=== PATIENT | male | born 1975 | race African-American/Black ===

== ENCOUNTER → 2017-09-26 10:51 | Outpatient (REF) | payer MEDICAID, SELFPAY ==
[2017-09-26 18:59] LABS: Basophils # 0.1 K/mm3 (0-0.2); Basophils % 0.8 % (0.1-2.0); Eosinophils # 0.1 K/mm3 (0.0-0.4); Eosinophils % 1.1 % (0.1-12.0); Hematocrit 45.6 % (42.0-52.0); Lymphocytes # 3.2 K/mm3 (0.7-4.5); Lymphocytes % 38.5 K/mm3 (10-50); Mean Corpuscular HGB Conc 32.9 g/dL (31.8-35.4); Mean Corpuscular Hemoglobin 28.2 pg (27.0-31.2); Mean Corpuscular Volume 85.7 fl (80-94); Mean Platelet Volume 9.6 fl (7.4-10.4); Monocytes # 0.3 K/mm3 (0.1-1.0); Monocytes % 3.8 % (1.7-9.3); Neutrophils # 4.7 K/mm3 (1.8-7.8); Neutrophils % 55.8 % (37.0-80.0); Platelet Count 359 K/mm3 (142-424); Red Blood Count 5.32 M/mm3 (4.60-6.20); Red Cell Distribution Width 13.8 % (11.5-17.5); White Blood Count 8.3 K/mm3 (4.8-10.8)
[2017-09-26 19:59] LABS: Alanine Aminotransferase 28 U/L (12-78); Albumin Level 4.1 gm/dL (3.4-5.0); Albumin/Globulin Ratio 1.1 (1.1-1.8); Alkaline Phosphatase 90 U/L (46-116); Anion Gap 14.1 mEq/L (5-15); Aspartate Amino Transferase 15 U/L (15-37); Bilirubin,Total 0.4 mg/dL (0.2-1.0); Blood Urea Nitrogen 13 mg/dL (7-18); Calcium 9.1 mg/dL (8.5-10.1); Carbon Dioxide 25 mmol/L (21.0-32.0); Chloride 104 mmol/L (98-107); Cholesterol 217 mg/dL (140-200); Creatinine,Serum 1.41 mg/dL (0.70-1.30); Estimated Glomerular Filt Rate 55 ml/min (>60); GFR (African American) 67 ML/MIN (>60); Globulin 3.7 gm/dl (1.3-3.2); Glucose 100 mg/dL (74-106); HDL Cholesterol 43 mg/dL (27-67); LDL Cholesterol 118 mg/dL (0-130); Potassium 4.1 mmoL/L (3.5-5.1); Sodium 139 mmol/L (136-145); T4 (Thyroxine) 7.1 ug/dl (4.7-13.3); Thyroid Stimulating Hormone 2.15 uIU/ml (0.358-3.740); Total Protein,Serum 7.8 gm/dL (6.4-8.2); Triglycerides 282 mg/dL (30-200); VLDL Cholesterol 56 mg/dL (0-40)
[2017-09-26 20:20] LABS: Amphetamine/Metha Screen,Urine Negative ng/mL (<1000); Barbiturates Screen,Urine Negative ng/mL (<200); Benzodiazepines Screen,Urine Negative ng/mL (200); Cannabinoid Screen,Urine Negative ng/mL (<50); Cocaine Screen,Urine Negative ng/g (<300); Methadone Screen,Urine Negative ng/mL (<300); Opiate Screen,Urine Negative ng/mL (<300); Phencyclidine Screen,Urine Negative ng/mL (<25)
[2017-09-29 06:26] LABS: Vitamin D 25 Hydroxy 34.9 ng/mL (30.0-100.0)
== END ==
LOC: LAB 10:51
PROVIDERS: Visit Provider Physician Assistant
DX: I10 Essential (primary) hypertension (principal); Z79.899 Other long term (current) drug therapy
CPT/HCPCS: 80053; 80061; 80305; 82652; 84436; 84443; 85025

== ENCOUNTER → 2017-10-10 12:40 | Outpatient (CLI) | payer MEDICAID, SELFPAY ==
--- NOTE | 2017-10-10 12:43 | FL_ITS ---
FL guided lumbar puncture LP HISTORY: Headache, history of viral cephalopathy ITS.REASON: headache, h/o viral encephalopathy ORDERING PHYSICIAN: JEAN-PIERRE Marinelli PATIENT AGE: 42 years Fluoroscopy time: 1 minute and 51 seconds COMPARISON: None TECHNIQUE: Following obtaining informed consent under local anesthesia with 1% lidocaine and under fluoroscopic guidance a 20-gauge spinal needle was inserted into the L4-L5 interspace. Approximately 10 cc of clear CSF was obtained and sent to laboratory for analysis. The patient tolerated the procedure well without evidence of immediate complication IMPRESSION: Successful fluoroscopy guided lumbar puncture without complications
[2017-10-10 14:06] LABS: Glucose,CSF 69 mg/dL (40-70); Total Protein,CSF 49.6 mg/dL (15-45)
[2017-10-10 15:05] LABS: Appearance,CSF Clear (Clear)
[2017-10-10 15:21] LABS: Red Blood Cell,CSF 0 cells/uL (0); Volume,CSF 7 mL; White Blood Cell,CSF 1 cells/uL (0-5)
[2017-10-10 16:25] LABS: Mononuclear WBCs,CSF 100 %; Polynuclear WBCs,CSF 0 %
== END ==
PROVIDERS: Family Provider Emergency Medicine; PCP Physician Assistant; Visit Provider Physician Assistant
DX: Z86.61 Personal history of infections of the central nervous system (principal); R51 Headache; G43.909 Migraine, unspecified, not intractable, without status migrainosus
CPT/HCPCS: 62270; 82945; 84155; 87070; 87205; 89051

== ENCOUNTER → 2018-05-24 12:53 | Outpatient (CLI) | payer MEDICAID, SELFPAY ==
--- NOTE | 2018-05-24 12:56 | CT_ITS ---
CT head/brain wo con HISTORY: ITS.REASON: heaache, seizure ORDERING PHYSICIAN: JEAN-PIERRE Marinelli PATIENT AGE: 43 years COMPARISON: 03/21/2017 TECHNIQUE: Axial images obtained without contrast. Brain and bone windows reviewed. All CT scans at the facility use one or more dose reduction, viz: automated exposure control, ma/kV adjustment per patient size (including targeted exams where dose is matched to indication, i.e. head), or iterative reconstruction technique. FINDINGS: No midline shift, mass effect, intracranial hemorrhage, hydrocephalus, or extra-axial fluid collection is evident. The calvarium has an unremarkable appearance. No mastoid effusion. No sinus air-fluid levels.. IMPRESSION: Negative CT head without contrast. No acute finding
--- NOTE | 2018-05-24 12:56 | FL_ITS ---
FL guided lumbar puncture LP HISTORY: ITS.REASON: headache, seizure ORDERING PHYSICIAN: JEAN-PIERRE Marinelli PATIENT AGE: 43 years COMPARISON: None TECHNIQUE: Following obtaining informed consent under local anesthesia with 1% lidocaine and under fluoroscopic guidance a 22-gauge spinal needle was inserted into the L4-L5 interspace. Initial attempt was at the L3-L4 interspace however, the patient had persistent sensation of numbness and tingling going down the leg into the umbilical region, therefore, the L4-L5 interspace was then entered. Opening pressure is 8 cm water. Approximately 12 cc of clear CSF was obtained and sent to laboratory for analysis. The patient tolerated the procedure well without evidence of immediate complication IMPRESSION: Successful fluoroscopy guided lumbar puncture without complications Opening pressure normal at 8 cm long
[2018-05-24 14:18] LABS: Basophils # 0.1 K/mm3 (0-0.2); Basophils % 0.7 % (0.1-2.0); Eosinophils # 0.1 K/mm3 (0.0-0.4); Eosinophils % 1.4 % (0.1-12.0); Hematocrit 45.4 % (42.0-52.0); Hemoglobin 14.7 g/dL (14.1-18.0); Lymphocytes # 3.4 K/mm3 (0.7-4.5); Mean Corpuscular HGB Conc 32.4 g/dL (31.8-35.4); Mean Corpuscular Volume 86.4 fl (80-94); Mean Platelet Volume 7.7 fl (7.4-10.4); Monocytes # 0.3 K/mm3 (0.1-1.0); Monocytes % 3.7 % (1.7-9.3); Neutrophils # 4.8 K/mm3 (1.8-7.8); Neutrophils % 55.2 % (37.0-80.0); Platelet Count 335 K/mm3 (142-424); Red Blood Count 5.25 M/mm3 (4.60-6.20); White Blood Count 8.7 K/mm3 (4.8-10.8)
[2018-05-24 14:30] LABS: Alanine Aminotransferase 24 U/L (12-78); Albumin Level 3.8 gm/dL (3.4-5.0); Alkaline Phosphatase 95 U/L (46-116); Bilirubin,Total 0.3 mg/dL (0.2-1.0); Blood Urea Nitrogen 18 mg/dL (7-18); Calcium 8.9 mg/dL (8.5-10.1); Carbon Dioxide 27 mmol/L (21.0-32.0); Chloride 104 mmol/L (98-107); Creatinine,Serum 1.67 mg/dL (0.70-1.30); Estimated Glomerular Filt Rate 45 ml/min (>60); GFR (African American) 55 ML/MIN (>60); Globulin 3.9 gm/dl (1.3-3.2); Glucose 121 mg/dL (74-106); Sodium 141 mmol/L (136-145); Total Protein,Serum 7.7 gm/dL (6.4-8.2)
[2018-05-24 14:33] LABS: Aspartate Amino Transferase 18 U/L (15-37)
[2018-05-24 15:37] LABS: Glucose,CSF 76 mg/dL (40-70); Total Protein,CSF 56.3 mg/dL (15-45)
[2018-05-24 16:41] LABS: Appearance,CSF Clear (Clear); Red Blood Cell,CSF 2 cells/uL (0); Volume,CSF 11.5 mL; White Blood Cell,CSF 2 cells/uL (0-5)
[2018-05-24 16:50] LABS: Mononuclear WBCs,CSF 100 %; Polynuclear WBCs,CSF 0 %
== END ==
PROVIDERS: PCP Physician Assistant; Visit Provider Physician Assistant
DX: R51 Headache (principal); R56.9 Unspecified convulsions
CPT/HCPCS: 36415; 62270; 70450; 80053; 82945; 83916; 84155; 85025; 87070; 87205; 89051

== ENCOUNTER → 2018-06-12 13:42 | Outpatient (CLI) | payer MEDICAID, SELFPAY ==
[2018-06-12 13:54] LABS: Basophils % 0.6 % (0.1-2.0); Eosinophils # 0.1 K/mm3 (0.0-0.4); Eosinophils % 1.4 % (0.1-12.0); Hematocrit 46.5 % (42.0-52.0); Hemoglobin 14.8 g/dL (14.1-18.0); Lymphocytes # 2.5 K/mm3 (0.7-4.5); Lymphocytes % 36.7 % (10-50); Mean Corpuscular HGB Conc 31.9 g/dL (31.8-35.4); Mean Corpuscular Hemoglobin 27.2 pg (27.0-31.2); Mean Corpuscular Volume 85.5 fl (80-94); Monocytes # 0.3 K/mm3 (0.1-1.0); Monocytes % 4.8 % (1.7-9.3); Neutrophils # 3.9 K/mm3 (1.8-7.8); Neutrophils % 56.4 % (37.0-80.0); Platelet Count 386 K/mm3 (142-424); Red Blood Count 5.44 M/mm3 (4.60-6.20); Red Cell Distribution Width 14.3 % (11.5-17.5); White Blood Count 6.8 K/mm3 (4.8-10.8)
[2018-06-12 15:12] LABS: Alanine Aminotransferase 27 U/L (12-78); Alkaline Phosphatase 89 U/L (46-116); Anion Gap 14.2 mEq/L (5-15); Aspartate Amino Transferase 23 U/L (15-37); Bilirubin,Total 0.4 mg/dL (0.2-1.0); Blood Urea Nitrogen 10 mg/dL (7-18); Calcium 9.1 mg/dL (8.5-10.1); Carbon Dioxide 25 mmol/L (21.0-32.0); Chloride 103 mmol/L (98-107); Chol/HDL Ratio 4.2 (1-3.5); Cholesterol 196 mg/dL (140-200); Creatinine,Serum 1.34 mg/dL (0.70-1.30); Estimated Glomerular Filt Rate 58 ml/min (>60); GFR (African American) 71 ML/MIN (>60); Glucose 101 mg/dL (74-106); HDL Cholesterol 47 mg/dL (27-67); LDL Cholesterol 99 mg/dL (0-130); Potassium 4.2 mmoL/L (3.5-5.1); Sodium 138 mmol/L (136-145); T4 (Thyroxine) 7.1 ug/dl (4.7-13.3); Thyroid Stimulating Hormone 1.42 uIU/ml (0.358-3.740); Triglycerides 248 mg/dL (30-200); VLDL Cholesterol 50 mg/dL (0-40)
[2018-06-12 15:14] LABS: Phenytoin (Dilantin) < 0.5 ug/mL (10-20)
[2018-06-13 08:30] LABS: Hep A Ab, IgM Negative (Negative); Hepatitis B Core Antibody IgM Negative (Negative); Hepatitis B Surface Antigen Negative (Negative)
[2018-06-13 12:41] LABS: Hepatitis C Antibody <0.1 s/co ratio (0.0-0.9)
== END ==
PROVIDERS: PCP Physician Assistant; Visit Provider Physician Assistant
DX: R51 Headache (principal); E78.5 Hyperlipidemia, unspecified
CPT/HCPCS: 80053; 80061; 80074; 80185; 84436; 84443; 85025

== ENCOUNTER → 2018-07-10 14:12 | Outpatient (CLI) | payer MEDICAID, SELFPAY | PROVIDERS: Visit Provider Physician Assistant | DX: R07.9 Chest pain, unspecified (principal) | CPT/HCPCS: 93005 ==

== ENCOUNTER → 2018-07-12 16:41 | Outpatient (CLI) | payer MEDICAID, SELFPAY | PROVIDERS: PCP Emergency Medicine; Visit Provider Physician Assistant | DX: R00.2 Palpitations (principal) | CPT/HCPCS: 93225; 93226 ==

== ENCOUNTER → 2019-03-18 16:38 | Outpatient (CLI) | payer MEDICARE, MEDICAID, SELFPAY ==
--- NOTE | 2019-03-18 16:44 | XR_ITS ---
XR knee LT 4V HISTORY: ITS.REASON: Left knee pain ORDERING PHYSICIAN: JEAN-PIERRE Nelson PATIENT AGE: 44 years COMPARISON: None FINDINGS: No fracture or dislocation. No lytic or blastic change. Normal mineralization. No significant arthritic changes evident. No other significant findings IMPRESSION: Negative Knee
== END ==
PROVIDERS: PCP Physician Assistant; Visit Provider Physician Assistant
DX: M25.562 Pain in left knee (principal)
CPT/HCPCS: 73564

== ENCOUNTER 2019-03-20 13:34 | Outpatient (RCR) | payer MEDICARE, MEDICAID, SELFPAY ==
--- NOTE | 2019-03-20 15:18 | HMH.PTOPEV ---
PT Outpatient Evaluation Rehab PT Outpatient Evaluation Start: 03/20/19 15:03 Freq: Status: Active Protocol: Document 03/20/19 15:06 SHIRA (Rec: 03/20/19 15:18 SHIRA [id number]) Electronically Signed By Eris David, PT 03/20/19 15:06 Outpatient Therapy Subjective History Subjective History Patient is a 44 year old male presenting to outpatient PT with report of acute left knee pain starting approximatley 3 weeks ago of insidous onset. Most recent diagnostics negative. 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 Most recent diagnostics negative. Comorbidities include hx of gout, seizures, hernia surgery and spinal meningitis. Chief Complaint Pain,Stiff,Weakness Symptom Type Ache,Sharp,Shooting Symptoms Relieved By Activity Prior Functional Limitations None Current Functional Limitations Housework,Standing,Squatting, Recreation Activity,Walking, Stairs,Balance,Bending/ Stooping Symptom Description Constant but Variable Level of pain today (0-10) 4 Pain scale - at its best (0-10) 4 Pain scale - at its worst (0-10) 7 Hip/Knee Eval Gait Observation General Gait Pattern Observation Decrease Weight Bear (L) Assistive Device Assistive Devices None / NA Palpation Tenderness right Knee Palpation Finding Tenderness Knee Palpation Overall Comment Distal ITB insertion, medial joint line. MMT Hip Flexion Strength Grade 4- Good- Hip Abduction Strength Grade 4- Good- Hip Adduction Strength Grade 4- Good- Hip Extension Strength Grade 3+ Fair+ Hip External Rotation Strength Grade 3+ Fair+ Hip Internal Rotation Strength Grade 3+ Fair+ Knee Extension Strength Grade 4- Good- Knee Flexion Strength Grade 4- Good- ROM Hip ROM Reason Not Measured Within Functional Limits Knee Extension Active Range of Motion ( -5 degrees) Knee Extension Passive Range of Motion ( 0 degrees) Knee Flexion Active Range of Motion ( 110 degrees) Knee Flexion Passive Range of Motion ( 115 degrees) Special Tests Kris Test Positive Knee Anterior Armando Test Negative Left Knee Pivot Shift Test Negative Left Knee Valgus Stress Test Negative Left Knee Varus Stress Test
== END 2019-03-20 13:40 | disposition home or self-care (01) ==
LOC: PT 13:34
PROVIDERS: Visit Provider Physician Assistant
DX: M25.562 Pain in left knee (principal)
CPT/HCPCS: 97163

== ENCOUNTER → 2019-08-06 10:38 | Outpatient (CLI) | payer MEDICARE, SELFPAY ==
--- NOTE | 2019-08-06 10:55 | XR_ITS ---
PROCEDURE: XR ABDOMEN MIN 2V CLINICAL INDICATION: pain COMPARISON: ABDPELW/O CT ABD PELVIS W/O CONTRAST from 07/18/2017 FINDINGS: There is mild gastric dilatation. There is moderate stool seen in ascending colon and hepatic flexure. The transverse colon and descending colon are basically decompressed. There is no significant small bowel gas. There surgical clips right upper quadrant from previous cholecystectomy. There is no abnormal soft tissue shadow and there is no free air. IMPRESSION: Essentially nondiagnostic abdomen Dictated by: Dr. Tyree Talavera MD 08/06/2019 11:[address] Tyree Talavera MD in [place] 08/06/2019 11:48
[2019-08-06 11:38] LABS: Basophils # 0.1 K/mm3 (0-0.2); Basophils % 0.5 % (0.1-2.0); Hematocrit 50.4 % (42.0-52.0); Hemoglobin 14.4 g/dL (14.1-18.0); Lymphocytes # 2.2 K/mm3 (0.7-4.5); Lymphocytes % 15.3 % (10-50); Mean Corpuscular HGB Conc 28.6 g/dL (31.8-35.4); Mean Corpuscular Hemoglobin 27.7 pg (27.0-31.2); Mean Corpuscular Volume 96.8 fl (80-94); Mean Platelet Volume 10.3 fl (7.4-10.4); Monocytes # 0.8 K/mm3 (0.1-1.0); Monocytes % 5.3 % (1.7-9.3); Neutrophils # 11.4 K/mm3 (1.8-7.8); Neutrophils % 78.8 % (37.0-80.0); Platelet Count 462 K/mm3 (142-424); Red Cell Distribution Width 14.5 % (11.5-17.5); White Blood Count 14.5 K/mm3 (4.8-10.8)
[2019-08-06 12:29] LABS: Alanine Aminotransferase 35 U/L (12-78); Albumin Level 3.9 gm/dL (3.4-5.0); Alkaline Phosphatase 149 U/L (46-116); Anion Gap 23.8 mEq/L (5-15); Aspartate Amino Transferase 18 U/L (15-37); Bilirubin,Total 0.5 mg/dL (0.2-1.0); Blood Urea Nitrogen 25 mg/dL (7-18); C-Reactive Protein 1.7 mg/dL (0.0-0.9); Calcium 9.8 mg/dL (8.5-10.1); Carbon Dioxide 20 mmol/L (21.0-32.0); Chloride 81 mmol/L (98-107); Creatinine,Serum 2.57 mg/dL (0.70-1.30); Estimated Glomerular Filt Rate 27 ml/min (>60); GFR (African American) 33 ML/MIN (>60); Globulin 3.9 gm/dl (1.3-3.2); Potassium 4.8 mmoL/L (3.5-5.1); Sodium 120 mmol/L (136-145); Total Protein,Serum 7.8 gm/dL (6.4-8.2)
[2019-08-06 12:42] LABS: Glucose 1148 mg/dL (74-106)
[2019-08-06 17:16] LABS: Erythrocyte Sedimentation Rate 6 mm/hr (0-15)
== END ==
PROVIDERS: PCP Nurse Practitioner Family; Visit Provider Nurse Practitioner Family
DX: R10.9 Unspecified abdominal pain (principal); M54.9 Dorsalgia, unspecified
CPT/HCPCS: 36415; 74019; 80053; 85025; 85651; 86140; 87086

== ENCOUNTER 2019-08-06 13:10 | Observation (INO) ==
[2019-08-06 13:32] LABS: Microscopic, Urine URINE MICROSCOPIC (MICROSCOPIC)
--- NOTE | 2019-08-06 13:37 | Emergency Department Note ---
ED Disposition Clinical Impression: DKA (diabetic ketoacidoses) Disposition: Admitted As Inpatient Condition on Discharge: Serious Referrals: Samuel Samuel MD [Primary Care Provider] - Time of Disposition: 15:54 - Critical Care Critical Care Time: Yes Attestation: On 08/06/19, the high probability of a clinically significant, sudden or life threatening deterioration of the following system(s) required my full and direct attention, intervention and personal management. The time I documented below is in addition to time spent performing reported procedures but includes the following listed in this critical care notation. Vital system(s) involved:: Metabolic Failure My critical care processes included: Assessment & monitoring of V/S, Data Review/Interpretation, Coordinating Care, Medication Orders and management Medical Decision Making - Medical Records Medical records reviewed: Yes: I reviewed the patient's medical records. - Rajiv Inquiry Pt receiving controlled substance: No Vital Signs: 08/06/19 13:18 08/06/19 13:29 08/06/19 14:01 Temperature 97.9 F 97.9 F Temperature Source Oral Oral Pulse Rate [Right] 126 H 126 H 115 H Respiratory Rate 26 H 26 H 28 H Blood Pressure [Right Arm] 164/107 H 164/107 H 108/53 L Blood Pressure Mean [Right Arm] 126 126 71 Blood Pressure Position [Right Arm] Sitting 02 Sat by Pulse Oximetry 95 95 98 Oxygen Delivery Method Room Air - Lab Data Lab Results 08/06/19 13:25: Urine Color Straw, Urine Appearance Clear, Urine pH 5.5, Ur Specific [place] <= 1.005, Urine Protein Negative, Urine Glucose (UA) 3+, Urine Ketones Negative, Urine Blood 1+, Urine Nitrate Negative, Urine Bilirubin Negative, Urine Urobilinogen 0.2, Ur Leukocyte Esterase Negative, Urine RBC None , Urine WBC 3-5, Ur Squamous Epith Cells None, Urine Bacteria None 08/06/19 13:25: WBC 14.9 H, RBC 5.31, Hgb 15.5, Hct 51.8, MCV 97.4 H, MCH 29.1, MCHC 29.9 L, RDW 13.7, Plt Count 452 H, MPV 10.1, Neut % (Auto) 82.5 H, Lymph % (Auto) 12.5, [place] % (Auto) 4.6, Eos % (Auto) 0.1, Baso % (Auto) 0.3, Neut # (Auto) 12.3 H, Lymph # (Auto) 1.9, [place] # (Auto) 0.7, Eos # (Auto) 0.0, Baso # (Auto) 0.0, ESR 8 08/06/19 13:25: Sodium 118 L, Potassium 4.7, Chloride 79 L, Carbon Dioxide 18 L, Anion Gap 25.7 H, BUN 26 H, Creatinine 2.65 H, Estimated Creat Clear 51, Estimated GFR 26 L, Est GFR ( Amer) 32 L, Glucose 1384 H* D, Calcium 9.4, Total Bilirubin 0.4, AST 20, ALT 33, Alkaline Phosphatase 150 H, Troponin I < 0.02, C-Reactive Protein 1.7 H, Total Protein 8.2, Albumin 3.9, Globulin 4.3 H, Albumin/Globulin Ratio 0.9 L, Acetone Level None detected 08/06/19 13:25: Lactate 9.6 H 08/06/19 13:25: Influenza Type A Ag Negative, Influenza Type B Ag Negative 08/06/19 13:25: Magnesium 2.8 H 08/06/19 13:25: Hemoglobin A1c 10.5 H 08/06/19 13:29: Specimen Source L radial, O2 % Room air, ABG pH 7.33 L, ABG pCO2 32.7 L, ABG pO2 89.7, ABG HCO3 16.7 L, ABG Total CO2 17.7 L, ABG O2 Saturation 96, ABG Base Excess -9.4 L, Isaac Test Acceptable Result diagrams: 08/06/19 13:25 08/06/19 13:25 Orders (Tests/Meds): ED MEDICATIONS Generic Name Dose Route Start Last Admin Trade Name Freq PRN Reason Stop Dose Admin Insulin Human Regular 100 unit 101 mls @ 10.1 mls/hr 08/06/19 14:04 08/06/19 14:17 / Sodium Chloride IV 09/05/19 14:03 10.1 mls/hr .Q10H JAELYN Administration Protocol 10 UNIT/HR Discontinued Medications Generic Name Dose Route Start Last Admin Trade Name Freq PRN Reason Stop Dose Admin Sodium Chloride 1,000 mls @ 999 mls/hr 08/06/19 13:30 08/06/19 13:27 Sod Chlor 0.9% 1000ml Bag IV 08/06/19 14:30 999 mls/hr .Q1H1M JAELYN Administration Sodium Chloride 1,000 mls @ 999 mls/hr 08/06/19 14:15 08/06/19 14:17 Sod Chlor 0.9% 1000ml Bag IV 08/06/19 15:15 999 mls/hr .Q1H1M JAELYN Administration Sodium Chloride 1,000 mls @ 999 mls/hr 08/06/19 14:15 Sod Chlor 0.9% 1000ml Bag IV 08/06/19 15:15 .Q1H1M JAELYN Ondansetron HCl 4 mg 08/06/19 14:01 08/06/19 14:02 Zofran 4mg/2ml Vial IV 08/06/19 14:02 4 mg ONCE ONE Administration ORDERS Category Date Time Status Chest XR 2 view (NOT portable) [XR chest 2V] Stat Exams 08/06/19 13:22 Taken Troponin I Q3H Lab 08/06/19 16:30 Ordered Troponin I Q3H Lab 08/06/19 19:30 Ordered bedside glucose [POC Glucose,Bedside] Stat Lab 08/06/19 15:10 Ordered Blood Culture Stat Micro 08/06/19 13:25 Received - Physician Consults Physician Consulted: Dr. De La Cruz construction field engineer for Dr. Samuel Time: 15:47 Reason -: Admission Comment/Response: Patient to be admitted for DKA and placed on DKA protocol. Dr. De La Cruz covering for Dr. Samuel. General Adult HPI - General Chief complaint: Recheck/Abnormal Lab/Rx Stated complaint: High Blood Sugar Time Seen by Provider: 08/06/19 13:18 Mode of Arrival: Ambulatory Limitations: No Limitations Description of Symptoms (Recalled from ER Triage Doc. by RN): PT STATES HE HAS BEEN "UNDER THE WEATHER" SINCE , STATES HE HAS BEEN NAUSEOUS, ABD CRAMPING AND JUST OVER ALL FEELING BAD. DENIES FEVER. PT SENT FROM DR VIZCARRA OFFICE FOR HIGH SUGAR. - History of Present Illness HPI narrative: 44-year-old -[place] male presents to the emergency department from his primary care provider with the complaint of severely elevated blood glucose. The patient went to his primary care provider because of fatigue and malaise he felt over the holiday. Patient has a family history of diabetes mellitus and has reported polydipsia, polyphagia and polyuria over the past 2 weeks. Onset (ago): week(s) (1) Consistency: constant Relieving factors: none Exacerbating factors: none Associated symptoms: malaise, weakness Treatments prior to arrival: none - Related Data Home Medications Medication Instructions Recorded Confirmed Pantoprazole Sodium [Protonix 40mg 40 mg PO QAM 09/07/18 08/06/19 tablet] Previous Rx's Medication Instructions Recorded cholecalciferol (vitamin D3) 25 1,000 unit PO DAILY #90 cap 03/27/18 mcg (1,000 unit) capsule hydroxyzine pamoate 50 mg capsule 50 mg PO QHS PRN #90 cap 07/20/18 amitriptyline 100 mg tablet See Rx Instructions .ROUTE 03/08/19 .COMPLEX #30 tablet methylprednisolone 4 mg tablets in 4 mg PO PER PKG DIR 6 Days #21 tab 03/14/19 a dose pack diclofenac sodium 1 % topical gel 4 g TOPICAL QID #100 g 04/03/19 cholecalciferol (vitamin D3) 2,000 2,000 unit PO DAILY #90 tab 05/09/19 unit tablet lisinopril 20 1 tab PO BID #180 tab 05/09/19 mg-hydrochlorothiazide 12.5 mg tablet metoprolol tartrate 100 mg tablet 100 mg PO BID #180 tab 05/09/19 sumatriptan succinate 100 mg tablet See Rx Instructions .ROUTE 05/09/19 .COMPLEX #9 tablet trazodone 100 mg tablet 100 mg PO QHS PRN #90 tab 05/09/19 atorvastatin 20 mg tablet See Rx Instructions .ROUTE 05/31/19 .COMPLEX #90 tab topiramate 200 mg tablet 200 mg PO QHS #90 tab 06/07/19 duloxetine 60 mg capsule,delayed See Rx Instructions .ROUTE 06/28/19 release .COMPLEX #30 capsule Allergies Allergy/AdvReac Type Severity Reaction Status Date / Time chocolate flavor Allergy Unknown I-RASH Verified 08/06/19 09:38 [From CHOCOLATE (FOOD/DRUG)] midazolam [MIDAZOLAM] Allergy Unknown Verified 08/06/19 09:38 From CHOCOLATE (FOOD/DRUG) Allergy Unknown I-RASH Uncoded 08/06/19 09:38 [facility] History - Hepatitis A Screen Drug use history?: No High risk sexual behaviors?: No History of sexually transmitted infection?: No Currently employed?: No Childcare worker?: No Do you have indoor plumbing?: Yes Do you have electricity?: Yes Attestation statement:: This patient has been screened for Hepatitis A risk factors. I have reviewed the patient's past medical history: Yes Medical History: Reports:: Gastroesophageal Reflux Disease(GERD), Hyperlipidemia, Hypertension, Migraine Denies:: Cancer, Diabetes Mellitus Type 1, Diabetes Mellitus Type 2, MRSA Other Surgeries: Yes: Appendectomy, Cardiac Catheterization, Colonoscopy Amputation: No Fractures: No Comment: abdominal surgery. - Social History Smoking Status: Never smoker Alcohol Intake: never Substance Use Type: denies use Occupational Status: retired Housing: house Household Members: family Family Hx:: Diabetes, Hypertension ROS Obtained: Yes Systems reviewed as appropriate & no additional complaints - Constitutional Constitutional: Reports fatigue, Reports malaise - Eyes Eyes: Reports system reviewed and no additional complaints, except as docu - ENT Ears, Nose, Mouth, and Throat: Reports system reviewed and no additional complaints, except as docu - Cardiovascular Cardiovascular: Reports system reviewed and no additional complaints, except as docu - Respiratory Respiratory: Yes system reviewed and no additional complaints, except as docu - Gastrointestinal Gastrointestingal: Reports: system reviewed and no additional complaints, except as docu - Genitourinary Male Genitourinary: Reports system reviewed and no additional complaints, except as docu - Musculoskeletal Musculoskeletal: Reports system reviewed and no additional complaints, except as docu - Integumentary/Breasts Skin/Breast: Reports system reviewed and no additional complaints, except as docu - Neurologic Neurologic: Reports system reviewed and no additional complaints, except as docu - Endocrine Endocrine: Reports system reviewed and no additional complaints, except as docu - Hematologic/Lymphatic Henatologic/Lymphatic: Reports system reviewed and no additional complaints, except as docu - Allergic/Immunologic Allergic/Immunologic: Reports system reviewed and no additional complaints, except as docu Physical Exam - General General appearance: alert, in no apparent distress - Head Head exam: atraumatic, normocephalic, normal inspection - Eye Eye exam: Present: normal appearance, PERRL, EOMI - ENT ENT exam: Present: normal exam, normal oropharynx, mucous membranes moist, normal external ear exam - Neck Neck exam: Present: normal inspection, full ROM, trachea midline. Absent: meningismus, lymphadenopathy - Chest Chest inspection: Present: normal inspection, symmetric chest wall rise. Absent: tenderness - Respiratory Respiratory exam: Present: normal lung sounds bilaterally. Absent: respiratory distress - Cardiovascular Cardiovascular exam: Present: regular rate, normal rhythm. Absent: JVD - Abdominal Exam Abdominal exam: Present: soft, normal bowel sounds. Absent: distention, tenderness, guarding - Extremities Exam Extremities exam: Present: normal inspection, full ROM, normal capillary refill. Absent: calf tenderness - Back Exam Back exam: Present: normal inspection. Absent: tenderness - Neurological Exam Neurological exam: Present: alert, oriented X3, CN II-XII intact, normal gait. Absent: motor sensory deficit - Psychiatric Psychiatric exam: Present: normal affect, normal mood - Skin Skin exam: Present: warm, dry, intact, normal color
[2019-08-06 13:39] LABS: ABG Base Excess -9.4 mmol/L (-2.4-2.3); ABG HCO3 16.7 mmhg (22.0-26.0); ABG Oxygen Saturation 96 % (90-100); ABG PCO2 32.7 mmhg (35.0-45.0); ABG PH 7.33 mmol/L (7.35-7.45); ABG PO2 89.7 mmhg (80-100); ABG TCO2 17.7 mmhg (23-27)
[2019-08-06 13:41] LABS: Allen's Test ACCEPTABLE; Oxygen ROOM AIR %
[2019-08-06 13:42] LABS: Appearance,Urine CLEAR (Clear); Bilirubin,Urine Negative (Negative); Blood, Urine 1+ (Negative); Color,Urine STRAW (Yellow); Glucose,Urine (UA) 3+ (Negative); Ketones,Urine Negative (Negative); Leukocyte Esterase,Urine Negative (Negative); PH,Urine 5.5 (5.0-8.5); Protein,Urine Negative (Negative); Specific Gravity, Urine <= 1.005 (1.005-1.030); Urobilinogen,Urine 0.2 EU/dl (0.2)
[2019-08-06 13:50] LABS: Alanine Aminotransferase 33 U/L (12-78); Albumin Level 3.9 gm/dL (3.4-5.0); Albumin/Globulin Ratio 0.9 (1.1-1.8); Alkaline Phosphatase 150 U/L (46-116); Anion Gap 25.7 mEq/L (5-15); Aspartate Amino Transferase 20 U/L (15-37); Bilirubin,Total 0.4 mg/dL (0.2-1.0); Blood Urea Nitrogen 26 mg/dL (7-18); C-Reactive Protein 1.7 mg/dL (0.0-0.9); Calcium 9.4 mg/dL (8.5-10.1); Carbon Dioxide 18 mmol/L (21.0-32.0); Chloride 79 mmol/L (98-107); Globulin 4.3 gm/dl (1.3-3.2); Sodium 118 mmol/L (136-145); Total Protein,Serum 8.2 gm/dL (6.4-8.2)
[2019-08-06 13:52] LABS: Glucose 1384 mg/dL (74-106)
[2019-08-06 14:05] LABS: Basophils % 0.3 % (0.1-2.0); Eosinophils % 0.1 % (0.1-12.0); Hematocrit 51.8 % (42.0-52.0); Hemoglobin 15.5 g/dL (14.1-18.0); Lymphocytes # 1.9 K/mm3 (0.7-4.5); Lymphocytes % 12.5 % (10-50); Mean Corpuscular HGB Conc 29.9 g/dL (31.8-35.4); Mean Corpuscular Volume 97.4 fl (80-94); Mean Platelet Volume 10.1 fl (7.4-10.4); Monocytes # 0.7 K/mm3 (0.1-1.0); Monocytes % 4.6 % (1.7-9.3); Neutrophils # 12.3 K/mm3 (1.8-7.8); Neutrophils % 82.5 % (37.0-80.0); Platelet Count 452 K/mm3 (142-424); Red Blood Count 5.31 M/mm3 (4.60-6.20); Red Cell Distribution Width 13.7 % (11.5-17.5); White Blood Count 14.9 K/mm3 (4.8-10.8)
--- NOTE | 2019-08-06 14:08 | Electrocardiograph Report ---
APPROVED REPORT Exam: Resting ECG HR:120 bpm ECG Measurements Heart Rate [address] 158 P 35 QRSd 88 QRS 154 QT 322 T39 QTc 455 <Conclusion> Sinus tachycardia Possible Left atrial enlargement Left posterior fascicular block Cannot rule out Anterior infarct, age undetermined Abnormal ECG Electronically signed by : Greg Dumont, 08/06/2019 14:07:55
[2019-08-06 14:38] LABS: Acetone, Serum (Rapid) None Detected (None Detect)
[2019-08-06 14:40] LABS: Erythrocyte Sedimentation Rate 8 mm/hr (0-15)
--- NOTE | 2019-08-06 17:09 | History & Physical Report ---
*Admission Date: 08/06/19 *Chief complaint: DKA *History of present illness: Mr. Qureshi is an obese 44-year-old -[place] gentleman with history of hypertension, hyperlipidemia, GERD, sleep disorder who presents with a little over 2 weeks of worsening abdominal pain, increased urine output and increased thirst. He states over this time span he is lost greater than 30 pounds. He has begun having difficulty sleeping as he is waking up and going to the bathroom 8-12 times a night. Reports not having slept very much in the past 4 days due to significant urine output. Thought he had a respiratory illness and then a stomach bug. Came to the ER due to his feeling so poorly. On initial presentation labs concerning for anion gap metabolic acidosis, severe hyper glycemia, and an ABG with metabolic acidosis. Patient was noted to be in DKA. Initiated on DKA protocol, received fluid resuscitation, started on insulin drip, and admitted to medicine for further management. Patient denies any shortness of breath, fever, cough. General feeling of "ill" for several weeks. Denies any george nausea or vomiting. Appears distraught when informed that he is a diabetic now. [facility] History I have reviewed the patient's past medical history: Yes Medical History: Reports:: Gastroesophageal Reflux Disease(GERD), Hyperlipidemia, Hypertension, Migraine Denies:: Cancer, Diabetes Mellitus Type 1, Diabetes Mellitus Type 2, MRSA *Have you ever received a pneumonia vaccine?: No *Have you received a flu vaccine this season?: No Other Surgeries: Yes: Appendectomy, Cardiac Catheterization, Colonoscopy Amputation: No Fractures: No - *Social History Smoking Status: Never smoker Alcohol Intake: never Substance Use Type: denies use *Occupational Status:: retired Housing: house Household Members: family *Travel in the last 8 weeks: None Family Hx:: Diabetes, Hypertension Review of Systems - Review of Systems Review of systems:: pertinent systems reviewed and negative unless documented below Meds Home Medications Medication Instructions Recorded Confirmed Type cholecalciferol (vitamin D3) 25 1,000 unit PO DAILY #90 cap 03/27/18 08/06/19 Rx mcg (1,000 unit) capsule hydroxyzine pamoate 50 mg capsule 50 mg PO QHS PRN #90 cap 07/20/18 08/06/19 Rx Pantoprazole Sodium [Protonix 40mg 40 mg PO QAM 09/07/18 08/06/19 History tablet] cholecalciferol (vitamin D3) 2,000 2,000 unit PO DAILY #90 tab 05/09/19 08/06/19 Rx unit tablet lisinopril 20 1 tab PO BID #180 tab 05/09/19 08/06/19 Rx mg-hydrochlorothiazide 12.5 mg tablet trazodone 100 mg tablet 100 mg PO QHS PRN #90 tab 05/09/19 08/06/19 Rx topiramate 200 mg tablet 200 mg PO QHS #90 tab 06/07/19 08/06/19 Rx Acetaminophen with Codeine 1 tab PO Q6HP PRN 08/06/19 08/06/19 History [Tylenol with Codeine #3 tablet] Amitriptyline HCl See Rx Instructions .ROUTE .COMPLEX 08/06/19 08/06/19 History Atorvastatin Calcium [Atorvastatin See Rx Instructions .ROUTE .COMPLEX 08/06/19 08/06/19 History 10mg Tab] Diclofenac Sodium [Voltaren 100gm 4 g TOPICAL QID 08/06/19 08/06/19 History Topical Gel] Duloxetine HCl [Cymbalta] See Rx Instructions .ROUTE .COMPLEX 08/06/19 08/06/19 History Metoprolol Tartrate [Lopressor 100 100 mg PO BID 08/06/19 08/06/19 History mg Tablets] SUMAtriptan succinate [Sumatriptan See Rx Instructions .ROUTE .COMPLEX 08/06/19 08/06/19 History Succinate] hydrOXYzine pamoate [Vistaril] 50 mg PO DAILY 08/06/19 08/06/19 History methylPREDNISolone [Medrol] 4 mg PO PER PKG DIR 08/06/19 08/06/19 History Allergies Allergy/AdvReac Type Severity Reaction Status Date / Time chocolate flavor Allergy Unknown I-RASH Verified 08/06/19 09:38 [From CHOCOLATE (FOOD/DRUG)] midazolam [MIDAZOLAM] Allergy Unknown Verified 08/06/19 09:38 From CHOCOLATE (FOOD/DRUG) Allergy Unknown I-RASH Uncoded 08/06/19 09:38 Exam Vital signs and Labs for Last 24 Hours: Temp Pulse Resp BP Pulse Ox 98.1 F 98 H 18 119/78 97 08/06/19 16:39 08/06/19 16:39 08/06/19 16:39 08/06/19 16:39 08/06/19 16:28 Laboratory Results - last 24 hr 08/06/19 13:25: Urine Color Straw, Urine Appearance Clear, Urine pH 5.5, Ur Specific [place] <= 1.005, Urine Protein Negative, Urine Glucose (UA) 3+, Urine Ketones Negative, Urine Blood 1+, Urine Nitrate Negative, Urine Bilirubin Negative, Urine Urobilinogen 0.2, Ur Leukocyte Esterase Negative, Urine RBC None, Urine WBC 3-5, Ur Squamous Epith Cells None, Urine Bacteria None 08/06/19 13:25: WBC 14.9 H, RBC 5.31, Hgb 15.5, Hct 51.8, MCV 97.4 H, MCH 29.1, MCHC 29.9 L, RDW 13.7, Plt Count 452 H, MPV 10.1, Neut % (Auto) 82.5 H, Lymph % (Auto) 12.5, [place] % (Auto) 4.6, Eos % (Auto) 0.1, Baso % (Auto) 0.3, Neut # (Auto) 12.3 H, Lymph # (Auto) 1.9, [place] # (Auto) 0.7, Eos # (Auto) 0.0, Baso # (Auto) 0.0, ESR 8 08/06/19 13:25: Sodium 118 L, Potassium 4.7, Chloride 79 L, Carbon Dioxide 18 L, Anion Gap 25.7 H, BUN 26 H, Creatinine 2.65 H, Estimated Creat Clear 51, Estimated GFR 26 L, Est GFR ( Amer) 32 L, Glucose 1384 H* D, Calcium 9.4, Total Bilirubin 0.4, AST 20, ALT 33, Alkaline Phosphatase 150 H, Troponin I < 0.02, C-Reactive Protein 1.7 H, Total Protein 8.2, Albumin 3.9, Globulin 4.3 H, Albumin/Globulin Ratio 0.9 L, Acetone Level None detected 08/06/19 13:25: Lactate 9.6 H 08/06/19 13:25: Influenza Type A Ag Negative, Influenza Type B Ag Negative 08/06/19 13:25: Magnesium 2.8 H 08/06/19 13:25: Hemoglobin A1c 10.5 H 08/06/19 13:29: Specimen Source L radial, O2 % Room air, ABG pH 7.33 L, ABG pCO2 32.7 L, ABG pO2 89.7, ABG HCO3 16.7 L, ABG Total CO2 17.7 L, ABG O2 Saturation 96, ABG Base Excess -9.4 L, Isaac Test Acceptable 08/06/19 15:30: Random Glucose 957 H* I & O for Last 24 hours: Intake & Output 08/03/19 08/04/19 08/05/19 08/06/19 23:59 23:59 23:59 23:59 Weight 99.79 kg - Constitutional obese - *Routine HEENT Exam Head: Present: normocephalic Eye: Present: EOMI, PERRL ENT: Present: mucous membranes moist Comments: Erythema of buccal mucosa and palate, beefy red tongue, white plaques on palate and tongue. - *Routine Neck Exam Present: supple. Absent: lymphadenopathy - *Routine Respiratory Exam Present: CTA bilaterally - *Routine Cardiovascular Exam Present: RRR - *Routine Abdominal Exam Present: soft, normoactive bowel sounds, tenderness (Diffuse nonfocal) - *Routine Extremities Exam Absent: cyanosis, clubbing, edema - *Routine Skin Exam Present: warm. Absent: rash - *Routine Neurological Exam Present: alert, oriented X3 Assessment and Plan (1) Hyponatremia Current visit: Yes Status: Acute Category: Medical Code(s): E87.1 - Hypo- osmolality and hyponatremia Pseudohyponatremia, corrected sodium approximately 136. Anticipate improvement with fluids and correction of hyperglycemia. Will monitor with every 4 labs. (2) Class II obesity Current visit: Yes Status: Chronic Category: Medical Code(s): E66.9 - Obesity, unspecified Complicates all aspects of his care (3) Thrush Current visit: Yes Status: Acute Category: Medical Code(s): B37.0 - Candidal stomatitis Initiate nystatin swish and swallow (4) DKA (diabetic ketoacidoses) Current visit: Yes Status: Acute Qualifiers: Diabetes mellitus type: type 1 Category: Medical Code(s): E11.10 - Type 2 diabetes mellitus with ketoacidosis without coma New onset DKA. Initiated on protocol. Will monitor per protocol. Insulin and fluid drips managed by nursing per protocol at this time. As gap closes, will transition to basal bolus regimen. Dietary consult in the morning for diabetic counseling (5) Renal insufficiency Current visit: No Status: Acute Category: Medical Code(s): N28.9 - Disorder of kidney and ureter, unspecified Significantly elevated. Baseline creatinine approximately 1.4. Anticipate improvement with fluid resuscitation (6) Hyperlipidemia Current visit: No Status: Chronic Category: Medical Code(s): E78.5 - Hyperlipidemia, unspecified Present on admission. Will reinitiate statin when appropriate. (7) Hypertension Current visit: No Status: Chronic Qualifiers: Hypertension type: essential hypertension Qualified Code(s): I10 - Essential (primary) hypertension Category: Medical Code(s): I10 - Essential (primary) hypertension At this time patient's blood pressure is normal, monitor for hypertension with fluid resuscitation and correction of DKA. Will resume home medications when appropriate
[2019-08-06 17:26] LABS: Anion Gap 20.9 mEq/L (5-15); Calcium 9.5 mg/dL (8.5-10.1)
[2019-08-06 20:53] LABS: Anion Gap 15.8 mEq/L (5-15); Calcium 9.5 mg/dL (8.5-10.1)
[2019-08-07 00:42] LABS: Anion Gap 13.2 mEq/L (5-15); Calcium 8.6 mg/dL (8.5-10.1)
[2019-08-07 04:57] LABS: Acetone, Serum (Rapid) None Detected (None Detect)
[2019-08-07 05:01] LABS: Anion Gap 15.2 mEq/L (5-15); Blood Urea Nitrogen 15 mg/dL (7-18); Calcium 8.4 mg/dL (8.5-10.1); Carbon Dioxide 24 mmol/L (21.0-32.0); Chloride 105 mmol/L (98-107); Chol/HDL Ratio 5.2 (1-3.5); Cholesterol 177 mg/dL (140-200); Glucose 227 mg/dL (74-106); HDL Cholesterol 34 mg/dL (27-67); Phosphorous 3.3 mg/dL (2.4-4.9); Sodium 140 mmol/L (136-145)
[2019-08-07 05:05] LABS: Triglycerides 405 mg/dL (30-200)
--- NOTE | 2019-08-07 09:31 | Progress Note ---
Internal Medicine - PN: Subj *Date: 08/07/19 *Time: 09:29 Interval history: Overnight patient feels much better. Vital signs remain normal. Heart rate is now normalized from his tachycardia on admission. He is sleeping comfortably. Feels thirsty and would like to try to eat something. Exam Vital signs and Labs for Last 24 Hours: Temp Pulse Resp BP Pulse Ox 98.7 F 77 17 123/61 96 08/06/19 20:00 08/07/19 06:00 08/06/19 20:00 08/07/19 06:00 08/07/19 06:00 Laboratory Results - last 24 hr 08/06/19 13:25: Urine Color Straw, Urine Appearance Clear, Urine pH 5.5, Ur Specific [place] <= 1.005, Urine Protein Negative, Urine Glucose (UA) 3+, Urine Ketones Negative, Urine Blood 1+, Urine Nitrate Negative, Urine Bilirubin Negative, Urine Urobilinogen 0.2, Ur Leukocyte Esterase Negative, Urine RBC None, Urine WBC 3-5, Ur Squamous Epith Cells None, Urine Bacteria None 08/06/19 13:25: WBC 14.9 H, RBC 5.31, Hgb 15.5, Hct 51.8, MCV 97.4 H, MCH 29.1, MCHC 29.9 L, RDW 13.7, Plt Count 452 H, MPV 10.1, Neut % (Auto) 82.5 H, Lymph % (Auto) 12.5, [place] % (Auto) 4.6, Eos % (Auto) 0.1, Baso % (Auto) 0.3, Neut # (Auto) 12.3 H, Lymph # (Auto) 1.9, [place] # (Auto) 0.7, Eos # (Auto) 0.0, Baso # (Auto) 0.0, ESR 8 08/06/19 13:25: Sodium 118 L, Potassium 4.7, Chloride 79 L, Carbon Dioxide 18 L, Anion Gap 25.7 H, BUN 26 H, Creatinine 2.65 H, Estimated Creat Clear 51, Estimated GFR 26 L, Est GFR ( Amer) 32 L, Glucose 1384 H* D, Calcium 9.4, Total Bilirubin 0.4, AST 20, ALT 33, Alkaline Phosphatase 150 H, Troponin I < 0.02, C-Reactive Protein 1.7 H, Total Protein 8.2, Albumin 3.9, Globulin 4.3 H, Albumin/Globulin Ratio 0.9 L, Acetone Level None detected 08/06/19 13:25: Lactate 9.6 H 08/06/19 13:25: Influenza Type A Ag Negative, Influenza Type B Ag Negative 08/06/19 13:25: Magnesium 2.8 H 08/06/19 13:25: Hemoglobin A1c 10.5 H 08/06/19 13:29: Specimen Source L radial, O2 % Room air, ABG pH 7.33 L, ABG pCO2 32.7 L, ABG pO2 89.7, ABG HCO3 16.7 L, ABG Total CO2 17.7 L, ABG O2 Saturation 96, ABG Base Excess -9.4 L, Isaac Test Acceptable 08/06/19 15:30: Random Glucose 957 H* 08/06/19 17:00: Sodium 135 L, Potassium 3.9, Chloride 96 L D, Carbon Dioxide 22 D, Anion Gap 20.9 H, BUN 24 H, Creatinine 2.00 H D, Estimated Creat Clear 69, Estimated GFR 37 L, Est GFR ( Amer) 44 L D, Glucose 687 H* D, Calcium 9.5 08/06/19 17:00: Lactate 5.5 H 08/06/19 18:03: POC Glucose 597 H* 08/06/19 18:42: Random Glucose 411 H 08/06/19 18:42: Lactate 4.3 H 08/06/19 20:15: POC Glucose 232 H 08/06/19 20:40: Sodium 140, Potassium 3.8, Chloride 101, Carbon Dioxide 27 D, Anion Gap 15.8 H, BUN 21 H, Creatinine 1.70 H, Estimated Creat Clear 81, Estimated GFR 44 L, Est GFR ( Amer) 53 L D, Glucose 299 H D, Calcium 9.5 08/06/19 22:15: POC Glucose 202 H 08/07/19 00:06: POC Glucose 181 H 08/07/19 00:20: Sodium 142, Potassium 4.2, Chloride 105, Carbon Dioxide 28, Anion Gap 13.2, BUN 17, Creatinine 1.52 H, Estimated Creat Clear 91, Estimated GFR 50 L, Est GFR ( Amer) 61, Glucose 212 H D, Calcium 8.6 08/07/19 02:03: POC Glucose 220 H 08/07/19 03:55: POC Glucose 230 H 08/07/19 04:35: Sodium 140, Potassium 4.2, Chloride 105, Carbon Dioxide 24, Anion Gap 15.2 H, BUN 15, Creatinine 1.38 H, Estimated Creat Clear 100, Estimated GFR 56 L, Est GFR ( Amer) 68, Glucose 227 H, Calcium 8.4 L, Phosphorus 3.3, Magnesium 2.4 H D, Triglycerides 405 H, Cholesterol 177, HDL Cholesterol 34, Cholesterol/HDL Ratio 5.2 H, Acetone Level None detected 08/07/19 04:35: Lactate 2.1 H 08/07/19 06:06: POC Glucose 192 H 08/07/19 07:17: POC Glucose 166 H I & O for Last 24 hours: Intake & Output 08/04/19 08/05/19 08/06/19 08/07/19 11:59 11:59 11:59 11:59 Intake Total 1765 / 1765 Output Total 1080 / 1080 Balance 685 / 685 Weight 227 lb 9.6 oz Narrative: Patient is awake, alert, oriented x3. Pleasant and talkative, no neurologic deficits of cranial nerves. Heart rate regular. Lungs clear. Abdomen soft nontender. No peripheral clubbing or edema. Abdomen soft and nontender. Obesity limits accuracy of exam. Labs reviewed as noted below. Assessment and Plan (1) Hyponatremia Current visit: Yes Status: Acute Category: Medical Code(s): E87.1 - Hypo- osmolality and hyponatremia Resolving after treatment of hyperglycemia. (2) Class II obesity Current visit: Yes Status: Chronic Category: Medical Code(s): E66.9 - Obesity, unspecified Complicates all aspects of her care (3) Thrush Current visit: Yes Status: Acute Category: Medical Code(s): B37.0 - Candidal stomatitis (4) DKA (diabetic ketoacidoses) Current visit: Yes Status: Acute Qualifiers: Diabetes mellitus type: type 1 Category: Medical Code(s): E11.10 - Type 2 diabetes mellitus with ketoacidosis without coma Unusual presentation of new onset diabetes, acidotic but without ketones in serum. Improving. Transition to floor, stop insulin drip, begin sliding scale insulin and cautious Lantus tonight. (5) Renal insufficiency Current visit: No Status: Acute Category: Medical Code(s): N28.9 - Disorder of kidney and ureter, unspecified (6) Hyperlipidemia Current visit: No Status: Chronic Category: Medical Code(s): E78.5 - Hyperlipidemia, unspecified (7) Hypertension Current visit: No Status: Chronic Qualifiers: Hypertension type: essential hypertension Qualified Code(s): I10 - Essential (primary) hypertension Category: Medical Code(s): I10 - Essential (primary) hypertension (8) Acute kidney injury Current visit: Yes Status: Acute Category: Medical Code(s): N17.9 - Acute kidney failure, unspecified Resolving. Continue normal saline infusions. Check labs tomorrow (9) Hypokalemia Current visit: Yes Status: Acute Category: Medical Code(s): E87.6 - Hypokalemia Resolved.
--- NOTE | 2019-08-07 10:03 | Pharmacy Consult Notes ---
[facility] Pharmacy VTE Monitoring - Patient Demographics Admission date: 08/07/19 Report Date: 08/07/19 Time: 10:03 Allergies/Adverse Reactions: Patient Allergies chocolate flavor [From CHOCOLATE (FOOD/DRUG)] Allergy (Unknown, Verified 08/06/19 09:38) I-RASH midazolam [MIDAZOLAM] Allergy (Unknown, Verified 08/06/19 09:38) From CHOCOLATE (FOOD/DRUG) Allergy (Unknown, Uncoded 08/06/19 09:38) I-RASH Height: 1.7 m Weight: 103.238 kg Patient Problems: Current Active Problems (Last Updated 10/02/17 @ 09:55 by JEAN-PIERRE Nelson) DKA (diabetic ketoacidoses) (Acute) Hyponatremia (Acute) Class II obesity (Chronic) Thrush (Acute) Acute kidney injury (Acute) Hypokalemia (Acute) - VTE Risk Labs: VTE Related Lab Results Hgb 15.5 g/dL (14.1-18.0) 08/06/19 13:25 Hct 51.8 % (42.0-52.0) 08/06/19 13:25 Plt Count 452 K/mm3 (142-424) H 08/06/19 13:25 BUN 15 mg/dL (7-18) 08/07/19 04:35 Creatinine 1.38 mg/dL (0.70-1.30) H 08/07/19 04:35 Estimated Creat Clear 100 mL/min (50-200) 08/07/19 04:35 Was VTE Risk Assessment Performed: Yes VTE Score: 2 VTE Risk Level: Very Low Risk - Prophylaxis Types of VTE Prophylaxis: TEDS Knee High (RAMAKRISHNA HOSE ORDER PLACED) Location of Applied Device: Bilateral Lower Extremeties
[2019-08-07 16:08] LABS: Anion Gap 15.1 mEq/L (5-15); Calcium 8.3 mg/dL (8.5-10.1)
--- NOTE | 2019-08-07 22:01 | Discharge Summary ---
General - General Admission date:: 08/06/19 Discharge date: 08/08/19 HPI HPI: Mr. Qureshi is an obese 44-year-old -[place] gentleman with history of hypertension, hyperlipidemia, GERD, sleep disorder who presents with a little over 2 weeks of worsening abdominal pain, increased urine output and increased thirst. He states over this time span he is lost greater than 30 pounds. He has begun having difficulty sleeping as he is waking up and going to the bathroom 8-12 times a night. Reports not having slept very much in the past 4 days due to significant urine output. Thought he had a respiratory illness and then a stomach bug. Came to the ER due to his feeling so poorly. On initial presentation labs concerning for anion gap metabolic acidosis, severe hyper glycemia, and an ABG with metabolic acidosis. Patient was noted to be in DKA. Initiated on DKA protocol, received fluid resuscitation, started on insulin drip, and admitted to medicine for further management. Patient denies any shortness of breath, fever, cough. General feeling of "ill" for several weeks. Denies any george nausea or vomiting. Appears distraught when informed that he is a diabetic now. Hospital Course Hospital Course: Admitted with DKA protocol. Blood sugar electrolytes improved with normalization of electrolytes and improved control of blood sugar with closure of anion gap by using insulin drip. Patient transition to basal bolus insulin regimen. Transition to diabetic diet. Feeling significantly better with improvement clinically. Additionally patient's thrush was treated with oral nystatin solution. Plan to continue basal bolus insulin per med rec at home with close follow-up with primary care for continued diabetes management and counseling. Clinically patient has stabilized and is medically stable for discharge back home. Blood pressure stable on home regimen. Kidney function returned to baseline. Denies abdominal pain, fever, nausea, vomiting, chest pain, shortness of breath. Objective Vital signs: Temp Pulse Resp BP Pulse Ox 98.8 F 86 16 118/55 L 99 08/07/19 20:00 08/07/19 20:00 08/07/19 20:00 08/07/19 20:00 08/07/19 20:00 Narrative: Patient is awake, alert, oriented x3. No acute distress on room air Pleasant and talkative, no neurologic deficits of cranial nerves. Heart rate regular. Lungs clear. Abdomen soft nontender. No peripheral clubbing or edema. Abdomen soft and nontender. Obesity limits accuracy of exam. Results Labs on day of discharge: Labs from last 24 hours 08/07/19 08/07/19 08/07/19 20:28 16:22 15:55 Sodium 132 L Potassium 4.1 Chloride 100 Carbon Dioxide 21 Anion Gap 15.1 H BUN 15 Creatinine 1.36 H Estimated Creat Clear 102 Estimated GFR 57 L Est GFR ( Amer) 69 Glucose 332 H D POC Glucose 375 H* 294 H Lactate Calcium 8.3 L Phosphorus Magnesium Triglycerides Cholesterol HDL Cholesterol Cholesterol/HDL Ratio Acetone Level 08/07/19 08/07/19 08/07/19 11:52 07:17 06:06 Sodium Potassium Chloride Carbon Dioxide Anion Gap BUN Creatinine Estimated Creat Clear Estimated GFR Est GFR ( Amer) Glucose POC Glucose 246 H 166 H 192 H Lactate Calcium Phosphorus Magnesium Triglycerides Cholesterol HDL Cholesterol Cholesterol/HDL Ratio Acetone Level 08/07/19 08/07/19 08/07/19 04:35 04:35 03:55 Sodium 140 Potassium 4.2 Chloride 105 Carbon Dioxide 24 Anion Gap 15.2 H BUN 15 Creatinine 1.38 H Estimated Creat Clear 100 Estimated GFR 56 L Est GFR ( Amer) 68 Glucose 227 H POC Glucose 230 H Lactate 2.1 H Calcium 8.4 L Phosphorus 3.3 Magnesium 2.4 H D Triglycerides 405 H Cholesterol 177 HDL Cholesterol 34 Cholesterol/HDL Ratio 5.2 H Acetone Level None detected 08/07/19 08/07/19 08/07/19 02:03 00:20 00:06 Sodium 142 Potassium 4.2 Chloride 105 Carbon Dioxide 28 Anion Gap 13.2 BUN 17 Creatinine 1.52 H Estimated Creat Clear 91 Estimated GFR 50 L Est GFR ( Amer) 61 Glucose 212 H D POC Glucose 220 H 181 H Lactate Calcium 8.6 Phosphorus Magnesium Triglycerides Cholesterol HDL Cholesterol Cholesterol/HDL Ratio Acetone Level 08/06/19 08/06/19 08/06/19 22:15 20:15 18:03 Sodium Potassium Chloride Carbon Dioxide Anion Gap BUN Creatinine Estimated Creat Clear Estimated GFR Est GFR ( Amer) Glucose POC Glucose 202 H 232 H 597 H* Lactate Calcium Phosphorus Magnesium Triglycerides Cholesterol HDL Cholesterol Cholesterol/HDL Ratio Acetone Level DS: Diagnosis - Discharge Diagnosis (1) Hyponatremia Status: Acute (2) Class II obesity Status: Chronic (3) Thrush Status: Acute (4) DKA (diabetic ketoacidoses) Status: Acute (5) Renal insufficiency Status: Acute (6) Hyperlipidemia Status: Chronic (7) Hypertension Status: Chronic (8) Acute kidney injury Status: Acute (9) Hypokalemia Status: Acute Discharge Plan - Patient Discharge Instructions ACTIVITY: Continue current activity DIET: diabetic diet Patient Instructions: Hypertension (Alternative Therapy), High Blood Pressure (Hypertension) (Alternative Therapy), High Triglycerides, DI for Shortness of Breath, Diabetic Ketoacidosis, DI for Diabetic Ketoacidosis - Follow up Plan Follow up with: Samuel Samuel MD [Primary Care Provider] - Disposition: Home, Self-Shelter Medications: Home Medications Medication Instructions Recorded Confirmed Type topiramate 200 mg tablet 200 mg PO QHS #90 tab 06/07/19 08/06/19 Rx Acetaminophen with Codeine 1 tab PO Q6HP PRN 08/06/19 08/06/19 History [Tylenol with Codeine #3 tablet] Amitriptyline HCl 100 mg PO HS 08/06/19 08/07/19 History Atorvastatin Calcium [Atorvastatin 10 mg PO HS 08/06/19 08/07/19 History 10mg Tab] Diclofenac Sodium [Voltaren 100gm 4 g TOPICAL QID 08/06/19 08/06/19 History Topical Gel] Duloxetine HCl [Cymbalta] 60 mg PO HS 08/06/19 08/07/19 History SUMAtriptan succinate [Sumatriptan 100 mg PO Q2HP PRN 08/06/19 08/07/19 History Succinate] Insulin Glargine,Hum.rec.anlog 30 unit SQ HS 30 Days #10 ml 08/08/19 Rx [Lantus Insulin 100units/mL 10mL vial] Insulin Lispro [HumaLOG 100 10 units SQ TIDWM 30 Days #10 ml 08/08/19 Rx units/mL 3mL vial (SSI)] Nystatin [Nystatin Susp 500,000 500,000 unit PO TID 10 Days #100 ml 08/08/19 Rx Units/5mL Udc] cholecalciferol (vitamin D3) 2,000 2,000 unit PO DAILY #90 tab 08/08/19 Rx unit tablet hydroxyzine pamoate 50 mg capsule 50 mg PO DAILY #90 cap 08/08/19 Rx lisinopril 20 1 tab PO BID #180 tab 08/08/19 Rx mg-hydrochlorothiazide 12.5 mg tablet metoprolol tartrate 100 mg tablet 100 mg PO BID #180 tab 08/08/19 Rx pantoprazole 40 mg tablet,delayed 40 mg PO QAM #90 tab 08/08/19 Rx release trazodone 100 mg tablet 100 mg PO HSP PRN #90 tab 08/08/19 Rx Prescriptions/Medication Reconciliation: New Nystatin [Nystatin Susp 500,000 Units/5mL Udc] 500,000 unit PO TID 10 Days #100 ml Insulin Lispro [HumaLOG 100 units/mL 3mL vial (SSI)] 10 units SQ TIDWM 30 Days #10 ml Insulin Glargine,Hum.rec.anlog [Lantus Insulin 100units/mL 10mL vial] 30 unit SQ HS 30 Days #10 ml Continued pantoprazole 40 mg tablet,delayed release 40 mg PO QAM #90 tab hydroxyzine pamoate 50 mg capsule 50 mg PO DAILY #90 cap metoprolol tartrate 100 mg tablet 100 mg PO BID #180 tab lisinopril 20 mg-hydrochlorothiazide 12.5 mg tablet 1 tab PO BID #180 tab trazodone 100 mg tablet 100 mg PO HSP PRN #90 tab PRN Reason: Sleep topiramate 200 mg tablet 200 mg PO QHS #90 tab cholecalciferol (vitamin D3) 2,000 unit tablet 2,000 unit PO DAILY #90 tab Diclofenac Sodium [Voltaren 100gm Topical Gel] 4 g TOPICAL QID SUMAtriptan succinate [Sumatriptan Succinate] 100 mg PO Q2HP PRN PRN Reason: Migraine Headache Duloxetine HCl [Cymbalta] 60 mg PO HS Atorvastatin Calcium [Atorvastatin 10mg Tab] 10 mg PO HS Amitriptyline HCl 100 mg PO HS Acetaminophen with Codeine [Tylenol with Codeine #3 tablet] 1 tab PO Q6HP PRN PRN Reason: pain - Problem Reconciliation Problems Reviewed?: Yes
== END 2019-08-08 13:49 | disposition home or self-care (01) ==
LOC: ICU 13:10 → ER 13:10 → ICU 16:41 → 2ND 08-07 17:23
PROVIDERS: ADMIT Internal Medicine Adolescent Medicine; ATTEND Internal Medicine Adolescent Medicine
CPT/HCPCS: 36415; 71020; 71046; 74019; 74020; 80048; 80053; 80061; 81001; 82009; 82803; 82947; 82962; 83036; 83605; 83735; 84100; 84484; 85025; 85651; 86140; 87040; 87086; 87275; 87276; 93005; 96365; 96366; 96367; 96375; 99285; G0378; J2405

== ENCOUNTER → 2019-12-03 17:08 | Outpatient (CLI) | payer MEDICARE, SELFPAY ==
[2019-12-03 18:22] LABS: Basophils # 0.1 K/mm3 (0-0.2); Basophils % 1.1 % (0.1-2.0); Eosinophils # 0.1 K/mm3 (0.0-0.4); Eosinophils % 1.6 % (0.1-12.0); Hematocrit 45.7 % (42.0-52.0); Hemoglobin 14.4 g/dL (14.1-18.0); Lymphocytes # 2.6 K/mm3 (0.7-4.5); Lymphocytes % 33.9 % (10-50); Mean Corpuscular HGB Conc 31.5 g/dL (31.8-35.4); Mean Corpuscular Hemoglobin 26.5 pg (27.0-31.2); Mean Corpuscular Volume 84.4 fl (80-94); Mean Platelet Volume 10.5 fl (7.4-10.4); Monocytes # 0.4 K/mm3 (0.1-1.0); Monocytes % 4.9 % (1.7-9.3); Neutrophils # 4.5 K/mm3 (1.8-7.8); Neutrophils % 58.5 % (37.0-80.0); Platelet Count 365 K/mm3 (142-424); Red Blood Count 5.41 M/mm3 (4.60-6.20); Red Cell Distribution Width 13.2 % (11.5-17.5); White Blood Count 7.7 K/mm3 (4.8-10.8)
[2019-12-03 18:26] LABS: Chloride 105 mmol/L (98-107); Potassium 5.3 mmoL/L (3.5-5.1); Sodium 138 mmol/L (136-145)
[2019-12-03 18:28] LABS: Blood Urea Nitrogen 13 mg/dl (9-20); Estimated Glomerular Filt Rate 55 ml/min (>60); GFR (African American) 67 ML/MIN (>60)
[2019-12-03 18:29] LABS: Alanine Aminotransferase 23 U/L (12-78); Albumin Level 4.3 g/dl (3.5-5.0); Albumin/Globulin Ratio 1.5 (1.1-1.8); Alkaline Phosphatase 84 U/L (38-126); Anion Gap 17.3 mEq/L (5-15); Aspartate Amino Transferase 30 U/L (17-59); Bilirubin,Total 0.5 mg/dl (0.2-1.3); Carbon Dioxide 21 mmol/L (22.0-30.0); Chol/HDL Ratio 4.3 (1-3.5); Cholesterol 168 mg/dl (140-200); Globulin 2.9 g/dL (1.3-3.2); Glucose 130 mg/dl (74-100); HDL Cholesterol 39 mg/dl (40-60); Total Protein,Serum 7.2 g/dl (6.3-8.2); Triglycerides 193 mg/dl (30-150); VLDL Cholesterol 39 mg/dL (0-40)
[2019-12-03 18:41] LABS: Direct LDL Cholesterol 118.96 mg/dL (100-129)
[2019-12-03 19:00] LABS: Thyroid Stimulating Hormone 2.11 uIU/mL (0.465-4.68)
[2019-12-03 20:41] LABS: Hemoglobin A1C 6.4 % (4.0-6.0)
[2019-12-06 09:22] LABS: Microalbumin, Urine 11.9 ug/mL (Not Estab.); Vitamin D 25 Hydroxy 42.1 ng/mL (30.0-100.0)
== END ==
PROVIDERS: Visit Provider Physician Assistant
DX: E11.9 Type 2 diabetes mellitus without complications (principal); Z79.84 Long term (current) use of oral hypoglycemic drugs
CPT/HCPCS: 80053; 80061; 82043; 82652; 83036; 84436; 84443; 85025

== ENCOUNTER → 2020-04-09 15:56 | Outpatient (CLI) | payer MEDICARE, SELFPAY ==
[2020-04-09 16:53] LABS: Basophils # 0.1 K/mm3 (0-0.2); Basophils % 0.8 % (0.1-2.0); Eosinophils # 0.1 K/mm3 (0.0-0.4); Eosinophils % 1.5 % (0.1-12.0); Hematocrit 45.2 % (42.0-52.0); Lymphocytes # 3.4 K/mm3 (0.7-4.5); Lymphocytes % 38.9 % (10-50); Mean Corpuscular HGB Conc 33.2 g/dL (31.8-35.4); Mean Corpuscular Volume 84.3 fl (80-94); Monocytes # 0.4 K/mm3 (0.1-1.0); Neutrophils # 4.8 K/mm3 (1.8-7.8); Neutrophils % 54.9 % (37.0-80.0); Platelet Count 332 K/mm3 (142-424); Red Blood Count 5.37 M/mm3 (4.60-6.20); Red Cell Distribution Width 14.1 % (11.5-17.5); White Blood Count 8.7 K/mm3 (4.8-10.8)
[2020-04-09 17:31] LABS: Alanine Aminotransferase 22 U/L (12-78); Albumin Level 4.5 g/dl (3.5-5.0); Albumin/Globulin Ratio 1.3 (1.1-1.8); Alkaline Phosphatase 110 U/L (38-126); Anion Gap 17.4 mEq/L (5-15); Aspartate Amino Transferase 26 U/L (17-59); Bilirubin,Total 0.6 mg/dl (0.2-1.3); Blood Urea Nitrogen 12 mg/dl (9-20); Carbon Dioxide 22 mmol/L (22.0-30.0); Chloride 102 mmol/L (98-107); Chol/HDL Ratio 4.7 (1-3.5); Cholesterol 192 mg/dl (140-200); Estimated Glomerular Filt Rate 55 ml/min (>60); GFR (African American) 67 ML/MIN (>60); Globulin 3.5 g/dL (1.3-3.2); Glucose 150 mg/dl (74-100); HDL Cholesterol 41 mg/dl (40-60); Potassium 4.4 mmoL/L (3.5-5.1); Sodium 137 mmol/L (136-145); Triglycerides 264 mg/dl (30-150); VLDL Cholesterol 53 mg/dL (0-40)
[2020-04-09 17:34] LABS: Hemoglobin A1C 7.4 % (4.0-6.0)
[2020-04-09 17:42] LABS: Direct LDL Cholesterol 107.19 mg/dL (100-129)
[2020-04-09 17:49] LABS: 25-OH Vitamin D, Total 40.9 ng/mL (30-100)
[2020-04-09 17:50] LABS: T4 (Thyroxine) 8.8 ug/dl (5.53-11.0)
[2020-04-09 18:03] LABS: Thyroid Stimulating Hormone 1.88 uIU/mL (0.465-4.68)
== END ==
PROVIDERS: Visit Provider Physician Assistant
DX: E11.9 Type 2 diabetes mellitus without complications (principal); E55.9 Vitamin D deficiency, unspecified; M10.9 Gout, unspecified; Z79.84 Long term (current) use of oral hypoglycemic drugs
CPT/HCPCS: 80053; 80061; 82306; 83036; 84436; 84443; 85025

== ENCOUNTER → 2020-06-30 14:54 | Outpatient (CLI) | payer MEDICARE, SELFPAY | PROVIDERS: Visit Provider Physician Assistant | DX: E11.10 Type 2 diabetes mellitus with ketoacidosis without coma (principal); Z79.84 Long term (current) use of oral hypoglycemic drugs | CPT/HCPCS: 82043 ==

== ENCOUNTER → 2020-07-07 14:41 | Outpatient (CLI) | payer MEDICARE, SELFPAY ==
--- NOTE | 2020-07-07 14:46 | XR_ITS ---
PROCEDURE: XR ANKLE WT BEARING LT MIN 3V CLINICAL INDICATION: pain COMPARISON: No exams were available for comparison FINDINGS: No fracture or dislocation. No lytic or blastic change. There is normal mineralization. The joint spaces are well-preserved. No significant degenerative/arthritic changes. No erosive changes evident. Other findings:None. IMPRESSION: No acute findings. Dictated by: Isaac Arnold MD 07/07/2020 16:06 Isaac Arnold MD in [place] 07/07/2020 16:06
--- NOTE | 2020-07-07 14:46 | XR_ITS ---
PROCEDURE: XR SHOULDER LT MIN 2V CLINICAL INDICATION: left shoulder pain COMPARISON: No exams were available for comparison FINDINGS: No fracture or dislocation. No lytic or blastic change. There is normal mineralization. There are minimal osteoarthritic changes of the AC joint and glenohumeral joint. Other findings:None. IMPRESSION: Minimal osteoarthritis otherwise negative Dictated by: Isaac Arnold MD 07/07/2020 16:10 Isaac Arnold MD in [place] 07/07/2020 16:10
--- NOTE | 2020-07-07 14:46 | XR_ITS ---
PROCEDURE: XR FOOT WT BEARING LT 3V CLINICAL INDICATION: pain COMPARISON: No exams were available for comparison FINDINGS: No fracture or dislocation. No lytic or blastic change. There is normal mineralization. 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
--- NOTE | 2020-07-07 14:46 | XR_ITS ---
PROCEDURE: XR ANKLE WT BEARING RT MIN 3V CLINICAL INDICATION: pain COMPARISON: No exams were available for comparison FINDINGS: No fracture or dislocation. No lytic or blastic change. There is normal mineralization. The joint spaces are well-preserved. No significant degenerative/arthritic changes. No erosive changes evident. Other findings:None. IMPRESSION: Negative right ankle Dictated by: Isaac Arnold MD 07/07/2020 16:08 Isaac Arnold MD in [place] 07/07/2020 16:08
--- NOTE | 2020-07-07 14:46 | XR_ITS ---
PROCEDURE: XR HUMERUS LT CLINICAL INDICATION: left humerus pain COMPARISON: No exams were available for comparison FINDINGS: No fracture or dislocation. No lytic or blastic change. There is normal mineralization. The joint spaces are well-preserved. No significant degenerative/arthritic changes. No erosive changes evident. Other findings:None. IMPRESSION: Negative left humerus Dictated by: Isaac Arnold MD 07/07/2020 16:10 Isaac Arnold MD in [place] 07/07/2020 16:10
--- NOTE | 2020-07-07 14:46 | XR_ITS ---
PROCEDURE: XR FOOT WT BEARING RT 3V CLINICAL INDICATION: pain COMPARISON: No exams were available for comparison FINDINGS: No fracture or dislocation. No lytic or blastic change. There is normal mineralization. The joint spaces are well-preserved. No significant degenerative/arthritic changes. No erosive changes evident. Other findings:None. IMPRESSION: Negative right foot Dictated by: Isaac Arnold MD 07/07/2020 16:07 Isaac Arnold MD in [place] 07/07/2020 16:07
== END ==
PROVIDERS: PCP Emergency Medicine; Visit Provider Orthopaedic Surgery
DX: M25.512 Pain in left shoulder (principal); M79.622 Pain in left upper arm; M25.572 Pain in left ankle and joints of left foot; M79.672 Pain in left foot; M79.671 Pain in right foot; M25.571 Pain in right ankle and joints of right foot
CPT/HCPCS: 73030; 73060; 73610; 73630

== ENCOUNTER → 2020-07-08 16:28 | Outpatient (CLI) | payer MEDICARE, SELFPAY ==
--- NOTE | 2020-07-08 16:33 | MR_ITS ---
PROCEDURE: MR ELBOW LT WO CON CLINICAL INDICATION: evaluate for a bicep tear x3wks ago. ulnar sided elbow pain. picked up heavy objects and heard a pop with swelling. prior x-ray humerus 07-07-20 COMPARISON: No exams were available for comparison TECHNIQUE: Routine multiplanar multi echo sequences are performed without gadolinium enhancement. FINDINGS: There is a complete tear of the biceps tendon with mild retraction of the tendon. The tendon is torn distally with retraction of the tendon by approximately 1.8 cm from the radial tubercle. Edema is present in the antecubital fossa. No fracture or dislocation is evident. The the brachialis tendon is intact. No fractures or dislocation. There is a small amount fluid in the elbow joint. The radial collateral and ulnar collateral ligaments appear intact. The annular ligament is unremarkable. The common flexor and common extensor tendons have an unremarkable appearance. IMPRESSION: Complete tear of the distal aspect of the biceps tendon with mild retraction of the tendon by approximately 1.8 cm. Edema is present in the antecubital fossa. Dictated by: Isaac Arnold MD 07/09/2020 13:32 Isaac Arnold MD in [place] 07/09/2020 13:32
== END ==
PROVIDERS: PCP Emergency Medicine; Visit Provider Orthopaedic Surgery
DX: M25.522 Pain in left elbow (principal)
CPT/HCPCS: 73221

== ENCOUNTER → 2020-07-09 14:29 | Outpatient (CLI) | payer MEDICARE, SELFPAY ==
--- NOTE | 2020-07-09 14:58 | XR_ITS ---
PROCEDURE: XR CHEST 2V CLINICAL HISTORY: hypertension; preop COMPARISON: CR CXR CHEST(2 VIEWS-NOT PORTABLE) from 03/21/[address] angio chest from 12/29/2017 CR CXR2V XR chest 2V from 09/07/2018 CR XR CHEST 2V from 08/06/2019 CR XR HUMERUS LT from 07/07/2020 MR MR ELBOW LT WO CON from 07/08/2020 FINDINGS: The cardiomediastinal silhouette and pulmonary vascularity are within normal limits. There is a hiatal hernia. Lungs are clear. No acute bony abnormalities. IMPRESSION: No acute findings. Dictated by: Isaac Arnold MD 07/09/2020 16:11 Isaac Arnold MD in [place] 07/09/2020 16:11
[2020-07-09 15:47] LABS: Basophils # 0.1 K/mm3 (0-0.2); Basophils % 1.1 % (0.1-2.0); Eosinophils # 0.1 K/mm3 (0.0-0.4); Eosinophils % 1.7 % (0.1-12.0); Hematocrit 50.7 % (42.0-52.0); Hemoglobin 16.2 g/dL (14.1-18.0); Lymphocytes # 3.1 K/mm3 (0.7-4.5); Lymphocytes % 38.5 % (10-50); Mean Corpuscular HGB Conc 31.9 g/dL (31.8-35.4); Mean Corpuscular Hemoglobin 27.7 pg (27.0-31.2); Mean Corpuscular Volume 86.6 fl (80-94); Mean Platelet Volume 9.3 fl (7.4-10.4); Monocytes # 0.3 K/mm3 (0.1-1.0); Monocytes % 4.1 % (1.7-9.3); Neutrophils # 4.4 K/mm3 (1.8-7.8); Neutrophils % 54.6 % (37.0-80.0); Platelet Count 334 K/mm3 (142-424); Red Blood Count 5.85 M/mm3 (4.60-6.20); Red Cell Distribution Width 14.1 % (11.5-17.5); White Blood Count 8.1 K/mm3 (4.8-10.8)
[2020-07-09 15:58] LABS: Chloride 104 mmol/L (98-107); Potassium 4.5 mmoL/L (3.5-5.1); Sodium 139 mmol/L (136-145)
[2020-07-09 16:00] LABS: Alanine Aminotransferase 21 U/L (12-78); Aspartate Amino Transferase 26 U/L (17-59); Blood Urea Nitrogen 6 mg/dl (9-20); Estimated Glomerular Filt Rate 60 ml/min (>60); GFR (African American) 73 ML/MIN (>60); Hemoglobin A1C 6.8 % (4.0-6.0)
[2020-07-09 16:01] LABS: Albumin Level 4.7 g/dl (3.5-5.0); Albumin/Globulin Ratio 1.5 (1.1-1.8); Alkaline Phosphatase 102 U/L (38-126); Anion Gap 14.5 mEq/L (5-15); Bilirubin,Total 0.6 mg/dl (0.2-1.3); Carbon Dioxide 25 mmol/L (22.0-30.0); Globulin 3.1 g/dL (1.3-3.2); Glucose 125 mg/dl (74-100); Total Protein,Serum 7.8 g/dl (6.3-8.2)
== END ==
PROVIDERS: Visit Provider Orthopaedic Surgery
DX: Z01.818 Encounter for other preprocedural examination (principal); S46.212D Strain of muscle, fascia and tendon of other parts of biceps, left arm, subsequent encounter; E11.9 Type 2 diabetes mellitus without complications; Z79.84 Long term (current) use of oral hypoglycemic drugs; M25.522 Pain in left elbow
CPT/HCPCS: 36415; 71046; 80053; 83036; 85025

== ENCOUNTER → 2020-07-11 08:56 | Outpatient (CLI) | payer MEDICARE, SELFPAY ==
[2020-07-11 12:44] LABS: Coronavirus 19 IgG Antibody Negative (Negative); Coronavirus 19 IgM Antibody Negative (Negative)
== END ==
PROVIDERS: Visit Provider Orthopaedic Surgery
DX: Z01.818 Encounter for other preprocedural examination (principal); S59.902D Unspecified injury of left elbow, subsequent encounter; S46.212D Strain of muscle, fascia and tendon of other parts of biceps, left arm, subsequent encounter
CPT/HCPCS: 36415; 86328

== ENCOUNTER 2020-07-13 06:16 | Day surgery (SDC) | payer MEDICARE, SELFPAY ==
[2020-07-10 14:40] VITALS: BMI 38.2
[2020-07-13] VITALS (14 sets, daily range): BP systolic 110–150; BP diastolic 61–86; PULSE 90–111; RESP 16–24; TEMP 36.1–37.2; O2SAT 94–97
[2020-07-13 06:39] LABS: POC Glucose,Bedside 126 (70-110)
--- NOTE | 2020-07-13 07:05 | HMH.ANESCL ---
[facility] Anesthesia Checklist - Patient Identification Patient Identification: Arm Band, Verbal (Name & ) - Structural Data Admitted From: Home Planned Operative Procedure/s: biceps tenodesis Consent for Planned Operative Procedure(s) Verified: Yes Verified Documents: History and Physical - NPO Status Verified Time NPO: 00:00 - Chart Verification Results Verified: CBC, BMP - Additional verifications Patient : No Anesthesia Reactions: Yes (rash, vomiting, headache) Hx Blood Transfusions: No Blood Transfusion Reaction: No Cephalosporin Allergy: No Previous Colonoscopy: Yes - Cardiovascular Assessment Heart Sounds: S1 & S2 Pulse Strength: Baseline Pulse Rhythm: Regular Peripheral Edema: No - Airway Assessment C-Spine Mobility Assessed: Yes TMJ Mobility Assessed: Yes Dentition: Good Dentition - Neurological Assessment Level of Consciousness: Awake, Alert, Appropriate Hx Seizures: No Numbness or tingling in extremities: No - Anesthesia Plan Anesthesia Risk discussed: Yes Anesthesia Plan: Verified ASA Class: III Anesthesia Type: General w/block [facility] History I have reviewed the patient's past medical history: Yes Medical History: Reports:: Diabetes Mellitus Type 2, Gastroesophageal Reflux Disease(GERD), Hyperlipidemia, Hypertension, Migraine, Seizures (last seizure 06/2018) Denies:: Cancer, Diabetes Mellitus Type 1, Internal Pacemaker, MRSA *Have you ever received a pneumonia vaccine?: No *Have you received a flu vaccine this season?: Yes Other Medical History: Reports: Arthritis. Denies: Blood Transfusion Reaction Anesthesia experience/problems:: none Other Surgeries: Yes: Appendectomy, Cardiac Catheterization, Cholecystectomy, Colonoscopy. No: Pacemaker Amputation: No Fractures: No - *Social History Last grade of school completed: High school graduate Smoking Status: Never smoker Alcohol Intake: never Substance Use Type: denies use *Occupational Status:: disabled Housing: house Household Members: spouse *Travel in the last 8 weeks: None Family Hx:: Coronary Artery Disease, Diabetes
--- NOTE | 2020-07-13 10:33 | SUR.OPER ---
1012-family updated at this time
--- NOTE | 2020-07-13 10:49 | XR_ITS ---
PROCEDURE: XR ELBOW LT 2V CLINICAL INDICATION: BICEP TENDON REPAIR COMPARISON: CR ELBR3 ELBOW-RT-3 VIEWS from 07/20/2014 CR ELBR3 ELBOW-RT-3 VIEWS from 11/25/2015 FINDINGS: Fluoro time: 17 seconds. AP and lateral post surgical images show anchor screws at the radial tubercle from bicipital tendon repair. IMPRESSION: Status post bicipital tendon repair with C-arm assistance Dictated by: Isaac Arnold MD 07/13/2020 14:48 Isaac Arnold MD in [place] 07/13/2020 14:48
--- NOTE | 2020-07-13 11:20 | P.PN_ITS ---
[facility] Anesthesia Record Part I Intake, IV Amount: 1,300 Estimated blood loss (mL): 10 Urine output (mL): 0 Blood Products used (#): none Blood Pressure: 116/66 SaO2: 94 Pulse Rate: 104 Respiratory Rate: 20 Temperature: 98.4 F Patient is:: Awake, Nasal O2, Stable Stable to PACU at:: 11:18
--- NOTE | 2020-07-13 11:59 | HMH.OPNOTE ---
Date of procedure: 07/13/20 Pre-op Diagnosis:: Distal biceps tendon rupture, left Post-op Diagnosis:: Same Procedure performed:: Distal biceps tendon repair, left Surgeon:: Vinny Manuel MD Welding Equipment Sales Representative(s):: Erendira De Los Santos HEATING ENGINEER:: Leon Joe Anesthesia: regional (Interscalene nerve block), LMA Estimated blood loss (mL): 10 Clinical Note:: Patient is a 45 year old right hand dominant male who sustained injury to his left elbow over 3 weeks ago; he states that he injured the left elbow while moving a couch. He says he felt/heard a loud pop around the front of his left elbow followed by immediate pain. Following the injury he also developed pain and swelling as well as ecchymosis over the anterior aspect of the elbow and upper forearm. The swelling and ecchymosis has since improved significantly. After the injury, he followed up with his primary care physician who recommended orthopaedic evaluation. He is still complaining of pain over the anterior and medial aspect of the elbow and proximal forearm. He states any sudden movements, lifting or twisting his forearm aggravate his pain. He rates his pain a 9 out of 10 at its worst but very little pain at rest. He states icing, heat, rest, muscle relaxers and Ibuprofen help allevaite his pain to some extent. He denies any distal tingling or numbness. No history of any neck pain. There is no history of any previous elbow problems or surgery. He is a non smoker and is retired. He has a history of Diabetes, hypertension and hyperlipidemia. He presented to my office last week, about 3 weeks after the initial injury. Clinical evaluation in the office led to a diagnosis of distal biceps tendon rupture and noncontrast MRI scan of the elbow confirmed the diagnosis. Following detailed discussion regarding management options, patient opted for distal biceps tendon repair/reconstruction. Following appropriate work-up he is brought to the hospital to undergo the surgery today. He is right-hand dominant and does not work. Please refer to my office note for full details. Operative findings:: Complete rupture of the distal biceps tendon from its insertion over the radial tuberosity. Operative note:: On the day of surgery, I met the patient in the preoperative area. A clinical examination was performed. I have reviewed the clinical and imaging findings with the patient. I have discussed the diagnosis, natural history and management options in detail including both nonsurgical and surgical. Patient opted to proceed with surgical remediation as planned. I have discussed the procedure, risks and benefits and alternatives in detail. The complications discussed include but are not limited to-infection, bleeding, injury to nerves (lateral antebrachial cutaneous, radial/posterior interosseous, median), blood vessels and tendons, incisional scar (cosmesis), DVT/PE, re-rupture , bone tunnel fracture, radioulnar synostosis, elbow and forearm stiffness, loss of ROM, anterior elbow pain, heterotopic ossification, CRPS (complex regional pain syndrome- pain, sensory and temperature changes, swelling and stiffness), painful/prominent hardware, loss of fixation/hardware failure, incomplete relief of pain, incomplete return of function and likely need for further surgery in future and also the risks of anesthesia including heart attack, stroke, and . I have discussed how there is a small but real possibility of loss of use of the arm, loss of the limb or loss of life itself. I have also explained how additional surgery may be required if there are any complications. We have also discussed the postoperative pain management, recovery and rehabilitation, immobilization required, the need for physical/occupational therapy, the possibility of stiffness, chronic pain and we've also discussed the option of nonsurgical treatment. I have discussed the loss of flexion and supination strength with nonsurgical management. The patient express
--- NOTE | 2020-07-13 21:27 | HMH.ANESII ---
[facility] Anesthesia Record Part II Discharge Time: 12:08 Destination: Surgical Day Care (OP Surgery) PACU nurse assessment reviewed?: Yes Patient Condition:: Good Anesthesia Complications:: None Swallowing reflex intact?: Yes Cyanosis?: No Blood Pressure: 121/79 Pulse Rate: 104 Temperature: 98.9 F Mental Status: Alert & Oriented Pain level:: 0 Nausea and/or vomitting:: None Intake, IV Amount: 0
--- NOTE | 2020-07-14 08:02 | HMH.ANESII ---
[facility] Anesthesia Record Part II Discharge Time: 11:48 Destination: Surgical Day Care (OP Surgery) PACU nurse assessment reviewed?: Yes Patient Condition:: Good Anesthesia Complications:: None Swallowing reflex intact?: Yes Cyanosis?: No Blood Pressure: 132/80 Pulse Rate: 111 Temperature: 98.9 F Mental Status: Alert & Oriented Pain level:: 0 Nausea and/or vomitting:: None Intake, IV Amount: 35
[2020-07-14 08:03] VITALS: BP 132/80; PULSE 111; TEMP 37.2
== END 2020-07-13 12:55 | disposition home or self-care (01) ==
LOC: OR 06:17
PROVIDERS: PCP Emergency Medicine; Visit Provider Orthopaedic Surgery
PROC: (CPT 24341; principal; 2020-07-13 07:30)
DX: S46.212A Strain of muscle, fascia and tendon of other parts of biceps, left arm, initial encounter (principal); E11.9 Type 2 diabetes mellitus without complications; I10 Essential (primary) hypertension; E78.5 Hyperlipidemia, unspecified; X50.0XXA Overexertion from strenuous movement or load, initial encounter; G43.909 Migraine, unspecified, not intractable, without status migrainosus; Z79.84 Long term (current) use of oral hypoglycemic drugs; Z79.899 Other long term (current) drug therapy
CPT/HCPCS: 24342; 73070; 76000; 82962; 96374; C1713; J2405

== ENCOUNTER 2020-07-28 10:24 | Outpatient (RCR) | payer MEDICARE, SELFPAY | END 2020-07-28 11:24 | disposition home or self-care (01) | LOC: OT 10:24 | PROVIDERS: Visit Provider Orthopaedic Surgery | DX: S59.902D Unspecified injury of left elbow, subsequent encounter (principal); S46.212D Strain of muscle, fascia and tendon of other parts of biceps, left arm, subsequent encounter | CPT/HCPCS: 97763 ==

== ENCOUNTER → 2020-08-12 11:26 | Outpatient (CLI) | payer MEDICARE, SELFPAY ==
[2020-08-12 13:08] LABS: Coronavirus 19 IgG Antibody Negative (Negative); Coronavirus 19 IgM Antibody Negative (Negative)
== END ==
PROVIDERS: Visit Provider Surgery
DX: Z01.818 Encounter for other preprocedural examination (principal); Z03.818 Encounter for observation for suspected exposure to other biological agents ruled out; Z12.11 Encounter for screening for malignant neoplasm of colon
CPT/HCPCS: 36415; 86328

== ENCOUNTER → 2020-08-14 11:34 | Outpatient (CLI) | payer MEDICARE, SELFPAY ==
[2020-08-14 11:45] LABS: Microscopic, Urine URINE MICROSCOPIC (MICROSCOPIC)
[2020-08-14 12:17] LABS: Appearance,Urine CLEAR (Clear); Bilirubin,Urine Negative (Negative); Blood, Urine Negative (Negative); Color,Urine YELLOW (Yellow); Glucose,Urine (UA) 3+ (Negative); Ketones,Urine Negative (Negative); Leukocyte Esterase,Urine Negative (Negative); Nitrate,Urine Negative (Negative); PH,Urine 5.5 (5.0-8.5); Protein,Urine Negative (Negative); Specific Gravity, Urine 1.015 (1.005-1.030); Urobilinogen,Urine 0.2 EU/dl (0.2)
[2020-08-14 12:25] LABS: Basophils # 0.1 K/mm3 (0-0.2); Basophils % 1.3 % (0.1-2.0); Eosinophils # 0.2 K/mm3 (0.0-0.4); Eosinophils % 1.8 % (0.1-12.0); Hematocrit 46.6 % (42.0-52.0); Hemoglobin 15.1 g/dL (14.1-18.0); Lymphocytes # 2.7 K/mm3 (0.7-4.5); Mean Corpuscular HGB Conc 32.5 g/dL (31.8-35.4); Mean Corpuscular Hemoglobin 26.9 pg (27.0-31.2); Mean Corpuscular Volume 82.7 fl (80-94); Mean Platelet Volume 8.1 fl (7.4-10.4); Monocytes # 0.4 K/mm3 (0.1-1.0); Monocytes % 4.4 % (1.7-9.3); Neutrophils # 4.8 K/mm3 (1.8-7.8); Neutrophils % 59.5 % (37.0-80.0); Platelet Count 401 K/mm3 (142-424); Red Blood Count 5.63 M/mm3 (4.60-6.20); Red Cell Distribution Width 14.4 % (11.5-17.5); White Blood Count 8.1 K/mm3 (4.8-10.8)
[2020-08-14 12:30] LABS: Creatinine,Urine Random 98 mg/dL (Not Estab.)
[2020-08-14 12:37] LABS: Squamous Epithelial Cell,Urine Occasional #/hpf (0-5); WBC,Urine Occasional #/hpf (0-3)
[2020-08-14 13:12] LABS: Albumin Level 4.6 g/dl (3.5-5.0); Blood Urea Nitrogen 8 mg/dl (9-20); Calcium 10.1 mg/dl (8.4-10.2); Carbon Dioxide 27 mmol/L (22.0-30.0); Chloride 102 mmol/L (98-107); Estimated Glomerular Filt Rate 66 ml/min (>60); GFR (African American) 80 ML/MIN (>60); Glucose,Random 114 mg/dL (74-100); Phosphorous 4.4 mg/dl (2.5-4.5); Potassium 4.5 mmoL/L (3.5-5.1); Sodium 138 mmol/L (136-145)
[2020-08-14 13:23] LABS: Intact Parathyroid Hormone 105.6 pg/mL (7.5-53.5)
[2020-08-14 13:28] LABS: 25-OH Vitamin D, Total 43.2 ng/mL (30-100)
== END ==
PROVIDERS: Internal Medicine Nephrology; Visit Provider Podiatrist
DX: M76.72 Peroneal tendinitis, left leg (principal); R80.9 Proteinuria, unspecified; Z68.38 Body mass index [BMI] 38.0-38.9, adult
CPT/HCPCS: 81001; 82040; 82306; 82310; 82374; 82435; 82565; 82570; 82947; 83970; 84100; 84132; 84155; 84295; 84520; 85025

== ENCOUNTER → 2020-08-17 08:33 | Outpatient (CLI) | payer MEDICARE, SELFPAY ==
--- NOTE | 2020-08-17 09:09 | US_ITS ---
APPROVED REPORT Exam Type: Lower Extremity Segmental Pressures R And D Lab Technician: Allie Wayne RDCS Indications Claudication: Edema Risk Factors Hypertension Hyperlipidemia Obesity Diabetes Pressures/Indices Right Indices Left Indices Brachial 121.00 mmHg Brachial 147.00 mmHg Low Thigh 153.00 mmHg 1.04 Low Thigh 150.00 mmHg 1.02 Calf 164.00 mmHg 1.12 Calf 163.00 mmHg 1.11 Ankle(PT) 170.00 mmHg 1.16 Ankle(PT) 168.00 mmHg 1.14 Ankle(DP) 153.00 mmHg 1.04 Ankle(DP) 137.00 mmHg 0.93 Digit 149.00 mmHg 1.01 Digit 166.00 mmHg 1.13 Findings R SETH 1.2 L SETH 1.1 R TBI 1.0 L TBI 1.1 NORMAL WAVEFORMS AND PULSES Conclusion R SETH 1.2 L SETH 1.1 R TBI 1.0 L TBI 1.1 NORMAL WAVEFORMS AND PULSES Normal appearing resting noninvasive lower extremity arterial study. Electronically signed by : Isaac Arnold MD 08/17/2020 15:17:36
== END ==
PROVIDERS: PCP Physician Assistant; Visit Provider Podiatrist
DX: R09.89 Other specified symptoms and signs involving the circulatory and respiratory systems (principal)
CPT/HCPCS: 93923

== ENCOUNTER → 2020-08-17 13:29 | Outpatient (POV) | payer MEDICARE, SELFPAY | PROVIDERS: Visit Provider Internal Medicine Nephrology | DX: Z00.00 Encounter for general adult medical examination without abnormal findings (principal) ==

== ENCOUNTER → 2020-08-26 08:24 | Outpatient (CLI) | payer MEDICARE, SELFPAY ==
--- NOTE | 2020-08-26 08:25 | MR_ITS ---
PROCEDURE: MR ANKLE LT WO/W CON CLINICAL INDICATION: eval for peroneal tendon tear, ankle instability PT IS A DIABETIC. LATERAL ANKLE PAIN BELOW LATERAL MALLELOUS X1YR. 20ML SHARAN LOT:[id number] EXP: OCT 2022 BUN:8 CRE:1.2 GFR:80 PRIOR X-RAY 07-07-20 COMPARISON: CR XR ANKLE WT BEARING LT MIN 3V from 07/07/2020 TECHNIQUE: Routine multiplanar multi echo sequences are performed without and with gadolinium enhancement. FINDINGS: The tibial fibular ligaments appear intact. The ATFL and PT FL appears. Deltoid ligament appears. No fracture or bone bruise identified. The posterior tibialis, flexor hallucis longus, flexor digitorum longus, Achilles tendon, and extensor tendons appear intact. There is increased T2 signal involving the distal aspect the peroneal longus tendon at the level of the distal calcaneus. Partial tear or tendon strain is considered. There is some fluid signal intensity along the flexor digitorum longus tendon which may be due to tenosynovitis. This is at the distal tibial region. Plantar fascia has an unremarkable appearance IMPRESSION: 1. Partial tear versus strain of the peroneal longus tendon at the region of the distal aspect of the calcaneus 2. Tenosynovitis of the flexor digitorum longus tendon at the distal tibial region. Dictated by: Isaac Arnold MD 08/31/2020 13:21 Isaac Arnold MD in [place] 08/31/2020 13:21
== END ==
PROVIDERS: PCP Physician Assistant; Visit Provider Podiatrist
DX: M76.72 Peroneal tendinitis, left leg (principal)
CPT/HCPCS: 73723; A9576

== ENCOUNTER 2020-08-31 09:00 | Outpatient (RCR) | payer MEDICARE, SELFPAY ==
--- NOTE | 2020-08-31 09:44 | HMH.RHREAS ---
Rehab Reassessment Rehab OP Re-assessment Start: 08/31/20 09:22 Freq: Status: Active Protocol: Document 08/31/20 09:22 [email or web address] (Rec: 08/31/20 09:44 [email or web address] [id number]) Electronically Signed By Yajaira Kemp OT 08/31/20 09:22 Rehab Re-assessment Subjective Subjective My arm just feels sore at times. Objective Objective Notes Since evaluation, Patient has participated well in skilled OP services of manual therapy, thera exer, thera act and modalities to improve AAROM-> AROM of elbow extension, pain and chemist food strength. Patient is currently on week 8 with able to increase intensity of PROM and manual therapy to regain any motion deficits. Patient able to begin multi-plane shoulder, triceps and forearm strengthening. Allowed to combine pronation and elbow extension as tolerated without pain. Patient able to initate bicep strengthening at week 10-12 as tolerated. Keep forearm at neurtral for biceps strengthening. However Patient is to avoid any lifting at elbow >5 pounds. Assessment Progress Assessment Progressing as Expected Assessment Notes Patient has verbalize 3/10 pain at worse in L elbow during movement. Patient completed AROM of L UE flexion -130 degrees and L UE elbow extension 0 degrees with no pain. OT removed brace this date. Patient verablize no pain and/discomfort with brace on while in 0 degree extension. However Patient was provided with AROM HEP for L UE supination exer and L UE elbow flexion as tolerated. Patient to continue chemist food strengthening exer as provided . Limited L UE of supination during AROM up to 50 degrees with no pain. Goal added to
== END 2020-08-31 09:05 | disposition home or self-care (01) ==
LOC: OT 09:00
PROVIDERS: PCP Emergency Medicine; Visit Provider Orthopaedic Surgery
DX: S59.902D Unspecified injury of left elbow, subsequent encounter (principal); S46.212D Strain of muscle, fascia and tendon of other parts of biceps, left arm, subsequent encounter
CPT/HCPCS: 97014; 97035; 97110; 97140; 97164; 97165; 97530; 97763; G0283

== ENCOUNTER → 2020-09-10 11:38 | Outpatient (CLI) | payer MEDICARE, SELFPAY ==
[2020-09-10 12:04] LABS: Basophils # 0.1 K/mm3 (0-0.2); Basophils % 0.8 % (0.1-2.0); Eosinophils # 0.2 K/mm3 (0.0-0.4); Eosinophils % 1.9 % (0.1-12.0); Hematocrit 45.5 % (42.0-52.0); Hemoglobin 14.1 g/dL (14.1-18.0); Lymphocytes # 3.1 K/mm3 (0.7-4.5); Lymphocytes % 25.1 % (10-50); Mean Corpuscular HGB Conc 31.1 g/dL (31.8-35.4); Mean Corpuscular Hemoglobin 26.1 pg (27.0-31.2); Mean Corpuscular Volume 83.8 fl (80-94); Mean Platelet Volume 8.6 fl (7.4-10.4); Monocytes # 0.4 K/mm3 (0.1-1.0); Monocytes % 3.4 % (1.7-9.3); Neutrophils # 8.5 K/mm3 (1.8-7.8); Neutrophils % 68.8 % (37.0-80.0); Platelet Count 370 K/mm3 (142-424); Red Blood Count 5.42 M/mm3 (4.60-6.20); Red Cell Distribution Width 13.8 % (11.5-17.5); White Blood Count 12.3 K/mm3 (4.8-10.8)
--- NOTE | 2020-09-10 12:05 | CA_ITS ---
APPROVED REPORT EXAM: Comprehensive 2D, Doppler, and color-flow Echocardiogram Ssis Developer: Gladys Chan CRT Ht: 5 ft 6 in Wt: 234lbs BSA: 2.14 BP: 111/69 mmHg Indications: Shortness of Breath, Diabetes, Hyperlipidemia, Hypertension/HDD, tachycardia 2D Dimensions LVOT 1.98 cm (M/F) 1.5-2.5 M-Mode Dimensions RVDd 1.71 cm (0.9-2.6) LA Diam 3.14 cm (1.9-4.0) LVDd 3.88 cm (3.5-5.7) Ao Diam 3.82 cm (2.0-3.7) LVDs 2.55 cm (3.5-5.7) IVSd 1.45 cm (0.6-1.1) PWd 0.93 cm (0.6-1.1) EF (Teich) 64.10% FS 34.30% EDV (Teich) 65.10 mL ESV (Teich) 23.40 mL LV Diastology E Decel Time 150.00 (160-240 msec) E/A Ratio 1.40 Aortic Valve AO Peak GR. 14.50 mmHg Mitral Valve MV E Max Andrea. 103.00 (40-130 cm/s) MV A Velocity 74.00 (40-130 cm/s) E/A Ratio 1.40 MV Decel. Time 150.00 (160-240 ms) MV PHT 44.00 ms Pulmonary Valve PV Peak Velocity 59.00 (50-150 cm/s) Tricuspid Valve TR P. Velocity 265.00 cm/s RAP Estimate 10.00 mmHg RVSP 38.00 mmHg Left Ventricle Left atrium is mildly enlarged, left ventricle is normal size, mild concentric left ventricular hypertrophy, hyperdynamic left ventricular systolic function, visually estimated ejection fraction over 65% with no regional wall motion abnormality, Doppler evidence of impaired LV relaxation seen, tissue Doppler is suboptimal. Right Ventricle Right atrium and right ventricle are normal size and contractility. Aortic Valve Aortic valve is minimally thickened and fibrosed, there is no aortic stenosis or aortic insufficiency. Mitral Valve Mitral valve is grossly normal, there is mild mitral regurgitation. Tricuspid Valve Tricuspid valve grossly normal, there is trace tricuspid regurgitation. Pulmonic Valve Pulmonic valve is poorly visualized. Great Vessels Aortic root is normal size. Pericardium No significant pericardial effusion noted. Conclusion 1. Mildly enlarged left atrium, normal left ventricular size, mild concentric left ventricular hypertrophy, hyperdynamic left ventricular systolic function, visually estimated ejection fraction over 65% with no regional wall motion abnormality, Doppler evidence of impaired LV relaxation seen. 2. Mild mitral and trace tricuspid regurgitation. 3. No significant pericardial effusion noted. Electronically signed by : Anselmo De León, 09/11/2020 14:02:38
[2020-09-10 12:36] LABS: Chloride 104 mmol/L (98-107); Potassium 4.5 mmoL/L (3.5-5.1); Sodium 139 mmol/L (136-145)
[2020-09-10 12:39] LABS: Anion Gap 15.5 mEq/L (5-15); Blood Urea Nitrogen 15 mg/dl (9-20); Carbon Dioxide 24 mmol/L (22.0-30.0); Estimated Glomerular Filt Rate 60 ml/min (>60); GFR (African American) 73 ML/MIN (>60); Glucose 143 mg/dl (74-100)
[2020-09-10 12:57] LABS: Triiodothryronine (T3) Uptake 32 % (23.5-40.5)
[2020-09-10 12:58] LABS: Free Thyroxine Index 3.2 ug/dL (5.93-13.13); T4 (Thyroxine) 10.1 ug/dl (5.53-11.0)
[2020-09-10 13:09] LABS: Coronavirus 19 IgG Antibody Negative (Negative); Coronavirus 19 IgM Antibody Negative (Negative)
[2020-09-10 13:11] LABS: Thyroid Stimulating Hormone 1.34 uIU/mL (0.465-4.68)
== END ==
PROVIDERS: PCP Emergency Medicine; Visit Provider Internal Medicine Cardiovascular Disease
DX: E78.5 Hyperlipidemia, unspecified (principal); I10 Essential (primary) hypertension; R00.0 Tachycardia, unspecified; R94.31 Abnormal electrocardiogram [ECG] [EKG]; Z82.49 Family history of ischemic heart disease and other diseases of the circulatory system; R07.9 Chest pain, unspecified; I20.0 Unstable angina
CPT/HCPCS: 36415; 80048; 84436; 84443; 84479; 85025; 86328; 93306

== ENCOUNTER 2020-09-11 08:37 | Day surgery (SDC) | payer MEDICARE, SELFPAY ==
[2020-09-11] VITALS (11 sets, daily range): BP systolic 129–156; BP diastolic 72–107; PULSE 112–125; RESP 20–22; TEMP -13.4–36.6; O2SAT 90–100; BMI 37.8
--- NOTE | 2020-09-11 07:33 | IR_ITS ---
APPROVED REPORT Patient Location: Outpatient PROCEDURES Right heart catheterization Left heart catheterization Left ventriculogram Selective coronary angiogram INDICATION Pulmonary hypertension, Accelerated angina pectoris Informed consent was obtained prior to the procedure. COMPLICATIONS NONE Estimated Blood Loss: LESS THAN 10 ML TECHNIQUE One percent lidocaine was used to anesthetize the right anterior aspect of the right wrist. The right radial artery was accessed via the Seldinger technique and a 6 [place]bourgish hydrophilic sheath was placed in the right radial artery. Following this one percent lidocaine was used to anesthetize the right anterior aspect of the right neck. The right internal jugular vein was accessed via the Seldinger technique and a 7 [place] sheath was placed in the right internal jugular vein. Following this an arterial cocktail was administered using 5000U heparin, 2.5 mg verapamil, 1mg Lidocaine and 800mcg nitroglycerin into the right radial sheath. A trap catheter was used to perform left heart catheterization left ventriculogram and selective coronary angiography while a [place] catheter was used to perform right heart catheterization. Saturations were obtained in the pulmonary artery and right atrium. At the end of the procedure the arterial sheath was removed good hemostasis was achieved using Traclet band. Patient was transferred to the postop holding area in stable condition for venous sheath removal. ANGIOGRAPHIC RESULTS The left main artery Normal The left anterior descending artery Normal The circumflex artery Dominant normal The right coronary artery Normal The ART ventriculogram reveals Hyperdynamic 70% The left ventricular end-diastolic pressure 30 mmHg Right atrial pressure 20 mmHg Right ventricular pressure 45/20 mmHg Pulmonary occlusion pressure 25 mmHg Pulmonary artery pressure 40/30 mmHg Right atrial saturation 75% Pulmonary saturation 74% IMPRESSION Normal coronary arteries Hyperdynamic ventricle insistent with hypertensive heart disease Moderate pulmonary hypertension secondary to hypertensive heart disease Evidence of biventricular failure based on elevated intracardial pulmonary filling pressures PLAN 1. Beta-blockers to slow down profound tachycardia 2. Diuretics to decrease EDP Electronically signed by : Dane Alvarenga, 09/11/2020 12:24:22
[2020-09-11 16:09] LABS: CATHL Arterial O2 SAT 75 % (90-100); CATHL Venous O2 SAT 76 % (75-80)
== END 2020-09-11 15:19 | disposition home or self-care (01) ==
LOC: CATHLAB 08:41
PROVIDERS: PCP Physician Assistant; Visit Provider Internal Medicine
DX: E11.65 Type 2 diabetes mellitus with hyperglycemia (principal); E78.5 Hyperlipidemia, unspecified; I11.0 Hypertensive heart disease with heart failure; I20.0 Unstable angina; I27.20 Pulmonary hypertension, unspecified; R00.0 Tachycardia, unspecified; R94.31 Abnormal electrocardiogram [ECG] [EKG]; Z82.49 Family history of ischemic heart disease and other diseases of the circulatory system; Z79.84 Long term (current) use of oral hypoglycemic drugs; Z88.8 Allergy status to other drugs, medicaments and biological substances; Z79.899 Other long term (current) drug therapy; I50.82 Biventricular heart failure
CPT/HCPCS: 82810; 93460; 99152; 99153; C1725; C1769; C1894; J1644; Q9967

== ENCOUNTER 2020-09-16 08:00 | Outpatient (RCR) | payer MEDICARE, SELFPAY ==
--- NOTE | 2020-09-09 09:50 | HMH.PTOPEV ---
PT Outpatient Evaluation Rehab PT Outpatient Evaluation Start: 09/09/20 08:06 Freq: Status: Active Protocol: Document 09/09/20 09:05 ISHMAEL (Rec: 09/09/20 09:49 ISHMAEL [id number]) Electronically Signed By Roger Rock, PT 09/09/20 09:05 Outpatient Therapy Subjective History Subjective History Pt is 45 yoaam who presents with c/o L ankle pain x several yrs, worse x ~ 6 mos. MRI shows L peroneal tendinitis vs tear. He reports recent cortisone injection helped significantly. He reports, I feel like I'm walking on the outside of my foot. I always limp on this side because my ankle doesn't bend, it never has. He also reports hx of DM-II diagnosed ~ 1 yr ago. Chief Complaint Pain,Stiff Symptom Type Sharp Symptoms Relieved By Rest/Positioning Symptoms Aggravated By Walking Prior Functional Limitations None Current Functional Limitations Recreation Activity,Walking Symptom Description Intermittent,Activity Dependent Level of pain today (0-10) 2 Pain scale - at its worst (0-10) 8 Ankle/Foot Eval Gait Observation General Gait Pattern Observation Antalgic Gait Palpation Tenderness left Ankle/Foot Palpation Findings Tenderness Ankle/Foot Palpation Overall Comment peroneal tedon ROM Ankle/Foot Dorsiflexion w/Knee Extended -5 Active Range Motion (degrees) Ankle/Foot Dorsiflexion w/Knee Extended 0 Passive Range (degrees) Ankle/Foot Plantar Flexion Active Range 0-32 of Motion (degrees) Ankle/Foot Plantar Flexion Passive Range 0-35 of Motion (degrees) Ankle/Foot Eversion Active Range of 0 Motion (degrees) Ankle/Foot Eversion Passive Range of 0-10 Motion (degrees) Ankle/Foot Inversion Active Range of 0-20 Motion (degrees) Ankle/Foot Inversion Passive Range of 0-30 Motion (degrees) Ankle/Foot ROM Limitations Soft Tissue Tightness, Contracture MMT Ankle Dorsiflexion Strength Grade 4 Good Ankle Plantarflexion Strength Grade 4 Good Foot Eversion Strength Grade 4 Good Foot Inversion Strength Grade 4 Good Outpatient Therapy Assessment Impairments Problems/Impairmments Palpation Tenderness,Impaired Range of Motion,Impaired Strength,Impaired Endurance, Imp
== END 2020-09-16 08:05 | disposition home or self-care (01) ==
LOC: PT 08:00
PROVIDERS: PCP Physician Assistant; Visit Provider Podiatrist
DX: M76.72 Peroneal tendinitis, left leg (principal)
CPT/HCPCS: 97014; 97035; 97110; 97140; 97163; 97530; G0283

== ENCOUNTER → 2020-09-18 10:09 | Outpatient (CLI) | payer MEDICARE, SELFPAY ==
[2020-09-18 11:05] LABS: Chloride 104 mmol/L (98-107)
[2020-09-18 11:06] LABS: Potassium 4.9 mmoL/L (3.5-5.1); Sodium 137 mmol/L (136-145)
[2020-09-18 11:09] LABS: Anion Gap 14.9 mEq/L (5-15); Blood Urea Nitrogen 20 mg/dl (9-20); Calcium 10.4 mg/dl (8.4-10.2); Carbon Dioxide 23 mmol/L (22.0-30.0); Estimated Glomerular Filt Rate 47 ml/min (>60); GFR (African American) 57 ML/MIN (>60); Glucose 159 mg/dl (74-100)
== END ==
PROVIDERS: Visit Provider Internal Medicine Cardiovascular Disease
DX: E78.5 Hyperlipidemia, unspecified (principal); I10 Essential (primary) hypertension; I27.20 Pulmonary hypertension, unspecified; N28.9 Disorder of kidney and ureter, unspecified; R06.00 Dyspnea, unspecified
CPT/HCPCS: 36415; 80048

== ENCOUNTER → 2020-10-01 11:01 | Outpatient (CLI) | payer MEDICARE, SELFPAY | PROVIDERS: PCP Physician Assistant; Visit Provider Internal Medicine Cardiovascular Disease | DX: G47.33 Obstructive sleep apnea (adult) (pediatric) (principal); R06.00 Dyspnea, unspecified; I27.20 Pulmonary hypertension, unspecified | CPT/HCPCS: G0399 ==

== ENCOUNTER → 2020-10-10 09:05 | Outpatient (CLI) | payer MEDICARE, SELFPAY ==
[2020-10-10 10:45] LABS: Chloride 101 mmol/L (98-107); Sodium 139 mmol/L (136-145)
[2020-10-10 10:46] LABS: Potassium 4.8 mmoL/L (3.5-5.1)
[2020-10-10 10:49] LABS: Anion Gap 13.8 mEq/L (5-15); Blood Urea Nitrogen 12 mg/dl (9-20); Calcium 9.9 mg/dl (8.4-10.2); Carbon Dioxide 29 mmol/L (22.0-30.0); Estimated Glomerular Filt Rate 51 ml/min (>60); GFR (African American) 62 ML/MIN (>60); Glucose 126 mg/dl (74-100)
== END ==
PROVIDERS: Visit Provider Internal Medicine Cardiovascular Disease
DX: E78.5 Hyperlipidemia, unspecified (principal); I10 Essential (primary) hypertension; I27.20 Pulmonary hypertension, unspecified; I50.30 Unspecified diastolic (congestive) heart failure; N28.9 Disorder of kidney and ureter, unspecified; R06.00 Dyspnea, unspecified; R06.83 Snoring; R40.0 Somnolence
CPT/HCPCS: 36415; 80048

== ENCOUNTER → 2020-12-03 10:05 | Outpatient (CLI) | payer MEDICARE, SELFPAY ==
--- NOTE | 2020-12-03 10:19 | XR_ITS ---
PROCEDURE: XR ANKLE WT BEARING LT MIN 3V CLINICAL INDICATION: ankle pain COMPARISON: CR XR ANKLE WT BEARING RT MIN 3V from 07/07/2020 CR XR ANKLE WT BEARING LT MIN 3V from 07/07/2020 MR MR ANKLE LT WO/W CON from 08/26/2020 FINDINGS: Bones: No fracture or dislocation. No lytic or blastic change. There is normal mineralization. Joints: The joint spaces are well-preserved. No significant degenerative/arthritic changes. No erosive changes evident. Other findings:Small Achilles enthesophyte noted. IMPRESSION: Negative left ankle Dictated by: Isaac Arnold MD 12/03/2020 11:22 Isaac Arnold MD in [place] 12/03/2020 11:22
[2020-12-03 10:39] LABS: Basophils # 0.1 K/mm3 (0-0.2); Basophils % 0.8 % (0.1-2.0); Eosinophils # 0.2 K/mm3 (0.0-0.4); Eosinophils % 1.6 % (0.1-12.0); Hematocrit 43.3 % (42.0-52.0); Hemoglobin 13.8 g/dL (14.1-18.0); Lymphocytes # 3.3 K/mm3 (0.7-4.5); Lymphocytes % 35.3 % (10-50); Mean Corpuscular HGB Conc 31.7 g/dL (31.8-35.4); Mean Corpuscular Hemoglobin 27.6 pg (27.0-31.2); Mean Corpuscular Volume 87.1 fl (80-94); Mean Platelet Volume 8.2 fl (7.4-10.4); Monocytes # 0.4 K/mm3 (0.1-1.0); Monocytes % 4.1 % (1.7-9.3); Neutrophils # 5.5 K/mm3 (1.8-7.8); Neutrophils % 58.3 % (37.0-80.0); Platelet Count 376 K/mm3 (142-424); Red Blood Count 4.98 M/mm3 (4.60-6.20); Red Cell Distribution Width 15.8 % (11.5-17.5); White Blood Count 9.4 K/mm3 (4.8-10.8)
[2020-12-03 10:50] LABS: Hemoglobin A1C 7.5 % (4.0-6.0)
[2020-12-03 11:00] LABS: Alanine Aminotransferase 19 U/L (12-78); Albumin Level 4.4 g/dl (3.5-5.0); Albumin/Globulin Ratio 1.5 (1.1-1.8); Alkaline Phosphatase 94 U/L (38-126); Anion Gap 14.2 mEq/L (5-15); Aspartate Amino Transferase 25 U/L (17-59); Bilirubin,Total 0.5 mg/dl (0.2-1.3); Blood Urea Nitrogen 9 mg/dl (9-20); Calcium 9.5 mg/dl (8.4-10.2); Carbon Dioxide 24 mmol/L (22.0-30.0); Chloride 105 mmol/L (98-107); Estimated Glomerular Filt Rate 55 ml/min (>60); GFR (African American) 67 ML/MIN (>60); Glucose 103 mg/dl (74-100); Potassium 4.2 mmoL/L (3.5-5.1); Sodium 139 mmol/L (136-145); Total Protein,Serum 7.4 g/dl (6.3-8.2)
[2020-12-03 11:05] LABS: C-Reactive Protein 8.9 mg/L (0-4)
[2020-12-03 11:17] LABS: 25-OH Vitamin D, Total 37.2 ng/mL (30-100)
[2020-12-03 11:32] LABS: Thyroid Stimulating Hormone 2.53 uIU/mL (0.465-4.68)
[2020-12-03 12:07] LABS: Vitamin B12 228 pg/mL (239-931)
[2020-12-03 12:26] LABS: Folate 4.53 ng/mL
[2020-12-03 12:35] LABS: Erythrocyte Sedimentation Rate 16 mm/hr (0-15)
[2020-12-04 10:13] LABS: RA Latex Turbid. <10.0 IU/mL (0.0-13.9)
[2020-12-05 15:40] LABS: Antinuclear Antibodies, IFA Negative (.)
== END ==
PROVIDERS: Visit Provider Podiatrist
DX: E11.65 Type 2 diabetes mellitus with hyperglycemia (principal); R09.89 Other specified symptoms and signs involving the circulatory and respiratory systems; M85.80 Other specified disorders of bone density and structure, unspecified site; M25.372 Other instability, left ankle; R21 Rash and other nonspecific skin eruption; M25.572 Pain in left ankle and joints of left foot; Z79.84 Long term (current) use of oral hypoglycemic drugs; Z68.39 Body mass index [BMI] 39.0-39.9, adult
CPT/HCPCS: 36415; 73610; 80053; 82306; 82607; 82746; 83036; 84443; 84550; 85025; 85651; 86038; 86140; 86431; 87070; 87077; 87186; 87205

== ENCOUNTER → 2020-12-22 12:58 | Outpatient (CLI) | payer MEDICARE, SELFPAY ==
[2020-12-22 13:20] LABS: Blood Urea Nitrogen 8 mg/dl (9-20); Estimated Glomerular Filt Rate 60 ml/min (>60); GFR (African American) 73 ML/MIN (>60)
--- NOTE | 2020-12-22 14:11 | MR_ITS ---
PROCEDURE INFORMATION: Exam: MR Left Lower Extremity Joint Without and With Contrast; Ankle Exam date and time: 12/22/2020 2:11 PM Age: 45 years old Clinical indication: Pain; Ankle; Left; Additional info: Left ankle pain. Left lateral ankle pain, no injury. Pain worsens with long periods of weight bearing. Prior xray 07-07-20. 20ml prohance lot: [id number] exp: May 2023 TECHNIQUE: Imaging protocol: MR of the Left lower extremity without and with contrast. Exam focused on the ankle. Contrast material: PROHANCE; Contrast volume: 20 ml; Contrast route: IV; COMPARISON: MR ANKLE LT WO/W CON 08/26/2020 8:38 AM FINDINGS: Limitations: Motion artifact - mild. Bones/joints: No acute fracture. No dislocation. Fluid: No significant joint effusion. Focal fluid encircling posterior tibial, flexor digitorum longus at level of distal tibia. Focal fluid encircling flexor hallucis longus at level of talus. LIGAMENTS: Distal tibiofibular syndesmosis: Grossly intact. Anterior talofibular ligament: Grossly intact. Posterior talofibular ligament: Grossly intact. Calcaneofibular ligament: Grossly intact. Deltoid ligament complex: Grossly intact. TENDONS: Flexor tendons of foot: Intact. Tibialis posterior tendon: Intact. Peroneal tendons: Longitudinal tear of peroneal brevis tendon at level of lateral malleolus. Extensor tendons of foot: Intact. Tibialis anterior tendon: Intact. Achilles tendon: Intact. Tarsal canal (Sinus tarsi): Unremarkable. Tarsal tunnel: Unremarkable. Muscles: Unremarkable. Soft tissues: Unremarkable. Plantar fascia: Plantar fascia is unremarkable. IMPRESSION: 1. Peroneal brevis tendon tear. 2. Posterior tibial, flexor digitorum longus, flexor hallucis longus tenosynovitis.
== END ==
PROVIDERS: Nurse Practitioner; PCP Physician Assistant; Visit Provider Podiatrist
DX: M72.2 Plantar fascial fibromatosis (principal); M25.372 Other instability, left ankle; M25.872 Other specified joint disorders, left ankle and foot; M76.72 Peroneal tendinitis, left leg; M95.8 Other specified acquired deformities of musculoskeletal system; R60.0 Localized edema; S86.312A Strain of muscle(s) and tendon(s) of peroneal muscle group at lower leg level, left leg, initial encounter
CPT/HCPCS: 36415; 73723; 82565; 84520; A9576

== ENCOUNTER → 2020-12-29 11:11 | Outpatient (CLI) | payer MEDICARE, SELFPAY ==
--- NOTE | 2020-12-29 | XR_ITS ---
PROCEDURE: XR CHEST 2V CLINICAL HISTORY: HIGH BP, PREOP COMPARISON: CT AGCHEST CT angio chest from 12/29/2017 CR CXR2V XR chest 2V from 09/07/2018 CR XR CHEST 2V from 08/06/2019 CR XR CHEST 2V from 07/09/2020 FINDINGS: There are low lung volumes. Unremarkable cardiovascular structures. Calcified azygos lymph node there is a small hiatal hernia. There is eventration of the diaphragm medially on the right. No lobar consolidation or collapse. No acute bony findings. IMPRESSION: No acute findings. Dictated by: Isaac Arnold MD 12/29/2020 12:28 Isaac Arnold MD in [place] 12/29/2020 12:28
--- NOTE | 2020-12-29 11:23 | ECG_ITS ---
APPROVED REPORT Exam: Resting ECG HR:84 bpm ECG Measurements Heart Rate 84 AXES IL 152 P 29 QRSd 80 QRS 133 QT 380 T -4 QTc 449 Conclusion Normal sinus rhythm Right axis deviation Abnormal QRS-T angle, consider primary T wave abnormality Abnormal ECG Electronically signed by : Greg Dumont, 01/02/2021 07:35:37
[2020-12-29 12:20] LABS: Basophils # 0.1 K/mm3 (0-0.2); Eosinophils # 0.1 K/mm3 (0.0-0.4); Eosinophils % 1.3 % (0.1-12.0); Hematocrit 43.6 % (42.0-52.0); Hemoglobin 14.1 g/dL (14.1-18.0); Lymphocytes # 3.1 K/mm3 (0.7-4.5); Lymphocytes % 36.3 % (10-50); Mean Corpuscular HGB Conc 32.4 g/dL (31.8-35.4); Mean Corpuscular Hemoglobin 27.7 pg (27.0-31.2); Mean Corpuscular Volume 85.3 fl (80-94); Mean Platelet Volume 8.2 fl (7.4-10.4); Monocytes # 0.5 K/mm3 (0.1-1.0); Monocytes % 5.5 % (1.7-9.3); Neutrophils # 4.8 K/mm3 (1.8-7.8); Neutrophils % 55.9 % (37.0-80.0); Platelet Count 417 K/mm3 (142-424); Red Blood Count 5.11 M/mm3 (4.60-6.20); Red Cell Distribution Width 15.2 % (11.5-17.5); White Blood Count 8.7 K/mm3 (4.8-10.8)
[2020-12-29 13:16] LABS: 25-OH Vitamin D, Total 40.6 ng/mL (30-100)
[2020-12-29 13:42] LABS: Chloride 103 mmol/L (98-107); Potassium 4.4 mmoL/L (3.5-5.1); Sodium 139 mmol/L (136-145)
[2020-12-29 13:45] LABS: Alanine Aminotransferase 21 U/L (12-78); Albumin Level 4.7 g/dl (3.5-5.0); Albumin/Globulin Ratio 1.6 (1.1-1.8); Alkaline Phosphatase 90 U/L (38-126); Anion Gap 15.4 mEq/L (5-15); Aspartate Amino Transferase 26 U/L (17-59); Bilirubin,Total 0.6 mg/dl (0.2-1.3); Blood Urea Nitrogen 9 mg/dl (9-20); Calcium 9.5 mg/dl (8.4-10.2); Carbon Dioxide 25 mmol/L (22.0-30.0); Estimated Glomerular Filt Rate 66 ml/min (>60); GFR (African American) 80 ML/MIN (>60); Glucose 122 mg/dl (74-100); Total Protein,Serum 7.7 g/dl (6.3-8.2)
[2020-12-29 15:10] LABS: Hemoglobin A1C 6.6 % (4.0-6.0)
[2020-12-29 15:21] LABS: Erythrocyte Sedimentation Rate 16 mm/hr (0-15)
== END ==
PROVIDERS: PCP Physician Assistant; Visit Provider Podiatrist
DX: Z01.818 Encounter for other preprocedural examination (principal); M25.572 Pain in left ankle and joints of left foot; I10 Essential (primary) hypertension; E11.9 Type 2 diabetes mellitus without complications; E66.9 Obesity, unspecified; Z68.38 Body mass index [BMI] 38.0-38.9, adult; Z79.84 Long term (current) use of oral hypoglycemic drugs
CPT/HCPCS: 36415; 71046; 80053; 82306; 83036; 85025; 85651; 86140; 93005

== ENCOUNTER → 2021-01-01 09:32 | Outpatient (CLI) | payer MEDICARE, SELFPAY ==
[2021-01-01 11:40] LABS: Ferritin 13.5 ng/ml (17.9-464)
== END ==
PROVIDERS: Visit Provider Nurse Practitioner Family
DX: E83.10 Disorder of iron metabolism, unspecified (principal)
CPT/HCPCS: 36415; 82728

== ENCOUNTER → 2021-01-18 15:58 | Outpatient (CLI) | payer MEDICARE, SELFPAY | PROVIDERS: Visit Provider Nurse Practitioner | DX: Z01.812 Encounter for preprocedural laboratory examination (principal); Z11.52 Encounter for screening for COVID-19 | CPT/HCPCS: U0003 ==

== ENCOUNTER 2021-01-20 06:08 | Day surgery (SDC) | payer MEDICARE, SELFPAY ==
[2021-01-12 13:00] VITALS: BMI 38.0
[2021-01-20] VITALS (10 sets, daily range): BP systolic 113–164; BP diastolic 57–94; PULSE 63–81; RESP 12–18; TEMP 36.3–43; O2SAT 95–100
[2021-01-20 06:42] LABS: POC Glucose,Bedside 101 (70-110)
--- NOTE | 2021-01-20 07:23 | HMH.OPNOTE ---
Date of procedure: 01/20/21 Pre-op Diagnosis:: 1. Left ankle instability 2. Chronic pain of left ankle 3. Tenosynovitis of left foot 4. Acquired equinus deformity of both feet 5. Left deltoid ligament sprain 6. Peroneal tendinitis of left lower leg 7. Tear of peroneal tendon of left foot 8. Impingement of left ankle joint 9. Type 2 diabetes mellitus with diabetic polyneuropathy, without long-term current use of insulin Post-op Diagnosis:: Same Procedure performed:: 1. Left peroneus brevis tendon repair 2. Left peroneus longus tendon repair 3. Left modified Brostrum ligament stabilization 4. Left deltoid ligament repair 5. Left ankle arthroscopy 6. Left gastrocnemius recession 7. Left ankle synovectomy 8. Graft application 9. Application of posterior splint Surgeon:: Shani Dale DPM STAINED GLASS WINDOW DESIGNER:: Abdirashid Casas Anesthesia: GETA, regional (left popliteal nerve block) Estimated blood loss (mL): 20 Clinical Note:: Patient is a 45-year-old diabetic male who presents for continued and worsening left ankle pain he initially had MRI 08/26/2020 which had a partial tear or strain of the peroneus longus tendon and some tenosynovitis. Patient had conservative care including: Ice, elevation, modification of shoe gear, modification of activity, utilizing the boot vs ankle brace with supportive shoes, continue stretching and doing physical therapy for the left foot and ankle tendinitis. Pain continued to worsen so he had a repeat MRI 12/22/2020 which showed a peroneal tendon tear. Patient also reports multiple joint pain. Recommend he f/u with PCP regarding knee, hip pain. Reviewed labs to r/o auto-immune disease, which were negative. Discussed patient may need long-term pain management via Dr. Elizabeth if symptoms do not improve. After a long discussion with the patient in regards to the conservative versus surgical treatment for the tendon tear/deformity, the patient has elected to proceed with surgery because he has failed conservative treatment and continues to have pain and worsening symptoms affecting daily activities. The patient has been instructed on the planned procedure, all risk versus benefits of the procedure discussed. These include but are not limited to: bleeding, infection, nerve and blood vessel damage, need for further surgery, delay in healing of soft tissue or bone, tendon re-rupture, failure of bones to heal, non-union, mal-union, failure of the implant, prolonged pain and recovery, CPRS/RSD, DVT and anesthetic complications. Discussed increase risk of wound complications and Charcot formation due to diabetes and neuropathy. We discussed if there is deep infection it could lead to wound debridement versus below-knee amputation. No guarantees were given. All questions fully answered. The patient verbalized understanding and agreed to proceed with surgery. Written consent was obtained. Necessary labs and pre-op testing ordered: CBC, CMP, EKG, CXR, covid. Patient has crutches. Recommend RKS. He does not smoke. Recommend aspirin 81mg post op for DVT ppx. Rx given for Oxycodone, Zofran 4mg # 30, (Motrin). Labs, 12/03/20: wbc 9.4, crp 8.9, creatinine 1.4, gfr 55, glucose 103, Ha1c 7.5%, uric acid 7.0, vit D 37.2, TSH 2.53 Labs, 12/29/20: wbc 8.7, esr 16, crp 5.0, creatinine 1.2, gfr 66, glucose 122, Ha1c 6.6, vit D 40.6, CXR (-) Operative findings:: Left ankle instability. Gastroc equinus noted. Left ankle synovitis. Partial tear in the superficial deltoid. ATFL attenuated and torn. The peroneus longus had a longitudinal tear inferior to the lateral malleolus. The peroneus brevis had a bulbous section over a centimeter long proximal to the ankle joint. The brevis tendon also had a split tear inferior to the bulbous area which extended 6 cm distal to the fibula. Synovitis around the peroneal tendons. No signs of infection noted. Operative note:: On this date and time patient was deemed an appropriate surgical candidate. Pre-op regional popliteal and saphenous nerve blo
--- NOTE | 2021-01-20 08:38 | HMH.ANESCL ---
[facility] Anesthesia Checklist - Structural Data Admitted From: Home Planned Operative Procedure/s: orif l ankle Consent for Planned Operative Procedure(s) Verified: Yes - Additional verifications Anesthesia Reactions: Yes (rash, vomiting, headache) Hx Blood Transfusions: No Blood Transfusion Reaction: No - Airway Assessment C-Spine Mobility Assessed: Yes TMJ Mobility Assessed: Yes Dentition: Poor Dentition - Neurological Assessment Level of Consciousness: Awake, Alert, Appropriate - Anesthesia Plan Anesthesia Risk discussed: Yes Anesthesia Plan: Verified ASA Class: II Anesthesia Type: General w/block [facility] History I have reviewed the patient's past medical history: Yes Medical History: Reports:: Anxiety, Diabetes Mellitus Type 2, Gastroesophageal Reflux Disease(GERD), Hyperlipidemia, Hypertension, Migraine, Renal Disease, Seizures Denies:: Cancer, Diabetes Mellitus Type 1, Internal Pacemaker, MRSA *Have you ever received a pneumonia vaccine?: No *Have you received a flu vaccine this season?: Yes Other Medical History: Reports: Arthritis. Denies: Blood Transfusion Reaction Anesthesia experience/problems:: none Laterality Cases: Left: Other Other Surgeries: Yes: Appendectomy, Cardiac Catheterization, Cholecystectomy, Colonoscopy, Hernia Repair, Other. No: Pacemaker Amputation: No Fractures: No - *Social History Last grade of school completed: Some college Smoking Status: Never smoker Alcohol Intake: never Alcohol Intake Frequency:: a few times a month Substance Use Type: denies use *Occupational Status:: disabled Housing: house Household Members: significant other, children *Travel in the last 8 weeks: None - Psychiatric History Pschychiatric History:: Reports:: Anxiety Family Hx:: Coronary Artery Disease
--- NOTE | 2021-01-20 09:59 | XR_ITS ---
PROCEDURE: XR ANKLE LT 2V CLINICAL INDICATION: MODIFIED BRODSTRUM, TALUS DEFECT COMPARISON: CR XR ANKLE LT MIN 3V from 01/20/2021 FINDINGS: There are single small screws in the distal fibula and medial malleolus in good position. Ankle joint mortise appears intact. Total fluoroscopy time was 43 seconds. IMPRESSION: Single small screws in the distal left tibia and fibula in good position. Dictated by: Leon Brown MD 01/20/2021 10:57 Leon Brown MD in [place] 01/20/2021 10:57
--- NOTE | 2021-01-20 10:30 | XR_ITS ---
PROCEDURE: XR ANKLE LT MIN 3V CLINICAL INDICATION: Post op ankle COMPARISON: CR XR ANKLE WT BEARING RT MIN 3V from 07/07/2020 CR XR ANKLE WT BEARING LT MIN 3V from 07/07/2020 CR XR ANKLE WT BEARING LT MIN 3V from 12/03/2020 FINDINGS: Three views of the left ankle obtained with splint material in place show single screws in the distal fibula and medial malleolus. Ankle joint mortise appears intact. No other abnormality. IMPRESSION: Postop changes of the left ankle as described above. Dictated by: Leon Brown MD 01/20/2021 11:00 Leon Brown MD in [place] 01/20/2021 11:00
--- NOTE | 2021-01-20 10:52 | P.PN_ITS ---
[facility] Anesthesia Record Part I Intake, IV Amount: 1,900 Estimated blood loss (mL): 0 Urine output (mL): 0 Blood Pressure: 124/72 SaO2: 98 Pulse Rate: 72 Respiratory Rate: 12 Temperature: 97.7 F Patient is:: Awake, Stable Stable to PACU at:: 10:45
[2021-01-20 11:41] LABS: POC Glucose,Bedside 111 (70-110)
--- NOTE | 2021-01-20 13:21 | SUR.OPER ---
0753-family updated 0904-family updated 1011-family updated
--- NOTE | 2021-01-20 13:58 | PC.NURSE ---
1105-checked fsbs with results of 111, no further orders given
--- NOTE | 2021-01-20 14:03 | PC.NURSE ---
1100-radiology at bedside 1112-detailed report called to CATHERINE Toney 1115-pt transported to post op via stretcher w/areli rails up and left in care of CATHERINE Toney with bed locked in lowest position, vss, pt stable
--- NOTE | 2021-01-21 09:45 | P.PN_ITS ---
[facility] Anesthesia Record Part II Discharge Time: 11:15 Destination: Surgical Day Care (OP Surgery) PACU nurse assessment reviewed?: Yes Patient Condition:: Good Anesthesia Complications:: None Swallowing reflex intact?: Yes Cyanosis?: No Blood Pressure: 130/66 Pulse Rate: 70 Temperature: 97.6 F Mental Status: Alert & Oriented Pain level:: 0 Nausea and/or vomitting:: None Intake, IV Amount: 0
[2021-01-21 09:48] VITALS: BP 130/66; PULSE 70; TEMP 36.4
== END 2021-01-20 11:52 | disposition home or self-care (01) ==
LOC: OR 06:10
PROVIDERS: PCP Physician Assistant; Visit Provider Podiatrist
DX: M25.372 Other instability, left ankle (principal); I70.223 Atherosclerosis of native arteries of extremities with rest pain, bilateral legs; E11.42 Type 2 diabetes mellitus with diabetic polyneuropathy; I10 Essential (primary) hypertension; G43.909 Migraine, unspecified, not intractable, without status migrainosus; M25.572 Pain in left ankle and joints of left foot; G89.29 Other chronic pain; M65.872 Other synovitis and tenosynovitis, left ankle and foot; M25.872 Other specified joint disorders, left ankle and foot; M95.8 Other specified acquired deformities of musculoskeletal system; M76.72 Peroneal tendinitis, left leg; M62.462 Contracture of muscle, left lower leg; M66.262 Spontaneous rupture of extensor tendons, left lower leg; M66.362 Spontaneous rupture of flexor tendons, left lower leg; Z79.84 Long term (current) use of oral hypoglycemic drugs
CPT/HCPCS: 15275; 27658; 27687; 27695; 73600; 73610; 76000; 82962; 88304; C1713; C1762; J2405; Q4211

== ENCOUNTER 2021-03-19 09:00 | Outpatient (RCR) | payer MEDICARE, SELFPAY ==
--- NOTE | 2021-03-09 10:19 | HMH.PTOPEV ---
PT Outpatient Evaluation Rehab PT Outpatient Evaluation Start: 03/09/21 09:53 Freq: Status: Active Protocol: Document 03/09/21 09:53 [place] (Rec: 03/09/21 10:19 SHIRA [id number]) Electronically Signed By Eris David, PT 03/09/21 09:53 Outpatient Therapy Subjective History Subjective History Patient is a 46 year old male presenting to outpatient PT with reports of L foot/ankle pain S/P L peroneal tendon repair 01/20/21 (6w 6d S/P). Patient was previously casted for 1 month, but arrives to clinic in CAM walker. Observation indicates multiple small abrasions about medial and lateral malleolus. Consultied with psychiatric clinical nurse specialist who suggested to cover with aquaphor. Main complaint is nerve pain to the L 4th and 5th digits. Comorbidities include hx of HTN, HL, diabetes, appendecomtoy, cholecystectomy and distal biceps tendon repair. Chief Complaint Pain,Stiff,Swelling, Paresthesia Symptom Type Throb Symptoms Relieved By Ice,OTC Meds,Prescription Meds Symptoms Aggravated By Standing,Physical Activity, Walking Prior Functional Limitations Standing,Walking Current Functional Limitations Housework,Standing,Recreation Activity,Walking,Stairs, Balance Symptom Description Constant but Variable Level of pain today (0-10) 5 Pain scale - at its best (0-10) 5 Pain scale - at its worst (0-10) 8 Ankle/Foot Eval Gait Observation General Gait Pattern Observation Antalgic Gait,Decrease Weight Bear (L) Palpation Tenderness left Ankle/Foot Palpation Findings Tenderness Ankle/Foot Palpation Overall Comment Surgical incision3/4 ROM Ankle/Foot Dorsiflexion w/Knee Extended -6 Active Range Motion (degrees) Ankle/Foot Dorsiflexion w/Knee Extended -4 Passive Range (degrees) Ankle/Foot Plantar Flexion Active Range 35 of Motion (degrees) Ankle/Foot Plantar Flexion Passive Range 40 of Motion (degrees) Ankle/Foot Eversion Active Range of 2 Motion (degrees) Ankle/Foot Eversion Passive Range of 12 Motion (degrees) Ankle/Foot I
== END 2021-03-19 09:05 | disposition home or self-care (01) ==
LOC: PT 09:00
PROVIDERS: Visit Provider Podiatrist
DX: M25.872 Other specified joint disorders, left ankle and foot (principal); Z98.890 Other specified postprocedural states
CPT/HCPCS: 97014; 97110; 97140; 97163; G0283

== ENCOUNTER → 2021-06-10 14:33 | Outpatient (CLI) | payer MEDICARE, SELFPAY ==
--- NOTE | 2021-06-10 14:36 | US_ITS ---
PROCEDURE: US EXTREMITY LT LIMITED CLINICAL INDICATION: neuropathy LLE, nodule LLE COMPARISON: No exams were available for comparison FINDINGS: Real-time sonography performed of the left ankle.. The Achilles tendon appears intact. Lateral to the Achilles tendon, ultrasound performed of the palpable region demonstrates an area of heterogeneous echogenicity contiguous with the underlying muscle which may be the soleus muscle somewhat difficult to ascertain on these images. This area measures approximately 15 x 5 mm somewhat protruding from the muscle. This could represent an area of scarring or perhaps an area of muscle tear. Consider MRI for more thorough and definitive evaluation. No localized fluid collection apparent. There is some mild subcutaneous edema. IMPRESSION: 1. Palpable abnormality in the lateral ankle corresponds to a heterogeneous area of echogenicity contiguous with the underlying muscle causing some protrusion of the muscle and may represent an area of scarring versus tearing of the muscle. MRI may provide further evaluation. 2. The Achilles tendon appears intact. There is some edema in the subcutaneous tissues at the region of the skin incision Dictated by: Isaac Arnold MD 06/10/2021 17:21 Isaac Arnold MD in [place] 06/10/2021 17:21
== END ==
PROVIDERS: PCP Physician Assistant; Visit Provider Physician Assistant
DX: R22.42 Localized swelling, mass and lump, left lower limb (principal)
CPT/HCPCS: 76882

== ENCOUNTER → 2021-06-10 15:25 | Outpatient (CLI) | payer MEDICARE, SELFPAY ==
[2021-06-10 18:16] LABS: Ferritin 19.1 ng/ml (17.9-464)
== END ==
PROVIDERS: Visit Provider Nurse Practitioner Family
DX: E83.10 Disorder of iron metabolism, unspecified (principal); G25.81 Restless legs syndrome
CPT/HCPCS: 36415; 76882; 82728

== ENCOUNTER → 2021-06-15 09:34 | Outpatient (CLI) | payer MEDICARE, SELFPAY ==
--- NOTE | 2021-06-15 09:38 | XR_ITS ---
PROCEDURE: XR CALCANEUS LT MIN 2V CLINICAL INDICATION: foot pain COMPARISON: No exams were available for comparison FINDINGS: No fracture or dislocation. No lytic or blastic change. There is normal mineralization. The joint spaces are well-preserved. No significant degenerative/arthritic changes. No erosive changes evident. Small enthesophyte at the Achilles insertion IMPRESSION: No acute findings. Dictated by: Isaac Arnold MD 06/15/2021 12:34 Isaac Arnold MD in [place] 06/15/2021 12:34
--- NOTE | 2021-06-15 09:38 | XR_ITS ---
PROCEDURE: XR FOOT WT BEARING LT 3V CLINICAL INDICATION: foot pain COMPARISON: CR XR FOOT WT BEARING RT 3V from 07/07/2020 CR XR FOOT WT BEARING LT 3V from 07/07/2020 FINDINGS: No fracture or dislocation. No lytic or blastic change. There is normal mineralization. Mild osteoarthritic change 1st MTP joint Other findings:None. 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
--- NOTE | 2021-06-15 09:38 | XR_ITS ---
PROCEDURE: XR ANKLE WT BEARING LT MIN 3V CLINICAL INDICATION: ankle pain COMPARISON: CR XR ANKLE WT BEARING RT MIN 3V from 07/07/2020 CR XR ANKLE WT BEARING LT MIN 3V from 07/07/2020 CR XR ANKLE WT BEARING LT MIN 3V from 12/03/2020 CR XR ANKLE LT MIN 3V from 01/20/2021 FINDINGS: There are anchor screws at the medial malleolar and lateral malleolar region. The ankle mortise is preserved. Unremarkable talar dome. No fracture or dislocation. No lytic or blastic change IMPRESSION: Postsurgical changes otherwise negative Dictated by: Isaac Arnold MD 06/15/2021 12:38 Isaac Arnold MD in [place] 06/15/2021 12:38
== END ==
PROVIDERS: PCP Physician Assistant; Visit Provider Podiatrist
DX: Z98.890 Other specified postprocedural states; M79.672 Pain in left foot
CPT/HCPCS: 73610; 73630; 73650

== ENCOUNTER → 2021-06-21 11:12 | Outpatient (CLI) | payer MEDICARE, SELFPAY ==
[2021-06-21 14:21] LABS: Chloride 104 mmol/L (98-107); Potassium 4.2 mmoL/L (3.5-5.1)
[2021-06-21 14:24] LABS: Blood Urea Nitrogen 9 mg/dl (9-20); Calcium 9.1 mg/dl (8.4-10.2); Carbon Dioxide 28 mmol/L (22.0-30.0); Estimated Glomerular Filt Rate 72 ml/min (>60); GFR (African American) 88 ML/MIN (>60); Glucose 113 mg/dl (74-100)
[2021-06-21 15:23] LABS: Anion Gap 12.2 mEq/L (5-15); Sodium 140 mmol/L (136-145)
== END ==
PROVIDERS: Visit Provider Physician Assistant
DX: E11.42 Type 2 diabetes mellitus with diabetic polyneuropathy (principal); Z01.812 Encounter for preprocedural laboratory examination; Z79.84 Long term (current) use of oral hypoglycemic drugs
CPT/HCPCS: 36415; 80048

== ENCOUNTER → 2021-06-22 10:02 | Outpatient (CLI) | payer MEDICARE, SELFPAY ==
--- NOTE | 2021-06-22 10:03 | MR_ITS ---
PROCEDURE INFORMATION: Exam: MR Left Lower Extremity Joint Without and With Contrast; Ankle Exam date and time: 06/22/2021 10:03 AM Age: 46 years old Clinical indication: Pain; Ankle; Left; Prior surgery; Surgery date: 1-6 months; Additional info: Left ankle/achilles tendon pain. Surgery on ankle January 20 2021. Appling a pop [id number] ago. Medial sided ankle pain that radiates up ankle. Pain when walking. Swelling in ankle. Prior x-ray 06-15-21. Prior MR 12-22-20 21ml prohance given. Bun: 9 cre: 0.7 gfr: 90 TECHNIQUE: Imaging protocol: MR of the Left lower extremity without and with contrast. Exam focused on the ankle. Contrast material: PROHANCE; Contrast volume: 21 ml; Contrast route: IV; COMPARISON: 1. MR ANKLE LT WO/W CON 12/22/2020 2:57 PM 2. MR ANKLE LT WO/W CON 08/26/2020 8:38 AM 3. CR XR ANKLE WT BEARING LT MIN 3V 06/15/2021 9:52 AM 4. US EXTREMITY LT LIMITED 06/10/2021 2:48:43 PM FINDINGS: Bones and cartilage: Susceptibility artifact in the medial and lateral malleoli are due to the presence of suture anchors. There is no acute fracture or dislocation. No aggressive bone lesions are present. There is no acute fracture or dislocation. No aggressive bone lesions are present. Joint spaces: A trace effusion involves the ankle joint. LIGAMENTS: Distal tibiofibular syndesmosis: Unremarkable. No tear. Anterior talofibular ligament: The anterior talofibular ligament is thin, suggesting an age indeterminant, low grade partial-thickness tear. Posterior talofibular ligament: Unremarkable. No tear. Calcaneofibular ligament: Unremarkable. No tear. Deltoid ligament complex: Increased T2 signal within the deep deltoid ligament complex is suggests prior low-grade injury. The superficial component of the deltoid ligament is grossly intact. TENDONS: Flexor tendons of foot: Unremarkable as visualized. Tibialis posterior tendon: Mild tenosynovitis involves the tibialis posterior tendon. Moderate increased T2 signal within the tibialis posterior tendon distally is consistent with moderate tendinosis. Peroneal tendons: The peroneus longus and brevis tendons have heterogeneous increased signal intensity being poorly differentiated from each other at the level of the lateral malleolus through the level of the anterior calcaneus. The appearance suggests prior operative intervention. There is no evidence of rupture. Extensor tendons of foot: Unremarkable as visualized. Tibialis anterior tendon: Unremarkable. Achilles tendon: Moderate thickening and increased T2 signal involves the Achilles tendon proximally in the distal calf returning to a normal caliber in appearance along the more distal Achilles tendon. Tarsal canal (Sinus tarsi): The sinus tarsi has normal fat signal. Tarsal tunnel: Unremarkable. Muscles: Unremarkable. Soft tissues: There are normal postoperative punctate foci of micrometallic artifact in the soft tissues along the medial and lateral ankle regions from prior intervention. There is a mild amount of edema in the subcutaneous fat. Scarring is present in the posterolateral ankle around the peroneal tendons. No suspicious mass. Plantar fascia: There is no mass or significant fasciitis (fasciopathy) involving the plantar fascia. IMPRESSION: 1. Abnormal appearance of the peroneus longus and brevis tendons from the level of the lateral malleolus through the anterior calcaneus with surrounding soft tissue scarring presumed to be postoperative in origin. No tendon rupture. No suspicious mass. 2. Moderate tendinosis and mild tenosynovitis of the tibialis posterior tendon. 3. Moderate Achilles tendinopathy proximally with a normal appearing dist
== END ==
PROVIDERS: PCP Physician Assistant; Visit Provider Podiatrist
DX: M65.9 Synovitis and tenosynovitis, unspecified (principal); M95.8 Other specified acquired deformities of musculoskeletal system; S86.019A Strain of unspecified Achilles tendon, initial encounter; S86.312A Strain of muscle(s) and tendon(s) of peroneal muscle group at lower leg level, left leg, initial encounter; Z96.9 Presence of functional implant, unspecified
CPT/HCPCS: 73723; A9576

== ENCOUNTER 2021-08-19 08:34 | Emergency (ER) | payer MEDICARE, SELFPAY ==
[2021-08-19 08:35] VITALS: BP 155/94; PULSE 119; RESP 16; TEMP 36.8; O2SAT 98; BMI 38.7
--- NOTE | 2021-08-19 08:46 | XR_ITS ---
FINAL REPORT CLINICAL HISTORY: fall 1 week ago, pain FINDINGS: LUMBAR SPINE SERIES Four views demonstrate no fracture. The disc spaces are well-preserved. The vertebral bodies demonstrates normal height. There is no malalignment. IMPRESSION: No acute process. Reviewed, Interpreted and Dictated by Prakash Dempsey III, MD Transcribed by Magaly Bae Authenticated by Prakash Dempsey III, MD on 08/19/2021 09:46:39 AM [facility]
--- NOTE | 2021-08-19 08:51 | XR_ITS ---
FINAL REPORT CLINICAL HISTORY: fall 1 week ago, pain FINDINGS: LEFT HIP Three views demonstrate no acute fracture or dislocation. Mild degenerative changes are present. The visualized bony structures are well aligned. No soft tissue abnormality is seen. IMPRESSION: No acute process. Reviewed, Interpreted and Dictated by Prakash Dempsey III, MD Transcribed by Magaly Bae Authenticated by Prakash Dempsey III, MD on 08/19/2021 09:46:[address] [facility]
--- NOTE | 2021-08-19 08:51 | HMH.EDGENADL ---
ED Disposition Clinical Impression: Left hip pain Disposition: Home, Self-Care Condition on Discharge: Good Instructions: DI for Musculoskeletal Pain Referrals: Candi Fletcher PA [Primary Care Provider] - - Critical Care Critical Care Time: No Attestation: On 08/19/21, the high probability of a clinically significant, sudden or life threatening deterioration of the following system(s) required my full and direct attention, intervention and personal management. The time I documented below is in addition to time spent performing reported procedures but includes the following listed in this critical care notation. Medical Decision Making - Rajiv Inquiry Pt receiving controlled substance: No Vital Signs: 08/19/21 08:35 Temperature 98.2 F Temperature Source Oral Pulse Rate [Radial] 119 H Respiratory Rate 16 Blood Pressure [Right Arm] 155/94 H Blood Pressure Mean [Right Arm] 114 Blood Pressure Position [Right Arm] Sitting 02 Sat by Pulse Oximetry 98 Oxygen Delivery Method Room Air General Adult HPI - General Chief complaint: PAIN Stated complaint: [id number] left hip pain from home fall Time Seen by Provider: 08/19/21 08:52 Mode of Arrival: Ambulatory Limitations: No Limitations Description of Symptoms (Recalled from ER Triage Doc. by RN): to ed per pvt car with c/o lt side lower back pain radiating down to buttocks and lt leg. states fell approx 1 week ago onto lt hip and pain has gotten progressively worse. pt states taking an old perscription of pain meds with no relief of symptoms. - History of Present Illness HPI narrative: several days ago trip and fall today with left hip and low back pain positional, mild-mod, intermittent, no assoc symp[toms Onset (ago): day(s) Radiation: non-radiation Severity: moderate Consistency: intermittent Relieving factors: immobilization Exacerbating factors: movement Associated symptoms: denies other symptoms - Related Data Home Medications Medication Instructions Recorded Confirmed Sitagliptin Phosphate [Januvia] 100 mg PO DAILY 07/10/20 07/06/21 Aspirin [Low Dose Aspirin EC] 81 mg PO DAILY 01/12/21 07/06/21 Metoprolol Tartrate [Lopressor 100 200 mg PO BID 01/12/21 07/06/21 mg Tablets] Pantoprazole Sodium See Rx Instructions .ROUTE .COMPLEX 01/12/21 07/06/21 Trazodone HCl See Rx Instructions .ROUTE .COMPLEX 01/12/21 07/06/21 glipiZIDE [Glipizide ER] See Rx Instructions .ROUTE .COMPLEX 01/12/21 07/06/21 Ferrous Sulfate [Slow Fe] 142 mg PO DAILY 01/20/21 07/06/21 Rotigotine [Neupro] 2 mg TRANSDERMA DAILY 01/20/21 07/06/21 meloxicam 7.5 mg tablet 7.5 mg PO PRN tab 07/06/21 07/06/21 spironolactone 25 mg tablet 25 mg PO tab 07/06/21 07/06/21 Previous Rx's Medication Instructions Recorded diclofenac sodium 1 % topical gel 4 g TOPICAL QID #100 g 10/02/19 amitriptyline 100 mg tablet 100 mg PO HS #90 tab 04/01/20 acetaminophen 300 mg-codeine 30 mg 1 tab PO Q6H PRN 7 Days #28 tab 12/29/20 tablet ondansetron 8 mg disintegrating 8 mg PO Q8H PRN #30 tab 01/05/21 tablet colchicine 0.6 mg tablet 0.6 mg PO DAILY PRN #30 tab MDD 4mg 02/18/21 sucralfate 1 gram tablet See Rx Instructions .ROUTE 04/09/21 .COMPLEX #90 tablet sumatriptan succinate 100 mg tablet See Rx Instructions .ROUTE 04/09/21 .COMPLEX #9 tab indomethacin 25 mg capsule See Rx Instructions .ROUTE 04/15/21 .COMPLEX #20 capsule cholecalciferol (vitamin D3) 50 See Rx Instructions .ROUTE 05/10/21 mcg (2,000 unit) tablet .COMPLEX #30 tab gabapentin 100 mg capsule 100 mg PO BID #60 cap 05/31/21 triamcinolone acetonide 0.1 % 1 applic TOPICAL BID #80 g 05/31/21 topical ointment losartan 100 mg tablet See Rx Instructions .ROUTE 07/12/21 .COMPLEX #30 tab atorvastatin 10 mg tablet See Rx Instructions .ROUTE 08/09/21 .COMPLEX #30 tab empagliflozin 10 mg tablet See Rx Instructions .ROUTE 08/09/21 .COMPLEX #30 tab linagliptin 5 mg tablet See Rx Instructions .ROUTE 08/09/21 .COMPLEX
[2021-08-19 10:30] VITALS: BP 152/74; PULSE 78; RESP 16; TEMP 36.6; O2SAT 98
== END 2021-08-19 10:31 | disposition home or self-care (01) ==
PROVIDERS: Emergency Provider Emergency Medicine; PCP Physician Assistant
DX: M25.552 Pain in left hip (principal); M54.42 Lumbago with sciatica, left side; F41.9 Anxiety disorder, unspecified; I10 Essential (primary) hypertension; E78.5 Hyperlipidemia, unspecified; K21.9 Gastro-esophageal reflux disease without esophagitis; Z79.899 Other long term (current) drug therapy
CPT/HCPCS: 72100; 73502; 96372; 99282

== ENCOUNTER → 2021-09-06 16:00 | Outpatient (CLI) | payer MEDICARE, SELFPAY ==
[2021-09-06 15:11] LABS: Alanine Aminotransferase 29 U/L (12-78); Albumin Level 4.2 g/dl (3.5-5.0); Albumin/Globulin Ratio 1.5 (1.1-1.8); Alkaline Phosphatase 80 U/L (38-126); Anion Gap 14.6 mEq/L (5-15); Aspartate Amino Transferase 30 U/L (17-59); Basophils # 0.1 K/mm3 (0-0.2); Bilirubin,Total 0.7 mg/dl (0.2-1.3); Blood Urea Nitrogen 14 mg/dl (9-20); Calcium 9.5 mg/dl (8.4-10.2); Carbon Dioxide 23 mmol/L (22.0-30.0); Chloride 106 mmol/L (98-107); Chol/HDL Ratio 5.1 (1-3.5); Cholesterol 210 mg/dl (140-200); Eosinophils # 0.1 K/mm3 (0.0-0.4); Eosinophils % 1.6 % (0.1-12.0); Estimated Glomerular Filt Rate 81 ml/min (>60); GFR (African American) 98 ML/MIN (>60); Globulin 2.8 g/dL (1.3-3.2); Glucose 134 mg/dl (74-100); HDL Cholesterol 41 mg/dl (40-60); Hematocrit 45.7 % (42.0-52.0); Hemoglobin 14.4 g/dL (14.1-18.0); Lymphocytes # 2.9 K/mm3 (0.7-4.5); Lymphocytes % 32.2 % (10-50); Mean Corpuscular HGB Conc 31.5 g/dL (31.8-35.4); Mean Corpuscular Hemoglobin 27.2 pg (27.0-31.2); Mean Corpuscular Volume 86.3 fl (80-94); Mean Platelet Volume 9.8 fl (7.4-10.4); Monocytes # 0.4 K/mm3 (0.1-1.0); Monocytes % 4.2 % (1.7-9.3); Neutrophils # 5.5 K/mm3 (1.8-7.8); Platelet Count 337 K/mm3 (142-424); Potassium 4.6 mmoL/L (3.5-5.1); Red Blood Count 5.29 M/mm3 (4.60-6.20); Red Cell Distribution Width 15.7 % (11.5-17.5); Sodium 139 mmol/L (136-145); Triglycerides 260 mg/dl (30-150); VLDL Cholesterol 52 mg/dL (0-40)
[2021-09-06 15:22] LABS: Direct LDL Cholesterol 123.85 mg/dL (100-129)
[2021-09-06 15:26] LABS: Amphetamine/Metha Screen,Urine Negative ng/ml (<1000); Benzodiazepines Screen,Urine Negative ng/ml (<200)
[2021-09-06 15:27] LABS: Barbiturates Screen,Urine Positive ng/ml (<200)
[2021-09-06 15:28] LABS: Cannabinoid Screen,Urine Negative ng/ml (<50); Cocaine Screen,Urine Negative ng/ml (<300)
[2021-09-06 15:29] LABS: 25-OH Vitamin D, Total 37.3 ng/mL (30-100); Methadone Screen,Urine Negative ng/ml (<300)
[2021-09-06 15:30] LABS: Opiate Screen,Urine Negative ng/ml (<300); Phencyclidine Screen,Urine Negative ng/ml (<25)
[2021-09-06 15:42] LABS: Thyroid Stimulating Hormone 1.34 uIU/mL (0.465-4.68)
[2021-09-06 15:51] LABS: Microalbumin/Creatinine Ratio 32.8
[2021-09-06 15:55] LABS: Creatinine,Urine Random 218 mg/dL (Not Estab.)
[2021-09-06 18:19] LABS: Hemoglobin A1C 6.8 % (4.0-6.0)
== END ==
PROVIDERS: Visit Provider Physician Assistant
DX: Z79.899 Other long term (current) drug therapy (principal); E11.42 Type 2 diabetes mellitus with diabetic polyneuropathy; R53.83 Other fatigue; Z79.84 Long term (current) use of oral hypoglycemic drugs; E66.9 Obesity, unspecified; Z68.38 Body mass index [BMI] 38.0-38.9, adult
CPT/HCPCS: 80053; 80061; 80305; 82043; 82306; 82570; 83036; 84443; 85025

== ENCOUNTER → 2021-09-07 07:45 | Outpatient (CLI) | payer MEDICARE, SELFPAY ==
--- NOTE | 2021-09-07 07:59 | MR_ITS ---
FINAL REPORT CLINICAL HISTORY: attn posterior fossa, NCV/EMG peroneal nerve lesion posterior knee pain, no injury FINDINGS: Multiplanar MR imaging of the left knee was performed without contrast. Motion artifact is identified on many of the images. The medial and lateral menisci are intact without evidence of meniscal tear. The anterior and posterior cruciate ligaments are intact. The medial collateral ligament and lateral ligamentous complex are intact. The patellar and quadriceps tendons are intact. There is no evidence of fracture. No focal abnormality is identified of the articular cartilage. The visualized portion of the peroneal nerve is normal. Small joint effusion is seen. The musculature is intact. No soft tissue mass or cyst is identified. IMPRESSION: Small joint effusion, otherwise unremarkable. Reviewed, Interpreted and Dictated by Prakash Dempsey III, MD Transcribed by Magaly Bae Authenticated by Prakash Dempsey III, MD on 09/07/2021 10:18:36 AM [facility]
== END ==
PROVIDERS: PCP Physician Assistant; Visit Provider Specialist
DX: G89.29 Other chronic pain (principal); M21.372 Foot drop, left foot; M25.562 Pain in left knee; R94.130 Abnormal response to nerve stimulation, unspecified
CPT/HCPCS: 73721

== ENCOUNTER → 2021-09-14 11:19 | Outpatient (CLI) | payer MEDICARE, SELFPAY ==
--- NOTE | 2021-09-14 11:19 | US_ITS ---
FINAL REPORT CLINICAL HISTORY: left foot cold, pale, painful with venous stasis,claudication,hx lt ankle repair 2020 FINDINGS: ANKLE-BRACHIAL PRESSURE INDICES Pressure indices are as follows: RIGHT LOWER EXTREMITY: Ankle-brachial pressure index: 1.16 Comments: Normal LEFT LOWER EXTREMITY: Ankle-brachial pressure index: 1.12 Comments: Normal CONCLUSION: No evidence of significant obstructive peripheral vascular disease of the lower extremities Reviewed, Interpreted and Dictated by Prakash Dempsey III, MD Transcribed by Jenni Enriquez Authenticated by Prakash Dempsey III, MD on 09/14/2021 12:49:24 PM [facility]
== END ==
LOC: RT 11:19
PROVIDERS: PCP Physician Assistant; Visit Provider Physician Assistant
DX: R09.89 Other specified symptoms and signs involving the circulatory and respiratory systems (principal)
CPT/HCPCS: 93923

== ENCOUNTER 2021-09-21 08:00 | Outpatient (RCR) | payer MEDICARE, SELFPAY ==
--- NOTE | 2021-09-01 11:26 | HMH.PTOPEV ---
PT Outpatient Evaluation Rehab PT Outpatient Evaluation Start: 09/01/21 10:36 Freq: Status: Active Protocol: Document 09/01/21 11:11 SHIRA (Rec: 09/01/21 11:26 SHIRA [id number]) Electronically Signed By Eris David, PT 09/01/21 11:11 Outpatient Therapy Subjective History Subjective History Patient is a 46 year old male presenting to outpatient PT with reports of sub-acute R posterior hip pain with RLE radicular symptoms to the R calf. Symptoms onset 07/29/21 after having a NCV test performed. Most recent imaging of lumbar spine negative. SI special tests negative. Patient underwent surgery to repair R peroneal tendon mm 01/2021, and is set to have another surgery for gastroc/solues repair per patient report. Comorbidities include hx of diabetes, HTN, HL. Chief Complaint Pain,Paresthesia Symptom Type Throb,Burning Symptoms Relieved By Rest/Positioning Symptoms Aggravated By Standing,Bending/Stooping, Physical Activity,Lifting Prior Functional Limitations None Current Functional Limitations Lifting,Housework,Sleeping, Standing,Walking,Bending/ Stooping Symptom Description Constant but Variable Level of pain today (0-10) 8 Pain scale - at its best (0-10) 3 Pain scale - at its worst (0-10) 10 Lumbopelvic Eval Posture Thoracic Spine Posture Standing Position Increased Kyphosis Lumbar Spine Posture Standing Position Neutral Assistive device Assistive Devices Platform Walker Palapation tenderness right buttock tenderness Yes: 4/4 piriformis/gluteal mm Lumbar/Sacral Palpation Findings Tenderness Range of Motion Lumbar Spine Active Flexion Range of 65 Motion (degrees) Lumbar Spine Active Extension Range of 5 Motion (degrees) Left Lumbar Spine Lateral Flexion Active 22 Range of Motion (degrees) Right Lumbar Spine Lateral Flexion 18 Active Range of Motion (degrees) Manual Muscle Test Left Knee Extension Strength Grade 5 Normal Knee Flexion Strength Grade 5 Normal Hip Flexion Strength Grade 5 Normal Extensor Hallucis Longus Strength Grade 5 Normal Ankle Dorsiflexion Strength Grade 5 Normal Gastronemius/Soleus Strength Grade 5 Normal Special T
== END 2021-09-21 08:05 | disposition home or self-care (01) ==
LOC: PT 08:00
PROVIDERS: PCP Physician Assistant; Visit Provider Nurse Practitioner Family
DX: M54.50 Low back pain, unspecified (principal)
CPT/HCPCS: 20561; 97010; 97014; 97110; 97163; G0283

== ENCOUNTER → 2021-09-23 09:58 | Outpatient (CLI) | payer MEDICARE, SELFPAY ==
--- NOTE | 2021-09-23 10:05 | XR_ITS ---
FINAL REPORT CLINICAL HISTORY: HAVING SURGERY COMPARISON: December 29, 2020 FINDINGS: Two views of the chest were obtained. The heart size and pulmonary vascularity are within normal limits. There is a moderate hiatal hernia. No acute pulmonary abnormality is identified. There is no pneumothorax. The bony thorax is intact. IMPRESSION: No active cardiopulmonary disease. Reviewed, Interpreted and Dictated by Prakash Dempsey III, MD Transcribed by Mg Milner Authenticated by Prakash Dempsey III, MD on 09/23/2021 11:09:34 AM [facility]
--- NOTE | 2021-09-23 10:49 | ECG_ITS ---
APPROVED REPORT Exam: Resting ECG HR:115 bpm ECG Measurements Heart Rate 115 AXES OR 160 P 30 QRSd 84 QRS 160 QT 310 T 45 QTc 378 Conclusion SINUS TACHYCARDIA POSSIBLE LEFT ATRIAL ENLARGEMENT [-0.1mV P-WAVE IN V1/V2] PATTERN CONSISTENT WITH PULMONARY DISEASE POSSIBLE RIGHT VENTRICULAR HYPERTROPHY [SOME/ALL OF: PROMINENT R IN V1, LATE TRANSITION, RAD, LEEANNA, SSS] ABNORMAL ECG UNCONFIRMED REPORT Electronically signed by : Greg Dumont MD 09/23/2021 20:19:28
[2021-09-23 11:28] LABS: Basophils % 0.5 % (0.1-2.0); Eosinophils # 0.1 K/mm3 (0.0-0.4); Hematocrit 45.3 % (42.0-52.0); Lymphocytes # 2.8 K/mm3 (0.7-4.5); Lymphocytes % 36.3 % (10-50); Mean Corpuscular HGB Conc 33.2 g/dL (31.8-35.4); Mean Corpuscular Volume 84.4 fl (80-94); Mean Platelet Volume 8.2 fl (7.4-10.4); Monocytes # 0.4 K/mm3 (0.1-1.0); Monocytes % 4.6 % (1.7-9.3); Neutrophils # 4.4 K/mm3 (1.8-7.8); Neutrophils % 57.7 % (37.0-80.0); Platelet Count 382 K/mm3 (142-424); Red Blood Count 5.36 M/mm3 (4.60-6.20); White Blood Count 7.7 K/mm3 (4.8-10.8)
[2021-09-23 11:46] LABS: Hemoglobin A1C 6.7 % (4.0-6.0)
[2021-09-23 12:08] LABS: Erythrocyte Sedimentation Rate 17 mm/hr (0-15)
[2021-09-23 12:28] LABS: Chloride 104 mmol/L (98-107)
[2021-09-23 12:29] LABS: Potassium 4.1 mmoL/L (3.5-5.1); Sodium 136 mmol/L (136-145)
[2021-09-23 12:31] LABS: Alanine Aminotransferase 43 U/L (12-78); Alkaline Phosphatase 85 U/L (38-126); Anion Gap 11.1 mEq/L (5-15); Aspartate Amino Transferase 51 U/L (17-59); Bilirubin,Total 0.5 mg/dl (0.2-1.3); Blood Urea Nitrogen 7 mg/dl (9-20); Carbon Dioxide 25 mmol/L (22.0-30.0); Estimated Glomerular Filt Rate 72 ml/min (>60); GFR (African American) 88 ML/MIN (>60)
[2021-09-23 12:32] LABS: Albumin Level 4.5 g/dl (3.5-5.0); Albumin/Globulin Ratio 1.6 (1.1-1.8); Calcium 9.1 mg/dl (8.4-10.2); Globulin 2.9 g/dL (1.3-3.2); Glucose 109 mg/dl (74-100); Total Protein,Serum 7.4 g/dl (6.3-8.2)
[2021-09-23 12:39] LABS: C-Reactive Protein 6.7 mg/L (0-4)
== END ==
LOC: LAB 10:01
PROVIDERS: PCP Physician Assistant; Visit Provider Podiatrist
DX: Z01.818 Encounter for other preprocedural examination (principal); Z79.899 Other long term (current) drug therapy
CPT/HCPCS: 36415; 71046; 80053; 83036; 85025; 85651; 86140; 93005

== ENCOUNTER → 2021-10-04 10:53 | Outpatient (CLI) | payer MEDICARE, SELFPAY | PROVIDERS: PCP Physician Assistant; Visit Provider Podiatrist | DX: Z01.812 Encounter for preprocedural laboratory examination (principal); Z11.52 Encounter for screening for COVID-19; M79.672 Pain in left foot; M25.572 Pain in left ankle and joints of left foot | CPT/HCPCS: C9803; U0003; U0005 ==

== ENCOUNTER 2021-10-06 05:51 | Day surgery (SDC) | payer MEDICARE, SELFPAY ==
[2021-10-04 13:23] VITALS: BMI 37.9
[2021-10-06] VITALS (10 sets, daily range): BP systolic 110–139; BP diastolic 70–92; PULSE 104–129; RESP 16–21; TEMP 36.3–43; O2SAT 95–99
--- NOTE | 2021-10-06 | XR_ITS ---
FINAL REPORT CLINICAL HISTORY: SCREW PLACEMENT LT CALCANEUS. in OR fluoro time: 8.64 FINDINGS: Fluoroscopy in OR 2 fluoroscopic spot images were obtained during ORIF procedure for screw placement in calcaneus. Please see operative report for further information. Fluoroscopy time: 8.64 minutes. IMPRESSION: Fluoroscopy time as above. Please see operative report. Reviewed, Interpreted and Dictated by Prakash Dempsey III, MD Transcribed by JEAN-PIERRE Moreno Authenticated by Prakash Dempsey III, MD on 10/06/2021 03:39:59 PM [facility]
--- NOTE | 2021-10-06 08:24 | HMH.ANESCL ---
[facility] Anesthesia Checklist - Structural Data Admitted From: Home Planned Operative Procedure/s: achilles tendon repair Consent for Planned Operative Procedure(s) Verified: Yes - Additional verifications Anesthesia Reactions: Yes (rash, vomiting, headache) Hx Blood Transfusions: No Blood Transfusion Reaction: No - Airway Assessment C-Spine Mobility Assessed: Yes TMJ Mobility Assessed: Yes Dentition: Poor Dentition - Neurological Assessment Level of Consciousness: Awake, Alert, Appropriate - Anesthesia Plan Anesthesia Risk discussed: Yes Anesthesia Plan: Verified ASA Class: II Anesthesia Type: General w/block - Preoperative Comments Pre-Operative Comments: pt requested pop block. proc exp to pt incl risks [facility] History I have reviewed the patient's past medical history: Yes Medical History: Reports:: Anxiety, Diabetes Mellitus Type 2, Gastroesophageal Reflux Disease(GERD), Hyperlipidemia, Hypertension, Migraine, Renal Disease, Seizures (last seizures 4-5 years ago) Denies:: Cancer, Diabetes Mellitus Type 1, Internal Pacemaker, MRSA *Have you ever received a pneumonia vaccine?: No *Have you received a flu vaccine this season?: No Other Medical History: Reports: Arthritis. Denies: Blood Transfusion Reaction Anesthesia experience/problems:: none Laterality Cases: Left: Other Other Surgeries: Yes: Appendectomy, Cardiac Catheterization, Cholecystectomy, Colonoscopy, Hernia Repair, Other. No: Pacemaker Amputation: No Fractures: No - *Social History Last grade of school completed: Advanced degree Smoking Status: Never smoker Alcohol Intake: never Alcohol Intake Frequency:: a few times a month Substance Use Type: denies use *Occupational Status:: unemployed Housing: house Household Members: significant other *Travel in the last 8 weeks: None - Psychiatric History Pschychiatric History:: Reports:: Anxiety Family Hx:: Coronary Artery Disease
--- NOTE | 2021-10-06 08:53 | SUR.OPER ---
0812 family provided with an update
--- NOTE | 2021-10-06 09:30 | SUR.OPER ---
0930 family provided with an update
--- NOTE | 2021-10-06 11:26 | SUR.OPER ---
1126 family provided with an update
--- NOTE | 2021-10-06 12:00 | XR_ITS ---
FINAL REPORT CLINICAL HISTORY: Post op COMPARISON: 06/15/2021 FINDINGS: LEFT CALCANEUS 2 views were obtained. There is interval postoperative change from talocalcaneal fusion with multiple screws. Postoperative changes are seen in the ankle and foot. IMPRESSION: Postoperative changes as above. Reviewed, Interpreted and Dictated by Prakash Dempsey III, MD Transcribed by Mg Milner Authenticated by Prakash Dempsey III, MD on 10/06/2021 02:26:00 PM [facility]
--- NOTE | 2021-10-06 12:00 | XR_ITS ---
FINAL REPORT CLINICAL HISTORY: Post op COMPARISON: January 20, 2021 FINDINGS: LEFT ANKLE: Three views of the left ankle were obtained. There has been interval postoperative change of talocalcaneal fusion with multiple screws. Postoperative changes are seen in the medial and lateral malleoli. Postoperative change is seen in the foot. IMPRESSION: Postoperative changes as described. Reviewed, Interpreted and Dictated by Prakash Dempsey III, MD Transcribed by Mg Milner Authenticated by Prakash Dempsey III, MD on 10/06/2021 02:26:01 PM [facility]
--- NOTE | 2021-10-06 12:00 | XR_ITS ---
FINAL REPORT CLINICAL HISTORY: Post op fusion COMPARISON: June 15, 2021 FINDINGS: Left foot Three views were obtained. There has been interval postoperative change from talocalcaneal fusion with multiple screws. Postoperative changes are seen in the medial and lateral malleoli. There is postoperative change in the 1st and 5th metatarsal. Overlying cast material obscures bony detail. There is presumed osteotomy of the 1st metatarsal proximally. IMPRESSION: Postoperative changes as described. Reviewed, Interpreted and Dictated by Prakash Dempsey III, MD Transcribed by Mg Milner Authenticated by Prakash Dempsey III, MD on 10/06/2021 02:26:06 PM [facility]
--- NOTE | 2021-10-06 13:06 | P.PN_ITS ---
[facility] Anesthesia Record Part I Intake, IV Amount: 2,500 Estimated blood loss (mL): 50 Urine output (mL): 200 Blood Pressure: 139/70 SaO2: 96 Pulse Rate: 125 Respiratory Rate: 16 Temperature: 97.5 F Patient is:: Awake, Stable Stable to PACU at:: 13:05
[2021-10-06 13:34] LABS: POC Glucose,Bedside 187 (70-110)
--- NOTE | 2021-10-06 13:50 | SUR.PHASEI ---
1315- james cano aware of pt's current heart rate of 120's-130. Does not want to treat at this time. 1335- detailed report given to marla nicholson in post op at this time
[2021-10-06 14:14] LABS: Microscopic,Cath URINE MICROSCOPIC (MICROSCOPIC)
--- NOTE | 2021-10-06 14:15 | SUR.PHASEII ---
IS given to patient per MD orders, instructed on use. Pt is familiar w/ using IS and has done so in the past. Sig other @ bedside as well. Pt does have crutches and a walker at home, so he will not need these @ time of discharge. Pt educated on post op instructions, as well as S/O. Both verbalized understanding and were given DC paperwork.
[2021-10-06 14:48] LABS: Appearance,Urine/Cath CLEAR (Clear); Bilirubin,Cath Negative (Negative); Blood, Urine/Cath Negative (Negative); Color,Urine/Cath YELLOW (Yellow); Glucose,Urine/Cath (UA) Negative (Negative); Ketones,Urine/Cath Negative (Negative); Leukocyte Esterase,Cath Negative (Negative); Nitrate,Cath Negative (Negative); PH,Urine/Cath 5.5 (5.0-8.5); Protein,Urine/Cath TRACE (Negative); Specific Gravity, Urine/Cath >= 1.030 (1.005-1.030); Urobilinogen,Cath 0.2 EU/dl (0.2)
[2021-10-06 15:36] LABS: Bacteria,Urine/Cath TRACE /lpf; RBC,Urine/Cath Occasional # /hpf (0-3); WBC,Urine/Cath Occasional #/hpf (0-3)
--- NOTE | 2021-10-06 15:37 | HMH.OPNOTE ---
Date of procedure: 10/06/21 Pre-op Diagnosis:: 1. Left achilles tear 2. Left peroneal tendon tear 3. Pes cavus of left foot 4. 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 Tenosynovitis of left foot 6. Primary osteoarthritis of left foot 7. Left leg weakness 8. Neuropathy 9. Type 2 diabetes mellitus 10. Obesity, Class II, BMI 35-39.9 Post-op Diagnosis:: Same Procedure performed:: 1. Left pes cavus reconstruction 2. Left achilles tendon repair 3. Left subtalar joint arthrodesis 4. Left 1st metatarsal DFWO 5. Left peroneal tendon debridement and repair 6. Left peroneal tendon transfer with advancement 7. Left ankle arthrotomy with synovectomy 8. Left steindler stripping 9. Application of graft 10. Application of IFRAH drain 11. Application of posterior splint Surgeon:: Shani Dale DPM Process Safety Specialist(s):: Erendira De Los Santos PLANNER/SCHEDULER:: Abdirashid Casas Anesthesia: GETA, regional (left pop nerve block) Estimated blood loss (mL): 50 Clinical Note:: The patient has tried immobilization, modification of shoe gear, strapping, inserts, ice, elevation, NSAIDs, ankle bracing and physical therapy. After a long discussion with the patient in regards to the conservative versus surgical treatment for the pes cavus, tendon tear/deformity, the patient has elected to proceed with surgery because they have failed conservative treatment and continue to have pain and worsening symptoms affecting daily activities. The patient has been instructed on the planned procedure, all risk versus benefits of the procedure discussed. Given the neuropathy and common peroneal nerve damage, he understands there is increased chance of right lower extremity neuropathy, weakness secondary to the nerve disease. The surgery's goal is to stabilize the foot but may not help alleviate nerve symptoms. He understands he will likely always have a degree of pain and deformity. He understands he will likely need a custom AFO postoperatively and may need bracing for life. These include but are not limited to: bleeding, infection, nerve and blood vessel damage, post op nerve symptoms, need for further surgery, delay in healing of soft tissue or bone, ligament/tendon re-rupture, failure of bones to heal, non-union, mal-union, failure of the implant, prolonged pain and recovery, CRPS/RSD, DVT/PE and anesthetic complications. No guarantees were given. All questions fully answered. The patient verbalized understanding and agreed to proceed with surgery. Written consent was obtained. Necessary labs and pre-op testing ordered: CBC, CMP, vit D, ESR, CRP, HA1c, EKG, CXR, covid. Medical clearance-Candi Fletcher/Dr Samuel. Neruolgoy clearance: Dr. Miller. Has crutches, RKS. Post op pain meds: Oxy 10mg, Toradol, Zofran, Bactrim DS. Operative findings:: Left foot pes cavus deformity. Patient had significant scar tissue noted. This case took 1.5 hours longer than normal (use modifier): Due to patient's body habitus, and the revisional nature of surgery including extensive soft tissue dissection due to scarring, revising peroneal tendon and fixing the Achilles tendon tear. Achilles tendon was torn 5-6 cm proximal to the insertion on the heel. There was thickened and nonviable tendon noted with synovitis. There was a defect noted in the peritenon and a lack of tissue covering the Achilles tendon which did cause a bulge clinically to the back of the leg. Peroneal tendons had already been repaired and anastomosed together. Due to the lack of excursion and weakness, after tendons were debrided the peroneus brevis/longus was advanced into 5th metatarsal. Calcaneal varus deformity noted. Plantarflexed 1st ray. Operative note:: On this date and time the patient was deemed appropriate surgical candidate. With informed consent signed patient was taken to the operating theater placed on the table supine. Anesthesia induced. IV antibiotics infused. Thigh tourniquet applied. Perez catheter inserted. Patient positioned lateral a
--- NOTE | 2021-10-07 07:29 | HMH.ANESII ---
[facility] Anesthesia Record Part II Discharge Time: 13:35 Destination: Surgical Day Care (OP Surgery) PACU nurse assessment reviewed?: Yes Patient Condition:: Good Anesthesia Complications:: None Swallowing reflex intact?: Yes Cyanosis?: No Blood Pressure: 125/92 Pulse Rate: 122 Temperature: 97.5 F Mental Status: Alert & Oriented Pain level:: 0 Nausea and/or vomitting:: None Intake, IV Amount: 0
[2021-10-07 07:30] VITALS: BP 125/92; PULSE 122; TEMP 36.4
[2022-05-05 10:57] LABS: POC Glucose,Bedside 126 (70-110)
== END 2021-10-06 14:10 | disposition home or self-care (01) ==
PROVIDERS: PCP Physician Assistant; Visit Provider Podiatrist
DX: E11.42 Type 2 diabetes mellitus with diabetic polyneuropathy (principal); G62.9 Polyneuropathy, unspecified; M65.9 Synovitis and tenosynovitis, unspecified; K21.9 Gastro-esophageal reflux disease without esophagitis; I10 Essential (primary) hypertension; Z79.899 Other long term (current) drug therapy; M19.072 Primary osteoarthritis, left ankle and foot; S86.012A Strain of left Achilles tendon, initial encounter; M66.272 Spontaneous rupture of extensor tendons, left ankle and foot; Z79.84 Long term (current) use of oral hypoglycemic drugs; M21.6X2 Other acquired deformities of left foot
CPT/HCPCS: 15275; 27652; 27664; 28250; 28306; 28725; 73610; 73630; 73650; 76000; 81001; 82962; 88304; 96374; C1713; C1734; C1762; C9290; J2405; Q4211

== ENCOUNTER → 2021-11-18 08:08 | Outpatient (CLI) | payer MEDICARE, SELFPAY | PROVIDERS: Visit Provider Podiatrist | DX: S91.302A Unspecified open wound, left foot, initial encounter; G89.18 Other acute postprocedural pain; Z98.890 Other specified postprocedural states; B95.7 Other staphylococcus as the cause of diseases classified elsewhere; B96.89 Other specified bacterial agents as the cause of diseases classified elsewhere | CPT/HCPCS: 87070; 87077; 87186; 87205 ==

== ENCOUNTER → 2021-11-18 09:09 | Outpatient (CLI) | payer MEDICARE, SELFPAY ==
--- NOTE | 2021-11-18 09:15 | XR_ITS ---
FINAL REPORT CLINICAL HISTORY: postop views COMPARISON: October 06, 2021 FINDINGS: LEFT CALCANEUS 2 views were obtained. The overlying cast has been removed. There are 4 orthopedic screws securing the subtalar joint. There are orthopedic anchors residing in the lateral malleolus and in the base of the 5th metatarsal. IMPRESSION: Interval removal of cast with postoperative changes as described. Reviewed, Interpreted and Dictated by Joaquim Montalvo MD Transcribed by Mg Milner Authenticated by Joaquim Montalvo MD on 11/18/2021 10:30:31 AM [facility]
--- NOTE | 2021-11-18 09:15 | XR_ITS ---
FINAL REPORT CLINICAL HISTORY: postop views COMPARISON: October 06, 2021 FINDINGS: 3 views of the left foot were obtained. The cast has been removed. There is a singular orthopedic staple at the osteotomy of the proximal 1st metatarsal. The bone fragments are unchanged in alignment. IMPRESSION: Interval cast removal with postoperative changes as described. Reviewed, Interpreted and Dictated by Joaquim Montalvo MD Transcribed by Mg Milner Authenticated by Joaquim Montalvo MD on 11/18/2021 10:30:26 AM [facility]
== END ==
LOC: RAD 09:12
PROVIDERS: PCP Physician Assistant; Visit Provider Podiatrist
DX: Z98.890 Other specified postprocedural states (principal); M25.572 Pain in left ankle and joints of left foot
CPT/HCPCS: 73630; 73650

== ENCOUNTER → 2022-01-20 09:53 | Outpatient (CLI) | payer MEDICARE, SELFPAY ==
--- NOTE | 2022-01-20 10:00 | XR_ITS ---
FINAL REPORT CLINICAL HISTORY: POSTOP VIEWS COMPARISON: November 18, 2021 FINDINGS: LEFT CALCANEUS 2 views were obtained. There are postoperative changes from talocalcaneal fusion. Four screws are present. There are other postoperative changes of the ankle and foot. There is no acute fracture or dislocation. There is no soft tissue abnormality. IMPRESSION: Postoperative change with no acute bony abnormality. Reviewed, Interpreted and Dictated by Prakash Dempsey III, MD Transcribed by Jenni Enriquez Authenticated and [facility]
--- NOTE | 2022-01-20 10:00 | XR_ITS ---
FINAL REPORT CLINICAL HISTORY: POSTOP VIEWS COMPARISON: October 06, 2021 FINDINGS: LEFT ANKLE Three views of the left ankle were obtained. There are postoperative changes of the medial and lateral malleoli and of the rearfoot. There is no acute fracture or dislocation. There is soft tissue swelling. IMPRESSION: Postoperative change with no acute bony abnormality. Reviewed, Interpreted and Dictated by Prakash Dempsey III, MD Transcribed by Jenni Enriquez Authenticated and . [facility]
--- NOTE | 2022-01-20 10:00 | XR_ITS ---
FINAL REPORT CLINICAL HISTORY: postop views COMPARISON: November 18, 2021 FINDINGS: LEFT FOOT: Three views of the left foot were obtained. There are postoperative changes from talocalcaneal fusion and an osteotomy in the proximal 1st metatarsal and postoperative change in the proximal 5th metatarsal. There is lack of bony union of the 1st metatarsal osteotomy. There is mild degenerative change. IMPRESSION: Postoperative change as described. Reviewed, Interpreted and Dictated by Prakash Dempsey III, MD Transcribed by Jenni Enriquez Authenticated and [facility]
== END ==
LOC: RAD 09:55
PROVIDERS: PCP Physician Assistant; Visit Provider Podiatrist
DX: Z98.890 Other specified postprocedural states (principal)
CPT/HCPCS: 73610; 73630; 73650

== ENCOUNTER → 2022-01-27 12:00 | Outpatient (CLI) | payer MEDICARE, SELFPAY ==
[2022-01-27 12:24] LABS: Basophils # 0.1 K/mm3 (0-0.2); Basophils % 0.9 % (0.1-2.0); Eosinophils # 0.2 K/mm3 (0.0-0.4); Eosinophils % 1.9 % (0.1-12.0); Hematocrit 41.2 % (42.0-52.0); Hemoglobin 13.5 g/dL (14.1-18.0); Lymphocytes # 3.8 K/mm3 (0.7-4.5); Mean Corpuscular HGB Conc 32.8 g/dL (31.8-35.4); Mean Corpuscular Hemoglobin 25.2 pg (27.0-31.2); Mean Corpuscular Volume 76.9 fl (80-94); Mean Platelet Volume 8.7 fl (7.4-10.4); Monocytes # 0.5 K/mm3 (0.1-1.0); Monocytes % 5.2 % (1.7-9.3); Neutrophils # 5.1 K/mm3 (1.8-7.8); Platelet Count 419 K/mm3 (142-424); Red Blood Count 5.35 M/mm3 (4.60-6.20); White Blood Count 9.7 K/mm3 (4.8-10.8)
[2022-01-27 12:56] LABS: Alanine Aminotransferase 20 U/L (12-78); Albumin Level 4.2 g/dl (3.5-5.0); Albumin/Globulin Ratio 1.4 (1.1-1.8); Alkaline Phosphatase 92 U/L (38-126); Anion Gap 14.3 mEq/L (5-15); Aspartate Amino Transferase 28 U/L (17-59); Bilirubin,Total 0.4 mg/dl (0.2-1.3); Blood Urea Nitrogen 8 mg/dl (9-20); Calcium 9.4 mg/dl (8.4-10.2); Carbon Dioxide 21 mmol/L (22.0-30.0); Chloride 106 mmol/L (98-107); Chol/HDL Ratio 5.6 (1-3.5); Cholesterol 208 mg/dl (140-200); Estimated Glomerular Filt Rate 72 ml/min (>60); GFR (African American) 88 ML/MIN (>60); Globulin 3.1 g/dL (1.3-3.2); Glucose 125 mg/dl (74-100); HDL Cholesterol 37 mg/dl (40-60); Potassium 4.3 mmoL/L (3.5-5.1); Sodium 137 mmol/L (136-145); Total Protein,Serum 7.3 g/dl (6.3-8.2)
[2022-01-27 12:59] LABS: Triglycerides 424 mg/dl (30-150)
[2022-01-27 13:08] LABS: Direct LDL Cholesterol 107.06 mg/dL (100-129)
[2022-01-27 13:28] LABS: Prostate Specific Ag Screen 0.7 ng/ml (0.0-4.0); Thyroid Stimulating Hormone 2.01 uIU/mL (0.465-4.68)
[2022-01-27 13:31] LABS: Ferritin 12.4 ng/ml (17.9-464)
[2022-01-27 13:47] LABS: Vitamin B12 358 pg/mL (239-931)
[2022-01-27 14:37] LABS: Iron 61 ug/dL (49-181)
[2022-01-27 14:49] LABS: Total Iron Binding Capacity 408 ug/dL (261-462)
[2022-01-27 14:53] LABS: 25-OH Vitamin D, Total 38.5 ng/mL (30-100)
[2022-01-28 09:34] LABS: Testosterone,Total 244 ng/dL (264-916)
== END ==
PROVIDERS: PCP Physician Assistant; Visit Provider Physician Assistant
DX: E11.42 Type 2 diabetes mellitus with diabetic polyneuropathy (principal); M25.552 Pain in left hip; E55.9 Vitamin D deficiency, unspecified; R60.9 Edema, unspecified; Z12.5 Encounter for screening for malignant neoplasm of prostate; E29.1 Testicular hypofunction; Z79.84 Long term (current) use of oral hypoglycemic drugs
CPT/HCPCS: 36415; 80053; 80061; 82043; 82306; 82607; 82728; 83036; 83540; 83550; 84403; 84443; 85025; G0103

== ENCOUNTER → 2022-02-02 08:47 | Outpatient (CLI) | payer MEDICARE, SELFPAY ==
[2022-02-03 10:08] LABS: Testosterone,Total 240 ng/dL (264-916)
== END ==
PROVIDERS: PCP Emergency Medicine; Visit Provider Physician Assistant
DX: R79.89 Other specified abnormal findings of blood chemistry (principal)
CPT/HCPCS: 36415; 84403

== ENCOUNTER 2022-02-23 08:00 | Outpatient (RCR) | payer MEDICARE, SELFPAY ==
--- NOTE | 2021-12-27 09:10 | HMH.PTOPEV ---
PT Outpatient Evaluation Rehab PT Outpatient Evaluation Start: 12/27/21 08:09 Freq: Status: Active Protocol: Document 12/27/21 08:52 ISHMAEL (Rec: 12/27/21 09:09 ISHMAEL [id number]) Electronically Signed By Roger Rock, PT 12/27/21 08:52 Outpatient Therapy Subjective History Subjective History Pt is 46 yoaam who presents with c/o pain, stiffness, and swelling in L ankle/foot since surgery ~ 3 mos ago. He underwent L foot pes cavus reconstruction with achilles tendon and peroneal tendon repairs. He reports pain in the L heel with weight bearing , which is worse later in the day. He also reports some intermittent nerve pain not worse with any certain activity. He has hx of prior L ankle surgery, DM-II with neuropathy, HTN, HL, migraine, MRSA, and renal disease. Chief Complaint Pain,Stiff,Swelling Symptom Type Ache,Sharp,Shooting Symptoms Relieved By Rest/Positioning Symptoms Aggravated By Standing,Walking Prior Functional Limitations None Current Functional Limitations Standing,Walking Symptom Description Constant but Variable,Activity Dependent Level of pain today (0-10) 3 Pain scale - at its worst (0-10) 7 Ankle/Foot Eval Gait Observation General Gait Pattern Observation Antalgic Gait,Decrease Weight Bear (L) Palpation Tenderness left Ankle/Foot Palpation Findings Tenderness Ankle/Foot Palpation Overall Comment heel, plantar fascia ROM Ankle/Foot Dorsiflexion w/Knee Extended 0-5 Active Range Motion (degrees) Ankle/Foot Plantar Flexion Active Range 0-30 of Motion (degrees) Ankle/Foot Eversion Active Range of 0-5 Motion (degrees) Ankle/Foot Inversion Active Range of 0-5 Motion (degrees) MMT Ankle Dorsiflexion Strength Grade 3+ Fair+ Ankle Plantarflexion Strength Grade 3+ Fair+ Foot Eversion Strength Grade 2 Poor Foot Inversion Strength Grade 2 Poor Special Tests Ankle Anterior Drawer Test Negative Left,Negative Right Talar Tilt Test Negative Left,Negative Right Outpatient Therapy Assessment Impairments Problems/Impairmments Palpation Tenderness,Impaired Range of Motion,Impaired Strength,Impaired Endurance, Impaired Ga
== END 2022-02-23 08:05 | disposition home or self-care (01) ==
LOC: PT 08:00
PROVIDERS: PCP Podiatrist; Visit Provider Podiatrist
DX: S84.12XA Injury of peroneal nerve at lower leg level, left leg, initial encounter (principal); Q66.72 Congenital pes cavus, left foot; Z98.890 Other specified postprocedural states
CPT/HCPCS: 97010; 97014; 97110; 97140; 97163; 97164; G0283

== ENCOUNTER → 2022-04-18 08:58 | Outpatient (CLI) | payer MEDICARE, SELFPAY ==
--- NOTE | 2022-04-18 09:01 | XR_ITS ---
FINAL REPORT CLINICAL HISTORY: post op- foot weight bearing COMPARISON: 01/20/2022 FINDINGS: LEFT FOOT 2 views of the left foot were obtained. There is no acute fracture or dislocation. There are postoperative changes to the 1st and 5th metatarsals. Partial bony fusion is seen at the osteotomy site of the 1st metatarsal. There also postoperative changes of fusion of the talocalcaneal joint with multiple screws. Mild degenerative changes are noted. Soft tissues are unremarkable. IMPRESSION: Postoperative changes with partial bony fusion at the osteotomy site of the 1st metatarsal. Reviewed, Interpreted and Dictated by Prakash Depmsey III, MD Transcribed by Beena Funez Authenticated and [facility]
== END ==
LOC: RAD 09:00
PROVIDERS: PCP Physician Assistant; Visit Provider Podiatrist
DX: Z98.890 Other specified postprocedural states (principal); M79.672 Pain in left foot
CPT/HCPCS: 73630

== ENCOUNTER → 2022-06-16 10:42 | Outpatient (CLI) | payer MEDICARE, SELFPAY ==
--- NOTE | 2022-06-16 10:42 | CT_ITS ---
FINAL REPORT CLINICAL HISTORY: Left foot pain FINDINGS: CT LEFT FOOT WITHOUT CONTRAST TECHNIQUE: Axial, reformatted, and 3D images were obtained of the left ankle. This study was performed with techniques to keep radiation doses as low as reasonably achievable, (ALARA). Individualized dose reduction techniques using automated exposure control or adjustment of mA and/or kV according to the patient's size were employed. FINDINGS: There are 3 orthopedic screws securing the subtalar joint. The screws appears to terminate in the anterior portion of the talus and region of the sinus tarsi. There appears to be ankylosis of the subtalar joint. There is mild widening of the lateral mortise. There is orthopedic hardware in the medial malleolus and inferior lateral malleolus. There are orthopedic anchor screws seen in the base of the 5th metatarsal. There is an orthopedic staple securing a healing osteotomy of the 1st proximal phalanx. Mild hypertrophic changes are seen in the interphalangeal joints. There is no acute fracture. IMPRESSION: Postoperative changes as above. No acute bony abnormality. Reviewed, Interpreted and Dictated by Joaquim Montalvo MD Transcribed by Marley Syed Authenticated and . [facility]
--- NOTE | 2022-06-16 10:42 | CT_ITS ---
FINAL REPORT CLINICAL HISTORY: ankle pain FINDINGS: CT LEFT ANKLE WITHOUT CONTRAST TECHNIQUE: Axial, reformatted, and 3D images were obtained of the left ankle. This study was performed with techniques to keep radiation doses as low as reasonably achievable, (ALARA). Individualized dose reduction techniques using automated exposure control or adjustment of mA and/or kV according to the patient's size were employed. FINDINGS: There are 3 orthopedic screws securing the subtalar joint. The screws appears to terminate in the anterior portion of the talus and region of the sinus tarsi. There appears to be ankylosis of the subtalar joint. There is mild widening of the lateral mortise. This is well seen on image 65 of series 2 and may be related to underlying ligament instability. There is orthopedic hardware in the medial malleolus and inferior lateral malleolus. There is no acute fracture. IMPRESSION: Mild widening of the lateral mortise may be related underlying ligamentous instability. Postoperative changes. Reviewed, Interpreted and Dictated by Joaquim Montalvo MD Transcribed by Marley Syed Authenticated and [facility]
== END ==
LOC: RAD 10:42
PROVIDERS: PCP Physician Assistant; Visit Provider Podiatrist
DX: M19.072 Primary osteoarthritis, left ankle and foot (principal); Z98.890 Other specified postprocedural states; M25.872 Other specified joint disorders, left ankle and foot
CPT/HCPCS: 73700

== ENCOUNTER → 2022-07-12 12:48 | Outpatient (CLI) | payer MEDICARE, SELFPAY ==
--- NOTE | 2022-07-12 12:59 | MR_ITS ---
FINAL REPORT CLINICAL HISTORY: foot pain. prior hx foot and ankle surgery 10/26. lateral sided ankle and foot pain., no injury or trauma. FINDINGS: Multiplanar MR imaging of the left ankle was performed without contrast. There are postoperative changes from talocalcaneal fusion with multiple screws present, postoperative changes of the medial and lateral malleoli and the 1st metatarsal which causes magnetic susceptibility artifact which obscures some of the detail. The bony structures are intact without evidence of fracture, bone bruise or marrow edema. There is an osteochondral lesion in the medial talar dome measuring 5 mm. Soft tissue obscures the lateral ankle ligaments. Peroneus longus and brevis tendons are obscured but there appears to be tendinosis and tenosynovitis. The flexor and extensor tendons are intact. There is mild distal Achilles peritendinitis. There is posterior plantar fasciitis without tear. The posterior plantar aponeurosis is intact. A small tibial talar joint effusion is seen. The musculature is intact. There is no evidence of soft tissue mass or cyst. IMPRESSION: Mild distal Achilles peritendinitis. Small tibial talar joint effusion. Posterior plantar fasciitis without tear. Peroneus longus and brevis tendons are obscured but there appears to be tendinosis and tenosynovitis. Osteochondral lesion in the medial talar dome, 5 mm. Reviewed, Interpreted and Dictated by Prakash Dempsey III, MD Transcribed by Jenni Enriquez Authenticated and . [facility]
== END ==
LOC: RAD 12:48
PROVIDERS: PCP Physician Assistant; Visit Provider Podiatrist
DX: M19.072 Primary osteoarthritis, left ankle and foot (principal); M25.872 Other specified joint disorders, left ankle and foot
CPT/HCPCS: 73721

== ENCOUNTER → 2023-01-05 20:40 | Outpatient (CLI) | payer MEDICARE, SELFPAY ==
[2023-01-05 19:06] LABS: Basophils # 0.1 K/mm3 (0-0.2); Basophils % 0.6 % (0.1-2.0); Eosinophils # 0.1 K/mm3 (0.0-0.4); Eosinophils % 1.3 % (0.1-12.0); Hematocrit 43.1 % (42.0-52.0); Hemoglobin 13.8 g/dL (14.1-18.0); Mean Corpuscular Hemoglobin 26.1 pg (27.0-31.2); Mean Corpuscular Volume 81.6 fl (80-94); Mean Platelet Volume 9.5 fl (7.4-10.4); Monocytes # 0.4 K/mm3 (0.1-1.0); Neutrophils # 4.7 K/mm3 (1.8-7.8); Neutrophils % 57.2 % (37.0-80.0); Platelet Count 394 K/mm3 (142-424); Red Blood Count 5.28 M/mm3 (4.60-6.20); White Blood Count 8.2 K/mm3 (4.8-10.8)
[2023-01-05 20:16] LABS: Hemoglobin A1C 6.2 % (4.0-6.0)
[2023-01-05 20:37] LABS: Alanine Aminotransferase 23 U/L (12-78); Albumin Level 4.1 g/dl (3.5-5.0); Albumin/Globulin Ratio 1.5 (1.1-1.8); Alkaline Phosphatase 95 U/L (38-126); Anion Gap 18.6 mEq/L (5-15); Aspartate Amino Transferase 32 U/L (17-59); Bilirubin,Total 0.7 mg/dl (0.2-1.3); Blood Urea Nitrogen 11 mg/dl (9-20); Calcium 9.3 mg/dl (8.4-10.2); Carbon Dioxide 23 mmol/L (22.0-30.0); Chloride 105 mmol/L (98-107); Chol/HDL Ratio 4.7 (1-3.5); Cholesterol 174 mg/dl (140-200); Estimated Glomerular Filt Rate 59 ml/min (>60); GFR (African American) 72 ML/MIN (>60); Globulin 2.8 g/dL (1.3-3.2); Glucose 89 mg/dl (74-100); HDL Cholesterol 37 mg/dl (40-60); Potassium 4.6 mmoL/L (3.5-5.1); Sodium 142 mmol/L (136-145); Total Protein,Serum 6.9 g/dl (6.3-8.2)
[2023-01-05 20:42] LABS: Triglycerides 464 mg/dl (30-150)
[2023-01-05 20:48] LABS: Direct LDL Cholesterol 84.19 mg/dL (100-129)
[2023-01-05 20:57] LABS: 25-OH Vitamin D, Total 35.1 ng/mL (30-100)
[2023-01-05 21:09] LABS: Thyroid Stimulating Hormone 1.39 uIU/mL (0.465-4.68)
[2023-01-05 21:43] LABS: Microalbumin/Creatinine Ratio 6.2
[2023-01-05 21:51] LABS: Creatinine,Urine Random 233 mg/dL (Not Estab.)
== END ==
PROVIDERS: PCP Physician Assistant; Visit Provider Physician Assistant
DX: E11.9 Type 2 diabetes mellitus without complications (principal); E55.9 Vitamin D deficiency, unspecified; I10 Essential (primary) hypertension; E11.42 Type 2 diabetes mellitus with diabetic polyneuropathy; M25.551 Pain in right hip; Z79.84 Long term (current) use of oral hypoglycemic drugs
CPT/HCPCS: 80053; 80061; 82043; 82306; 82570; 83036; 84443; 85025

== ENCOUNTER → 2023-05-12 09:23 | Outpatient (CLI) | payer MEDICARE, SELFPAY ==
--- NOTE | 2023-05-12 09:33 | XR_ITS ---
FINAL REPORT CLINICAL HISTORY: Left foot pain FINDINGS: LEFT FOOT: Three views of the left foot were obtained. There is no acute fracture or dislocation. There are moderate degenerative changes of the first metatarsophalangeal joint. Postoperative changes are seen in the first and fifth metatarsals. There are postoperative changes in the talus and calcaneus. Soft tissues are unremarkable. IMPRESSION: Postoperative changes with no acute bony abnormality. Reviewed, Interpreted and Dictated by Prakash Dempsey III, MD Transcribed by Marley Syed Authenticated and [facility]
--- NOTE | 2023-05-12 09:33 | XR_ITS ---
FINAL REPORT CLINICAL HISTORY: Left ankle pain FINDINGS: LEFT ANKLE: Three views of the left ankle were obtained. There is no acute fracture or dislocation. There are postoperative changes from fusion of the talocalcaneal joint with 4 screws present. There are postoperative changes in the medial and lateral malleolus and the first and fifth metatarsals. Mild degenerative changes are present. There is soft tissue swelling. IMPRESSION: Postoperative changes with no acute bony abnormality. Reviewed, Interpreted and Dictated by Prakash Dempsey III, MD Transcribed by Marley Syed Authenticated and [facility]
== END ==
LOC: RAD 09:24
PROVIDERS: PCP Physician Assistant; Visit Provider Podiatrist
DX: M25.572 Pain in left ankle and joints of left foot (principal); M79.672 Pain in left foot
CPT/HCPCS: 73610; 73630

== ENCOUNTER → 2023-05-25 14:12 | Outpatient (CLI) | payer MEDICARE, SELFPAY ==
--- NOTE | 2023-05-25 14:25 | CT_ITS ---
FINAL REPORT TECHNIQUE: Thin section axial CT images of the left ankle with coronal and sagittal reformats were performed. This study was performed with techniques to keep radiation doses as low as reasonably achievable (ALARA). Individualized dose reduction techniques using automated exposure control or adjustment of mA and/or kV according to the patient''s size were employed. CLINICAL HISTORY: ankle pain COMPARISON: 06/16/2022 FINDINGS: There are postoperative changes from talocalcaneal fusion. 4 screws are present. There are postoperative changes of the proximal fifth metatarsal and first metatarsal as well as the medial and lateral malleolar. Postoperative changes are stable. Postoperative changes are stable and without hardware complication. No acute bony abnormality identified. Soft tissues are without acute abnormality. IMPRESSION: Stable postoperative changes without acute bony abnormality. Reviewed, Interpreted and Dictated by Prakash Dempsey III, MD Transcribed by Beena Funez Authenticated and [facility]
[2023-05-25 14:36] LABS: Basophils # 0.1 K/mm3 (0-0.2); Basophils % 0.6 % (0.1-2.0); Eosinophils # 0.2 K/mm3 (0.0-0.4); Eosinophils % 2.2 % (0.1-12.0); Hematocrit 41.2 % (42.0-52.0); Lymphocytes # 2.7 K/mm3 (0.7-4.5); Lymphocytes % 34.7 % (10-50); Mean Corpuscular Hemoglobin 27.7 pg (27.0-31.2); Mean Corpuscular Volume 81.6 fl (80-94); Mean Platelet Volume 8.7 fl (7.4-10.4); Monocytes # 0.3 K/mm3 (0.1-1.0); Monocytes % 3.9 % (1.7-9.3); Neutrophils # 4.5 K/mm3 (1.8-7.8); Neutrophils % 58.6 % (37.0-80.0); Platelet Count 341 K/mm3 (142-424); Red Blood Count 5.05 M/mm3 (4.60-6.20); Red Cell Distribution Width 15.3 % (11.5-17.5); White Blood Count 7.7 K/mm3 (4.8-10.8)
[2023-05-25 15:32] LABS: Alanine Aminotransferase 19 U/L (12-78); Albumin/Globulin Ratio 1.3 (1.1-1.8); Alkaline Phosphatase 85 U/L (38-126); Aspartate Amino Transferase 27 U/L (17-59); Bilirubin,Total 0.7 mg/dl (0.2-1.3); Blood Urea Nitrogen 7 mg/dl (9-20); Carbon Dioxide 26 mmol/L (22.0-30.0); Chloride 102 mmol/L (98-107); Estimated Glomerular Filt Rate 80 ml/min (>60); GFR (African American) 97 ML/MIN (>60); Glucose 131 mg/dl (74-100); Sodium 138 mmol/L (136-145); Uric Acid 5.8 mg/dl (3.5-8.5)
[2023-05-25 15:37] LABS: C-Reactive Protein 6.7 mg/L (0-4)
[2023-05-25 15:47] LABS: Erythrocyte Sedimentation Rate 22 mm/hr (0-15)
[2023-05-25 16:21] LABS: Vitamin B12 228 pg/mL (239-931)
[2023-05-25 18:26] LABS: Hemoglobin A1C 5.6 % (4.0-6.0)
[2023-06-05 18:12] LABS: 1,25 Dihydroxy Vitamin D 55 pg/mL (.); 1,25-Dihydroxy, Vitamin D-2 <10 pg/mL (.); 1,25-Dihydroxy, Vitamin D-3 52 pg/mL (.)
== END ==
LOC: RAD 14:13
PROVIDERS: PCP Physician Assistant; Visit Provider Podiatrist
DX: E11.40 Type 2 diabetes mellitus with diabetic neuropathy, unspecified (principal); M25.572 Pain in left ankle and joints of left foot; M25.872 Other specified joint disorders, left ankle and foot; M79.672 Pain in left foot; E11.42 Type 2 diabetes mellitus with diabetic polyneuropathy; Z79.84 Long term (current) use of oral hypoglycemic drugs
CPT/HCPCS: 36415; 73700; 80053; 82607; 82652; 83036; 84550; 85025; 85651; 86140

== ENCOUNTER → 2023-06-06 11:15 | Outpatient (CLI) | payer MEDICARE, SELFPAY ==
--- NOTE | 2023-06-06 11:32 | XR_ITS ---
FINAL REPORT CLINICAL HISTORY: preop testing hypertension COMPARISON: 09/23/2021 FINDINGS: Two views of the chest were obtained. The heart size and pulmonary vascularity are within normal limits. The mediastinum is normal. No acute pulmonary abnormality is identified. There is no pneumothorax. The bony thorax is intact. IMPRESSION: No active cardiopulmonary disease. Reviewed, Interpreted and Dictated by Prakash Dempsey III, MD Transcribed by Jodi Bartholomew Authenticated and [facility]
--- NOTE | 2023-06-06 11:54 | ECG_ITS ---
APPROVED REPORT Exam: Resting ECG HR:99 bpm ECG Measurements Heart Rate 99 AXES DC 163 P 43 QRSd 96 QRS 127 QT 347 T 17 QTc 404 Conclusion SINUS RHYTHM POSSIBLE RIGHT VENTRICULAR HYPERTROPHY [SOME/ALL OF: PROMINENT R IN V1, LATE TRANSITION, RAD, LEEANNA, SSS] NONSPECIFIC T-WAVE ABNORMALITY ABNORMAL ECG UNCONFIRMED REPORT Electronically signed by : Greg Dumont MD 06/08/2023 21:42:37
[2023-06-06 12:14] LABS: Alanine Aminotransferase 25 U/L (12-78); Albumin Level 4.5 g/dl (3.5-5.0); Albumin/Globulin Ratio 1.4 (1.1-1.8); Alkaline Phosphatase 94 U/L (38-126); Anion Gap 13.8 mEq/L (5-15); Aspartate Amino Transferase 30 U/L (17-59); Bilirubin,Total 0.4 mg/dl (0.2-1.3); Blood Urea Nitrogen 9 mg/dl (9-20); Calcium 9.4 mg/dl (8.4-10.2); Carbon Dioxide 27 mmol/L (22.0-30.0); Chloride 104 mmol/L (98-107); Estimated Glomerular Filt Rate 65 ml/min (>60); GFR (African American) 79 ML/MIN (>60); Globulin 3.3 g/dL (1.3-3.2); Glucose 107 mg/dl (74-100); Potassium 3.8 mmoL/L (3.5-5.1); Sodium 141 mmol/L (136-145); Total Protein,Serum 7.8 g/dl (6.3-8.2)
[2023-06-06 12:20] LABS: C-Reactive Protein 3.9 mg/L (0-4)
[2023-06-06 12:27] LABS: Erythrocyte Sedimentation Rate 19 mm/hr (0-15)
== END ==
LOC: LAB 11:16
PROVIDERS: PCP Physician Assistant; Visit Provider Podiatrist
DX: E11.40 Type 2 diabetes mellitus with diabetic neuropathy, unspecified (principal); M19.072 Primary osteoarthritis, left ankle and foot; M79.672 Pain in left foot; M25.572 Pain in left ankle and joints of left foot; Z79.84 Long term (current) use of oral hypoglycemic drugs; Z01.818 Encounter for other preprocedural examination
CPT/HCPCS: 36415; 71046; 80053; 85651; 86140; 93005

== ENCOUNTER → 2023-06-14 13:57 | Outpatient (CLI) | payer MEDICARE, SELFPAY ==
--- NOTE | 2023-06-14 13:59 | CA_ITS ---
APPROVED REPORT EXAM: Comprehensive 2D, Doppler, and color-flow Echocardiogram Doorperson: Gladys Chan CRT Ht: 5 ft 6 in Wt: 221lbs BSA: 2.09 BP: 152/102 mmHg Indications: Pre-Op Clearance ankle, Hyperlipidemia, Hypertension/HDD 2D Dimensions LVOT 2.14 cm (M/F) 1.5-2.5 LA Volume 19.90 mL LA Volume Index 9.30 mL/m2 (M/F) 16-34 M-Mode Dimensions RVDd 1.97 cm (0.9-2.6) LA Diam 3.58 cm (1.9-4.0) LVDd 3.67 cm (3.5-5.7) Ao Diam 3.88 cm (2.0-3.7) LVDs 2.05 cm (3.5-5.7) IVSd 1.82 cm (0.6-1.1) PWd 0.84 cm (0.6-1.1) EF (Teich) 76.10% FS 44.10% EDV (Teich) 57.00 mL TAPSE 2.51 (<1.7) ESV (Teich) 13.60 mL LV Diastology E Decel Time 220.00 (160-240 msec) E/A Ratio 0.80 MED E' 4.90 (< 7 cm/sec) MED A' 7.60 cm/s E'/MED E' Ratio 13.04 (>14) LAT E' 9.30 (<10 cm/sec) LAT A' 6.50 cm/s E/LAT E' Ratio 6.87 (>14) Aortic Valve AO Peak GR. 4.40 mmHg Mitral Valve MV E Max Andrea. 64.00 (40-130 cm/s) MV A Velocity 79.00 (40-130 cm/s) E/A Ratio 0.80 MV Decel. Time 220.00 (160-240 ms) MV PHT 64.00 ms Pulmonary Valve PV Peak Velocity 110.00 (50-150 cm/s) Tricuspid Valve TR P. Velocity 172.00 cm/s RAP Estimate 10.00 mmHg RVSP 21.80 mmHg Left Ventricle The left ventricle is normal size. The left ventricular systolic function is normal. The left ventricular ejection fraction is within the normal range. There is increased LV wall thickness. There is normal LV segmental wall motion. The left ventricular diastolic function is normal. LVEF is 60%. Right Ventricle The right ventricle is normal size. The right ventricular systolic function is normal. Atria The left atrium size is normal. The right atrium size is normal. There is no Doppler evidence of interatrial shunt. Aortic Valve Aortic valve opens well. There is no aortic valvular stenosis. No aortic regurgitation is present. Mitral Valve The mitral valve is normal in structure. No evidence of mitral valve stenosis. There is no mitral valve regurgitation noted. Tricuspid Valve The tricuspid valve leaflets are thin and pliable. Trace tricuspid regurgitation. There is insufficient TR jet to estimate RVSP. Pulmonic Valve The pulmonary valve is normal in structure. Trace pulmonic regurgitation. Great Vessels The aortic root is normal in size. The ascending aorta is normal in size. IVC is normal in size and collapses >50% with inspiration. Pericardium Trivial pericardial effusion. Other Information Study Quality: Fair Conclusion Normal biventricular systolic function. No significant valvular stenosis or regurgitation. Trivial pericardial effusion. No acute indications of tamponade. Electronically signed by : Renetta Chinchilla MD 06/19/2023 13:48:17
== END ==
LOC: RT 13:57
PROVIDERS: PCP Physician Assistant; Visit Provider Nurse Practitioner
DX: E11.9 Type 2 diabetes mellitus without complications (principal); E78.5 Hyperlipidemia, unspecified; I10 Essential (primary) hypertension; R94.31 Abnormal electrocardiogram [ECG] [EKG]; Z01.818 Encounter for other preprocedural examination; Z79.84 Long term (current) use of oral hypoglycemic drugs
CPT/HCPCS: 93306

== ENCOUNTER 2023-06-28 07:36 | Day surgery (SDC) | payer MEDICARE, SELFPAY ==
[2023-06-26 16:18] VITALS: BMI 34.7
[2023-06-28] VITALS (10 sets, daily range): BP systolic 105–140; BP diastolic 66–92; PULSE 91–110; RESP 16–20; TEMP 36.1–36.8; O2SAT 94–99
[2023-06-28] MEDS: LACTATED RINGERS 1000ML 1,000 ML 25 ML IV (08:08)
[2023-06-28 08:17] LABS: POC Glucose,Bedside 93 (70-110)
--- NOTE | 2023-06-28 09:45 | P.PNANES_ITS ---
[facility] Disclaimer: The information contained in this section may have been updated after the patient was seen, as this information can be updated by other users. Medical History Abnormal EKG Chest pain DKA (diabetic ketoacidoses) Family history of heart disease Foot pain, left Hyperlipidemia Hypertension Hyponatremia Left ankle pain [place] (obstructive sleep apnea) Pulmonary HTN Renal insufficiency Sinus tachycardia Unstable angina Surgical History History of ankle surgery History of foot surgery Family History Other No significant family history Social History Smoking Status: Never smoker second hand exposure: Yes alcohol intake: current substance use type: denies use current occupational status: unemployed Travel in the last 8 weeks: None household members: significant other housing: house current occupation: . current occupational exposures/hazards: No caffeine: Yes [facility] Anesthesia Checklist Patient Identification Patient Identification: Arm Band and Verbal (Name & ) Structural Data Admitted From: Home Planned Operative Procedure/s: Hardware removal L foot Consent for Planned Operative Procedure(s) Verified: Yes NPO Status Verified Time NPO: 00:00 Additional verifications Anesthesia Reactions: Yes (rash, vomiting, headache) Hx Blood Transfusions: No Blood Transfusion Reaction: Yes Airway Assessment Mallampati Score:: Class III C-Spine Mobility Assessed: Yes TMJ Mobility Assessed: Yes Dentition: Poor Dentition Neurological Assessment Level of Consciousness: Awake Hx Seizures: No Numbness or tingling in extremities: No Anesthesia Plan Anesthesia Risk discussed: Yes Anesthesia Plan: Verified ASA Class: II Anesthesia Type: General w/block
[2023-06-28] MEDS: GENTAMICIN 80 MG/2 ML VIAL (10:06)
[2023-06-28] MEDS: SODIUM CHLORIDE IRRIG SOLUTION 3,000 ML 100 ML IR (10:07)
--- NOTE | 2023-06-28 12:00 | XR_ITS ---
FINAL REPORT CLINICAL HISTORY: Post op left foot- hardware removed COMPARISON: None FINDINGS: LEFT FOOT: Three views of the left foot were obtained. There is no acute fracture or dislocation. There are postoperative changes in the first metatarsal and proximal fifth metatarsal. There are postoperative changes in the rear foot. There is mild degenerative change in the great toe. There is no soft tissue abnormality. IMPRESSION: Postoperative and degenerative changes without acute bony abnormality. Reviewed, Interpreted and Dictated by Prakash Dempsey III, MD Transcribed by Suma Kahn Authenticated and [facility]
--- NOTE | 2023-06-28 12:00 | XR_ITS ---
FINAL REPORT CLINICAL HISTORY: Post op hardware removal left foot COMPARISON: 05/12/2023 FINDINGS: LEFT ANKLE: Three views of the left ankle were obtained. There is no acute fracture or dislocation. There is been interval removal of 4 screws from the talus and calcaneus. Again noted are postoperative changes in the medial and lateral malleolus. There is no soft tissue abnormality. IMPRESSION: Postoperative changes without acute bony abnormality. Reviewed, Interpreted and Dictated by Prakash Dempsey III, MD Transcribed by Suma Kahn Authenticated and [facility]
--- NOTE | 2023-06-28 13:01 | EXP.ANES.I ---
[facility] Anesthesia Record Part I Anesthesia Record I Intake, IV Amount: 900 Hydration: Adequate Estimated blood loss (mL): 20 Urine output (mL): 0 Blood Pressure: 121/78 SaO2: 95 Pulse Rate: 106 Airway Patency: Patent Respiratory Rate: 20 Temperature: 97.8 F Patient is:: Awake Stable to PACU at:: 12:55
--- NOTE | 2023-06-28 13:14 | P.OP_ITS ---
Date of procedure: 06/28/23 Pre-op Diagnosis:: Left ankle instability Left peroneal tendinitis/rupture Retained painful hardware Ankle/foot osteoarthritis Post-op Diagnosis:: Same Procedure performed:: Left deep hardware removal x 4 Synovectomy foot flexor tendon sheath (10084) Bone biopsy Application/insertion Cerament G (intramedullary delivery drug) Surgeon:: Shani Dale DPM MACHINE SET UP OPERATOR PAPER GOODS:: Leon Joe Anesthesia: GETA and regional Estimated blood loss (mL): 20 Clinical Note:: Patient is a 48-year-old diabetic male with history of peripheral neuropathy and lower extremity peroneal weakness secondary to nerve dysfunction. Discussed risks and benefits in detail with the patient. See preop H&P. Medical and cardiac clearance obtained. This is a planned two-stage procedure to remove hardware and do bone biopsy to check and rule out any infection prior to hin dfoot/ankle reconstruction. Operative findings:: Retained deep hardware x 4 cannulated beams. Bony overgrowth over the screws. Screws removed in total without complication. No purulence, malodor or signs of deep bone infection noted. Calcaneal bone for path and culture. Navicular bone for pathology. Screw sent for culture. Flushed with gentamicin irrigation. Operative note:: On this date and time the patient was deemed an appropriate surgical candidate and with a consent signed, anesthesia did a preop regional block. Patient transferred to OR, placed supine, midcalf tourniquet applied. Timeout performed, appropriate limb marked prepped and draped. IV vancomycin given after bone biopsy. Attention was directed to prior incision sites on the inferior calcaneus, lateral subtalar joint and anterior talus. Full-thickness dissection. No signs of infection. Intraoperative fluoroscopy utilized to identify screws. Significant bony overgrowth noted to all the screw heads. Bony overgrowth removed. Screw heads were then visible and cannulated screws x 4 were removed in total without complication. Next a piece of bone from the calcaneus and navicular were removed and sent for bone biopsy. Bone was hard in texture and color, no obvious signs of osteomyelitis. Incision sites were flushed with gentamicin irrigation and a pulse lavage. Exploration resulted no signs of infection. 15 blade was then used to sharply debride the flexor tendon synovitis. Next Cerament G was then inserted into the screw holes. Prodense then used to backfill the remaining space and the screw holes. Vicryl and nylon used to close the incision. Dm used to reapproximate skin. Skin cleansed. Tourniquet deflated and immediate hyperemic response was noted to the digits. Xeroform, 4 x 4's, gauze, Sof-Rol and Shane were applied to the left foot. Patient appeared to tolerate procedure and anesthesia well without complication. He was transferred to recovery for further monitoring before being discharged home today. He is to be nonweightbearing in fracture boot, okay to put heel down for transfers. Prescriptions for oxycodone and doxycycline given take as directed. He is scheduled for follow-up next week. Tourniquet time (min): 120 Condition: stable Disposition: PACU Specimens:: Left calcaneus bone culture, hardware culture Left calcaneus, navicular bone path Complications:: None
[2023-06-28 13:37] LABS: POC Glucose,Bedside 138 (70-110)
--- NOTE | 2023-06-28 13:51 | SUR.PHASEII ---
pts family reports having polar pack, crutches, walker, scooter, and boot at home.
--- NOTE | 2023-06-30 04:42 | P.PNANES_ITS ---
[facility] Anesthesia Record Part II Anesthesia Record Part II Discharge Time: 13:34 Destination: Surgical Day Care (OP Surgery) PACU nurse assessment reviewed?: Yes Patient Condition:: Good Anesthesia Complications:: None Swallowing reflex intact?: Yes Airway Patency: Patent Cyanosis?: No Blood Pressure: 105/77 SaO2: 98 Respiratory Rate: 20 Pulse Rate: 106 Temperature: 97 F Mental Status: Alert & Oriented Pain level:: 0 Nausea and/or vomitting:: None Intake, IV Amount: 0 Hydration: Adequate
[2023-06-30 04:45] VITALS: BP 105/77; PULSE 106; RESP 20; TEMP 36.1; O2SAT 98
== END 2023-06-28 14:00 | disposition home or self-care (01) ==
PROVIDERS: PCP Physician Assistant; Visit Provider Podiatrist
PROC: (CPT 20680; principal; 2023-06-28 09:30)
DX: E11.42 Type 2 diabetes mellitus with diabetic polyneuropathy; T84.84XA Pain due to internal orthopedic prosthetic devices, implants and grafts, initial encounter; Z86.14 Personal history of Methicillin resistant Staphylococcus aureus infection; G62.9 Polyneuropathy, unspecified; M65.9 Synovitis and tenosynovitis, unspecified; M19.072 Primary osteoarthritis, left ankle and foot; M21.6X2 Other acquired deformities of left foot; M25.572 Pain in left ankle and joints of left foot; I10 Essential (primary) hypertension; E78.5 Hyperlipidemia, unspecified; I27.20 Pulmonary hypertension, unspecified; Z79.899 Other long term (current) drug therapy; Z79.84 Long term (current) use of oral hypoglycemic drugs; M25.372 Other instability, left ankle
CPT/HCPCS: 20680; 28086; 73610; 73630; 82962; 88304; 96374; C1713; C1776; J2405

== ENCOUNTER → 2023-07-04 07:29 | Outpatient (CLI) | payer MEDICARE, SELFPAY | PROVIDERS: PCP Physician Assistant; Visit Provider Podiatrist | DX: M25.572 Pain in left ankle and joints of left foot; S91.002A Unspecified open wound, left ankle, initial encounter | CPT/HCPCS: 87070; 87205 ==

== ENCOUNTER → 2023-07-18 16:25 | Outpatient (CLI) | payer MEDICARE, SELFPAY | PROVIDERS: PCP Physician Assistant; Visit Provider Podiatrist | DX: Z51.89 Encounter for other specified aftercare (principal); L97.529 Non-pressure chronic ulcer of other part of left foot with unspecified severity | CPT/HCPCS: 87070; 87205 ==

== ENCOUNTER → 2023-08-02 15:20 | Outpatient (CLI) | payer MEDICARE, SELFPAY ==
--- NOTE | 2023-08-02 15:26 | MR_ITS ---
FINAL REPORT CLINICAL HISTORY: post foot/ankle hardware removal. HX 5 SURGERIES. PAIN IN HEEL COMPARISON: None FINDINGS: Multiplanar MR imaging of the left ankle was performed without contrast. There is extensive magnetic artifact which obscures optimal evaluation of the ankle, particularly the calcaneus and the subtalar region. There is disruption of the ankle mortise, with widening laterally and narrowing medially, best seen on coronal images #39 and 40 of series 9. There is advanced heterotrophic change involving the talonavicular joint, particularly the anterior aspect of the talus, and superior to the talonavicular joint, consistent with advanced osteoarthritis. The subtalar joint is virtually obscured by the extensive magnetic artifact in this region and cannot be adequately evaluated. The flexor and extensor tendons are grossly intact. The posterior plantar aponeurosis is intact. No significant joint effusion is seen. The musculature is grossly intact. IMPRESSION: Extensive magnetic artifact which obscures optimal evaluation particularly of the calcaneus and the subtalar region. There is a disrupted ankle mortise as described, consistent with capsular ligament disruption. Advanced heterotrophic change particularly of the talonavicular joint, and the subtalar joint cannot be adequately evaluated. Reviewed, Interpreted and Dictated by Joaquim Montalvo MD Transcribed by Jodi Bartholomew Authenticated and [facility]
== END ==
LOC: RAD 15:20
PROVIDERS: PCP Physician Assistant; Visit Provider Podiatrist
DX: G89.29 Other chronic pain (principal); M25.572 Pain in left ankle and joints of left foot; S84.12XD Injury of peroneal nerve at lower leg level, left leg, subsequent encounter; Y99.9 Unspecified external cause status
CPT/HCPCS: 73721

== ENCOUNTER 2023-08-09 08:53 | Outpatient (CLI) | payer MEDICARE, SELFPAY | END 2023-08-09 23:59 | LOC: LAB.DROPOF 08-23 08:54 | PROVIDERS: PCP Physician Assistant; Visit Provider Physician Assistant | DX: M86.172 Other acute osteomyelitis, left ankle and foot (principal); B96.89 Other specified bacterial agents as the cause of diseases classified elsewhere | CPT/HCPCS: 87070; 87205 ==

== ENCOUNTER 2023-08-15 07:43 | Outpatient (CLI) | payer MEDICARE, SELFPAY ==
--- NOTE | 2023-08-15 07:55 | ECG_ITS ---
APPROVED REPORT Exam: Resting ECG HR:91 bpm ECG Measurements Heart Rate 91 AXES ID 180 P 25 QRSd 97 QRS 123 QT 368 T 31 QTc 417 Conclusion SINUS RHYTHM PATTERN CONSISTENT WITH PULMONARY DISEASE INCOMPLETE RIGHT BUNDLE BRANCH BLOCK [90+ ms QRS DURATION, TERMINAL R IN V1/V2, 40+ ms S IN I/aVL/V4/V5/V6] POSSIBLE RIGHT VENTRICULAR HYPERTROPHY [SOME/ALL OF: PROMINENT R IN V1, LATE TRANSITION, RAD, LEEANNA, SSS] ABNORMAL ECG UNCONFIRMED REPORT Electronically signed by : Greg Dumont MD 08/15/2023 20:39:02
[2023-08-15 08:37] LABS: Basophils # 0.1 K/mm3 (0-0.2); Basophils % 0.7 % (0.1-2.0); Eosinophils # 0.2 K/mm3 (0.0-0.4); Eosinophils % 1.8 % (0.1-12.0); Hematocrit 45.3 % (42.0-52.0); Hemoglobin 14.7 g/dL (14.1-18.0); Lymphocytes # 2.8 K/mm3 (0.7-4.5); Lymphocytes % 32.7 % (10-50); Mean Corpuscular HGB Conc 32.5 g/dL (31.8-35.4); Mean Corpuscular Volume 83.2 fl (80-94); Mean Platelet Volume 9.8 fl (7.4-10.4); Monocytes # 0.4 K/mm3 (0.1-1.0); Monocytes % 5.1 % (1.7-9.3); Neutrophils # 5.1 K/mm3 (1.8-7.8); Neutrophils % 59.7 % (37.0-80.0); Platelet Count 276 K/mm3 (142-424); Red Blood Count 5.45 M/mm3 (4.60-6.20); Red Cell Distribution Width 15.2 % (11.5-17.5); White Blood Count 8.5 K/mm3 (4.8-10.8)
[2023-08-15 09:14] LABS: Chloride 104 mmol/L (98-107); Sodium 140 mmol/L (136-145)
[2023-08-15 09:15] LABS: Potassium 4.3 mmoL/L (3.5-5.1)
[2023-08-15 09:17] LABS: Alanine Aminotransferase 21 U/L (12-78); Albumin/Globulin Ratio 1.3 (1.1-1.8); Alkaline Phosphatase 104 U/L (38-126); Anion Gap 14.3 mEq/L (5-15); Aspartate Amino Transferase 26 U/L (17-59); Bilirubin,Total 0.5 mg/dl (0.2-1.3); Blood Urea Nitrogen 11 mg/dl (9-20); Carbon Dioxide 26 mmol/L (22.0-30.0); Estimated Glomerular Filt Rate 65 ml/min (>60); GFR (African American) 79 ML/MIN (>60)
[2023-08-15 09:18] LABS: Calcium 9.3 mg/dl (8.4-10.2); Glucose 100 mg/dl (74-100)
[2023-08-15 09:23] LABS: C-Reactive Protein 6.4 mg/L (0-4)
[2023-08-15 12:00] LABS: Erythrocyte Sedimentation Rate 16 mm/hr (0-15)
[2023-08-21 16:13] LABS: 1,25 Dihydroxy Vitamin D 39 pg/mL (.); 1,25-Dihydroxy, Vitamin D-2 <10 pg/mL (.); 1,25-Dihydroxy, Vitamin D-3 39 pg/mL (.)
== END 2023-08-15 23:59 ==
LOC: LAB 07:45
PROVIDERS: PCP Physician Assistant; Visit Provider Podiatrist
DX: R60.9 Edema, unspecified (principal); Z01.818 Encounter for other preprocedural examination; M86.172 Other acute osteomyelitis, left ankle and foot; E66.9 Obesity, unspecified; Z68.35 Body mass index [BMI] 35.0-35.9, adult
CPT/HCPCS: 36415; 80053; 82652; 85025; 85651; 86140; 93005

== ENCOUNTER 2023-08-16 06:05 | Day surgery (SDC) | payer MEDICARE, SELFPAY ==
[2023-08-15 13:20] VITALS: BMI 34.7
[2023-08-16] VITALS (10 sets, daily range): BP systolic 112–139; BP diastolic 51–90; PULSE 92–104; RESP 12–18; TEMP 36.2–36.4; O2SAT 94–99
--- NOTE | 2023-08-16 06:13 | XR_ITS ---
PROCEDURE INFORMATION: Exam: XR Chest Exam date and time: 08/16/2023 6:36 AM Age: 48 years old Clinical indication: Screening exam; Pre-operative exam; Other: N/a; Additional info: Preoperative testing TECHNIQUE: Imaging protocol: Radiologic exam of the chest. Views: 1 view. COMPARISON: CR XR CHEST 2V 06/06/2023 11:40 AM FINDINGS: Lungs: No consolidation. Pleural spaces: No pleural effusion. No pneumothorax. Heart/Mediastinum: No cardiomegaly. Stable calcified right paratracheal lymph node. Bones/joints: Unremarkable. IMPRESSION: No acute findings.
[2023-08-16] MEDS: LACTATED RINGERS 1000ML 1,000 ML 25 ML IV (06:22)
[2023-08-16 06:35] LABS: POC Glucose,Bedside 79 (70-110)
--- NOTE | 2023-08-16 07:30 | XR_ITS ---
FINAL REPORT CLINICAL HISTORY: Post op I & D COMPARISON: 06/28/2023 FINDINGS: LEFT ANKLE: Three views of the left ankle were obtained. Postoperative change is present in the medial and lateral malleoli, and in the proximal first and fifth metatarsals. There is interval postoperative change posterior to the calcaneal tuberosity, and it appears that some of the radiopaque foreign bodies have been removed since the prior films of June. A small amount of soft tissue air is present. There is no acute fracture or dislocation. The joint spaces and mortise are intact. There is no soft tissue abnormality. IMPRESSION: Postoperative change left foot and ankle as described. In the interim since the prior films of June 2023 there has been removal of some of the radiopaque foreign bodies which were present. No acute bony abnormality identified. Reviewed, Interpreted and Dictated by Prakash Dempsey III, MD Transcribed by Jodi Bartholomew Authenticated and [facility]
[2023-08-16] MEDS: LEVOFLOXACIN/D5W 500 MG/100 ML PIGGYBACK 100 MG IV (07:35)
[2023-08-16] MEDS: BUPIVACAINE 0.5% 10ML VIAL 100 MG (08:04)
--- NOTE | 2023-08-16 08:04 | P.PNANES_ITS ---
[facility] Disclaimer: The information contained in this section may have been updated after the patient was seen, as this information can be updated by other users. Medical History Abnormal EKG Chest pain DKA (diabetic ketoacidoses) Family history of heart disease Foot pain, left Hyperlipidemia Hypertension Hyponatremia Left ankle pain [place] (obstructive sleep apnea) Pulmonary HTN Renal insufficiency Sinus tachycardia Unstable angina Surgical History History of ankle surgery tendons and ligaments 01/2021, 10/2021 History of foot surgery 01/2021, 10/2021 Family History Other No significant family history Social History Smoking Status: Never smoker second hand exposure: Yes alcohol intake: never substance use type: denies use current occupational status: unemployed Travel in the last 8 weeks: None household members: significant other housing: house current occupation: . current occupational exposures/hazards: No caffeine: Yes [facility] Anesthesia Checklist Patient Identification Patient Identification: Verbal (Name & ) Structural Data Admitted From: Home Planned Operative Procedure/s: i/d l ankle Consent for Planned Operative Procedure(s) Verified: Yes NPO Status Verified Time NPO: 00:00 Additional verifications Anesthesia Reactions: Yes (rash, vomiting, headache (from versed)) Hx Blood Transfusions: No Blood Transfusion Reaction: No Airway Assessment Mallampati Score:: Class II C-Spine Mobility Assessed: Yes TMJ Mobility Assessed: Yes Dentition: Edentulous Neurological Assessment Level of Consciousness: Awake, Alert and Appropriate Anesthesia Plan Anesthesia Risk discussed: Yes Anesthesia Plan: Verified ASA Class: III Anesthesia Type: General w/block
[2023-08-16] MEDS: SODIUM CHLORIDE IRRIG SOLUTION 3,000 ML 100 ML IR (08:09)
--- NOTE | 2023-08-16 08:47 | EXP.ANES.I ---
[facility] Anesthesia Record Part I Anesthesia Record I Intake, IV Amount: 1,000 Hydration: Adequate Estimated blood loss (mL): 0 Urine output (mL): 0 Blood Pressure: 112/80 SaO2: 94 Pulse Rate: 94 Airway Patency: Patent Respiratory Rate: 12 Temperature: 97.5 F Patient is:: Awake and Stable Stable to PACU at:: 08:45
--- NOTE | 2023-08-16 08:51 | EXP.OP.NOTE ---
Date of procedure: 08/16/23 Pre-op Diagnosis:: Left heel open wound Left foot cellulitis Retained ortho hardware Post-op Diagnosis:: Same Procedure performed:: Left ankle wound I&D (incision and drainage below fascia) Left heel incision bone cortex Left foot wound irrigation and debridement Open bone biopsy left foot Delayed closure of surgical wound Hardware removal (calcaneus) Surgeon:: Shani Dale DPM INSULATING MACHINE OPERATOR:: Abdirashid Casas Anesthesia: GETA and regional (L popliteal nerve block) Estimated blood loss (mL): 20 Operative findings:: Left heel open wound with some skin peeling noted. No george purulent drainage. Sharp excisional debridement with 15 blade and forceps full-thickness through skin subcu deep fascia to the level of the bone, 2.5 cm. Postdebridement wound was 100% granular and measured 2.5 x 0.5 x 2.5 cm. Bone at the level of the heel was soft without purulent discharge. Patient does have a history of hardware removal with application of antibiotic bone graft. So irregularities in the bone could be secondary to antibiotic graft. There was retained shard of screw from prior surgery which was removed. Several bone biopsies, bone cultures taken from heel, medial heel, medial ankle and lateral heel. Operative note:: On this date and time the patient was deemed an appropriate surgical candidate. Preop left popliteal block by anesthesia. With informed consent time patient was transferred from the preoperative holding area to the operating theater placed on table in a normal supine position. Left lower extremities prepped and draped in normal sterile fashion. No tourniquet utilized. IV vancomycin, Levaquin infused. Left foot/ankle open bone biopsy: A stab incision was made away from the heel wound/ulcer site with a clean 15 blade. Blunt dissection carried down to level of bone. A Jamshidi needle was used to remove a piece of the calcaneus, medial/lateral heel and medial ankle. Portion of the bone was sent to micro as culture and the other piece was sent to pathology for bone biopsy. Wound flushed with gentamicin irrigation and closed with nylon. Left foot incision and drainage, hardware removal: Attention was directed to the left plantar heel where edema and minimal erythema was noted. Utilizing a 15 blade, a linear incision was made over the open wound site. There was a shard of hardware in the wound bed which was removed, sent for culture. There was some serous bloody drainage noted, wound culture taken. No george purulence expressed. Next hemostat used to explore the area. Left wound/ulcer debridement, I&D bone cortex: 15 blade, forceps and curette was used to sharply debride nonviable soft tissue from the inferior heel full-thickness through skin, subcu, deep fascia to the level of the. Due to the depth of the wound opening of 2.5 cm it was felt appropriate to take performed and incision of the bone cortex and get a bone biopsy to evaluate for osteomyelitis. An incision was made through the inferior posterior calcaneus. A separate bone biopsy was taken of the calcaneus through the wound and sent for culture and pathology. A pulse lavage was used 3 L with gentamicin irrigation to flush all incisions. The wound was explored and no purulence was noted. Delayed closure surgical wound: Postdebridement the skin edges were able to be reapproximated. Vicryl used to approximate subcutaneous tissue. 2-0 nylon was used to reapproximate the skin. A suture guard Hemiguard was applied across the central incision at the highest area of tension to prevent wound dehiscence. It was secured with nylon. Wound was closed completely with no opening remaining. There was no drainage, no drain inserted. 10 cc of half percent Marcaine plain were infiltrated in regional ankle block. Betadine soaked gauze applied with a dry sterile dressing. He was woken from anesthesia and transferred to recovery with vitals stable and neurovascular status intact. Patient tolerated procedure and anesthesia well without complication. Plan: Maintain dressing clean dry and intact to left foot, reinforce as necessary. NWB in fracture boot with DME. Antibiotics: Complete course of Doxy. Will then hold antibiotics and await culture results. X-rays left ankle 3 views. Patient's will do dressing change starting in 2-3 days: Betadine soaked gauze, dry sterile dressing every other day. Follow-up with podiatry in 1 week for skin check and dressing change. Condition: stable Disposition: same day Specimens:: Left heel wound culture Left foot hardware Left heel/calcaneus bone culture, path Left medial heel bone culture, path Left lateral heel bone culture, path Left medial ankle bone culture, path Complications:: None
[2023-08-16 08:57] LABS: POC Glucose,Bedside 248 (70-110)
--- NOTE | 2023-08-16 11:21 | P.PNANES_ITS ---
[facility] Anesthesia Record Part II Anesthesia Record Part II Discharge Time: 09:15 Destination: Surgical Day Care (OP Surgery) PACU nurse assessment reviewed?: Yes Patient Condition:: Good Anesthesia Complications:: None Swallowing reflex intact?: Yes Airway Patency: Patent Cyanosis?: No Blood Pressure: 126/90 SaO2: 97 Respiratory Rate: 16 Pulse Rate: 98 Temperature: 97.1 F Mental Status: Alert & Oriented Pain level:: 0 Nausea and/or vomitting:: None Intake, IV Amount: 0 Hydration: Adequate
== END 2023-08-16 10:05 | disposition home or self-care (01) ==
PROVIDERS: PCP Physician Assistant; Visit Provider Podiatrist
PROC: (CPT 11044; principal; 2023-08-16 07:30)
DX: T81.31XA Disruption of external operation (surgical) wound, not elsewhere classified, initial encounter (principal); M19.072 Primary osteoarthritis, left ankle and foot; Z86.14 Personal history of Methicillin resistant Staphylococcus aureus infection; Z79.899 Other long term (current) drug therapy; E11.42 Type 2 diabetes mellitus with diabetic polyneuropathy; I10 Essential (primary) hypertension; I20.89 Other forms of angina pectoris; Z79.84 Long term (current) use of oral hypoglycemic drugs
CPT/HCPCS: 11044; 20240; 71045; 73610; 82962; 87070; 87075; 87205; 88304; 88305; 88307; 88311; 96374; J1956; J2405

== ENCOUNTER 2023-08-22 10:28 | Outpatient (CLI) | payer MEDICARE, SELFPAY ==
[2023-08-22 11:18] VITALS: BMI 35.6
--- NOTE | 2023-08-22 11:19 | XR_ITS ---
FINAL REPORT CLINICAL HISTORY: PICC line placement COMPARISON: None FINDINGS: A single portable view of the chest was obtained. A left PICC line has been placed with its tip in the left brachiocephalic vein. No evidence of pneumothorax is seen. The heart size and pulmonary vascularity are within normal limits. The mediastinum is within normal limits. No acute pulmonary abnormality is identified. The bony thorax is intact. IMPRESSION: No active cardiopulmonary disease. Left PICC line tip in left brachiocephalic vein. Reviewed, Interpreted and Dictated by Prakash Dempsey III, MD Transcribed by Jodi Bartholomew Authenticated and [facility]
--- NOTE | 2023-08-22 13:20 | XR_ITS ---
FINAL REPORT CLINICAL HISTORY: PICC line placement COMPARISON: Earlier the same day FINDINGS: The left-sided PICC line has been removed. A new right PICC line terminates at the right brachiocephalic vein. The heart size is normal. The mediastinum is within normal limits. There is no acute cardiopulmonary process. There is no pleural effusion. There is no pneumothorax. The bony thorax is intact. IMPRESSION: Right-sided PICC line terminating at the right brachiocephalic vein. Reviewed, Interpreted and Dictated by Prakash Dempsey III, MD Transcribed by Mg Milner Authenticated and [facility]
[2023-08-22 14:37] LABS: Basophils % 0.4 % (0.1-2.0); Eosinophils # 0.2 K/mm3 (0.0-0.4); Eosinophils % 1.8 % (0.1-12.0); Hematocrit 44.3 % (42.0-52.0); Hemoglobin 13.5 g/dL (14.1-18.0); Lymphocytes # 3.5 K/mm3 (0.7-4.5); Lymphocytes % 41.8 % (10-50); Mean Corpuscular HGB Conc 30.4 g/dL (31.8-35.4); Mean Corpuscular Hemoglobin 25.1 pg (27.0-31.2); Mean Corpuscular Volume 82.7 fl (80-94); Mean Platelet Volume 7.8 fl (7.4-10.4); Monocytes # 0.3 K/mm3 (0.1-1.0); Monocytes % 3.9 % (1.7-9.3); Neutrophils # 4.4 K/mm3 (1.8-7.8); Platelet Count 399 K/mm3 (142-424); Red Blood Count 5.35 M/mm3 (4.60-6.20); Red Cell Distribution Width 14.7 % (11.5-17.5); White Blood Count 8.4 K/mm3 (4.8-10.8)
[2023-08-22 14:39] LABS: Creatine Kinase 76 U/L (55-170)
[2023-08-22 14:40] LABS: Alanine Aminotransferase 25 U/L (12-78); Albumin/Globulin Ratio 1.3 (1.1-1.8); Alkaline Phosphatase 80 U/L (38-126); Anion Gap 9.9 mEq/L (5-15); Aspartate Amino Transferase 37 U/L (17-59); Bilirubin,Total 0.7 mg/dl (0.2-1.3); Blood Urea Nitrogen 11 mg/dl (9-20); Calcium 8.6 mg/dl (8.4-10.2); Carbon Dioxide 27 mmol/L (22.0-30.0); Chloride 105 mmol/L (98-107); Creatinine Clearance Estimated 108 mL/min (50-200); Estimated Glomerular Filt Rate 65 ml/min (>60); GFR (African American) 79 ML/MIN (>60); Globulin 3.2 g/dL (1.3-3.2); Glucose 101 mg/dl (74-100); Potassium 4.9 mmoL/L (3.5-5.1); Sodium 137 mmol/L (136-145); Total Protein,Serum 7.2 g/dl (6.3-8.2)
[2023-08-22 14:45] LABS: C-Reactive Protein 5.1 mg/L (0-4)
[2023-08-22 15:07] LABS: Erythrocyte Sedimentation Rate 22 mm/hr (0-15)
[2023-08-22 15:10] VITALS: BP 136/60; PULSE 85; RESP 18; TEMP 36.9; O2SAT 99
[2023-08-22] MEDS: DAPTOmycin 750 MG in 0.9 % SODIUM CHLORIDE 50 ML 100 MG IV (15:10)
[2023-08-22] MEDS: SODIUM CHLORIDE 0.9% 10ML FLUSH SYRINGE 10 ML IV (15:10)
[2023-08-22] MEDS: SODIUM CHLORIDE 0.9% 50ML BAG 50 ML IV (15:10)
[2023-08-22 15:50] VITALS: BP 138/71; PULSE 79
[2023-08-22 15:55] VITALS: BP 146/72; PULSE 84; RESP 18; O2SAT 98
== END 2023-08-22 16:00 | disposition home or self-care (01) ==
LOC: INF 10:30
PROVIDERS: PCP Physician Assistant; Visit Provider Podiatrist
DX: M86.172 Other acute osteomyelitis, left ankle and foot (principal); M19.072 Primary osteoarthritis, left ankle and foot; Z45.2 Encounter for adjustment and management of vascular access device
CPT/HCPCS: 36410; 36569; 71045; 80053; 82550; 85025; 85651; 86140; 96365; C1751; G0463; J0878

== ENCOUNTER 2023-08-23 08:02 | Outpatient (CLI) | payer MEDICARE, SELFPAY ==
[2023-08-23] MEDS: SODIUM CHLORIDE 0.9% 50ML BAG 50 ML IV (08:15)
[2023-08-23] MEDS: SODIUM CHLORIDE 0.9% 10ML FLUSH SYRINGE 10 ML IV (08:15)
[2023-08-23] MEDS: DAPTOmycin 750 MG in 0.9 % SODIUM CHLORIDE 50 ML 100 MG IV (08:15)
[2023-08-23 08:20] VITALS: BP 122/84; PULSE 72; RESP 18; TEMP 37; O2SAT 98
[2023-08-23 08:50] VITALS: BP 138/71; PULSE 76; RESP 18
== END 2023-08-23 09:00 | disposition home or self-care (01) ==
LOC: INF 08:03
PROVIDERS: PCP Physician Assistant; Visit Provider Podiatrist
DX: Z45.2 Encounter for adjustment and management of vascular access device (principal); M19.072 Primary osteoarthritis, left ankle and foot
CPT/HCPCS: 96365; G0463; J0878

== ENCOUNTER 2023-08-24 07:47 | Outpatient (CLI) | payer MEDICARE, SELFPAY ==
[2023-08-24 08:35] VITALS: BP 120/88; PULSE 92; RESP 18; TEMP 36.1; O2SAT 99
[2023-08-24] MEDS: SODIUM CHLORIDE 0.9% 50ML BAG 50 ML IV (08:35)
[2023-08-24] MEDS: SODIUM CHLORIDE 0.9% 10ML FLUSH SYRINGE 10 ML IV (08:35)
[2023-08-24] MEDS: DAPTOmycin 750 MG in 0.9 % SODIUM CHLORIDE 50 ML 100 MG IV (08:35)
[2023-08-24 09:15] VITALS: BP 126/83; PULSE 89; RESP 18; O2SAT 99
== END 2023-08-24 09:15 | disposition home or self-care (01) ==
LOC: INF 07:49
PROVIDERS: PCP Physician Assistant; Visit Provider Podiatrist
DX: Z45.2 Encounter for adjustment and management of vascular access device (principal); M19.072 Primary osteoarthritis, left ankle and foot; M86.172 Other acute osteomyelitis, left ankle and foot
CPT/HCPCS: 96365; J0878

== ENCOUNTER 2023-08-25 07:59 | Outpatient (CLI) | payer MEDICARE, SELFPAY ==
[2023-08-25 08:15] VITALS: BP 136/90; PULSE 96; RESP 17; TEMP 36.4; O2SAT 100
[2023-08-25] MEDS: SODIUM CHLORIDE 0.9% 50ML BAG 50 ML IV (08:15)
[2023-08-25] MEDS: DAPTOmycin 750 MG in 0.9 % SODIUM CHLORIDE 50 ML 100 MG IV (08:15)
[2023-08-25] MEDS: SODIUM CHLORIDE 0.9% 10ML FLUSH SYRINGE 10 ML IV (08:20)
[2023-08-25 08:50] VITALS: BP 124/76; PULSE 78
== END 2023-08-25 09:10 | disposition home or self-care (01) ==
LOC: INF 08:00
PROVIDERS: PCP Physician Assistant; Visit Provider Podiatrist
DX: Z45.2 Encounter for adjustment and management of vascular access device (principal); M19.072 Primary osteoarthritis, left ankle and foot; M86.172 Other acute osteomyelitis, left ankle and foot
CPT/HCPCS: 96365; G0463; J0878

== ENCOUNTER 2023-08-26 08:09 | Outpatient (CLI) | payer MEDICARE, SELFPAY ==
[2023-08-26] MEDS: DAPTOmycin 750 MG in 0.9 % SODIUM CHLORIDE 50 ML 100 MG IV (09:03)
[2023-08-26 09:10] VITALS: BP 139/87; PULSE 93; RESP 16; TEMP 36.6; O2SAT 100
[2023-08-26 09:33] VITALS: BP 144/99; PULSE 90; RESP 16; TEMP 36.8; O2SAT 97
== END 2023-08-26 09:33 | disposition home or self-care (01) ==
LOC: INF 08:10
PROVIDERS: PCP Physician Assistant; Visit Provider Podiatrist
DX: Z45.2 Encounter for adjustment and management of vascular access device (principal); M19.072 Primary osteoarthritis, left ankle and foot; M86.172 Other acute osteomyelitis, left ankle and foot
CPT/HCPCS: 96365; G0463; J0878

== ENCOUNTER 2023-08-27 08:10 | Outpatient (CLI) | payer MEDICARE, SELFPAY ==
[2023-08-27 08:10] VITALS: BP 128/88; PULSE 89; RESP 16; TEMP 36.7; O2SAT 99
[2023-08-27 08:31] VITALS: BP 120/81; PULSE 93; RESP 16; TEMP 36.8; O2SAT 99
[2023-08-27] MEDS: DAPTOmycin 750 MG in 0.9 % SODIUM CHLORIDE 50 ML 100 MG IV (08:33)
== END 2023-08-27 09:07 | disposition home or self-care (01) ==
PROVIDERS: PCP Physician Assistant; Visit Provider Podiatrist
DX: Z45.2 Encounter for adjustment and management of vascular access device (principal); M19.072 Primary osteoarthritis, left ankle and foot; M86.172 Other acute osteomyelitis, left ankle and foot
CPT/HCPCS: 96365; G0463; J0878

== ENCOUNTER 2023-08-28 07:49 | Outpatient (CLI) | payer MEDICARE, SELFPAY ==
[2023-08-28 08:13] VITALS: BMI 34.7
[2023-08-28 08:30] VITALS: BP 130/77; PULSE 103; RESP 18; TEMP 36.4; O2SAT 99
[2023-08-28] MEDS: SODIUM CHLORIDE 0.9% 50ML BAG 50 ML IV (08:30)
[2023-08-28] MEDS: DAPTOmycin 750 MG in 0.9 % SODIUM CHLORIDE 50 ML 100 MG IV (08:30)
[2023-08-28 08:32] LABS: Basophils # 0.1 K/mm3 (0-0.2); Basophils % 0.8 % (0.1-2.0); Eosinophils # 0.2 K/mm3 (0.0-0.4); Eosinophils % 2.2 % (0.1-12.0); Hematocrit 40.7 % (42.0-52.0); Hemoglobin 13.4 g/dL (14.1-18.0); Lymphocytes # 2.9 K/mm3 (0.7-4.5); Lymphocytes % 37.4 % (10-50); Mean Corpuscular HGB Conc 32.8 g/dL (31.8-35.4); Mean Corpuscular Hemoglobin 27.4 pg (27.0-31.2); Mean Corpuscular Volume 83.4 fl (80-94); Mean Platelet Volume 8.8 fl (7.4-10.4); Monocytes # 0.4 K/mm3 (0.1-1.0); Neutrophils # 4.3 K/mm3 (1.8-7.8); Neutrophils % 54.6 % (37.0-80.0); Platelet Count 359 K/mm3 (142-424); Red Blood Count 4.88 M/mm3 (4.60-6.20); Red Cell Distribution Width 15.3 % (11.5-17.5); White Blood Count 7.8 K/mm3 (4.8-10.8)
[2023-08-28 08:43] LABS: Alanine Aminotransferase 24 U/L (12-78); Albumin Level 3.8 g/dl (3.5-5.0); Albumin/Globulin Ratio 1.3 (1.1-1.8); Alkaline Phosphatase 94 U/L (38-126); Anion Gap 8.1 mEq/L (5-15); Aspartate Amino Transferase 27 U/L (17-59); Bilirubin,Total 0.5 mg/dl (0.2-1.3); Blood Urea Nitrogen 7 mg/dl (9-20); Calcium 8.2 mg/dl (8.4-10.2); Carbon Dioxide 27 mmol/L (22.0-30.0); Chloride 107 mmol/L (98-107); Creatine Kinase 129 U/L (55-170); Creatinine Clearance Estimated 105 mL/min (50-200); Estimated Glomerular Filt Rate 65 ml/min (>60); GFR (African American) 79 ML/MIN (>60); Glucose 100 mg/dl (74-100); Potassium 4.1 mmoL/L (3.5-5.1); Sodium 138 mmol/L (136-145); Total Protein,Serum 6.8 g/dl (6.3-8.2)
[2023-08-28 08:48] LABS: C-Reactive Protein 3.8 mg/L (0-4)
[2023-08-28] MEDS: SODIUM CHLORIDE 0.9% 10ML FLUSH SYRINGE 10 ML IV (09:00)
[2023-08-28 09:05] VITALS: BP 140/86; PULSE 87; RESP 18; O2SAT 99
[2023-08-28 09:20] LABS: Erythrocyte Sedimentation Rate 40 mm/hr (0-15)
== END 2023-08-28 09:15 | disposition home or self-care (01) ==
PROVIDERS: PCP Physician Assistant; Visit Provider Podiatrist
DX: M86.172 Other acute osteomyelitis, left ankle and foot (principal); M19.072 Primary osteoarthritis, left ankle and foot
CPT/HCPCS: 80053; 82550; 85025; 85651; 86140; 96365; J0878

== ENCOUNTER 2023-08-29 07:47 | Outpatient (CLI) | payer MEDICARE, SELFPAY ==
[2023-08-29] MEDS: SODIUM CHLORIDE 0.9% 10ML FLUSH SYRINGE 10 ML IV (08:25)
[2023-08-29] MEDS: SODIUM CHLORIDE 0.9% 50ML BAG 50 ML IV (08:25)
[2023-08-29] MEDS: DAPTOmycin 750 MG in 0.9 % SODIUM CHLORIDE 50 ML 100 MG IV (08:25)
[2023-08-29 08:30] VITALS: BP 134/72; PULSE 72; RESP 18; TEMP 36.8; O2SAT 99
[2023-08-29 09:00] VITALS: BP 134/75; PULSE 84; RESP 18; O2SAT 99
== END 2023-08-29 09:10 | disposition home or self-care (01) ==
LOC: INF 07:47
PROVIDERS: PCP Physician Assistant; Visit Provider Podiatrist
DX: M19.072 Primary osteoarthritis, left ankle and foot (principal); M86.172 Other acute osteomyelitis, left ankle and foot
CPT/HCPCS: 96365; J0878

== ENCOUNTER 2023-08-30 07:49 | Outpatient (CLI) | payer MEDICARE, SELFPAY ==
[2023-08-30 08:45] VITALS: BP 133/74; PULSE 72; RESP 18; TEMP 37; O2SAT 99
[2023-08-30] MEDS: SODIUM CHLORIDE 0.9% 50ML BAG 50 ML IV (08:45)
[2023-08-30] MEDS: DAPTOmycin 750 MG in 0.9 % SODIUM CHLORIDE 50 ML 100 MG IV (08:45)
[2023-08-30] MEDS: SODIUM CHLORIDE 0.9% 10ML FLUSH SYRINGE 10 ML IV (08:45)
[2023-08-30 09:20] VITALS: BP 140/71; PULSE 71
== END 2023-08-30 09:30 | disposition home or self-care (01) ==
LOC: INF 07:49
PROVIDERS: PCP Physician Assistant; Visit Provider Podiatrist
DX: M19.072 Primary osteoarthritis, left ankle and foot (principal); M86.172 Other acute osteomyelitis, left ankle and foot; Z48.01 Encounter for change or removal of surgical wound dressing
CPT/HCPCS: 96365; G0463; J0878

== ENCOUNTER 2023-08-31 07:43 | Outpatient (CLI) | payer MEDICARE, SELFPAY ==
[2023-08-31 08:20] VITALS: BP 128/74; PULSE 89; RESP 18; TEMP 36.8; O2SAT 98
[2023-08-31] MEDS: DAPTOmycin 750 MG in 0.9 % SODIUM CHLORIDE 50 ML 100 MG IV (08:20)
[2023-08-31] MEDS: SODIUM CHLORIDE 0.9% 50ML BAG 50 ML IV (08:20)
[2023-08-31] MEDS: SODIUM CHLORIDE 0.9% 10ML FLUSH SYRINGE 10 ML IV (08:20)
[2023-08-31 09:00] VITALS: BP 133/84; PULSE 78; RESP 18; O2SAT 99
== END 2023-08-31 09:05 | disposition home or self-care (01) ==
PROVIDERS: PCP Physician Assistant; Visit Provider Podiatrist
DX: M19.072 Primary osteoarthritis, left ankle and foot (principal); M86.172 Other acute osteomyelitis, left ankle and foot; Z48.01 Encounter for change or removal of surgical wound dressing
CPT/HCPCS: 96365; J0878

== ENCOUNTER 2023-09-01 07:47 | Outpatient (CLI) | payer MEDICARE, SELFPAY ==
[2023-09-01] MEDS: 0.9 % SODIUM CHLORIDE 50 ML 100 ML IV (08:40)
[2023-09-01] MEDS: DAPTOmycin 750 MG in 0.9 % SODIUM CHLORIDE 50 ML 100 MG IV (08:40)
[2023-09-01 08:47] VITALS: BP 136/85; PULSE 89; RESP 18; TEMP 36.4; O2SAT 99
[2023-09-01 09:50] VITALS: BP 132/82; PULSE 86; RESP 18; O2SAT 99
--- NOTE | 2023-09-01 10:00 | PC.NURSE ---
1000-c.marla sanabria cosigned charting for wilmarna
== END 2023-09-01 09:50 | disposition home or self-care (01) ==
LOC: INF 07:48
PROVIDERS: PCP Physician Assistant; Visit Provider Podiatrist
DX: M86.172 Other acute osteomyelitis, left ankle and foot (principal)
CPT/HCPCS: 96365; G0463; J0878

== ENCOUNTER 2023-09-02 08:01 | Outpatient (CLI) | payer MEDICARE, SELFPAY ==
[2023-09-02] MEDS: DAPTOmycin 750 MG in 0.9 % SODIUM CHLORIDE 50 ML 100 MG IV (08:53)
[2023-09-02] MEDS: SODIUM CHLORIDE 0.9% 10ML FLUSH SYRINGE 10 ML IV (08:56)
[2023-09-02] MEDS: SODIUM CHLORIDE 0.9% 50ML BAG 50 ML IV (08:58)
[2023-09-02 10:03] LABS: Creatine Kinase 2064 U/L (55-170)
[2023-09-02 11:51] LABS: Chloride 104 mmol/L (98-107); Sodium 137 mmol/L (136-145)
[2023-09-02 11:52] LABS: Potassium 4.1 mmoL/L (3.5-5.1)
[2023-09-02 11:54] LABS: Blood Urea Nitrogen 8 mg/dl (9-20); Estimated Glomerular Filt Rate 72 ml/min (>60); GFR (African American) 87 ML/MIN (>60)
[2023-09-02 11:55] LABS: Anion Gap 12.1 mEq/L (5-15); Calcium 8.8 mg/dl (8.4-10.2); Carbon Dioxide 25 mmol/L (22.0-30.0); Glucose 110 mg/dl (74-100)
== END 2023-09-02 23:59 ==
LOC: INF 08:01
PROVIDERS: PCP Physician Assistant; Visit Provider Podiatrist
DX: M19.072 Primary osteoarthritis, left ankle and foot (principal); M86.172 Other acute osteomyelitis, left ankle and foot
CPT/HCPCS: 80048; 82550; 96365; J0878

== ENCOUNTER 2023-09-04 07:51 | Outpatient (CLI) | payer MEDICARE, SELFPAY ==
[2023-09-04 08:14] VITALS: BMI 34.1
[2023-09-04 08:32] LABS: Basophils # 0.1 K/mm3 (0-0.2); Basophils % 0.6 % (0.1-2.0); Eosinophils # 0.2 K/mm3 (0.0-0.4); Eosinophils % 2.3 % (0.1-12.0); Hematocrit 41.4 % (42.0-52.0); Hemoglobin 13.8 g/dL (14.1-18.0); Lymphocytes # 2.8 K/mm3 (0.7-4.5); Lymphocytes % 35.7 % (10-50); Mean Corpuscular HGB Conc 33.4 g/dL (31.8-35.4); Mean Corpuscular Hemoglobin 27.4 pg (27.0-31.2); Mean Corpuscular Volume 82.2 fl (80-94); Mean Platelet Volume 8.7 fl (7.4-10.4); Monocytes # 0.3 K/mm3 (0.1-1.0); Monocytes % 4.2 % (1.7-9.3); Neutrophils # 4.5 K/mm3 (1.8-7.8); Neutrophils % 57.2 % (37.0-80.0); Platelet Count 348 K/mm3 (142-424); Red Blood Count 5.04 M/mm3 (4.60-6.20); Red Cell Distribution Width 15.1 % (11.5-17.5); White Blood Count 7.8 K/mm3 (4.8-10.8)
[2023-09-04] MEDS: VANCOMYCIN/WATER FOR INJ (PEG) 1.5 GM/300 ML PIGGYBACK IV (08:34)
[2023-09-04] MEDS: SODIUM CHLORIDE 0.9% 50ML BAG 50 ML IV (08:40)
[2023-09-04 08:41] LABS: Alanine Aminotransferase 41 U/L (12-78); Albumin Level 3.9 g/dl (3.5-5.0); Albumin/Globulin Ratio 1.2 (1.1-1.8); Alkaline Phosphatase 93 U/L (38-126); Anion Gap 11.2 mEq/L (5-15); Aspartate Amino Transferase 144 U/L (17-59); Bilirubin,Total 0.7 mg/dl (0.2-1.3); Blood Urea Nitrogen 12 mg/dl (9-20); Calcium 9.1 mg/dl (8.4-10.2); Carbon Dioxide 27 mmol/L (22.0-30.0); Chloride 104 mmol/L (98-107); Creatinine Clearance Estimated 106 mL/min (50-200); Estimated Glomerular Filt Rate 65 ml/min (>60); GFR (African American) 79 ML/MIN (>60); Globulin 3.3 g/dL (1.3-3.2); Glucose 106 mg/dl (74-100); Potassium 4.2 mmoL/L (3.5-5.1); Sodium 138 mmol/L (136-145); Total Protein,Serum 7.2 g/dl (6.3-8.2)
--- NOTE | 2023-09-04 08:49 | P.CONPHA_ITS ---
Pharmacy Consult Date: 09/04/23 Time: 08:49 Referring provider: XENIA MONTENEGRO APRN Reason for Consult:: VANCOMYCIN DOSING Allergies Allergy/AdvReac Type Severity Reaction Status Date / Time chocolate flavor Allergy Unknown I-RASH Verified 08/28/23 16:38 [From CHOCOLATE (FOOD/DRUG)] midazolam [MIDAZOLAM] Allergy Unknown Unknown Verified 08/28/23 16:38 allergy reaction adhesive tape AdvReac Verified 08/28/23 16:38 steri strip AdvReac Uncoded 07/25/23 15:00 Home Medications Medication Instructions Recorded Confirmed Type aspirin 81 mg tablet,delayed 81 mg PO DAILY thinner 01/12/21 08/31/23 History release ferrous sulfate 142 mg (45 mg 142 mg PO DAILY #90 tabs 01/28/22 08/31/23 Rx iron) tablet,extended release (Slow Fe) fluticasone propionate 50 1 spray intranasal QDAY 30 days 09/29/22 08/31/23 Rx mcg/actuation nasal #9.9 grams spray,suspension (Flonase Allergy Relief) gabapentin 300 mg capsule 300 mg PO BID #60 caps 09/29/22 08/31/23 Rx glipizide 10 mg tablet, extended 10 mg PO DAILY #90 tabs 09/29/22 08/31/23 Rx release 24 hr atorvastatin 20 mg tablet See Rx Instructions .Route 02/20/23 08/31/23 Rx .COMPLEX #90 tabs cholecalciferol (vitamin D3) 50 See Rx Instructions .Route 06/09/23 08/31/23 Rx mcg (2,000 unit) tablet .COMPLEX #30 tabs lisinopril 10 mg tablet 10 mg PO DAILY #90 tabs 06/13/23 08/31/23 Rx metoprolol succinate 200 mg 200 mg PO DAILY #90 tabs 06/13/23 08/31/23 Rx tablet,extended release 24 hr (Toprol XL) tizanidine 4 mg tablet 4 mg PO Q8H PRN muscle spasticity 06/13/23 08/31/23 Rx #90 tabs ondansetron 4 mg disintegrating 4 mg PO Q6H PRN nausea and 06/26/23 08/31/23 Rx tablet vomiting #30 tabs docusate sodium 100 mg capsule 100 mg PO BID PRN constipation 2 07/04/23 08/31/23 Rx (Dulcolax Stool Softener weeks #30 caps (docusate)) oxycodone 10 mg tablet 10 mg PO Q4H PRN pain 7 days #42 07/04/23 08/31/23 Rx tabs tramadol 50 mg tablet 50 mg PO BID PRN pain #60 tabs 07/10/23 08/31/23 Rx tirzepatide 7.5 mg/0.5 mL 7.5 mg (0.5 mL) SQ WEEKLY #2 mL 07/11/23 08/31/23 Rx subcutaneous pen injector (Benunminaro) pantoprazole 40 mg tablet,delayed See Rx Instructions .Route 07/20/23 08/31/23 Rx release .COMPLEX #30 tabs doxycycline hyclate 100 mg capsule 100 mg PO BID 10 days #20 caps 08/09/23 08/31/23 Rx gabapentin 300 mg capsule 300 mg PO TID PRN nerve pain 5 08/09/23 08/31/23 Rx days #15 caps levofloxacin 750 mg tablet 750 mg PO DAILY 10 days #10 tabs 08/09/23 08/31/23 Rx sod picosulf 10 mg-magnes 3.5 175 ml PO DAILY 2 doses #350 mL 08/22/23 08/31/23 Rx gram-citric 12 gram/175 mL oral solution (Clenpiq) ubrogepant 100 mg tablet (Ubrelvy) 100 mg PO NEEDED PRN headache 08/24/23 08/31/23 History New Prescriptions to Start Prescriptions: Height: 1.7 m Weight: 98.883 kg Laboratory Results:: Laboratory Results - last 24 hr 09/04/23 08:17: WBC 7.8, RBC 5.04, Hgb 13.8 L, Hct 41.4 L, MCV 82.2, MCH 27.4, MCHC 33.4, RDW 15.1, Plt Count 348, MPV 8.7, Neut % (Auto) 57.2, Lymph % (Auto) 35.7, [place] % (Auto) 4.2, Eos % (Auto) 2.3, Baso % (Auto) 0.6, Neut # (Auto) 4.5, Lymph # (Auto) 2.8, [place] # (Auto) 0.3, Eos # (Auto) 0.2, Baso # (Auto) 0.1, Sodium 138, Potassium 4.2, Chloride 104, Carbon Dioxide 27, Anion Gap 11.2, BUN 12 D, Creatinine 1.20, Estimated Creat Clear 106, Estimated GFR 65, Est GFR ( Amer) 79, Glucose 106 H, Calcium 9.1, Total Bilirubin 0.7, AST 144 H, ALT 41, Alkaline Phosphatase 93, Total Protein 7.2, Albumin 3.9, Globulin 3.3 H, Albumin/Globulin Ratio 1.2 Medical History: Medical History (Updated 08/21/23 @ 17:51 by Shani Dale DPM) Abnormal EKG Chest pain DKA (diabetic ketoacidoses) Family history of heart disease Foot pain, left Hyperlipidemia Hypertension Hyponatremia Left ankle pain [place] (obstructive sleep apnea) Pulmonary HTN Renal insufficiency Sinus tachycardia Unstable angina Assessment and Plan Assessment and plan (1) Acute osteomyelitis of left foot: Status: Acute Category: Medical Code(s): M86.172 - Other acute osteomyelitis, left ankle and foot Plan Pharmacokinetic dosing service Objective: Age: 48 yo Serum creatinine: 1.1 mg/dL Height: 66.9 Inches Weight (kg): 99 Assessment: IBW (kg): 65.87 Dosing wt(kg): 99 Estimated Creatinine clearance (ml/min): 77.3 CRCL method: Cockcroft and Gault using ibw(default). Drug selected: Vancomycin Loading dose (mg): 0 Vd (liters): 79.2 (factor used: 0.8 L/kg) Robi (hr-1): 0.069 Half life (hrs): 10.05 Recommended dose: 1500 mg Interval: 12 hrs Infusion time (hrs): 2.0 Predicted peak (mcg/mL): 31.4 Predicted trough (mcg/mL): 15.75 Total body weight is being used for vancomycin dosing. Recommendations: Give Vancomycin 1500 mg q 12 hrs with an expected Cpeak of 31.4 mcg/ml and an expected Ctrough of 15.75 mcg/ml ----Vanco only - ignore for aminoglycosides----- CLvanco= 5.46 L/hr AUC 0-24 /DENISSE Data: DENISSE 0.5 mcg/mL: AUC/DENISSE: 1098.9 DENISSE 1.0 mcg/mL: AUC/DENISSE: 549.5 --------- DENISSE 1.5 mcg/mL: AUC/DENISSE: 366.3 DENISSE 2.0 mcg/mL: AUC/DENISSE: 274.7
[2023-09-04 09:00] LABS: Erythrocyte Sedimentation Rate 17 mm/hr (0-15)
[2023-09-04 09:12] VITALS: BP 141/88; PULSE 88; RESP 17; TEMP 36.3; O2SAT 100
[2023-09-04 09:22] LABS: Creatine Kinase 9076 U/L (55-170)
[2023-09-04 09:50] VITALS: RESP 17
--- NOTE | 2023-09-04 09:50 | PC.NURSE ---
0950-pt sent to er; rn gave report to marla betancourt and er md. sent the rest of vancomycin infusion with patient.
[2023-09-05 18:07] LABS: CK-BB 0 % (0); CK-MB 0 % (0-3); CK-MM 99 % (97-100); Creatine Kinase,Total,Serum 7441 U/L (49-439); Macro Type 1 1 % (Not Observed); Macro Type 2 0 % (Not Observed)
== END 2023-09-04 09:50 | disposition home or self-care (01) ==
LOC: INF 07:52
PROVIDERS: PCP Physician Assistant; Visit Provider Podiatrist
DX: S84.12XD Injury of peroneal nerve at lower leg level, left leg, subsequent encounter (principal); M86.172 Other acute osteomyelitis, left ankle and foot
CPT/HCPCS: 80053; 82550; 82552; 85025; 85651; 86140; 96365

== ENCOUNTER 2023-09-04 09:56 | Inpatient (IN) | payer MEDICARE, SELFPAY ==
[2023-09-04] VITALS (8 sets, daily range): BP systolic 136–175; BP diastolic 88–124; PULSE 77–100; RESP 15–22; TEMP 36.7–37.1; O2SAT 97–100; BMI 33.6
[2023-09-04 10:29] LABS: Magnesium 2.1 mg/dl (1.6-2.3); Phosphorous 3.4 mg/dl (2.5-4.5)
--- NOTE | 2023-09-04 10:33 | PC.NURSE ---
SHABANA AGUILERA AT
[2023-09-04] MEDS: LACTATED RINGERS 1000ML 1,000 ML 999 ML IV (10:36)
--- NOTE | 2023-09-04 10:47 | PC.NURSE ---
call made to care management for bed assignment
--- NOTE | 2023-09-04 10:53 | P.HP_ITS ---
History of Present Illness *Admission Date: 09/04/23 *Reason for visit:: muscle aches, abnormal labs *History of present illness: Mr. Qureshi is a 48-year-old male with recent diagnosis of osteomyelitis of his left calcaneus on 08/16 by podiatry. Patient was recently on daptomycin until 09/02 when he was transition to vancomycin. He was in infusion today receiving his bank dose when he complained of muscle cramping in his arms and his legs. This been going on since last Monday and has progressively gotten worse. Lab work obtained showing CK of over 9000. He was sent to the ER for further management. He reports a history of obesity, diabetes, CHF, hypertension, hyperlipidemia. Has dealt with an infection in his foot for a while but was not diagnosed with osteo until recently. Denies any chest pain, shortness of breath, nausea, vomiting, decreased urine output. Does state his urine has gotten darker. Has been on a statin for cholesterol for many years. Workup in the ER positive for rhabdomyolysis. Initiated on IV fluids. Medicine consulted for admission and further management. After arriving to the floor, patient states that his heel has been healing well. Denies any fever or chills. Alert and oriented x 3. Stable on room air. [facility] Disclaimer: The information contained in this section may have been updated after the patient was seen, as this information can be updated by other users. Medical History Abnormal EKG Chest pain DKA (diabetic ketoacidoses) Family history of heart disease Foot pain, left Hyperlipidemia Hypertension Hyponatremia Left ankle pain [place] (obstructive sleep apnea) Pulmonary HTN Renal insufficiency Sinus tachycardia Unstable angina Surgical History History of ankle surgery History of foot surgery Family History No significant family history Social History Smoking Status: Former smoker second hand exposure: Yes alcohol intake: never substance use type: denies use current occupational status: unemployed Travel in the last 8 weeks: None household members: significant other housing: house current occupation: . current occupational exposures/hazards: No caffeine: Yes Review of Systems Review of Systems Review of systems (narrative): 14 point review of systems performed, pertinent positives and negatives as per HPI Meds Home Medications and Allergies Home Medications Medication Instructions Recorded Confirmed Type aspirin 81 mg tablet,delayed 81 mg PO DAILY Heart Health 01/12/21 09/04/23 History release ubrogepant 100 mg tablet (Ubrelvy) 100 mg PO DAILYP PRN Migraine 08/24/23 09/04/23 History Headache atorvastatin 20 mg tablet 20 mg PO DAILY Cholesterol 09/04/23 09/04/23 History cholecalciferol (vitamin D3) 50 50 mcg PO DAILY Supplement 09/04/23 09/04/23 History mcg (2,000 unit) tablet ferrous sulfate 142 mg (45 mg 142 mg PO DAILY Supplement 09/04/23 09/04/23 History iron) tablet,extended release glipizide 10 mg tablet, extended 10 mg PO DAILY Diabetes 09/04/23 09/04/23 History release 24 hr lisinopril 10 mg tablet 10 mg PO DAILY Hypertension 09/04/23 09/04/23 History metoprolol succinate 200 mg 200 mg PO DAILY Hypertension 09/04/23 09/04/23 History tablet,extended release 24 hr pantoprazole 40 mg tablet,delayed 40 mg PO DAILY GERD 09/04/23 09/04/23 History release tirzepatide 7.5 mg/0.5 mL 7.5 mg SQ WEEKLY Diabetes 09/04/23 09/04/23 History subcutaneous pen injector (Mounjaro) tizanidine 4 mg tablet 4 mg PO TIDP PRN MUSCLE SPASMS 09/04/23 09/04/23 History New Prescriptions to Start Prescriptions: Allergies Allergy/AdvReac Type Severity Reaction Status Date / Time chocolate flavor Allergy Unknown I-RASH Verified 09/04/23 10:09 [From CHOCOLATE (FOOD/DRUG)] midazolam [MIDAZOLAM] Allergy Unknown Unknown Verified 09/04/23 10:09 allergy reaction adhesive tape AdvReac Unknown Verified 09/04/23 11:43 allergy reaction Exam Data for Last 24 hours Vital signs and Labs for Last 24 Hours: Temp Pulse Resp BP Pulse Ox O2 Del Method 98.3 F 94 H 22 157/124 H 100 Room Air 09/04/23 10:10 09/04/23 10:30 09/04/23 10:30 09/04/23 10:30 09/04/23 10:30 09/04/23 10:30 Laboratory Results - last 24 hr 09/04/23 08:17: Phosphorus 3.4, Magnesium 2.1 I & O for Last 24 hours: Intake & Output 09/01/23 09/02/23 09/03/23 09/04/23 23:59 23:59 23:59 23:59 Weight 97.522 kg Constitutional Constitutional: no acute distress, obese and cooperative *Routine HEENT Exam Head: Present normocephalic Eye: Present EOMI and PERRL ENT: Present mucous membranes moist *Routine Neck Exam Neck: Present supple; Absent lymphadenopathy *Routine Respiratory Exam Respiratory: Present CTA bilaterally *Routine Cardiovascular Exam Cardiovascular: Present RRR *Routine Abdominal Exam Abdominal: Present soft and normoactive bowel sounds; Absent tenderness *Routine Rectal Exam Rectal:: deferred *Routine Genitalia Exam Genitalia:: deferred *Routine Extremities Exam Extremities: Absent cyanosis, clubbing or edema Comments: Left heel with surgical wound is clean dry and intact, sutures in place. Painted with Betadine. Mild tenderness in the bilateral forearms and thighs *Routine Skin Exam Skin: Present warm; Absent rash *Routine Neurological Exam Neurological: Present alert, oriented X3 and moving all extremities; Absent altered mental status Assessment and Plan *Assessment and plan (1) Rhabdomyolysis: Status: Acute Category: Medical Code(s): M62.82 - Rhabdomyolysis (2) Acute osteomyelitis of left foot: Status: Acute Category: Medical Code(s): M86.172 - Other acute osteomyelitis, left ankle and foot (3) Diabetic neuropathy: Status: Chronic Category: Medical Code(s): E11.40 - Type 2 diabetes mellitus with diabetic neuropathy, unspecified (4) Type 2 diabetes mellitus with diabetic polyneuropathy, without long-term current use of insulin: Status: Chronic Category: Medical Code(s): E11.42 - Type 2 diabetes mellitus with diabetic polyneuropathy (5) Hyperlipidemia: Status: Chronic Qualifiers: Hyperlipidemia type: unspecified Qualified Code(s): E78.5 - Hyperlipidemia, unspecified Category: Medical Code(s): E78.5 - Hyperlipidemia, unspecified (6) Hypertension: Status: Chronic Qualifiers: Hypertension type: essential hypertension Qualified Code(s): I10 - Essential (primary) hypertension Category: Medical Code(s): I10 - Essential (primary) hypertension Plan 48-year-old male with diabetes, hyperlipidemia, neuropathy. Currently being treated for osteo of his left calcaneus. Was on both Lipitor and recently daptomycin. Developed elevation in CK and muscle aches. Presented with abnormal labs, found to have rhabdomyolysis. Discussed case with ER physician, request admission for IV fluids, monitoring of CK levels and monitoring of kidney function for development of acute kidney injury. High risk for decomp ensation given severity of rhabdo. Medicine agreed to admit for further management. Patient on room air, alert and oriented on exam. Currently voiding independently. Problems addressed as follows: Rhabdomyolysis Acute osteomyelitis of left calcaneus -Recently been on daptomycin until 09/02. Likely culprit in conjunction with his Lipitor for development of rhabdomyolysis. Transitioned to vancomycin. Tolerating well. Continue vancomycin IV, monitoring for renal toxicity -Aggressive fluid resuscitation. Received a liter of LR in the ER. Continue LR 200 cc an hour. Goal urine output between 100-200 cc an hour. Close monitoring of kidney function and electrolytes. BMP and CK ordered for this evening; repeat CBC, CMP, magnesium, CK ordered for the morning - CK elevated above 9000 on presentation - Creatinine 1.2, BUN 11, potassium 4.3. -Strict I's and O's -Wound care consult to assist with bandaging and dressing left heel Hypertension: Continue lisinopril 10 mg daily and metoprolol succinate 200 mg daily. GERD: Continue home pantoprazole 40 mg daily Diabetes: A1c obtained, 5.6. Well-controlled on current home regimen. Continue sliding scale insulin with fingersticks ACHS. Hyperlipidemia: Holding Lipitor in the setting of rhabdo. Full code Diabetic diet
--- NOTE | 2023-09-04 10:54 | ED_ITS ---
Discharge Plan Disposition Patient Disposition: Admitted Condition: Good Prescriptions Prescriptions: No Action fluticasone propionate [Flonase Allergy Relief] 50 mcg/actuation spray,suspension 1 spray intranasal QDAY 30 Days Qty: 9.9 2RF Rx Instructions: administer into each nostril glipizide 10 mg tablet extended release 24hr 10 mg PO DAILY Qty: 90 3RF docusate sodium [Dulcolax Stool Softener (dss)] 100 mg capsule 100 mg PO BID PRN (Reason: constipation) 14 Days Qty: 30 0RF lisinopril 10 mg tablet 10 mg PO DAILY Qty: 90 1RF metoprolol succinate [Toprol XL] 200 mg tablet extended release 24 hr 200 mg PO DAILY Qty: 90 1RF tizanidine 4 mg tablet 4 mg PO Q8H PRN (Reason: muscle spasticity) Qty: 90 2RF doxycycline hyclate 100 mg capsule 100 mg PO BID 10 Days Qty: 20 0RF levofloxacin 750 mg tablet 750 mg PO DAILY 10 Days Qty: 10 0RF gabapentin 300 mg capsule 300 mg PO TID PRN (Reason: nerve pain) 5 Days Qty: 15 0RF Slow Fe 142 mg (45 mg iron) tablet extended release 142 mg PO DAILY Qty: 90 0RF atorvastatin 20 mg tablet See Rx Instructions .ROUTE .COMPLEX Qty: 90 0RF Dose Instruction: TAKE ONE TABLET BY MOUTH ONCE A DAY Rx Instructions: TAKE ONE TABLET BY MOUTH ONCE A DAY cholecalciferol (vitamin D3) 50 mcg (2,000 unit) tablet See Rx Instructions .ROUTE .COMPLEX Qty: 30 0RF Dose Instruction: TAKE ONE TABLET BY MOUTH ONCE A DAY Rx Instructions: TAKE ONE TABLET BY MOUTH ONCE A DAY tramadol 50 mg tablet 50 mg PO BID PRN (Reason: pain) Qty: 60 0RF Mounjaro 7.5 mg/0.5 mL pen injector 7.5 mg SQ WEEKLY Qty: 2 2RF pantoprazole 40 mg tablet,delayed release (DR/EC) See Rx Instructions .ROUTE .COMPLEX Qty: 30 0RF Dose Instruction: TAKE ONE TABLET BY MOUTH EVERY MORNING FOR GERD Rx Instructions: TAKE ONE TABLET BY MOUTH EVERY MORNING FOR GERD Clenpiq 10 mg-3.5 gram- 12 gram/175 mL solution 175 ml PO DAILY Qty: 350 0RF Rx Instructions: take first dose at 5-9PM evening before colonoscopy; 2nd dose the next day approximately 5 hrs before colonoscopy aspirin 81 MG tablet,delayed release (DR/EC) 81 mg PO DAILY ondansetron 4 mg tablet,disintegrating 4 mg PO Q6H PRN (Reason: nausea and vomiting) Qty: 30 0RF Ubrelvy 100 mg tablet 100 mg PO NEEDED PRN (Reason: headache) Referrals Follow up/Referrals: Candi Fletcher PA [Primary Care Provider] - See instructions Clinical Impressions Clinical Impression: Rhabdomyolysis Discharge ED Provider: Sue Deal General Adult HPI General Chief complaint: Recheck/Abnormal Lab/Rx Stated complaint: severe muscle cramps Time Seen by Provider: 09/04/23 10:00 Mode of Arrival: Ambulatory Source of Information: Patient, Significant Other and Medical Record Limitations: No Limitations Description of Symptoms (Recalled from ER Triage Doc. by RN): Pt. was in the infusion dept reicieving his Vancomycin infusion for osteomylitis. He reports he has had muscle cramps in his arms and legs since Monday that have progressivley gotten worse. His leab work showed a CK of 9076. He was sent to the ED for further evaluation. History of Present Illness HPI narrative: This patient is a 48-year-old male with a history of obesity, diabetes, CHF, pulmonary hypertension, hypertension, hyperlipidemia, diabetic foot, and gout with biopsy confirmed osteomyelitis on 08/16/2023 of his left foot who is currently undergoing antibiotic infusions presenting with concern for abnormal labs. He just finished a round of daptomycin infusions and is now started vancomycin infusion. Patient reports that he has had generalized muscle cramps since Monday that is actually improved. CK up at home was noted to be in the 2000 range. Today, he had labs drawn when he presented for vancomycin infusion which demonstrated CK greater than 9000. Kidney function is not significantly changed. He is still making good urine. No recent medic injuries, drug use, or other concerns noted. He notes that his foot is actually doing better. No recent fevers or infectious symptoms. Related Data Home Medications Medication Instructions Recorded Confirmed aspirin 81 mg tablet,delayed 81 mg PO DAILY thinner 01/12/21 09/04/23 release ubrogepant 100 mg tablet (Ubrelvy) 100 mg PO NEEDED PRN headache 08/24/23 09/04/23 Previous Rx's Medication Instructions Recorded ferrous sulfate 142 mg (45 mg 142 mg PO DAILY #90 tabs 01/28/22 iron) tablet,extended release (Slow Fe) glipizide 10 mg tablet, extended 10 mg PO DAILY #90 tabs 09/29/22 release 24 hr atorvastatin 20 mg tablet See Rx Instructions .Route 02/20/23 .COMPLEX #90 tabs cholecalciferol (vitamin D3) 50 See Rx Instructions .Route 06/09/23 mcg (2,000 unit) tablet .COMPLEX #30 tabs lisinopril 10 mg tablet 10 mg PO DAILY #90 tabs 06/13/23 metoprolol succinate 200 mg 200 mg PO DAILY #90 tabs 06/13/23 tablet,extended release 24 hr (Toprol XL) tizanidine 4 mg tablet 4 mg PO Q8H PRN muscle spasticity 06/13/23 #90 tabs tirzepatide 7.5 mg/0.5 mL 7.5 mg (0.5 mL) SQ WEEKLY #2 mL 07/11/23 subcutaneous pen injector (Benunminaro) pantoprazole 40 mg tablet,delayed See Rx Instructions .Route 07/20/23 release .COMPLEX #30 tabs gabapentin 300 mg capsule 300 mg PO TID PRN nerve pain 5 08/09/23 days #15 caps sod picosulf 10 mg-magnes 3.5 175 ml PO DAILY 2 doses #350 mL 08/22/23 gram-citric 12 gram/175 mL oral solution (Clenpiq) Allergies Allergy/AdvReac Type Severity Reaction Status Date / Time chocolate flavor Allergy Unknown I-RASH Verified 09/04/23 10:09 [From CHOCOLATE (FOOD/DRUG)] midazolam [MIDAZOLAM] Allergy Unknown Unknown Verified 09/04/23 10:09 allergy reaction adhesive tape AdvReac Verified 09/04/23 10:09 steri strip AdvReac Uncoded 07/25/23 15:00 PFSH PFS Disclaimer: The information contained in this section may have been updated after the patient was seen, as this information can be updated by other users. Medical History Abnormal EKG Chest pain DKA (diabetic ketoacidoses) Family history of heart disease Foot pain, left Hyperlipidemia Hypertension Hyponatremia Left ankle pain [place] (obstructive sleep apnea) Pulmonary HTN Renal insufficiency Sinus tachycardia Unstable angina Surgical History History of ankle surgery tendons and ligaments 01/2021, 10/2021 History of foot surgery 01/2021, 10/2021 Family History Other No significant family history Social History Smoking Status: Former smoker second hand exposure: Yes alcohol intake: never substance use type: denies use current occupational status: unemployed Travel in the last 8 weeks: None household members: significant other housing: house current occupation: . current occupational exposures/hazards: No caffeine: Yes ROS Obtained: Yes All systems reviewed & no additional complaints except as documented Physical Exam General General appearance: alert and in no apparent distress Head Head exam: atraumatic and normocephalic Eye Eye exam: Present normal appearance, PERRL and EOMI ENT ENT exam: Present normal exam, normal oropharynx, mucous membranes moist and no rmal external ear exam Neck Neck exam: Present normal inspection, full ROM and trachea midline; Absent tenderness Chest Chest inspection: Present normal inspection and symmetric chest wall rise; Absent tenderness Respiratory Respiratory exam: Present normal lung sounds bilaterally; Absent respiratory distress, wheezes, stridor or accessory muscle use Cardiovascular Cardiovascular exam: Present regular rate and normal rhythm Abdominal Exam Abdominal exam: Present soft; Absent distention, tenderness or guarding Extremities Exam Extremities exam: Present full ROM, normal capillary refill and other (Left foot incisions C/D/I with no surrounding erythema, warmth, or purulence); Absent tenderness or edema Back Exam Back exam: Present normal inspection and full ROM; Absent tenderness Neurological Exam Neurological exam: Present alert, oriented X3, CN II-XII intact and normal gait; Absent motor sensory deficit Psychiatric Psychiatric exam: Present normal affect and normal mood Skin Skin exam: Present warm and dry Medical Decision Making Medical Records Medical records reviewed: Yes I reviewed the patient's medical records. Rajiv Inquiry Pt receiving controlled substance: No Vital Signs: 09/04/23 10:10 09/04/23 10:30 Temperature 98.3 F Temperature Source Oral Pulse Rate 94 H Pulse Rate [Right Brachial] 100 H Respiratory Rate 18 22 Blood Pressure 157/124 H Blood Pressure [Right Arm] 160/106 H Blood Pressure Mean [Right Arm] 124 Blood Pressure Source [Right Arm] Automatic Cuff Blood Pressure Position [Right Arm] Sitting 02 Sat by Pulse Oximetry 98 100 Oxygen Delivery Method Room Air Room Air Lab Data Lab results reviewed: Yes I reviewed the patient's lab results. Lab Results 09/04/23 08:17: Phosphorus 3.4, Magnesium 2.1 Orders (Tests/Meds): ED MEDICATIONS Generic Name Dose Route Start Last Admin Trade Name Candice PRN Reason Stop Dose Admin Aspirin 81 mg 09/05/23 09:00 Aspirin Ec 81mg Tablet PO 10/05/23 08:59 DAILY [facility] Fluticasone Propionate 1 spray 09/05/23 09:00 Fluticasone Prop 50mcg Nasal [place] 16gm NS 10/05/23 08:59 DAILY [facility] Gabapentin 300 mg 09/04/23 10:49 Gabapentin 300mg Capsule PO 10/04/23 10:48 TID PRN nerve pain Lactated Ringer's 1,000 mls @ 999 mls/hr 09/04/23 10:24 09/04/23 10:36 Lactated Ringer's 1000 Ml Bag IV 09/04/23 11:24 999 mls/hr .Q1H1M ONE Administration Lactated Ringer's 1,000 mls @ 200 mls/hr 09/04/23 11:00 Lactated Ringer's 1000 Ml Bag IV 10/04/23 10:59 .Q5H [facility] Insulin Human Lispro 0 unit 09/04/23 11:00 Humalog 100 Units/Ml 3ml Vial (Ssi) SQ 10/04/23 10:59 ACHS [facility] Protocol Lisinopril 10 mg 09/05/23 09:00 Lisinopril 10mg Tablet PO 10/05/23 08:59 DAILY [facility] Miscellaneous 1 each 09/04/23 11:00 Vancomycin Consult Request NOTAPPLIC 10/04/23 10:59 CONSULT PHARMACY [facility] Non-Formulary Medication 10 mg 09/04/23 10:49 Oxycodone PO Q4H PRN pain Non-Formulary Medication 200 mg 09/05/23 09:00 Metoprolol Succinate [Toprol Xl] PO 10/05/23 08:59 DAILY [facility] Pantoprazole Sodium 40 mg 09/05/23 09:00 Pantoprazole 40mg Tablet PO 10/05/23 08:59 DAILY JAELYN ORDERS Category Date Time Status Basic Metabolic Panel Routine Lab 09/04/23 18:00 Ordered CK [Creatine Kinase] AMLAB Lab 09/05/23 06:00 Ordered CK [Creatine Kinase] AMLAB Lab 09/06/23 06:00 Ordered CK [Creatine Kinase] AMLAB Lab 09/07/23 06:00 Ordered CK [Creatine Kinase] Routine Lab 09/04/23 18:00 Ordered Complete Blood Count Auto Diff AMLAB Lab 09/05/23 06:00 Ordered Comprehensive Metabolic Panel AMLAB Lab 09/05/23 06:00 Ordered Hemoglobin A1C Stat Lab 09/04/23 08:17 Received Magnesium AMLAB Lab 09/05/23 06:00 Ordered Magnesium Stat Lab 09/04/23 08:17 Completed Phosphorous Stat Lab 09/04/23 08:17 Completed Medical Decision Narrative: In summary, this patient is a 48-year-old male presenting to the Emergency Department for evaluation of elevated CK. Differential diagnoses considered include but are not limited to rhabdomyolysis, WILMER, acute renal failure, compartment syndrome, medication adverse reaction. Ruling out the most morbid conditions drove assessment. It should be noted patient's history includes diabetes, hypertension, hyperlipidemia, and diabetic foot which may or may not be at goal therapy. This complicates all aspects of care by increasing patient's risk for morbidity. I reviewed patient's past medical records and noted previous evaluations by podiatry and antibiotic infusions as per HPI. I reviewed the patient's outpatient labs which were obtained just prior to arrival. His CK is greater than 9000 but his kidney function is not significantly outside of his normal range. No findings concerning for compartment syndrome on exam, and foot x-ray looks good. Given this, feel he would benefit from admission for IV resuscitation and serial labs. I called and had an interactive discussion with Dr. De La Cruz who admitted the patient for further evaluation and management. Critical Care Critical Care Time Critical Care Time: No
[2023-09-04 11:06] LABS: Hemoglobin A1C 5.6 % (4.0-6.0)
[2023-09-04 11:18] LABS: Anion Gap 12.3 mEq/L (5-15); Blood Urea Nitrogen 11 mg/dl (9-20); Carbon Dioxide 25 mmol/L (22.0-30.0); Chloride 104 mmol/L (98-107); Creatinine Clearance Estimated 105 mL/min (50-200); Estimated Glomerular Filt Rate 65 ml/min (>60); GFR (African American) 79 ML/MIN (>60); Glucose 90 mg/dl (74-100); Potassium 4.3 mmoL/L (3.5-5.1); Sodium 137 mmol/L (136-145)
--- NOTE | 2023-09-04 11:27 | HMH.PHAINT1 ---
Pharmacy Intervention Comments: MEDICATION RECONCILIATION COMPLETED ON PATIENT USING EXTERNAL FILL HISTORY FROM PHARMACY. -HARJINDER GALVAN, SHAROND
--- NOTE | 2023-09-04 11:31 | PC.NURSE ---
Report called to Juan Núñez RN
[2023-09-04 11:38] LABS: Creatine Kinase 9174 U/L (55-170)
--- NOTE | 2023-09-04 11:52 | PC.NURSE ---
arrived by w/c from ED
[2023-09-04] MEDS: LACTATED RINGERS 1000ML 1,000 ML 200 ML IV ×2 (12:56→18:41)
--- NOTE | 2023-09-04 13:46 | HMH.PTWOUND ---
Rehab Inpt Wound Evaluation Rehab IP Wound Evaluation Start: 09/04/23 12:17 Freq: ONCE Status: Active Protocol: Document 09/04/23 13:42 ISHMAEL (Rec: 09/04/23 13:46 ISHMAEL [id number]) Rehab PT Wound Assessment Subjective Subjective 48 yoaam adm to [facility] with rhabdo. He has PMH of DM, recent L calcaneus surgery requiring IV abx in infusion. He is generally independent with all mobility and has WKS to maintain NWB of the L LE. Wound Left Heel Wound Type Incision Is This a Chronic Wound No Wound Length (cm) 4.0 Wound Width (cm) 1.5 Number of Sutures 10 Wound Margins Description Well Defined Wound Topical Solution/Irrigant Antibiotic Irrigant Primary Dressing Gauze Pad Comment betadine to wound, gauze covering. Wound Secondary Dressing Type Gauze Roll/Wrap,Elastic Bandage Wound Debridement Amount of Tissue None Removed Dressing Change Patient Tolerance Tolerated Well Plan/Recommendation Comment Nsg to continue dressing changes as above, once daily as needed. No debridement necessary at this time. Eval Complexity Eval Charge Codes 23178 - High Complexity PHYSICIAN CERTIFICATION: I certify the specified therapy services for Prakash Qureshi III are required, authorized, and reviewed every 30 days.
[2023-09-04] MEDS: OXYCODONE 5MG W/APAP 325MG TABLET 1 EACH PO (17:28)
[2023-09-04 18:54] LABS: Anion Gap 9.2 mEq/L (5-15); Blood Urea Nitrogen 11 mg/dl (9-20); Calcium 8.9 mg/dl (8.4-10.2); Carbon Dioxide 27 mmol/L (22.0-30.0); Chloride 106 mmol/L (98-107); Creatinine Clearance Estimated 115 mL/min (50-200); Estimated Glomerular Filt Rate 72 ml/min (>60); GFR (African American) 87 ML/MIN (>60); Glucose 100 mg/dl (74-100); Potassium 4.2 mmoL/L (3.5-5.1); Sodium 138 mmol/L (136-145)
[2023-09-04 19:56] LABS: POC Glucose,Bedside 94 (70-110)
[2023-09-04] MEDS: VANCOMYCIN/WATER FOR INJ (PEG) 1.5 GM/300 ML PIGGYBACK IV (21:01)
[2023-09-04] MEDS: GABAPENTIN 300MG CAPSULE 300 MG PO (21:01)
[2023-09-04 21:27] LABS: Creatine Kinase 9288 U/L (55-170)
[2023-09-05] MEDS: LACTATED RINGERS 1000ML 1,000 ML 200 ML IV ×4 (01:31→18:47)
[2023-09-05] MEDS: ACETAMINOPHEN 325MG TAB 650 MG PO ×2 (01:40→16:54)
[2023-09-05 04:00] VITALS: BP 155/95; PULSE 82; RESP 16; TEMP 36.6; O2SAT 99; BMI 34.2
--- NOTE | 2023-09-05 05:41 | PC.NURSE ---
Pt has rested through the night. Complained of arm muscle aches one 1 time this shift, treated per oct. Pt uses urinal independently with good output. No other complaints.
[2023-09-05 06:31] LABS: POC Glucose,Bedside 84 (70-110)
[2023-09-05 07:04] LABS: Basophils # 0.1 K/mm3 (0-0.2); Basophils % 0.7 % (0.1-2.0); Eosinophils # 0.2 K/mm3 (0.0-0.4); Hematocrit 39.1 % (42.0-52.0); Hemoglobin 12.8 g/dL (14.1-18.0); Lymphocytes # 2.9 K/mm3 (0.7-4.5); Mean Corpuscular HGB Conc 32.9 g/dL (31.8-35.4); Mean Corpuscular Hemoglobin 26.8 pg (27.0-31.2); Mean Corpuscular Volume 81.7 fl (80-94); Mean Platelet Volume 8.6 fl (7.4-10.4); Monocytes # 0.3 K/mm3 (0.1-1.0); Monocytes % 4.1 % (1.7-9.3); Neutrophils # 4.5 K/mm3 (1.8-7.8); Neutrophils % 56.1 % (37.0-80.0); Platelet Count 310 K/mm3 (142-424); Red Blood Count 4.79 M/mm3 (4.60-6.20); Red Cell Distribution Width 15.1 % (11.5-17.5); White Blood Count 8.1 K/mm3 (4.8-10.8)
[2023-09-05 07:16] LABS: Alanine Aminotransferase 37 U/L (12-78); Albumin Level 3.6 g/dl (3.5-5.0); Albumin/Globulin Ratio 1.3 (1.1-1.8); Alkaline Phosphatase 87 U/L (38-126); Anion Gap 8.2 mEq/L (5-15); Aspartate Amino Transferase 124 U/L (17-59); Bilirubin,Total 0.4 mg/dl (0.2-1.3); Blood Urea Nitrogen 9 mg/dl (9-20); Carbon Dioxide 26 mmol/L (22.0-30.0); Chloride 108 mmol/L (98-107); Creatinine Clearance Estimated 116 mL/min (50-200); Estimated Glomerular Filt Rate 72 ml/min (>60); GFR (African American) 87 ML/MIN (>60); Globulin 2.7 g/dL (1.3-3.2); Glucose 90 mg/dl (74-100); Potassium 4.2 mmoL/L (3.5-5.1); Sodium 138 mmol/L (136-145); Total Protein,Serum 6.3 g/dl (6.3-8.2)
[2023-09-05 08:00] VITALS: BP 156/100; PULSE 85; RESP 17; TEMP 36.6; O2SAT 95
[2023-09-05 08:12] LABS: Creatine Kinase 5589 U/L (55-170)
[2023-09-05] MEDS: VANCOMYCIN/WATER FOR INJ (PEG) 1.5 GM/300 ML PIGGYBACK IV ×2 (09:05→21:22)
[2023-09-05] MEDS: LISINOPRIL 10MG TABLET 10 MG PO (09:05)
[2023-09-05] MEDS: PANTOPRAZOLE 40MG TABLET 40 MG PO (09:05)
[2023-09-05] MEDS: ASPIRIN EC 81MG TABLET 81 MG PO (09:05)
[2023-09-05] MEDS: METOPROLOL SUCCINATE XL 100MG TABLET 200 MG PO (09:06)
--- NOTE | 2023-09-05 10:11 | PC.NURSE ---
Patient refused ordered bolus. Dr. Pedro aware
--- NOTE | 2023-09-05 11:37 | EXP.PN ---
Subjective *Date: 09/05/23 *Time: 11:37 Interval history: patient was seen and evaluated at the bedside. No reported acute events overnight, denies chest pain, shortness of breath, nausea, vomiting, abdominal pain. He has pain in his arms Exam Data for Last 24 hours Vital signs and Labs for Last 24 Hours: Temp Pulse Resp BP Pulse Ox O2 Del Method 97.8 F 85 17 156/100 H 95 Room Air 09/05/23 08:00 09/05/23 08:00 09/05/23 08:00 09/05/23 08:00 09/05/23 08:00 09/05/23 10:57 Laboratory Results - last 24 hr 09/04/23 11:00: Total Creatine Kinase 9174 H* 09/04/23 18:25: Sodium 138, Potassium 4.2, Chloride 106, Carbon Dioxide 27, Anion Gap 9.2, BUN 11, Creatinine 1.10, Estimated Creat Clear 115, Estimated GFR 72, Est GFR ( Amer) 87, Glucose 100, Calcium 8.9, Total Creatine Kinase 9288 H* 09/04/23 19:46: POC Glucose 94 09/05/23 06:21: POC Glucose 84 09/05/23 06:36: WBC 8.1, RBC 4.79, Hgb 12.8 L, Hct 39.1 L, MCV 81.7, MCH 26.8 L, MCHC 32.9, RDW 15.1, Plt Count 310, MPV 8.6, Neut % (Auto) 56.1, Lymph % (Auto) 36.0, [place] % (Auto) 4.1, Eos % (Auto) 3.0, Baso % (Auto) 0.7, Neut # (Auto) 4.5, Lymph # (Auto) 2.9, [place] # (Auto) 0.3, Eos # (Auto) 0.2, Baso # (Auto) 0.1, Sodium 138, Potassium 4.2, Chloride 108 H, Carbon Dioxide 26, Anion Gap 8.2, BUN 9, Creatinine 1.10, Estimated Creat Clear 116, Estimated GFR 72, Est GFR ( Amer) 87, Glucose 90, Calcium 9.0, Magnesium 2.0, Total Bilirubin 0.4, AST 124 H, ALT 37, Alkaline Phosphatase 87, Total Creatine Kinase 5589 H* D, Total Protein 6.3, Albumin 3.6, Globulin 2.7, Albumin/Globulin Ratio 1.3 I & O for Last 24 hours: Intake & Output 09/02/23 09/03/23 09/04/23 09/05/23 23:59 23:59 23:59 23:59 Intake Total 2048 / 2048 3007 / 3007 Output Total 750 / 750 4950 / 4950 Balance 1299 / 1299 -1943 / -194 Weight 97.522 kg 99.019 kg Constitutional Constitutional: no acute distress *Routine HEENT Exam Head: Present normocephalic Eye: Present EOMI and PERRL ENT: Present mucous membranes moist *Routine Neck Exam Neck: Present supple; Absent lymphadenopathy *Routine Respiratory Exam Respiratory: Present CTA bilaterally *Routine Cardiovascular Exam Cardiovascular: Present RRR *Routine Abdominal Exam Abdominal: Present soft and normoactive bowel sounds; Absent tenderness *Routine Extremities Exam Extremities: Absent cyanosis, clubbing or edema Comments: left foot covered in dressing *Routine Skin Exam Skin: Present warm; Absent rash *Routine Neurological Exam Neurological: Present alert and oriented X3 Assessment and Plan *Assessment and plan (1) Rhabdomyolysis: Status: Acute Category: Medical Code(s): M62.82 - Rhabdomyolysis (2) Acute osteomyelitis of left foot: Status: Acute Category: Medical Code(s): M86.172 - Other acute osteomyelitis, left ankle and foot (3) Diabetic neuropathy: Status: Chronic Category: Medical Code(s): E11.40 - Type 2 diabetes mellitus with diabetic neuropathy, unspecified (4) Type 2 diabetes mellitus with diabetic polyneuropathy, without long-term current use of insulin: Status: Chronic Category: Medical Code(s): E11.42 - Type 2 diabetes mellitus with diabetic polyneuropathy (5) Hyperlipidemia: Status: Chronic Qualifiers: Hyperlipidemia type: unspecified Qualified Code(s): E78.5 - Hyperlipidemia, unspecified Category: Medical Code(s): E78.5 - Hyperlipidemia, unspecified (6) Hypertension: Status: Chronic Qualifiers: Hypertension type: essential hypertension Qualified Code(s): I10 - Essential (primary) hypertension Category: Medical Code(s): I10 - Essential (primary) hypertension Plan 48-year-old male with diabetes, hyperlipidemia, neuropathy. Currently being treated for osteo of his left calcaneus. Was on both Lipitor and recently daptomycin. Developed elevation in CK and muscle aches. Presented with abnormal labs, found to have rhabdomyolysis. Discussed case with ER physician, request admission for IV fluids, monitoring of CK levels and monitoring of kidney function for development of acute kidney injury. High risk for decompensation given severity of rhabdo. Medicine agreed to admit for further management. Patient on room air, alert and oriented on exam. Currently voiding independently. Problems addressed as follows: Rhabdomyolysis Acute osteomyelitis of left calcaneus -Recently been on daptomycin until 09/02. Likely culprit in conjunction with his Lipitor for development of rhabdomyolysis. Transitioned to vancomycin. Tolerating well. Continue vancomycin IV, monitoring for renal toxicity - Agressive IV fluids -Strict I's and O's -Wound care consult to assist with bandaging and dressing left heel - CK level today > 5000, trend Hypertension: Continue lisinopril 10 mg daily and metoprolol succinate 200 mg daily. GERD: Continue home pantoprazole 40 mg daily Diabetes: A1c obtained, 5.6. Well-controlled on current home regimen. Continue sliding scale insulin with fingersticks ACHS. Hyperlipidemia: Holding Lipitor in the setting of rhabdo. Full code Diabetic diet
--- NOTE | 2023-09-05 16:19 | PC.NURSE ---
Left foot dressing changed per wound care recommendations. Patient tolerated well
[2023-09-05 16:29] VITALS: BP 151/90; PULSE 90; RESP 16; TEMP 36.9; O2SAT 99
--- NOTE | 2023-09-05 16:58 | PC.NURSE ---
Pt alert and oriented. VSS. Up ad paulo in room. Voiding via urinal for accurate output. Tylenol for left arm pain. IV fluids infusing per orders.
--- NOTE | 2023-09-05 17:55 | PC.NURSE ---
Right midline dressing changed with aseptic technique as dressing had not been changed since 08/28/23
[2023-09-05 19:56] LABS: POC Glucose,Bedside 168 (70-110)
[2023-09-05 20:00] VITALS: BP 116/69; PULSE 114; RESP 18; TEMP 36.7; O2SAT 97
[2023-09-05] MEDS: humaLOG 100 UNITS/ML 3ML VIAL (SSI) SQ (21:22)
[2023-09-05] MEDS: GABAPENTIN 300MG CAPSULE 300 MG PO (21:22)
[2023-09-06] MEDS: LACTATED RINGERS 1000ML 1,000 ML 200 ML IV ×4 (01:33→18:33)
[2023-09-06] MEDS: ACETAMINOPHEN 325MG TAB 650 MG PO (01:36)
[2023-09-06 03:59] VITALS: BP 125/84; PULSE 107; RESP 18; TEMP 36.7; O2SAT 99; BMI 34.4
[2023-09-06 06:34] LABS: POC Glucose,Bedside 97 (70-110)
[2023-09-06 07:39] LABS: Creatine Kinase 2472 U/L (55-170)
[2023-09-06 07:45] VITALS: BP 144/89; PULSE 77; RESP 19; TEMP 36.8; O2SAT 98
[2023-09-06 09:12] LABS: Vancomycin,Trough 14.9 ug/mL (5.0-10.0)
[2023-09-06] MEDS: VANCOMYCIN/WATER FOR INJ (PEG) 1.5 GM/300 ML PIGGYBACK IV ×2 (09:12→20:00)
[2023-09-06] MEDS: PANTOPRAZOLE 40MG TABLET 40 MG PO (09:14)
[2023-09-06] MEDS: ASPIRIN EC 81MG TABLET 81 MG PO (09:14)
[2023-09-06] MEDS: METOPROLOL SUCCINATE XL 100MG TABLET 200 MG PO (09:14)
[2023-09-06] MEDS: PHA TO NURSING INSTRUCTION 1 EACH NOTAPPLIC (09:14)
[2023-09-06] MEDS: LISINOPRIL 10MG TABLET 10 MG PO (09:14)
--- NOTE | 2023-09-06 09:41 | EXP.PHA.CONS ---
Pharmacy Consult Date: 09/06/23 Time: 09:41 Referring provider: DR. KIMBROUGH Reason for Consult:: VANCOMYCIN LEVEL Allergies Allergy/AdvReac Type Severity Reaction Status Date / Time chocolate flavor Allergy Unknown I-RASH Verified 09/04/23 10:09 [From CHOCOLATE (FOOD/DRUG)] midazolam [MIDAZOLAM] Allergy Unknown Unknown Verified 09/04/23 10:09 allergy reaction adhesive tape AdvReac Unknown Verified 09/04/23 11:43 allergy reaction Home Medications Medication Instructions Recorded Confirmed Type aspirin 81 mg tablet,delayed 81 mg PO DAILY Heart Health 01/12/21 09/04/23 History release ubrogepant 100 mg tablet (Ubrelvy) 100 mg PO DAILYP PRN Migraine 08/24/23 09/04/23 History Headache cholecalciferol (vitamin D3) 50 50 mcg PO DAILY Supplement 09/04/23 09/04/23 History mcg (2,000 unit) tablet ferrous sulfate 142 mg (45 mg 142 mg PO DAILY Supplement 09/04/23 09/04/23 History iron) tablet,extended release gabapentin 300 mg capsule 300 mg PO TID PRN Pain 09/04/23 09/04/23 History glipizide 10 mg tablet, extended 10 mg PO DAILY Diabetes 09/04/23 09/04/23 History release 24 hr lisinopril 10 mg tablet 10 mg PO DAILY Hypertension 09/04/23 09/04/23 History metoprolol succinate 200 mg 200 mg PO DAILY Hypertension 09/04/23 09/04/23 History tablet,extended release 24 hr pantoprazole 40 mg tablet,delayed 40 mg PO DAILY GERD 09/04/23 09/04/23 History release tirzepatide 7.5 mg/0.5 mL 7.5 mg SQ WEEKLY Diabetes 09/04/23 09/04/23 History subcutaneous pen injector (Ramiro) tizanidine 4 mg tablet 4 mg PO TIDP PRN MUSCLE SPASMS 09/04/23 09/04/23 History atorvastatin 20 mg tablet 20 mg PO HS 09/05/23 09/05/23 History New Prescriptions to Start Prescriptions: Height: 1.7 m Weight: 99.609 kg Laboratory Results:: Laboratory Results - last 24 hr 09/05/23 19:46: POC Glucose 168 H 09/06/23 06:23: POC Glucose 97 09/06/23 06:44: Total Creatine Kinase 2472 H* D 09/06/23 08:10: Vancomycin Trough 14.9 H Medical History: Medical History (Updated 09/04/23 @ 10:40 by Sue Deal DO) Abnormal EKG Chest pain DKA (diabetic ketoacidoses) Family history of heart disease Foot pain, left Hyperlipidemia Hypertension Hyponatremia Left ankle pain [place] (obstructive sleep apnea) Pulmonary HTN Renal insufficiency Sinus tachycardia Unstable angina Assessment and Plan Assessment and plan all Dx Assessment and Plan for all problems:: PATIENT'S VANCOMYCIN TROUGH LEVEL WAS 14.9 MCG/ML THIS AM. RECOMMEND CONTINUING WITH VANCOMYCIN 1500 MG Q12H AT THIS TIME.
--- NOTE | 2023-09-06 11:14 | EXP.EVENT.NO ---
Patient is requesting to be discharged, he understands that his CK level is not back to withing normal range now, he says he does not have any muscle pains, Body aches and able to use his body as expected. He denied any complains today
--- NOTE | 2023-09-06 11:18 | SW/DCPLANNER ---
Addendum entered by Susan Montalvo 09/06/23 13:20: Patient has established a payment plan w/ [facility]. I have updated MD and patient's nurse regarding discharge plans. Addendum entered by Susan Montalvo 09/06/23 13:05: [facility] stated that patient out of cost will be $144.50/week. Patient is currently speaking w/ [facility] regarding payment plan. Val w/ [facility] stated that services can not start till his dose tomorrow morning. The plan for this patient (pending payment plan) is to discharge this evening after second dose of IV antibiotics, [facility] to deliver medication to the home and home health services w/ [facility] to start for tomorrow morning at 9AM dose. Original Note: Prior to hospital admission patient was receiving IV Dapto Q24 at [facility] outpatient infusion. Per MD patient will discharge home w/ IV antibiotics: change from Dapto to Vanc Q12. Patient is interested in home health services at time of discharge for IV antibiotics. [facility] information/[facility] and [facility]: I will continue to follow up/patient is agreeable w/ plan. Patient may discharge home this evening pending [facility] and [facility].
--- NOTE | 2023-09-06 11:34 | P.DS_ITS ---
General Admission date:: 09/04/23 Discharge date: 09/06/23 HPI HPI HPI: Mr. Qureshi is a 48-year-old male with recent diagnosis of osteomyelitis of his left calcaneus on 08/16 by podiatry. Patient was recently on daptomycin until 09/02 when he was transition to vancomycin. He was in infusion today receiving his bank dose when he complained of muscle cramping in his arms and his legs. This been going on since last Monday and has progressively gotten worse. Lab work obtained showing CK of over 9000. He was sent to the ER for further management. He reports a history of obesity, diabetes, CHF, hypertension, h yperlipidemia. Has dealt with an infection in his foot for a while but was not diagnosed with osteo until recently. Denies any chest pain, shortness of breath, nausea, vomiting, decreased urine output. Does state his urine has gotten darker. Has been on a statin for cholesterol for many years. Workup in the ER positive for rhabdomyolysis. Initiated on IV fluids. Medicine consulted for admission and further management. After arriving to the floor, patient states that his heel has been healing well. Denies any fever or chills. Alert and oriented x 3. Stable on room air. Hospital Course Hospital Course Hospital Course: 48-year-old male with diabetes, hyperlipidemia, neuropathy. Currently being treated for osteo of his left calcaneus. Was on both Lipitor and recently daptomycin. Developed elevation in CK and muscle aches. Presented with abnormal labs, found to have rhabdomyolysis. Discussed case with ER physician, request admission for IV fluids, monitoring of CK levels and monitoring of kidney function for development of acute kidney injury. High risk for decompensation given severity of rhabdo. Medicine agreed to admit for further management. Patient on room air, alert and oriented on exam. Currently voiding independently. Problems addressed as follows: Rhabdomyolysis - improved, and not symptomatic at dc, Kidney function has normalized at dc, CK level ordered for outpatient Acute osteomyelitis of left calcaneus - dc on Vancomycin and f/u with podaitry and PCP as OP -Recently been on daptomycin until 09/02. Likely culprit in conjunction with his Lipitor for development of rhabdomyolysis.Patient informed to hold statins for 2 weeks. Transitioned to vancomycin. Tolerating well. Continue vancomycin IV, monitoring for renal toxicity Hypertension: Continue lisinopril 10 mg daily and metoprolol succinate 200 mg daily. GERD: Continue home pantoprazole 40 mg daily Diabetes: A1c obtained, 5.6. Well-controlled on current home regimen. Continue sliding scale insulin with fingersticks ACHS. Hyperlipidemia: Holding Lipitor in the setting of rhabdo. Exam Data for Last 24 hours Vital signs and Labs for Last 24 Hours: Temp Pulse Resp BP Pulse Ox O2 Del Method 98.3 F 77 19 144/89 H 98 Room Air 09/06/23 07:45 09/06/23 07:45 09/06/23 07:45 09/06/23 07:45 09/06/23 07:45 09/06/23 10:52 Laboratory Results - last 24 hr 09/05/23 19:46: POC Glucose 168 H 09/06/23 06:23: POC Glucose 97 09/06/23 06:44: Total Creatine Kinase 2472 H* D 09/06/23 08:10: Vancomycin Trough 14.9 H I & O for Last 24 hours: Intake & Output 09/03/23 09/04/23 09/05/23 09/06/23 23:59 23:59 23:59 23:59 Intake Total 2049 / 2049 6367 / 6367 936 / 936 Output Total 750 / 750 7450 / 7450 2105 / 2105 Balance 1299 / 1299 -1083 / -1083 -1169 / -1169 Weight 97.522 kg 99.019 kg 99.609 kg Constitutional Constitutional: no acute distress *Routine HEENT Exam Head: Present normocephalic Eye: Present EOMI and PERRL ENT: Present mucous membranes moist *Routine Neck Exam Neck: Present supple; Absent lymphadenopathy *Routine Respiratory Exam Respiratory: Present CTA bilaterally *Routine Cardiovascular Exam Cardiovascular: Present RRR *Routine Abdominal Exam Abdominal: Present soft and normoactive bowel sounds; Absent tenderness *Routine Extremities Exam Extremities: Absent cyanosis, clubbing or edema Comments: left foot covered in dressing *Routine Skin Exam Skin: Present warm; Absent rash *Routine Neurological Exam Neurological: Present alert and oriented X3 Results Data Completed and Pending Labs on day of discharge: Labs from last 24 hours 09/06/23 09/06/23 09/06/23 08:10 06:44 06:23 POC Glucose 97 Total Creatine Kinase 2472 H* D Vancomycin Trough 14.9 H 09/05/23 19:46 POC Glucose 168 H Total Creatine Kinase Vancomycin Trough DS: Diagnosis Discharge Diagnosis (1) Rhabdomyolysis: Status: Acute Code(s): M62.82 - Rhabdomyolysis (2) Acute osteomyelitis of left foot: Status: Acute Code(s): M86.172 - Other acute osteomyelitis, left ankle and foot (3) Diabetic neuropathy: Status: Chronic Code(s): E11.40 - Type 2 diabetes mellitus with diabetic neuropathy, unspecified (4) Type 2 diabetes mellitus with diabetic polyneuropathy, without long-term current use of insulin: Status: Chronic Code(s): E11.42 - Type 2 diabetes mellitus with diabetic polyneuropathy (5) Hyperlipidemia: Status: Chronic Code(s): E78.5 - Hyperlipidemia, unspecified Qualifiers: Hyperlipidemia type: unspecified Qualified Code(s): E78.5 - Hyperlipidemia, unspecified (6) Hypertension: Status: Chronic Code(s): I10 - Essential (primary) hypertension Qualifiers: Hypertension type: essential hypertension Qualified Code(s): I10 - Essential (primary) hypertension Meds Home Medications and Allergies Home Medications Medication Instructions Recorded Confirmed Type aspirin 81 mg tablet,delayed 81 mg PO DAILY Heart Health 01/12/21 09/04/23 History release ubrogepant 100 mg tablet (Ubrelvy) 100 mg PO DAILYP PRN Migraine 08/24/23 09/04/23 History Headache cholecalciferol (vitamin D3) 50 50 mcg PO DAILY Supplement 09/04/23 09/04/23 History mcg (2,000 unit) tablet ferrous sulfate 142 mg (45 mg 142 mg PO DAILY Supplement 09/04/23 09/04/23 History iron) tablet,extended release gabapentin 300 mg capsule 300 mg PO TID PRN Pain 09/04/23 09/04/23 History glipizide 10 mg tablet, extended 10 mg PO DAILY Diabetes 09/04/23 09/04/23 History release 24 hr lisinopril 10 mg tablet 10 mg PO DAILY Hypertension 09/04/23 09/04/23 History metoprolol succinate 200 mg 200 mg PO DAILY Hypertension 09/04/23 09/04/23 History tablet,extended release 24 hr pantoprazole 40 mg tablet,delayed 40 mg PO DAILY GERD 09/04/23 09/04/23 History release tirzepatide 7.5 mg/0.5 mL 7.5 mg SQ WEEKLY Diabetes 09/04/23 09/04/23 History subcutaneous pen injector (Mounjaro) tizanidine 4 mg tablet 4 mg PO TIDP PRN MUSCLE SPASMS 09/04/23 09/04/23 History atorvastatin 20 mg tablet 20 mg PO HS 09/05/23 09/05/23 History vancomycin 1.5 gram/300 mL in 1.5 g (300 mL) IV Q12H 09/06/23 Rx diluent combination IV piggyback osteomyelitis Foot 30 days New Prescriptions to Start Prescriptions: Allergies Allergy/AdvReac Type Severity Reaction Status Date / Time chocolate flavor Allergy Unknown I-RASH Verified 09/04/23 10:09 [From CHOCOLATE (FOOD/DRUG)] midazolam [MIDAZOLAM] Allergy Unknown Unknown Verified 09/04/23 10:09 allergy reaction adhesive tape AdvReac Unknown Verified 09/04/23 11:43 allergy reaction Discharge Plan Disposition Patient Disposition: Home Health Service Condition: Good Discharge Order Discharge Orders: Discharge Order (Routine); Ordered 09/06/23 Ordered By: Joseph Pedro Follow up Plan Follow up with: Candi Fletcher PA [Primary Care Provider] - 09/12/23 1:00 pm Shani Dale DPM [Staff Physician] - 09/07/23 3:30 pm Prescriptions/Medication Reconciliation: New vancomycin-diluent combo no.1 1.5 gram/300 mL Piggyback 1.5 g IV Q12H 30 Days Continued cholecalciferol (vitamin D3) 50 mcg (2,000 unit) Tablet 50 mcg PO DAILY ferrous sulfate 142 mg (45 mg iron) Tablet Extended Release 142 mg PO DAILY tizanidine 4 mg tablet 4 mg PO TIDP PRN (Reason: MUSCLE SPASMS) pantoprazole 40 mg tablet,delayed release (DR/EC) 40 mg PO DAILY glipizide 10 mg tablet extended release 24hr 10 mg PO DAILY metoprolol succinate 200 mg tablet extended release 24 hr 200 mg PO DAILY lisinopril 10 mg tablet 10 mg PO DAILY Mounjaro 7.5 mg/0.5 mL pen injector 7.5 mg SQ WEEKLY gabapentin 300 mg Capsule 300 mg PO TID PRN (Reason: Pain) Patient Comments: pt states he only takes in the evening when he's having issues with leg and arm pain aspirin 81 MG tablet,delayed release (DR/EC) 81 mg PO DAILY Ubrelvy 100 mg tablet 100 mg PO DAILYP PRN (Reason: Migraine Headache) Held atorvastatin 20 mg tablet 20 mg PO HS Hold Instructions: Resume on 09/20/23. Discontinued atorvastatin 20 mg tablet 20 mg PO DAILY Other Ambulatory Orders: Creatine Kinase (Routine) Timeframe: 2 Days Facility: [facility] - Location: Laboratory Ordered By: Joseph Pedro Problem Reconciliation Problems Reviewed?: Yes Patient Discharge Instructions ACTIVITY: Ambulate as tolerated DIET: advance to your usual diet Patient Instructions: DI for Osteomyelitis, DI for Rhabdomyolysis Providers Primary Care Provider: Candi Fletcher Admit Provider: Leon De La Cruz Attending Provider: Leon De La Cruz
[2023-09-06 13:50] LABS: Vancomycin,Peak 29.2 ug/ml (11-39)
[2023-09-06 15:20] VITALS: BP 150/81; PULSE 79; RESP 18; TEMP 36.7; O2SAT 100
--- NOTE | 2023-09-06 18:36 | PC.NURSE ---
Patient alert and oriented. VSS. Up ad paulo. Voiding adequately. Denies pain. IV fluids infusing per orders. Patient is set for discharge tonight after next vanco dose. Set up for home infusions and dressing changes.
[2023-09-06 19:59] VITALS: BP 134/79; PULSE 65; RESP 18; TEMP 36.9; O2SAT 96
--- NOTE | 2023-09-06 20:06 | PC.NURSE ---
Vancomycin finished at 2200. Pt midline flushed with 20cc NS. Pt locked up meds given back to pt. Pt taken off floor via wheelchair w/ this RN with all pt belongings at this time.
--- NOTE | 2023-09-06 22:07 | PC.NURSE ---
pt left the floor @ 20:06
--- NOTE | 2023-09-08 13:03 | CARE MANAGER ---
Spoke with patient related to hospital discharge. He states he is doing well and is taking care of IV antibiotics. He denies questions or concerns and is aware of follow up appointments. CATHERINE White
== END 2023-09-06 22:06 | disposition home health service (06) | DRG 558 ==
LOC: ER 10:40 → 2ND 11:11
PROVIDERS: Admitting Provider Internal Medicine Adolescent Medicine; Emergency Provider Emergency Medicine; PCP Physician Assistant; Visit Provider Internal Medicine Adolescent Medicine
DX: M62.82 Rhabdomyolysis (principal); E78.5 Hyperlipidemia, unspecified; K21.9 Gastro-esophageal reflux disease without esophagitis; E11.40 Type 2 diabetes mellitus with diabetic neuropathy, unspecified; I10 Essential (primary) hypertension; E11.42 Type 2 diabetes mellitus with diabetic polyneuropathy
CPT/HCPCS: 36415; 80048; 80053; 80202; 82550; 82552; 82962; 83036; 83735; 84100; 85025; 85651; 86140; 96365; 99285; G0463; J0878

== ENCOUNTER 2023-09-08 10:59 | Outpatient (CLI) | payer MEDICARE, SELFPAY ==
[2023-09-08 11:31] LABS: Anion Gap 11.3 mEq/L (5-15); Blood Urea Nitrogen 7 mg/dl (9-20); Calcium 8.9 mg/dl (8.4-10.2); Carbon Dioxide 25 mmol/L (22.0-30.0); Chloride 108 mmol/L (98-107); Estimated Glomerular Filt Rate 80 ml/min (>60); GFR (African American) 97 ML/MIN (>60); Glucose 89 mg/dl (74-100); Potassium 4.3 mmoL/L (3.5-5.1); Sodium 140 mmol/L (136-145)
[2023-09-08 11:36] LABS: Vancomycin,Trough 14.2 ug/mL (5.0-10.0)
== END 2023-09-08 23:59 ==
PROVIDERS: PCP Podiatrist; Visit Provider Podiatrist
DX: M86.172 Other acute osteomyelitis, left ankle and foot (principal); Z51.81 Encounter for therapeutic drug level monitoring
CPT/HCPCS: 80048; 80202

== ENCOUNTER 2023-09-12 11:03 | Outpatient (CLI) | payer MEDICARE, SELFPAY ==
[2023-09-12 11:37] LABS: Basophils % 0.6 % (0.1-2.0); Eosinophils # 0.2 K/mm3 (0.0-0.4); Eosinophils % 2.6 % (0.1-12.0); Hematocrit 37.8 % (42.0-52.0); Hemoglobin 12.3 g/dL (14.1-18.0); Lymphocytes # 2.5 K/mm3 (0.7-4.5); Lymphocytes % 33.9 % (10-50); Mean Corpuscular HGB Conc 32.6 g/dL (31.8-35.4); Mean Corpuscular Hemoglobin 26.7 pg (27.0-31.2); Mean Corpuscular Volume 81.9 fl (80-94); Mean Platelet Volume 9.3 fl (7.4-10.4); Monocytes # 0.4 K/mm3 (0.1-1.0); Monocytes % 5.4 % (1.7-9.3); Neutrophils # 4.3 K/mm3 (1.8-7.8); Neutrophils % 57.5 % (37.0-80.0); Platelet Count 319 K/mm3 (142-424); Red Blood Count 4.62 M/mm3 (4.60-6.20); Red Cell Distribution Width 15.3 % (11.5-17.5); White Blood Count 7.4 K/mm3 (4.8-10.8)
[2023-09-12 11:43] LABS: Chloride 109 mmol/L (98-107); Potassium 3.9 mmoL/L (3.5-5.1); Sodium 138 mmol/L (136-145)
[2023-09-12 11:45] LABS: Blood Urea Nitrogen 11 mg/dl (9-20)
[2023-09-12 11:46] LABS: Alanine Aminotransferase 27 U/L (12-78); Albumin Level 3.6 g/dl (3.5-5.0); Albumin/Globulin Ratio 1.2 (1.1-1.8); Alkaline Phosphatase 95 U/L (38-126); Anion Gap 8.9 mEq/L (5-15); Aspartate Amino Transferase 26 U/L (17-59); Bilirubin,Total 0.6 mg/dl (0.2-1.3); Calcium 8.7 mg/dl (8.4-10.2); Carbon Dioxide 24 mmol/L (22.0-30.0); Creatine Kinase 122 U/L (55-170); Estimated Glomerular Filt Rate 72 ml/min (>60); GFR (African American) 87 ML/MIN (>60); Glucose 83 mg/dl (74-100); Total Protein,Serum 6.6 g/dl (6.3-8.2)
[2023-09-12 11:52] LABS: C-Reactive Protein 10.8 mg/L (0-4)
[2023-09-12 12:41] LABS: Erythrocyte Sedimentation Rate 22 mm/hr (0-15)
== END 2023-09-12 23:59 ==
PROVIDERS: PCP Podiatrist; Visit Provider Podiatrist
DX: M86.172 Other acute osteomyelitis, left ankle and foot (principal)
CPT/HCPCS: 80053; 80202; 82550; 85025; 85651; 86140

== ENCOUNTER 2023-09-13 09:38 | Outpatient (CLI) | payer MEDICARE, SELFPAY ==
[2023-09-13 15:09] VITALS: BMI 35.0
== END 2023-09-13 23:59 ==
PROVIDERS: PCP Physician Assistant; Visit Provider Podiatrist
DX: M86.172 Other acute osteomyelitis, left ankle and foot (principal); Z45.2 Encounter for adjustment and management of vascular access device
CPT/HCPCS: 36589; 36410

== ENCOUNTER 2023-09-18 10:55 | Outpatient (CLI) | payer MEDICARE, SELFPAY ==
[2023-09-18 11:48] LABS: Basophils % 0.2 % (0.1-2.0); Eosinophils # 0.3 K/mm3 (0.0-0.4); Eosinophils % 2.7 % (0.1-12.0); Hematocrit 37.1 % (42.0-52.0); Hemoglobin 12.3 g/dL (14.1-18.0); Lymphocytes # 2.2 K/mm3 (0.7-4.5); Lymphocytes % 19.3 % (10-50); Mean Corpuscular HGB Conc 33.1 g/dL (31.8-35.4); Mean Corpuscular Hemoglobin 26.8 pg (27.0-31.2); Mean Corpuscular Volume 80.9 fl (80-94); Mean Platelet Volume 9.4 fl (7.4-10.4); Monocytes # 0.9 K/mm3 (0.1-1.0); Monocytes % 8.2 % (1.7-9.3); Neutrophils # 7.9 K/mm3 (1.8-7.8); Neutrophils % 69.6 % (37.0-80.0); Platelet Count 332 K/mm3 (142-424); Red Blood Count 4.59 M/mm3 (4.60-6.20); White Blood Count 11.4 K/mm3 (4.8-10.8)
[2023-09-18 12:01] LABS: Alanine Aminotransferase 28 U/L (12-78); Albumin Level 3.6 g/dl (3.5-5.0); Albumin/Globulin Ratio 1.2 (1.1-1.8); Alkaline Phosphatase 94 U/L (38-126); Anion Gap 12.4 mEq/L (5-15); Aspartate Amino Transferase 31 U/L (17-59); Bilirubin,Total 0.8 mg/dl (0.2-1.3); Blood Urea Nitrogen 7 mg/dl (9-20); Carbon Dioxide 25 mmol/L (22.0-30.0); Chloride 106 mmol/L (98-107); Creatine Kinase 63 U/L (55-170); Estimated Glomerular Filt Rate 50 ml/min (>60); GFR (African American) 61 ML/MIN (>60); Globulin 2.9 g/dL (1.3-3.2); Glucose 108 mg/dl (74-100); Potassium 4.4 mmoL/L (3.5-5.1); Sodium 139 mmol/L (136-145); Total Protein,Serum 6.5 g/dl (6.3-8.2)
[2023-09-18 12:08] LABS: C-Reactive Protein 74.3 mg/L (0-4)
[2023-09-18 12:24] LABS: Vancomycin,Trough 29.6 ug/mL (5.0-10.0)
[2023-09-18 13:13] LABS: Erythrocyte Sedimentation Rate 22 mm/hr (0-15)
== END 2023-09-18 23:59 ==
PROVIDERS: PCP Physician Assistant; Visit Provider Podiatrist
DX: M86.172 Other acute osteomyelitis, left ankle and foot; I10 Essential (primary) hypertension
CPT/HCPCS: 80053; 80202; 82550; 85025; 85651; 86140

== ENCOUNTER 2023-09-19 06:05 | Day surgery (SDC) | payer MEDICARE, SELFPAY ==
[2023-09-15 12:50] VITALS: BMI 32.6
[2023-09-19 06:21] VITALS: BP 142/97; PULSE 97; RESP 18; TEMP 36.8; O2SAT 99
[2023-09-19] MEDS: LACTATED RINGERS 1000ML 1,000 ML 25 ML IV (06:45)
[2023-09-19 06:50] LABS: POC Glucose,Bedside 111 (70-110)
--- NOTE | 2023-09-19 07:01 | P.PNANES_ITS ---
[facility] Disclaimer: The information contained in this section may have been updated after the patient was seen, as this information can be updated by other users. Medical History Abnormal EKG Acquired equinus deformity of both feet Acquired pes cavus Acute osteomyelitis of left foot Chest pain Class II obesity Constipation Crescendo angina Dermatitis Diabetes mellitus Diabetic foot Diabetic neuropathy Diastolic heart failure DKA (diabetic ketoacidoses) Edema of left lower extremity Family history of heart disease Foot pain Foot pain, left Gout Heel spur History of MRSA infection Hyperlipidemia Hypertension Hypertrophic scar Hyponatremia Impingement of left ankle joint Injury of peroneal nerve at lower leg level, left leg, subsequent encounter Keratosis Left ankle pain Left hip pain Left leg weakness Multiple joint pain Neuropathy Obesity (BMI 30-39.9) Obesity, Class II, BMI 35-39.9 [place] (obstructive sleep apnea) Osteoarthritis Osteochondral defect of talus Pain of right heel Peroneal tendinitis of left lower leg Plantar fasciitis of right foot Postoperative dehiscence of skin wound Postoperative edema Postoperative pain Primary osteoarthritis, left ankle and foot Pulmonary HTN Renal insufficiency Rhabdomyolysis Sinus tachycardia Tear of peroneal tendon of left foot Tenosynovitis of left foot Type 2 diabetes mellitus with diabetic polyneuropathy, without long-term current use of insulin Unstable angina Surgical History History of ankle surgery History of cholecystectomy History of foot surgery S/P peroneal tendon repair Status post left foot surgery Family History Other No significant family history Social History Smoking Status: Never smoker second hand exposure: Yes alcohol intake: never substance use type: denies use current occupational status: disabled Travel in the last 8 weeks: None household members: significant other housing: house current occupation: . current occupational exposures/hazards: No caffeine: No [facility] Anesthesia Checklist Patient Identification Patient Identification: Arm Band and Verbal (Name & ) Structural Data Admitted From: Home Planned Operative Procedure/s: Colonoscopy Consent for Planned Operative Procedure(s) Verified: Yes NPO Status Verified Time NPO: 00:00 Additional verifications Anesthesia Reactions: Yes (rash, vomiting, headache (from versed)) Hx Blood Transfusions: No Blood Transfusion Reaction: No Airway Assessment Mallampati Score:: Class II C-Spine Mobility Assessed: Yes TMJ Mobility Assessed: Yes Dentition: Edentulous (One tooth remaining) Neurological Assessment Level of Consciousness: Awake Hx Seizures: No Numbness or tingling in extremities: No Anesthesia Plan Anesthesia Risk discussed: Yes Anesthesia Plan: Verified ASA Class: III Anesthesia Type: MAC
[2023-09-19 07:19] VITALS: O2SAT 99
--- NOTE | 2023-09-19 08:07 | HMH.SCOPE ---
Procedure: Date: 09/19/23 Patient Date of :: 1975 Procedure Performed:: Colonoscopy with polypectomy and tattoo placement Indications:: History of colon polyps Performing Provider:: Tj Friedman MD Referring Provider:: . Sedation:: Monitored anesthesia care Procedure:: After informed consent was obtained the patient was taken to the endoscopy suite. Sedation ensued after the patient was transferred to the left lateral decubitus position. Pulse, blood pressure, and oxygen saturation were monitored throughout the procedure. Digital rectal exam revealed no significant abnormality. The colonoscope was placed in position. The entire colon was evaluated. The colonoscope was carefully removed and the patient was transferred to recovery in stable condition. Please see findings and specimens below for detail. Findings:: Bowel preparation moderate Significant spasticity/lack of relaxation Hemorrhoidal tags Complex polyps (see specimens) Specimens:: Large complex partially-pedunculated lobular periappendiceal polyp (hot snare and SPOT tattoo) Right colon polyp (hot snare) Partially pedunculated polyp at 35 cm (hot snare) Recommendations:: Timing of repeat colonoscopy is pending pathology but will likely be around 1 year with extended bowel preparation secondary to moderate preparation, spasticity/lack of relaxation, and size/nature of polyps (note tattoo). Complications:: No immediate Estimated blood obtained (mL): 1 Colonoscopy Component Colonoscopy Component Was a colonoscopy performed during today's procedure?: Yes Recommended follow up colonoscopy of at least 10 years?: No If no, follow up colonoscopy recommended in ___ years?: (See above) Reason for not recommending >/= 10 yr follow-up interval?: (See above)
[2023-09-19 08:11] VITALS: BP 92/47; PULSE 90; RESP 18; TEMP 36.7; O2SAT 93
--- NOTE | 2023-09-19 08:19 | P.PNANES_ITS ---
[facility] Anesthesia Record Part I Anesthesia Record I Intake, IV Amount: 200 Hydration: Adequate Estimated blood loss (mL): 1 Urine output (mL): 0 Blood Products used (#): none Blood Pressure: 92/47 SaO2: 91 Pulse Rate: 92 Airway Patency: Patent Respiratory Rate: 16 Temperature: 98.1 F Patient is:: Drowsy, Oral/Nasal airway and Stable Stable to PACU at:: 08:16
[2023-09-19 08:21] VITALS: BP 91/55; PULSE 92; RESP 16; O2SAT 97
[2023-09-19 08:31] VITALS: BP 103/62; PULSE 94; RESP 18; O2SAT 97
== END 2023-09-19 08:45 | disposition home or self-care (01) ==
PROVIDERS: PCP Physician Assistant; Visit Provider Surgery
PROC: 0DJD8ZZ Inspection of Lower Intestinal Tract, Via Natural or Artificial Opening Endoscopic (ICD-10-PCS; CPT 45385; principal; 2023-09-19 07:30)
DX: Z12.11 Encounter for screening for malignant neoplasm of colon (principal); Z86.010 Personal history of colon polyps; K64.4 Residual hemorrhoidal skin tags; K51.40 Inflammatory polyps of colon without complications; D12.5 Benign neoplasm of sigmoid colon; E11.9 Type 2 diabetes mellitus without complications
CPT/HCPCS: 45385; 80053; 80202; 82962; 85025; 85651; 86140; 88305

== ENCOUNTER 2023-09-19 07:13 | Outpatient (CLI) | payer MEDICARE, SELFPAY ==
[2023-09-19 10:57] LABS: Basophils % 0.3 % (0.1-2.0); Eosinophils # 0.3 K/mm3 (0.0-0.4); Eosinophils % 3.6 % (0.1-12.0); Hemoglobin 12.8 g/dL (14.1-18.0); Lymphocytes # 1.5 K/mm3 (0.7-4.5); Lymphocytes % 18.4 % (10-50); Mean Corpuscular HGB Conc 32.7 g/dL (31.8-35.4); Mean Corpuscular Hemoglobin 27.1 pg (27.0-31.2); Mean Corpuscular Volume 82.9 fl (80-94); Mean Platelet Volume 9.1 fl (7.4-10.4); Monocytes # 0.4 K/mm3 (0.1-1.0); Monocytes % 4.8 % (1.7-9.3); Neutrophils % 72.9 % (37.0-80.0); Platelet Count 334 K/mm3 (142-424); Red Cell Distribution Width 14.9 % (11.5-17.5); White Blood Count 8.2 K/mm3 (4.8-10.8)
[2023-09-19 11:03] LABS: Alanine Aminotransferase 67 U/L (12-78); Albumin Level 4.3 g/dl (3.5-5.0); Albumin/Globulin Ratio 1.2 (1.1-1.8); Alkaline Phosphatase 124 U/L (38-126); Anion Gap 10.8 mEq/L (5-15); Aspartate Amino Transferase 74 U/L (17-59); Bilirubin,Total 1.1 mg/dl (0.2-1.3); Blood Urea Nitrogen 7 mg/dl (9-20); Carbon Dioxide 30 mmol/L (22.0-30.0); Chloride 103 mmol/L (98-107); Estimated Glomerular Filt Rate 47 ml/min (>60); GFR (African American) 56 ML/MIN (>60); Globulin 3.5 g/dL (1.3-3.2); Glucose 158 mg/dl (74-100); Potassium 3.8 mmoL/L (3.5-5.1); Sodium 140 mmol/L (136-145); Total Protein,Serum 7.8 g/dl (6.3-8.2)
[2023-09-19 11:07] LABS: Vancomycin,Trough 11.2 ug/mL (5.0-10.0)
[2023-09-19 11:08] LABS: C-Reactive Protein 115.5 mg/L (0-4)
[2023-09-19 11:30] LABS: Erythrocyte Sedimentation Rate 32 mm/hr (0-15)
== END 2023-09-19 23:59 ==
LOC: LAB.DROPOF 09-21 07:14
PROVIDERS: Visit Provider Podiatrist
DX: M86.172 Other acute osteomyelitis, left ankle and foot (principal)
CPT/HCPCS: 80053; 80202; 85025; 85651; 86140

== ENCOUNTER 2023-09-21 09:03 | Emergency (ER) | payer MEDICARE, SELFPAY ==
[2023-09-21 09:16] VITALS: BP 140/97; PULSE 95; RESP 18; TEMP 36.9; O2SAT 98; BMI 32.6
--- NOTE | 2023-09-21 09:30 | CT_ITS ---
FINAL REPORT TECHNIQUE: Postcontrast axial images through the abdomen and pelvis were performed. This study was performed with techniques to keep radiation doses as low as reasonably achievable, (ALARA). Individualized dose reduction techniques using automated exposure control or adjustment of mA and/or kV according to the patient's size were employed. CLINICAL HISTORY: colonoscopy tues, increasing abdominal pain FINDINGS: Abdomen: The lung bases are clear. Moderate hiatal hernia is identified. The liver is normal in size and attenuation. There is a 28 mm heterogeneous mass adjacent to the stomach at the left hemidiaphragm of uncertain etiology, could represent chronic hematoma or postoperative change. Finding is favored to be benign. The patient is status post cholecystectomy. The spleen is unremarkable. The adrenals are normal. The pancreas is unremarkable. The kidneys enhance appropriately. The aorta is normal in caliber. No free fluid or adenopathy is identified. No findings for mechanical bowel obstruction are identified. Pelvis: The appendix is not identified. There is mild bladder wall thickening, likely inflammatory. Several diverticula are seen in the sigmoid colon. There is a left inguinal hernia containing fat. No free fluid, free air, abscess or adenopathy is identified. IMPRESSION: Mass adjacent to the stomach as detailed above, favor benign. Mild bladder wall thickening, likely inflammatory. Reviewed, Interpreted and Dictated by Prakash Dempsey III, MD Transcribed by Magaly Bae Authenticated and [facility]
--- NOTE | 2023-09-21 09:34 | ED_ITS ---
Discharge Plan Disposition Patient Disposition: Home, Self-Care Prescriptions Prescriptions: No Action amlodipine 5 mg tablet 5 mg PO DAILY 90 Days Qty: 90 0RF metoprolol succinate 200 mg capsule,sprinkle,ER 24hr 200 mg PO DAILY pantoprazole 40 mg tablet,delayed release (DR/EC) See Rx Instructions .ROUTE .COMPLEX Qty: 30 0RF Dose Instruction: TAKE ONE TABLET BY MOUTH EVERY MORNING FOR GERD Rx Instructions: TAKE ONE TABLET BY MOUTH EVERY MORNING FOR GERD tizanidine 4 mg tablet See Rx Instructions .ROUTE .COMPLEX Qty: 90 0RF Dose Instruction: TAKE ONE TABLET BY MOUTH EVERY 8 HOURS NEEDED FOR MUSCLE SPASMS Rx Instructions: TAKE ONE TABLET BY MOUTH EVERY 8 HOURS NEEDED FOR MUSCLE SPASMS Ubrelvy 100 mg tablet See Rx Instructions .ROUTE .COMPLEX Qty: 10 0RF Dose Instruction: TAKE ONE TABLET BY MOUTH NEEDED FOR MIGRAINE Rx Instructions: TAKE ONE TABLET BY MOUTH NEEDED FOR MIGRAINE (DME) True Metrix Pro Test Strip Strip See Rx Instructions .Route Qty: 50 2RF Rx Instructions: As directed or bid cholecalciferol (vitamin D3) 50 mcg (2,000 unit) Tablet 50 mcg PO DAILY Mounjaro 7.5 mg/0.5 mL pen injector 7.5 mg SQ WEEKLY gabapentin 300 mg Capsule 300 mg PO TID PRN (Reason: Pain) Patient Comments: pt states he only takes in the evening when he's having issues with leg and arm pain atorvastatin 20 mg tablet 20 mg PO HS Hold Instructions: Resume on 09/20/23. vancomycin-diluent combo no.1 1.5 gram/300 mL Piggyback 1.5 g IV Q12H 30 Days aspirin 81 MG tablet,delayed release (DR/EC) 81 mg PO DAILY Referrals Follow up/Referrals: Candi Fletcher PA [Primary Care Provider] - See instructions Activity Restrictions/Add. Instructions Additional Instructions/Restrictions: No evidence of an emergent medical condition identified today. Incidentally there was a 28 mm heterogenous mass adjacent to the stomach and left hemidiaphr agm of uncertain etiology. Please follow-up with your general surgeon to discuss this further but this appears benign. Clinical Impressions Clinical Impression: Headache, Breakthrough seizure, Status post colonoscopy, Abdominal pain, Ab dominal mass Instructions Patient Instructions: DI for Seizure Disorder -- Adult, DI for Seizure (Not Epilepsy/Seizure Disorder), DI for Seizure Disorder -- Child Discharge ED Provider: Tyrel Marie General Adult HPI General Chief complaint: Seizure Stated complaint: abdominal pain, infection, past seizure Time Seen by Provider: 09/21/23 09:23 Mode of Arrival: Ambulatory Source of Information: Patient Limitations: No Limitations Description of Symptoms (Recalled from ER Triage Doc. by RN): Patient was sent over from Dr. Temple office. Patient is currently being treated for osteomylitis and planning for a BKA on the right but does not have a sx date set yet. Patient is on Vancomycin BID. Patient reports he has a seizure last night, has been having some abdominal discomfort and low grade fevers. History of Present Illness HPI narrative: Patient is a 48-year-old male with a history of chronic lower extremity infection currently getting vancomycin infusions through his PICC line went to Dr. Blas's office today and they advised that he come to the emergency department to be evaluated for other complaints at this time. States that he had a colonoscopy on Monday where he had some polyps removed and has had some increasing abdominal pain since that time. States he called his surgeon's office yesterday and they have advised that he come to the emergency department and he refused yesterday. 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 Claims that he had a seizure yesterday. Also states he has a very mild headache. States that is not severe if nothing anywhere near the headache he had in the past with his meningitis. Denies any temperature greater than 100.4 from historical standpoint. Denies any meningismus neck stiffness or photophobia. States that she did not want to come to the emergency department today but they made me. This was referring to the clinic staff at Dr. Grijalva's office. Related Data Home Medications Medication Instructions Recorded Confirmed aspirin 81 mg tablet,delayed 81 mg PO DAILY [facility] 01/12/21 09/21/23 release cholecalciferol (vitamin D3) 50 50 mcg PO DAILY Supplement 09/04/23 09/21/23 mcg (2,000 unit) tablet gabapentin 300 mg capsule 300 mg PO TID PRN Pain 09/04/23 09/21/23 tirzepatide 7.5 mg/0.5 mL 7.5 mg SQ WEEKLY Diabetes 09/04/23 09/21/23 subcutaneous pen injector (Ramiro) atorvastatin 20 mg tablet 20 mg PO HS 09/05/23 09/21/23 metoprolol succinate 200 mg 200 mg PO DAILY 09/21/23 09/21/23 capsule sprinkle, ext. release 24 hr Previous Rx's Medication Instructions Recorded vancomycin 1.5 gram/300 mL in 1.5 g (300 mL) IV Q12H 09/06/23 diluent combination IV piggyback osteomyelitis Foot 30 days pantoprazole 40 mg tablet,delayed See Rx Instructions .Route 09/07/23 release .COMPLEX #30 tabs tizanidine 4 mg tablet See Rx Instructions .Route 09/07/23 .COMPLEX #90 tabs ubrogepant 100 mg tablet (Ubrelvy) See Rx Instructions .Route 09/07/23 .COMPLEX #10 tabs amlodipine 5 mg tablet 5 mg PO DAILY 90 days #90 tabs 09/12/23 blood sugar diagnostic (True #50 ea 09/14/23 Metrix Pro Test Strip) Allergies Allergy/AdvReac Type Severity Reaction Status Date / Time daptomycin Allergy Severe Muscle Pain Verified 09/21/23 08:43 chocolate flavor Allergy Unknown I-RASH Verified 09/21/23 08:43 [From CHOCOLATE (FOOD/DRUG)] midazolam [MIDAZOLAM] Allergy Unknown Unknown Verified 09/21/23 08:43 allergy reaction dapoxetine AdvReac Severe Muscle Verified 09/21/23 08:43 cramps adhesive tape AdvReac Unknown Verified 09/21/23 08:[address] [facility] Disclaimer: The information contained in this section may have been updated after the patient was seen, as this information can be updated by other users. Medical History Abnormal EKG Acquired equinus deformity of both feet Acquired pes cavus Acute osteomyelitis of left foot Chest pain Class II obesity Constipation Crescendo angina Dermatitis Diabetes mellitus Diabetic foot Diabetic neuropathy Diastolic heart failure DKA (diabetic ketoacidoses) Edema of left lower extremity Family history of heart disease Foot pain Foot pain, left Gout Heel spur History of MRSA infection Hyperlipidemia Hypertension Hypertrophic scar Hyponatremia Impingement of left ankle joint Injury of peroneal nerve at lower leg level, left leg, subsequent encounter Keratosis Left ankle pain Left hip pain Left leg weakness Multiple joint pain Neuropathy Obesity (BMI 30-39.9) Obesity, Class II, BMI 35-39.9 [place] (obstructive sleep apnea) Osteoarthritis Osteochondral defect of talus Pain of right heel Peroneal tendinitis of left lower leg Plantar fasciitis of right foot Postoperative dehiscence of skin wound Postoperative edema Postoperative pain Primary osteoarthritis, left ankle and foot Pulmonary HTN Renal insufficiency Rhabdomyolysis Sinus tachycardia Tear of peroneal tendon of left foot Tenosynovitis of left foot Type 2 diabetes mellitus with diabetic polyneuropathy, without long-term current use of insulin Unstable angina Surgical History History of ankle surgery tendons and ligaments 01/2021, 10/2021 History of cholecystectomy History of foot surgery 01/2021, 10/2021 S/P peroneal tendon repair Status post left foot surgery Family History Other No significant family history Social History Smoking Status: Never smoker second hand exposure: Yes alcohol intake: never substance use type: denies use current occupational status: disabled Travel in the last 8 weeks: None household members: significant other housing: house current occupation: . current occupational exposures/hazards: No caffeine: No ROS Obtained: Yes All systems reviewed & no additional complaints except as documented Physical Exam General General appearance: alert and in no apparent distress Head Head exam: atraumatic and normocephalic Neck Neck exam: Absent tenderness or meningismus Respiratory Respiratory exam: Present normal lung sounds bilaterally; Absent respiratory distress Cardiovascular Cardiovascular exam: Present regular rate Abdominal Exam Abdominal exam: Present soft and tenderness (Right lower quadrant tenderness palpation) Neurological Exam Neurological exam: Present alert, oriented X3, CN II-XII intact and normal gait; Absent motor sensory deficit Medical Decision Making Rajiv Inquiry Pt receiving controlled substance: No Rajiv was queried for this patient: No Vital Signs: 09/21/23 09:16 Temperature 98.5 F Temperature Source Oral Pulse Rate [Right Brachial] 95 H Respiratory Rate 18 Blood Pressure [Right Arm] 140/97 H Blood Pressure Mean [Right Arm] 111 Blood Pressure Source [Right Arm] Automatic Cuff Blood Pressure Position [Right Arm] Sitting 02 Sat by Pulse Oximetry 98 Oxygen Delivery Method Room Air Lab Data Lab results reviewed: Yes I reviewed the patient's lab results. Lab Results 09/21/23 09:50: WBC 6.0 D, RBC 4.16 L, Hgb 11.3 L, Hct 34.0 L, MCV 81.7, MCH 27.0, MCHC 33.1, RDW 14.7, Plt Count 352, MPV 8.8, Neut % (Auto) 64.0, Lymph % (Auto) 23.7, [place] % (Auto) 6.9, Eos % (Auto) 4.8, Baso % (Auto) 0.5, Neut # (Auto) 3.8, Lymph # (Auto) 1.4, [place] # (Auto) 0.4, Eos # (Auto) 0.3, Baso # (Auto) 0.0, Sodium 138, Potassium 4.0, Chloride 107, Carbon Dioxide 26, Anion Gap 9.0, BUN 8 L, Creatinine 1.50 H, Estimated Creat Clear 84, Estimated GFR 50 L, Est GFR ( Amer) 61, Glucose 107 H, Calcium 8.9, Total Bilirubin 0.4, AST 35 D, ALT 44 D, Alkaline Phosphatase 98, Total Protein 6.7, Albumin 3.5, Globulin 3.2, Albumin/Globulin Ratio 1.1 09/21/23 09:50 09/21/23 09:50 Orders (Tests/Meds): ED MEDICATIONS Discontinued Medications Generic Name Dose Route Start Last Admin Trade Name Freq PRN Reason Stop Dose Admin Diphenhydramine HCl 25 mg 09/21/23 09:30 09/21/23 09:58 Diphenhydramine 50mg/Ml Vial IV 09/21/23 09:31 25 mg ONCE ONE Administration Lactated Ringer's 1,000 mls @ 999 mls/hr 09/21/23 09:30 09/21/23 09:59 Lactated Ringer's 1000 Ml Bag IV 09/21/23 10:30 999 mls/hr .Q1H1M JAELYN Administration Iopamidol 75 ml 09/21/23 10:59 09/21/23 11:00 Iopamidol-370 (76%);100ml Bottle IV 09/21/23 11:00 75 ml ONCE ONE Administration Ketorolac Tromethamine 15 mg 09/21/23 09:30 09/21/23 09:58 Ketorolac 30mg/Ml Vial IV 09/21/23 09:31 15 mg ONCE ONE Administration Prochlorperazine Edisylate 10 mg 09/21/23 09:30 09/21/23 09:56 Prochlorperazine 10mg/2ml Vial IV 09/21/23 09:31 10 mg ONCE ONE Administration Sodium Chloride 10 ml 09/21/23 10:59 09/21/23 11:00 Sodium Chloride 0.9% 10ml Syr (Rad Only) IV 09/21/23 11:00 10 ml ONCE ONE Administration ORDERS Category Date Time Status CT abdomen pelvis w con Stat Cat Scan 09/21/23 09:30 Taken CBC w/Auto Diff [Complete Blood Count Auto Diff] Stat Lab 09/21/23 09:50 Completed CMP [Comprehensive Metabolic Panel] Stat Lab 09/21/23 09:50 Completed Medical Decision Narrative: Patient is a very well-appearing 48-year-old male presents today with multiple complaints. He has a chronic lower extremity infection which he is getting vancomycin infusions through his PICC line for and has been seen by Dr. Olson today no further evaluation needed for that. He had a very benign abdominal exam but some tenderness following colonoscopy perforation is certainly a differential we will obtain a CT scan to rule out discomfort patient. Patient also complains of a mild headache initially he refused any type of headache medication. He is nontoxic has no evidence of meningismus it is exceedingly unlikely that he has meningitis and will not offer a lumbar puncture at this point given how well he looks. He has no objective fever. Will give him migraine cocktail obtain a CT scan and labs and will reassess. Reassessment 12:[address] scan performed in person interpreted shows no acute abdominal pelvic emergency. Patient has no urinary symptoms radiology read said possible bladder wall thickening could be inflammatory but patient again has no symptoms or signs of urinary tract infection no urinalysis was ordered. Additionally there is an incidental mass 28 mm heterogenous mass adjacent to the stomach and left hemidiaphragm of uncertain etiology that he will follow-up with his surgeon about. This is likely benign could be a chronic hematoma. Serial neurologic exams normal headache much improved. Abdominal exam soft and serial assessments are improved. No emergent medical condition identified patient discharged in stable condition. Critical Care Critical Care Time Critical Care Time: No
[2023-09-21] MEDS: PROCHLORPERAZINE 10MG/2ML VIAL 10 MG IV (09:56)
[2023-09-21 09:58] LABS: Basophils % 0.5 % (0.1-2.0); Eosinophils # 0.3 K/mm3 (0.0-0.4); Eosinophils % 4.8 % (0.1-12.0); Hemoglobin 11.3 g/dL (14.1-18.0); Lymphocytes # 1.4 K/mm3 (0.7-4.5); Lymphocytes % 23.7 % (10-50); Mean Corpuscular HGB Conc 33.1 g/dL (31.8-35.4); Mean Corpuscular Volume 81.7 fl (80-94); Mean Platelet Volume 8.8 fl (7.4-10.4); Monocytes # 0.4 K/mm3 (0.1-1.0); Monocytes % 6.9 % (1.7-9.3); Neutrophils # 3.8 K/mm3 (1.8-7.8); Platelet Count 352 K/mm3 (142-424); Red Blood Count 4.16 M/mm3 (4.60-6.20); Red Cell Distribution Width 14.7 % (11.5-17.5)
[2023-09-21] MEDS: KETOROLAC 30MG/ML VIAL 15 MG IV (09:58)
[2023-09-21] MEDS: diphenhydrAMINE 50MG/ML VIAL 25 MG IV (09:58)
[2023-09-21] MEDS: LACTATED RINGERS 1000ML 1,000 ML 999 ML IV (09:59)
[2023-09-21 10:22] LABS: Alanine Aminotransferase 44 U/L (12-78); Albumin Level 3.5 g/dl (3.5-5.0); Albumin/Globulin Ratio 1.1 (1.1-1.8); Alkaline Phosphatase 98 U/L (38-126); Aspartate Amino Transferase 35 U/L (17-59); Bilirubin,Total 0.4 mg/dl (0.2-1.3); Blood Urea Nitrogen 8 mg/dl (9-20); Calcium 8.9 mg/dl (8.4-10.2); Carbon Dioxide 26 mmol/L (22.0-30.0); Chloride 107 mmol/L (98-107); Creatinine Clearance Estimated 84 mL/min (50-200); Estimated Glomerular Filt Rate 50 ml/min (>60); GFR (African American) 61 ML/MIN (>60); Globulin 3.2 g/dL (1.3-3.2); Glucose 107 mg/dl (74-100); Sodium 138 mmol/L (136-145); Total Protein,Serum 6.7 g/dl (6.3-8.2)
[2023-09-21] MEDS: SODIUM CHLORIDE 0.9% 10ML SYR (RAD ONLY) 10 ML IV (11:00)
[2023-09-21] MEDS: IOPAMIDOL-370 (76%);100ML BOTTLE 75 ML IV (11:00)
--- NOTE | 2023-09-21 11:40 | PC.NURSE ---
Rounded on pt. No needs voiced at this time. Call light within reach.
[2023-09-21 12:55] VITALS: BP 140/91; PULSE 74; RESP 16; TEMP 36.7; O2SAT 99
[2023-09-21 14:33] LABS: Alanine Aminotransferase 43 U/L (12-78); Albumin Level 3.4 g/dl (3.5-5.0); Albumin/Globulin Ratio 1.3 (1.1-1.8); Alkaline Phosphatase 103 U/L (38-126); Anion Gap 9.2 mEq/L (5-15); Aspartate Amino Transferase 31 U/L (17-59); Bilirubin,Total 0.3 mg/dl (0.2-1.3); Blood Urea Nitrogen 8 mg/dl (9-20); Carbon Dioxide 27 mmol/L (22.0-30.0); Chloride 107 mmol/L (98-107); Creatinine Clearance Estimated 84 mL/min (50-200); Estimated Glomerular Filt Rate 50 ml/min (>60); GFR (African American) 61 ML/MIN (>60); Globulin 2.7 g/dL (1.3-3.2); Glucose 105 mg/dl (74-100); Potassium 4.2 mmoL/L (3.5-5.1); Sodium 139 mmol/L (136-145); Total Protein,Serum 6.1 g/dl (6.3-8.2)
[2023-09-21 14:37] LABS: Vancomycin,Trough 6.7 ug/mL (5.0-10.0)
== END 2023-09-21 12:56 | disposition home or self-care (01) ==
PROVIDERS: Nurse Practitioner; Emergency Provider Student in an Organized Health Care Education/Training Program; PCP Physician Assistant
DX: G40.909 Epilepsy, unspecified, not intractable, without status epilepticus; R51.9 Headache, unspecified; R19.00 Intra-abdominal and pelvic swelling, mass and lump, unspecified site; R10.9 Unspecified abdominal pain; E11.40 Type 2 diabetes mellitus with diabetic neuropathy, unspecified; I11.0 Hypertensive heart disease with heart failure; I50.31 Acute diastolic (congestive) heart failure; E78.5 Hyperlipidemia, unspecified; Z79.85 Long-term (current) use of injectable non-insulin antidiabetic drugs
CPT/HCPCS: 74177; 80053; 80202; 85025; 96361; 96374; 96375; 99285; Q9967

== ENCOUNTER 2023-09-25 10:19 | Outpatient (CLI) | payer MEDICARE, SELFPAY ==
[2023-09-25 10:45] LABS: Basophils % 0.5 % (0.1-2.0); Eosinophils # 0.3 K/mm3 (0.0-0.4); Hematocrit 37.6 % (42.0-52.0); Hemoglobin 12.4 g/dL (14.1-18.0); Lymphocytes # 1.7 K/mm3 (0.7-4.5); Lymphocytes % 25.4 % (10-50); Mean Corpuscular Hemoglobin 26.7 pg (27.0-31.2); Mean Corpuscular Volume 80.9 fl (80-94); Mean Platelet Volume 8.4 fl (7.4-10.4); Monocytes # 0.4 K/mm3 (0.1-1.0); Monocytes % 6.7 % (1.7-9.3); Neutrophils # 4.1 K/mm3 (1.8-7.8); Neutrophils % 62.5 % (37.0-80.0); Platelet Count 410 K/mm3 (142-424); Red Blood Count 4.64 M/mm3 (4.60-6.20); Red Cell Distribution Width 14.7 % (11.5-17.5); White Blood Count 6.6 K/mm3 (4.8-10.8)
[2023-09-25 11:16] LABS: Erythrocyte Sedimentation Rate 56 mm/hr (0-15)
[2023-09-25 11:36] LABS: Chloride 103 mmol/L (98-107); Potassium 4.2 mmoL/L (3.5-5.1); Sodium 135 mmol/L (136-145)
[2023-09-25 11:39] LABS: Alanine Aminotransferase 82 U/L (12-78); Albumin Level 3.8 g/dl (3.5-5.0); Albumin/Globulin Ratio 1.3 (1.1-1.8); Alkaline Phosphatase 135 U/L (38-126); Anion Gap 9.2 mEq/L (5-15); Aspartate Amino Transferase 71 U/L (17-59); Bilirubin,Total 0.5 mg/dl (0.2-1.3); Blood Urea Nitrogen 7 mg/dl (9-20); Calcium 9.1 mg/dl (8.4-10.2); Carbon Dioxide 27 mmol/L (22.0-30.0); Creatine Kinase 111 U/L (55-170); Estimated Glomerular Filt Rate 47 ml/min (>60); GFR (African American) 56 ML/MIN (>60); Glucose 123 mg/dl (74-100); Total Protein,Serum 6.8 g/dl (6.3-8.2)
[2023-09-25 11:48] LABS: C-Reactive Protein 41.4 mg/L (0-4)
[2023-09-25 13:20] LABS: Vancomycin,Trough < 5.0 ug/mL (5.0-10.0)
== END 2023-09-25 23:59 ==
PROVIDERS: Visit Provider Podiatrist
DX: M86.172 Other acute osteomyelitis, left ankle and foot (principal)
CPT/HCPCS: 80053; 80202; 82550; 85025; 85651; 86140

== ENCOUNTER 2023-09-26 08:42 | Outpatient (CLI) | payer MEDICARE, SELFPAY ==
--- NOTE | 2023-09-26 08:46 | CA_ITS ---
FINAL REPORT TECHNIQUE: Grayscale, color Doppler and duplex Doppler ultrasound of the kidneys, aorta and renal arteries was performed. Multiple velocities were measured. CLINICAL HISTORY: htn COMPARISON: None FINDINGS: Aorta velocity: 79 cm/sec Right kidney: 10.95 cm. No evidence of hydronephrosis or mass. Right intrarenal RI: 0.66 Right renal artery velocity: 157 cm/sec. Right RAR (Renal artery-Aortic Ratio): 1.99 Left Kidney: 10.6 cm. Left intrarenal RI: 0.7 Left renal artery velocity: 169 cm/sec. Left RAR (Renal Artery-Aortic Ratio): 2.15 IMPRESSION: No evidence of significant renal artery stenosis. CT angiogram or postcontrast MR angiogram would be more sensitive for evaluation of possible renal artery stenosis. Reviewed, Interpreted and Dictated by Joaquim Montalvo MD Transcribed by Jodi Bartholomew Authenticated and [facility]
--- NOTE | 2023-09-26 09:10 | US_ITS ---
FINAL REPORT CLINICAL HISTORY: I10 - Essential (primary) hypertension COMPARISON: None FINDINGS: RENAL ULTRASOUND Ultrasound images of the kidneys were obtained. Limited images of the liver parenchyma demonstrates normal echogenicity. The right kidney measures 10.0 cm in length. It is normal echogenicity. There is no hydronephrosis. The left kidney measures 10.3 cm in length. It is normal echogenicity. There is no hydronephrosis. IMPRESSION: Normal renal ultrasound. Reviewed, Interpreted and Dictated by Joaquim Montalvo MD Transcribed by Suma Kahn Authenticated and [facility]
== END 2023-09-26 23:59 ==
LOC: RT 08:43
PROVIDERS: PCP Physician Assistant; Visit Provider Physician Assistant
DX: I10 Essential (primary) hypertension (principal)
CPT/HCPCS: 76770; 93976

== ENCOUNTER 2023-09-28 09:54 | Outpatient (CLI) | payer MEDICARE, SELFPAY ==
[2023-09-28] MEDS: LINEZOLID 600 MG/300 ML IV.SOLN 300 MG IV (10:06)
[2023-09-28] MEDS: 0.9 % SODIUM CHLORIDE 50 ML 100 ML IV (10:06)
[2023-09-28 10:10] VITALS: BP 147/81; PULSE 99; RESP 18; O2SAT 100
[2023-09-28 11:15] VITALS: BP 162/89; PULSE 98; RESP 18; O2SAT 100
== END 2023-09-28 23:59 ==
LOC: INF 09:55
PROVIDERS: PCP Physician Assistant; Visit Provider Podiatrist
DX: M86.172 Other acute osteomyelitis, left ankle and foot (principal)
CPT/HCPCS: 96365; J2020

== ENCOUNTER 2023-10-02 11:04 | Outpatient (CLI) | payer MEDICARE, SELFPAY ==
[2023-10-02 11:42] LABS: Basophils % 0.5 % (0.1-2.0); Eosinophils # 0.6 K/mm3 (0.0-0.4); Eosinophils % 6.3 % (0.1-12.0); Hematocrit 38.4 % (42.0-52.0); Hemoglobin 12.1 g/dL (14.1-18.0); Lymphocytes % 33.8 % (10-50); Mean Corpuscular HGB Conc 31.5 g/dL (31.8-35.4); Mean Corpuscular Hemoglobin 26.3 pg (27.0-31.2); Mean Corpuscular Volume 83.4 fl (80-94); Mean Platelet Volume 8.2 fl (7.4-10.4); Monocytes # 0.4 K/mm3 (0.1-1.0); Neutrophils # 4.8 K/mm3 (1.8-7.8); Neutrophils % 54.5 % (37.0-80.0); Platelet Count 559 K/mm3 (142-424); Red Blood Count 4.61 M/mm3 (4.60-6.20); Red Cell Distribution Width 14.7 % (11.5-17.5); White Blood Count 8.9 K/mm3 (4.8-10.8)
[2023-10-02 11:50] LABS: Chloride 105 mmol/L (98-107); Potassium 4.8 mmoL/L (3.5-5.1); Sodium 137 mmol/L (136-145)
[2023-10-02 11:52] LABS: Blood Urea Nitrogen 12 mg/dl (9-20); Estimated Glomerular Filt Rate 47 ml/min (>60); GFR (African American) 56 ML/MIN (>60)
[2023-10-02 11:53] LABS: Alanine Aminotransferase 65 U/L (12-78); Albumin Level 3.8 g/dl (3.5-5.0); Albumin/Globulin Ratio 1.2 (1.1-1.8); Alkaline Phosphatase 137 U/L (38-126); Anion Gap 9.8 mEq/L (5-15); Aspartate Amino Transferase 54 U/L (17-59); Bilirubin,Total 0.3 mg/dl (0.2-1.3); Carbon Dioxide 27 mmol/L (22.0-30.0); Creatine Kinase 61 U/L (55-170); Globulin 3.1 g/dL (1.3-3.2); Glucose 87 mg/dl (74-100); Total Protein,Serum 6.9 g/dl (6.3-8.2)
[2023-10-02 12:00] LABS: C-Reactive Protein 15.4 mg/L (0-4)
[2023-10-02 12:43] LABS: Erythrocyte Sedimentation Rate 48 mm/hr (0-15)
== END 2023-10-02 23:59 ==
LOC: LAB.DROPOF 11:06
PROVIDERS: PCP Podiatrist; Visit Provider Podiatrist
DX: M86.172 Other acute osteomyelitis, left ankle and foot (principal)
CPT/HCPCS: 80053; 82550; 85025; 85651; 86140

== ENCOUNTER → 2023-10-09 10:21 | Outpatient (REF) | payer MEDICARE, SELFPAY ==
[2023-10-09 11:07] LABS: Basophils # 0.1 K/mm3 (0-0.2); Basophils % 1.2 % (0.1-2.0); Eosinophils # 0.6 K/mm3 (0.0-0.4); Eosinophils % 6.7 % (0.1-12.0); Hematocrit 36.6 % (42.0-52.0); Hemoglobin 11.8 g/dL (14.1-18.0); Lymphocytes % 31.9 % (10-50); Mean Corpuscular HGB Conc 32.2 g/dL (31.8-35.4); Mean Corpuscular Hemoglobin 26.9 pg (27.0-31.2); Mean Corpuscular Volume 83.4 fl (80-94); Monocytes # 0.4 K/mm3 (0.1-1.0); Monocytes % 4.2 % (1.7-9.3); Neutrophils # 5.2 K/mm3 (1.8-7.8); Platelet Count 492 K/mm3 (142-424); Red Blood Count 4.39 M/mm3 (4.60-6.20); Red Cell Distribution Width 15.4 % (11.5-17.5); White Blood Count 9.2 K/mm3 (4.8-10.8)
[2023-10-09 11:32] LABS: Erythrocyte Sedimentation Rate 39 mm/hr (0-15)
[2023-10-09 12:20] LABS: Alanine Aminotransferase 33 U/L (12-78); Albumin Level 3.9 g/dl (3.5-5.0); Albumin/Globulin Ratio 1.3 (1.1-1.8); Alkaline Phosphatase 110 U/L (38-126); Anion Gap 13.4 mEq/L (5-15); Aspartate Amino Transferase 29 U/L (17-59); Bilirubin,Total 0.5 mg/dl (0.2-1.3); Blood Urea Nitrogen 9 mg/dl (9-20); Calcium 8.9 mg/dl (8.4-10.2); Carbon Dioxide 24 mmol/L (22.0-30.0); Chloride 104 mmol/L (98-107); Creatine Kinase 80 U/L (55-170); Estimated Glomerular Filt Rate 54 ml/min (>60); GFR (African American) 66 ML/MIN (>60); Glucose 132 mg/dl (74-100); Potassium 4.4 mmoL/L (3.5-5.1); Sodium 137 mmol/L (136-145); Total Protein,Serum 6.9 g/dl (6.3-8.2)
[2023-10-09 12:25] LABS: C-Reactive Protein 5.2 mg/L (0-4)
== END ==
LOC: LAB.DROPOF 10:21
PROVIDERS: Visit Provider Podiatrist
DX: M86.172 Other acute osteomyelitis, left ankle and foot; Z79.899 Other long term (current) drug therapy
CPT/HCPCS: 80053; 82550; 85025; 85651; 86140

== ENCOUNTER 2023-10-10 08:34 | Outpatient (CLI) | payer MEDICARE, SELFPAY ==
--- NOTE | 2023-10-10 08:35 | NM_ITS ---
FINAL REPORT TECHNIQUE: Three-phase bone scan CLINICAL HISTORY: Evaluate for osteomyelitis of left lower extremity, lt ankle/heel area, hx of 5 recent surgeries 8:45am 26.5 mci mdp COMPARISON: None FINDINGS: 3 PHASE BONE SCAN: A 3 phase bone scan was performed after the intravenous administration of 26.5 mCi of technetium MDP. There is increased flow, blood pool, and delayed activity in the left calcaneus and talus. Only the ankles and feet were scanned. Given the history of multiple recent surgeries, these findings are nonspecific, and the likely postoperative. Osteomyelitis is not excluded, and MRI might be helpful for further evaluation as clinically indicated. IMPRESSION: Given the history of multiple recent surgeries, the increased uptake in the calcaneus and talus may represent postoperative change, although osteomyelitis is not excluded on this examination. MRI might be helpful for further evaluation. Reviewed, Interpreted and Dictated by Prakash Dempsey III, MD Transcribed by Jodi Bartholomew Authenticated and . [facility]
[2023-10-10] MEDS: SODIUM CHLORIDE 0.9% 10ML SYR (RAD ONLY) 10 ML IV (08:52)
[2023-10-10] MEDS: ISOTOPE MDP (BONE);1 DOSE VIAL IV (08:52)
== END 2023-10-10 23:59 ==
LOC: RAD 08:35
PROVIDERS: PCP Physician Assistant; Visit Provider Podiatrist
DX: M86.172 Other acute osteomyelitis, left ankle and foot (principal)
CPT/HCPCS: 78315; A9503

== ENCOUNTER 2023-10-12 09:27 | Outpatient (CLI) | payer MEDICARE, SELFPAY ==
--- NOTE | 2023-10-12 09:37 | ECG_ITS ---
APPROVED REPORT Exam: Resting ECG HR:89 bpm ECG Measurements Heart Rate 89 AXES AL 152 P 30 QRSd 94 QRS 137 QT 359 T -9 QTc 405 Conclusion SINUS RHYTHM INCOMPLETE RIGHT BUNDLE BRANCH BLOCK [90+ ms QRS DURATION, TERMINAL R IN V1/V2, 40+ ms S IN I/aVL/V4/V5/V6] POSSIBLE RIGHT VENTRICULAR HYPERTROPHY [SOME/ALL OF: PROMINENT R IN V1, LATE TRANSITION, RAD, LEEANNA, SSS] NONSPECIFIC T-WAVE ABNORMALITY ABNORMAL ECG UNCONFIRMED REPORT Electronically signed by : Greg Dumont MD 10/12/2023 19:53:25
--- NOTE | 2023-10-12 09:40 | XR_ITS ---
FINAL REPORT CLINICAL HISTORY: Pre-op exam for left foot surgery COMPARISON: 08/16/2023 FINDINGS: Two views of the chest were obtained. The heart size and pulmonary vascularity are within normal limits. The mediastinum is normal. No acute pulmonary abnormality is identified. There is no pneumothorax. The bony thorax is intact. IMPRESSION: No active cardiopulmonary disease. Reviewed, Interpreted and Dictated by Prakash Dempsey III, MD Transcribed by Magaly Bae Authenticated and [facility]
== END 2023-10-12 23:59 ==
PROVIDERS: PCP Physician Assistant; Visit Provider Nurse Practitioner
DX: Z01.818 Encounter for other preprocedural examination
CPT/HCPCS: 71046; 93005

== ENCOUNTER 2023-10-18 06:45 | Day surgery (SDC) | payer MEDICARE, SELFPAY ==
[2023-10-16 13:19] VITALS: BMI 32.8
[2023-10-18] MEDS: LACTATED RINGERS 1000ML 1,000 ML 25 ML IV (07:14)
[2023-10-18 07:17] VITALS: BP 140/89; PULSE 100; RESP 18; TEMP 36.2; O2SAT 100
--- NOTE | 2023-10-18 07:45 | EXP.ANES.CKL ---
[facility] Disclaimer: The information contained in this section may have been updated after the patient was seen, as this information can be updated by other users. 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, left leg, subsequent encounter Primary osteoarthritis, left ankle and foot Hypertrophic scar Neuropathy Left leg weakness Acquired pes cavus Left hip pain Multiple joint pain Postoperative pain Postoperative edema Tenosynovitis of left foot Acquired equinus deformity of both feet Tear of peroneal tendon of left foot Impingement of left ankle joint Osteochondral defect of talus Type 2 diabetes mellitus with diabetic polyneuropathy, without long-term current use of insulin Foot pain Diastolic heart failure Crescendo angina Pulmonary HTN Abnormal EKG Family history of heart disease Unstable angina Sinus tachycardia Chest pain Osteoarthritis Heel spur Edema of left lower extremity Diabetic foot Gout Peroneal tendinitis of left lower leg Pain of right heel Plantar fasciitis of right foot Obesity (BMI 30-39.9) Dermatitis Diabetes mellitus Class II obesity Hyponatremia DKA (diabetic ketoacidoses) Renal insufficiency Hyperlipidemia Hypertension Surgical History History of colonoscopy History of cholecystectomy History of foot surgery 01/2021, 10/2021 History of ankle surgery tendons and ligaments 01/2021, 10/2021 Status post left foot surgery S/P peroneal tendon repair Family History Other Family history of diabetes mellitus type II Family history of hypertension Social History Smoking Status: Never smoker second hand exposure: Yes alcohol intake: never substance use type: denies use current occupational status: disabled Travel in the last 8 weeks: None household members: significant other housing: house current occupation: . current occupational exposures/hazards: No caffeine: No H Anesthesia Checklist Patient Identification Patient Identification: Arm Band Structural Data Admitted From: Home Planned Operative Procedure/s: Left Foot Bone Biopsy Consent for Planned Operative Procedure(s) Verified: Yes Verified Documents: Surgical Consent and History and Physical NPO Status Verified Time NPO: 00:00 Additional verifications Anesthesia Reactions: Yes (rash, vomiting, headache (from versed)) Hx Blood Transfusions: No Blood Transfusion Reaction: No Airway Assessment Mallampati Score:: Class II C-Spine Mobility Assessed: Yes TMJ Mobility Assessed: Yes Dentition: Good Dentition Neurological Assessment Level of Consciousness: Awake and Alert Anesthesia Plan Anesthesia Risk discussed: Yes Anesthesia Plan: Verified ASA Class: III Anesthesia Type: MAC w/Block (Left Popliteal/Adductor Canal. Risk/benefits explained. pt verbalized understanding) Preoperative Comments Pre-Operative Comments: Pt states that he had bad experience with Fentanyl from previous surgery, with him being unable to sleep for 3 days because of it. He would like to avoid Fentanyl. Discussed doing nerve block with no sedation since he has an allergy to Versed, but he was not agreeable to that. Pt would like to try Versed for nerve block since his reaction was a headache and not a true allergic reaction. Will monitor closely for s/s of reaction from versed during nerve block.
[2023-10-18] MEDS: GENTAMICIN 80 MG/2 ML VIAL (09:04)
[2023-10-18] MEDS: BUPIVACAINE 0.5% 10ML VIAL 50 MG (09:04)
[2023-10-18] MEDS: LINEZOLID 600 MG/300 ML IV.SOLN 300 MG IV (09:22)
--- NOTE | 2023-10-18 09:30 | XR_ITS ---
FINAL REPORT CLINICAL HISTORY: Post op bone biopsy left ankle COMPARISON: 08/16/2023 FINDINGS: LEFT ANKLE: Three views of the left ankle were obtained. There is no acute fracture or dislocation. There are postoperative changes in the medial and lateral malleoli and proximal first and fifth metatarsals. There is a small radiopaque foreign body posterior to the calcaneal tuberosity which could represent postoperative change versus foreign body measuring 2 mm. Soft tissue swelling is noted, with the posterior soft tissue swelling partially improved. IMPRESSION: Postoperative changes without acute bony abnormality. Small radiopaque foreign body could represent postoperative change versus foreign body. Partially improved posterior soft tissue swelling. Reviewed, Interpreted and Dictated by Prakash Dempsey III, MD Transcribed by Suma Kahn Authenticated and [facility]
[2023-10-18 09:47] VITALS: BP 119/66; PULSE 105; RESP 18; TEMP 36.1; O2SAT 97
[2023-10-18 09:57] VITALS: BP 104/75; PULSE 90; RESP 16; O2SAT 94
[2023-10-18] MEDS: KETOROLAC 30MG/ML VIAL 30 MG IV (09:59)
[2023-10-18 10:07] VITALS: BP 113/84; PULSE 95; RESP 16; O2SAT 95
[2023-10-18 10:17] VITALS: BP 117/75; PULSE 96; RESP 16; O2SAT 96
--- NOTE | 2023-10-18 10:18 | EXP.OP.NOTE ---
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 Has been having weekly wound care office visits and has been on IV and oral antibiotics. Currently under the care of Dr. Coelho infectious disease. New images/bone scan were discussed with the patient. We discussed conservative versus surgical treatment options. We discussed conservative care including continued oral vs IV antibiotics and local wound care versus surgical incision and drainage. Discussed doing bone biopsies to evaluate for osteomyelitis. Results of the biopsies will determine next plan of care. Patient understands that they could have wound healing complications including delayed healing and infection. We discussed that if the wound does not heal, it is possible that they may need further debridement. Patient understands if infection spreads into the bone, it may warrant proximal amputation and could result in further loss of digits, loss of partial foot or loss of leg. We discussed the risks and benefits in great detail. Other surgical risks include: prolonged pain and swelling, further infection requiring oral or IV antibiotics, delay in healing of soft tissue or bone, nerve or blood vessel damage, CRPS/RSD, DVT/PE, anesthesia complications, and even . All questions answered. Patient verbalized understanding. Consent obtained. Operative findings:: Sutures noted to the posterior inferior calcaneus. Sutures removed. A total of 10 specimens were taken, each specimen was sent for bone path and bone culture: Left medial/lateral tibia, Left medial/lateral talus, Left dorsal talus, Left medial/lateral calc, Left superior heel, Left inferior lateral heel, Left posterior heel. The posterior calcaneus bone was soft and crumbly. Both the medial and lateral calcaneal biopsies were soft. Talus bone was harder in texture. Tibial bone was hard and texture and normal color. No george purulence expressed. Wound flushed with gentamicin irrigation. Nylon used to close skin. Overall prognosis: Fair still concerned of calcaneal osteomyelitis. Hold on more abx until after biopsy results. Await results of bone biopsy and then decide for staged partial calcanectomy versus amputation. Operative note:: On this date and time patient was deemed an appropriate surgical candidate. With informed consent signed, the patient was taken to the operating theater room after anesthesia performed lower extremity regional nerve block. The patient was positioned supine. MAC anesthesia was induced. No tourniquet used. Left lower extremity was prepped and draped in normal sterile fashion. IV linezolid given after bone biopsy. Left ankle/tibia open bone biopsy x2: Attention was directed to the tibia where a 0.5 cm incision was made over the medial and lateral aspects of the tibia. Blunt dissection down to the level of the bone. Jamshidi needle used to take a sample of the medial and lateral tibia. Each specimen was cut in half and sent for both biopsy and bone culture. Wound was flushed with gentamicin irrigation. Nylon used to close skin. Left ankle percutaneous bone biopsy: Attention was directed to the dorsal talus/ankle joint where a stab incision was made. Hemostat used to bluntly dissect down to the level of the bone. Jamshidi needle used to take a piece of the dorsal talus/ankle. Wound flushed with gentamicin irrigation. Nylon used to close skin. Left foot open bone biopsy x7: Attention was directed to the medial and lateral foot where previous well-healed skin incisions were noted from previous biopsies. 15 blade used to make a incision x3 over the calcaneus and foot laterally, incisino x3 over medial foot. Blunt dissection to the bone. A new Jamshidi needle was inserted and used to remove specimen of the calcaneus bone. Bone to the superior cortex did feel hard and looked white. Inferior and calc bone cortex easily penetrated with the Jamshidi needle. See operative findings/specimens for biopsy sites. There was no obvious purulence from the bone specimens. Suture removal, posterior heel biopsy: Sutures removed from posterior heel. A Jamshidi needle was then inserted into the posterior incision down to level of the bone. Bone felt soft and crumbly. A piece was removed and sent for biopsy and culture. All wounds cleansed with gentamicin irrigation. Nylon used to close skin in an interrupted fashion. The skin was cleansed. Xeroform, Betadine soaked gauze was applied over the sutures. Shane applied for compression. The patient tolerated the procedure and anesthesia well, without complications. Discharge/Plan: Ok to discharge home when ready and vss. Patient is to maintain dressing clean dry and intact. Elevate on two pillows. NWB in fracture boot with DME. Follow up in one week for biopsy results and plan for possible stage II. Condition: stable Disposition: same day Specimens:: Path: Left medial/lateral tibia Left medial/lateral talus Left dorsal talus Left medial/lateral calc Left superior heel Left inferior lateral heel Left posterior heel Culture: (10) as above Complications:: None
[2023-10-18 10:27] VITALS: BP 129/69; PULSE 90; RESP 16; O2SAT 96
[2023-10-18 12:31] LABS: POC Glucose,Bedside 101 (70-110)
== END 2023-10-18 10:45 | disposition home or self-care (01) ==
PROVIDERS: PCP Physician Assistant; Visit Provider Podiatrist
PROC: (CPT 20225; principal; 2023-10-18 08:45)
DX: E11.69 Type 2 diabetes mellitus with other specified complication (principal); M86.172 Other acute osteomyelitis, left ankle and foot; I10 Essential (primary) hypertension; E11.42 Type 2 diabetes mellitus with diabetic polyneuropathy; Z79.899 Other long term (current) drug therapy; Z79.85 Long-term (current) use of injectable non-insulin antidiabetic drugs
CPT/HCPCS: 20225; 20240; 20245; 73610; 82962; 88304; 88307; 88311; 96374; J2020

== ENCOUNTER 2023-11-01 08:43 | Day surgery (SDC) | payer MEDICARE, SELFPAY ==
[2023-10-30 10:58] VITALS: BMI 33.6
[2023-11-01] VITALS (10 sets, daily range): BP systolic 132–158; BP diastolic 70–94; PULSE 94–100; RESP 12–19; TEMP 36.4–43; O2SAT 94–99
[2023-11-01] MEDS: LACTATED RINGERS 1000ML 1,000 ML 25 ML IV (09:32)
[2023-11-01 09:47] LABS: POC Glucose,Bedside 112 (70-110)
--- NOTE | 2023-11-01 10:42 | EXP.ANES.CKL ---
[facility] Disclaimer: The information contained in this section may have been updated after the patient was seen, as this information can be updated by other users. 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, left leg, subsequent encounter Primary osteoarthritis, left ankle and foot Hypertrophic scar Neuropathy Left leg weakness Acquired pes cavus Left hip pain Multiple joint pain Postoperative pain Postoperative edema Tenosynovitis of left foot Acquired equinus deformity of both feet Tear of peroneal tendon of left foot Impingement of left ankle joint Osteochondral defect of talus Type 2 diabetes mellitus with diabetic polyneuropathy, without long-term current use of insulin Foot pain Diastolic heart failure Crescendo angina Pulmonary HTN Abnormal EKG Family history of heart disease Unstable angina Sinus tachycardia Chest pain Osteoarthritis Heel spur Edema of left lower extremity Diabetic foot Gout Peroneal tendinitis of left lower leg Pain of right heel Plantar fasciitis of right foot Obesity (BMI 30-39.9) Dermatitis Diabetes mellitus Class II obesity Hyponatremia DKA (diabetic ketoacidoses) Renal insufficiency Hyperlipidemia Hypertension Surgical History History of colonoscopy History of cholecystectomy History of foot surgery 01/2021, 10/2021 History of ankle surgery tendons and ligaments 01/2021, 10/2021 Status post left foot surgery S/P peroneal tendon repair Family History Other Family history of diabetes mellitus type II Family history of hypertension Social History Smoking Status: Never smoker second hand exposure: Yes alcohol intake: never substance use type: denies use current occupational status: disabled Travel in the last 8 weeks: None household members: significant other housing: house current occupation: . current occupational exposures/hazards: No caffeine: No H Anesthesia Checklist Patient Identification Patient Identification: Arm Band, Family and Verbal (Name & ) Structural Data Admitted From: Home Planned Operative Procedure/s: LT partial calcanectomy Consent for Planned Operative Procedure(s) Verified: Yes Verified Documents: Surgical Consent and History and Physical NPO Status Verified Time NPO: 21:00 Chart Verification Results Verified: CBC, BMP, ECG and Chest Xray Additional verifications Fingerstick Blood Glucose: 112 Patient : No Anesthesia Reactions: Yes (rash, vomiting, headache (from versed)) Hx Blood Transfusions: No Blood Transfusion Reaction: No Cardiovascular Assessment Heart Sounds: S1 & S2 Pulse Rhythm: Irregular Airway Assessment Mallampati Score:: Class II C-Spine Mobility Assessed: Yes (FROM) TMJ Mobility Assessed: Yes Dentition: Poor Dentition (Most teeth missing. Nothing loose per pt.) Neurological Assessment Level of Consciousness: Awake, Alert, Appropriate and Follows Commands Hx Seizures: Yes (Last 07 September 2023) Numbness or tingling in extremities: No Anesthesia Plan Anesthesia Risk discussed: Yes Anesthesia Plan: Verified ASA Class: III Anesthesia Type: General w/block Preoperative Comments Pre-Operative Comments: Discussed GETA and peripherical nerve block
[2023-11-01] MEDS: VANCOMYCIN/WATER FOR INJ (PEG) 1.5 GM/300 ML PIGGYBACK IV (12:00)
--- NOTE | 2023-11-01 12:00 | XR_ITS ---
FINAL REPORT CLINICAL HISTORY: Post op partial calcanectomy COMPARISON: None FINDINGS: LEFT FOOT Three views of the left foot were obtained. There is new cast material obscuring much of the detail. There are tendon anchors securing the base of the 5th metatarsal. There is an orthopedic staple at the base of the 1st metatarsal. There is no new acute fracture or dislocation. Surgical drain projects over the posterior calcaneus, new. IMPRESSION: Postoperative changes as above without acute bony abnormality. Reviewed, Interpreted and Dictated by Joaquim Montalvo MD Transcribed by Suma Kahn Authenticated and [facility]
--- NOTE | 2023-11-01 12:00 | XR_ITS ---
FINAL REPORT CLINICAL HISTORY: Post op partial calcanectomy COMPARISON: 10/18/2023 FINDINGS: LEFT ANKLE Three views of the left ankle were obtained. There is new cast material obscuring much of the detail. There are tendon anchors in the medial and lateral malleolus. A surgical drain projects over the posterior calcaneus, new. There is no acute fracture or dislocation. The visualized joint spaces are normally aligned. The soft tissues are unremarkable. IMPRESSION: Postoperative changes as above without acute bony abnormality. Reviewed, Interpreted and Dictated by Joaquim Montalvo MD Transcribed by Suma Kahn Authenticated and . [facility]
[2023-11-01] MEDS: GENTAMICIN 80 MG/2 ML VIAL (12:01)
[2023-11-01] MEDS: LINEZOLID 600 MG/300 ML IV.SOLN 300 MG IV (12:01)
--- NOTE | 2023-11-01 12:07 | XR_ITS ---
FINAL REPORT CLINICAL HISTORY: PARTIAL CALCANECTOMY fluoro time: 0.04 0.06 mGy FINDINGS: FLUOROSCOPY LESS THAN 1 HOUR HISTORY: Fluoroscopy guidance. Fluoroscopic guidance was provided for partial calcanectomy. A single spot film was obtained. A total of 0:04 minutes of fluoroscopy time were used. Total DAP: 0.06 mGy IMPRESSION: As above. Reviewed, Interpreted and Dictated by Joaquim Montalvo MD Transcribed by Suma Kahn Authenticated and [facility]
[2023-11-01] MEDS: SODIUM CHLORIDE IRRIG SOLUTION 3,000 ML 3000 ML IR (12:17)
--- NOTE | 2023-11-01 13:04 | P.PNANES_ITS ---
[facility] Anesthesia Record Part I Anesthesia Record I Intake, IV Amount: 1,800 Hydration: Adequate Estimated blood loss (mL): 0 Urine output (mL): 0 Blood Pressure: 151/78 SaO2: 94 Pulse Rate: 100 Airway Patency: Patent Respiratory Rate: 12 Temperature: 98.2 F Patient is:: Awake and Stable Stable to PACU at:: 13:00
[2023-11-01] MEDS: ONDANSETRON 4MG/2ML VIAL 4 MG IV (13:06)
[2023-11-01 13:13] LABS: POC Glucose,Bedside 193 (70-110)
--- NOTE | 2023-11-01 13:29 | P.OP_ITS ---
Date of procedure: 11/01/23 Pre-op Diagnosis:: Left calcaneal osteomyelitis Left scar tissue Post-op Diagnosis:: Same Procedure performed:: Left: Adjacent soft tissue transfer/rearragement Incision and drainage bone cortex Partial calcanectomy Suture removal IFRAH drain application Surgeon:: Shani Dale DPM NARROW FABRIC CALENDERER:: Abdirashid Casas Anesthesia: GETA and regional (left nerve block) Estimated blood loss (mL): 20 Operative findings:: Sutures intact to previous biopsy sites. All sutures removed without complication. HurriCaine type incision mapped out over the posterior heel over prior surgery sites where the tissue was thickened and fibrotic and scarred down from prior surgical incisions and prior wound. That tissue was excised full- thickness and sent as tissue culture. Left calcaneus posterior bone soft and crumbly with yellowish appearance. Distal Achilles intact to the calcaneus. Some tenosynovitis noted. Operative note:: On this date and time patient was deemed an appropriate surgical candidate. With informed consent signed, the patient was taken to the operating theater after regional nerve block from anesthesia. The patient was positioned supine. General anesthesia was induced. Mid calf tourniquet applied. Left lower extremity was prepped and draped in normal sterile fashion. IV linezolid 600mg, Vanco 1g infused. Suture removal: All sutures removed without complication. Patient positioned p kelly. Left lower extremity was prepped and draped in normal sterile fashion. Left scar tissue excision: A hurricane style incision was mapped out full- thickness around the posterior heel over the prior incision which is now thick fibrotic scar tissue. Utilizing 15 blade full-thickness dissection through skin, subcu, deep fascia down to the level of the bone. The excised scar tissue was sent as a tissue culture. Tourniquet inflated to 225 mmHg. I&D of bone cortex with bone biopsy: Next a 15 blade was used to make an incision on the posterior heel. The bone was soft and crumbly and a 15 blade was able to penetrate through the bone cortex. A power saw was used to transect a piece of the bone which appeared to be consistent with osteomyelitis. This piece of bone was transected in half and a piece was sent for bone culture and a piece for bone pathology. Left partial calcanectomy: Attention was then directed to the Achilles tendon which was detached laterally. Utilizing a sagittal saw a large piece of the posterior inferior calcaneus was transected and removed. At this point wound was flushed with pulse lavage and gentamicin irrigation. The remaining bone appeared to be intact. A piece of what appeared to be the healthy bone was then transected and sent as a margin. Rasp was used to smooth down rough edges. Wound was re-irrigated. No further signs of infection noted. Bone wax applied to bone. Adjacent soft tissue transfer/rearragement, IFARH drain application: At this point due to the extent of the excision of the scar tissue, there was not enough good healthy tissue to close over the defect. The hurricane style incision was lengthened proximal lateral and distal medial. This allowed for a full- thickness skin flap. The distal medial flap was rotated proximal lateral and the proximal lateral flap was rotated distal medial. This allowed for coverage of the entire wound. The Achilles was still attached medially. The lateral aspect of the Achilles was debrided of the tenosynovitis and irregular appearing tissue. The remaining Achilles appeared healthy. The healthy lateral Achilles was reapproximated to the plantar soft tissue. Range of motion assessed and there was still tension on the Achilles tendon. Next deep and subcutaneous tissue was reapproximated with Vicryl. Tourniquet deflated and immediate hyperemic response was noted to the digits. A 7 flat IFRAH drain was inserted into the superior aspect of the incision. The skin was reapproximated with nylon, skin blake. The skin was cleansed. Xeroform, betadine soaked gauze was applied followed by dry sterile dressing to the left foot. A left below-knee posterior splint was also applied. The patient tolerated the procedure and anesthesia well, without complications. He was transferred to recovery with vital signs stable neurovascular status intact for further monitoring before being discharged home today Materials: 7 flat IFRAH drain, nylon, skin blake, bone wax Plan: Maintain dressing and splint clean dry and intact to E. NWB with crutches, rolling knee scooter. RICE protocol. Discussed plan of care with ID, Dr. Coelho. Plan for Doxy x 10-day. Follow up in 1 week as scheduled. Tourniquet time (min): 54 Condition: stable Disposition: same day Specimens:: Left heel tissue culture Left calcaneus bone culture Path: Left calcaneus bone Left heel bone margin Left heel/calcaneus proximal margin Complications:: None
--- NOTE | 2023-11-02 08:23 | EXP.ANES.II ---
[facility] Anesthesia Record Part II Anesthesia Record Part II Discharge Time: 13:30 Destination: [facility] PACU nurse assessment reviewed?: Yes Patient Condition:: Good Anesthesia Complications:: None Swallowing reflex intact?: Yes Airway Patency: Patent Cyanosis?: No Blood Pressure: 132/94 SaO2: 98 Respiratory Rate: 16 Pulse Rate: 98 Temperature: 97.5 F Mental Status: Alert & Oriented Pain level:: 0 Nausea and/or vomitting:: None Intake, IV Amount: 1,500 Hydration: Adequate
[2023-11-02 08:25] VITALS: BP 132/94; PULSE 98; RESP 16; TEMP 36.4; O2SAT 98
== END 2023-11-01 13:51 | disposition home or self-care (01) ==
PROVIDERS: PCP Physician Assistant; Visit Provider Podiatrist
PROC: (CPT 14041; principal; 2023-11-01 10:15)
DX: E11.69 Type 2 diabetes mellitus with other specified complication (principal); M86.172 Other acute osteomyelitis, left ankle and foot; I10 Essential (primary) hypertension; E11.42 Type 2 diabetes mellitus with diabetic polyneuropathy; Z79.899 Other long term (current) drug therapy; Z79.85 Long-term (current) use of injectable non-insulin antidiabetic drugs
CPT/HCPCS: 14041; 28005; 28120; 73610; 73630; 73650; 76000; 82962; 87070; 87205; 88304; 88305; 88311; 96374; J2020; J2405; J2710

== ENCOUNTER 2023-12-07 07:42 | Outpatient (CLI) | payer MEDICARE, SELFPAY ==
--- NOTE | 2023-12-07 08:00 | XR_ITS ---
FINAL REPORT CLINICAL HISTORY: Postoperative COMPARISON: 11/01/2023 FINDINGS: Three views show extensive surgical changes of the hindfoot and midfoot. Patient is status post partial calcaneal resection and subtalar fusion. IMPRESSION: Postsurgical changes as detailed above. No significant change from previous. Reviewed, Interpreted and Dictated by Letty Ying MD Transcribed by Magaly Bae Authenticated and [facility]
[2023-12-07 08:03] LABS: Basophils # 0.1 K/mm3 (0-0.2); Basophils % 1.2 % (0.1-2.0); Eosinophils # 0.2 K/mm3 (0.0-0.4); Eosinophils % 2.3 % (0.1-12.0); Hematocrit 39.6 % (42.0-52.0); Hemoglobin 12.4 g/dL (14.1-18.0); Lymphocytes # 3.5 K/mm3 (0.7-4.5); Lymphocytes % 36.6 % (10-50); Mean Corpuscular HGB Conc 31.3 g/dL (31.8-35.4); Mean Corpuscular Hemoglobin 25.9 pg (27.0-31.2); Mean Corpuscular Volume 82.7 fl (80-94); Mean Platelet Volume 8.7 fl (7.4-10.4); Monocytes # 0.4 K/mm3 (0.1-1.0); Monocytes % 3.8 % (1.7-9.3); Neutrophils # 5.4 K/mm3 (1.8-7.8); Neutrophils % 56.2 % (37.0-80.0); Platelet Count 460 K/mm3 (142-424); Red Blood Count 4.79 M/mm3 (4.60-6.20); Red Cell Distribution Width 16.1 % (11.5-17.5); White Blood Count 9.5 K/mm3 (4.8-10.8)
[2023-12-07 09:00] LABS: Alanine Aminotransferase 19 U/L (12-78); Albumin Level 4.3 g/dl (3.5-5.0); Albumin/Globulin Ratio 1.3 (1.1-1.8); Alkaline Phosphatase 99 U/L (38-126); Anion Gap 13.7 mEq/L (5-15); Aspartate Amino Transferase 26 U/L (17-59); Bilirubin,Total 0.7 mg/dl (0.2-1.3); Blood Urea Nitrogen 10 mg/dl (9-20); Calcium 9.8 mg/dl (8.4-10.2); Carbon Dioxide 26 mmol/L (22.0-30.0); Chloride 105 mmol/L (98-107); Estimated Glomerular Filt Rate 65 ml/min (>60); GFR (African American) 79 ML/MIN (>60); Globulin 3.2 g/dL (1.3-3.2); Glucose 125 mg/dl (74-100); Potassium 4.7 mmoL/L (3.5-5.1); Sodium 140 mmol/L (136-145); Total Protein,Serum 7.5 g/dl (6.3-8.2)
[2023-12-07 09:05] LABS: C-Reactive Protein 6.6 mg/L (0-4)
[2023-12-07 09:15] LABS: Hemoglobin A1C 6.3 % (4.0-6.0)
[2023-12-07 09:31] LABS: Erythrocyte Sedimentation Rate 27 mm/hr (0-15)
[2023-12-20 18:09] LABS: 1,25 Dihydroxy Vitamin D 56 pg/mL (.); 1,25-Dihydroxy, Vitamin D-2 <10 pg/mL (.); 1,25-Dihydroxy, Vitamin D-3 54 pg/mL (.)
== END 2023-12-07 23:59 | disposition home or self-care (01) ==
LOC: LAB 07:43
PROVIDERS: PCP Physician Assistant; Visit Provider Podiatrist
DX: R60.9 Edema, unspecified (principal); E11.9 Type 2 diabetes mellitus without complications; M79.672 Pain in left foot; E66.9 Obesity, unspecified; Z68.33 Body mass index [BMI] 33.0-33.9, adult
CPT/HCPCS: 36415; 73630; 80053; 82652; 83036; 85025; 85651; 86140

== ENCOUNTER 2023-12-12 09:40 | Outpatient (RCR) | payer MEDICARE, SELFPAY | END 2023-12-12 09:45 | disposition home or self-care (01) | LOC: PT 09:40 | PROVIDERS: Visit Provider Podiatrist | DX: M25.572 Pain in left ankle and joints of left foot (principal); M86.672 Other chronic osteomyelitis, left ankle and foot; G62.9 Polyneuropathy, unspecified; R29.898 Other symptoms and signs involving the musculoskeletal system; Z98.890 Other specified postprocedural states ==

== ENCOUNTER 2023-12-25 08:10 | Outpatient (CLI) | payer MEDICARE, SELFPAY ==
--- NOTE | 2023-12-25 08:11 | CT_ITS ---
FINAL REPORT TECHNIQUE: After the administration of intravenous contrast, axial images were obtained through the abdomen and pelvis by computed tomography. This study was performed with technique to keep radiation doses as low as reasonably achievable, (ALARA). Individualized dose reduction techniques using automated exposure control or adjustment of the MA and/or KV according to the patient's size were employed. CLINICAL HISTORY: abdominal mass. SAME EXACT CT FROM ER COMPARISON: 09/21/2023 FINDINGS: Abdomen: The lung bases are clear. The liver is normal in size and attenuation. Gallbladder is surgically absent. The spleen is unremarkable. There is a moderate sized hiatal hernia. The adrenals are normal. The pancreas is unremarkable. The kidneys enhance appropriately. The aorta is normal in caliber. There is no free fluid or adenopathy. There is a moderate size hiatal hernia. There is a fat-containing umbilical hernia, unchanged from prior exam. 2 cm focus is again seen which appears to be within the diaphragm, adjacent to the hiatal hernia with central low-attenuation. This is stable from prior exam. Findings are best seen on image 54 of series 601. This may be sequela of prior surgery. Pelvis: The appendix is not identified. The urinary bladder is incompletely distended. There is no free fluid or adenopathy. Moderate disc space narrowing is seen at L5-S1 with high-grade bilateral neuroforaminal narrowing. IMPRESSION: Stable 2 cm focus adjacent to hiatal hernia which appears within the diaphragm. Stable, fat-containing umbilical hernia. Reviewed, Interpreted and Dictated by Joaquim Montalvo MD Transcribed by Beena Funez Authenticated and . [facility]
[2023-12-25] MEDS: IOPAMIDOL-370 (76%);100ML BOTTLE 75 ML IV (08:34)
[2023-12-25] MEDS: SODIUM CHLORIDE 0.9% 10ML SYR (RAD ONLY) 10 ML IV (08:34)
== END 2023-12-25 23:59 | disposition home or self-care (01) ==
LOC: RAD 08:11
PROVIDERS: PCP Physician Assistant; Visit Provider Surgery
DX: R19.00 Intra-abdominal and pelvic swelling, mass and lump, unspecified site (principal)
CPT/HCPCS: 74177; Q9967

== ENCOUNTER 2024-02-23 08:00 | Outpatient (RCR) | payer MEDICARE, SELFPAY ==
--- NOTE | 2024-02-13 15:42 | HMH.PTOPWND ---
Rehab Outpt Wound Evaluation Rehab OP Wound Evaluation Start: 02/13/24 11:05 Freq: Status: Active Protocol: Document 02/13/24 14:36 PHOFILIPPO (Rec: 02/13/24 15:41 PHORNE [id number]) E-signed By Roger Rock, PT Subjective/History History History This is the initial PT eval for Prakash Qureshi, III, 48 yoaam who presents with c/o increased post-surgical lymphedema and pain in the L ankle and lower leg. He is S/P L partial calcanectomy with achilles tendon transfer performed ~ 3 mos ago. He reports, The swelling just won't go all the way down, I don't know why. He also reports significant c/o pain in the L ankle and foot with associated palpation tenderness. He has PMH of DM and prior infections and surgery to the L ankle and foot with significant scar tissue. Subjective Subjective Currently he reports pain 5/10 n the L foot, at worst it is 8/10. He also reports 2/4 TTP throughout the L heel, ankle, and lower leg. Mild blanchable erythema noted to L ankle. 2+ pitting edema throughout the L foot and ankle noted. New diagnosis of cancer in past 12 No months? Lymphedema Eval Classification of Lymphedema Secondary Lymphedema Yes Post-Surgical Lymphedema Yes Stemmer's sign Stemmer's Sign yes Stage of Lymphedema Lymphedema stages Stage II (Pitting edema, increased fibrosis w/ decreased pitting) Skin Changes Dry Skin Yes Redness Yes Discoloration of Skin Yes Other Changes Yes Pain Scale Pain Scale (0-10) 8 Affected Extremities Areas Affected by Lymphedema/Edema Left Lower Extremity Manual Lymphatic Drainage Treatment Area MLD Treatment Area Left Lower Extremity Wound Problems/Impairments Impairments Problems/Impairmments Palpation Tenderness,Impaired Range of Motion,Impaired Strength,Impaired Endurance, Impaired Transfers,Impaired Gait Pattern,Impaired Walking, Impaired Standing,Impaired Sitting,Impaired Household Care,Increased Edema, Lymphedema Present,Subjective C/O Pain,Impaired Self Care/ Self Management Prognosis Rehab Potential Good Comment Skilled therapy is needed to reduce overall edema, decrease pain, and improve mobility to aid pt return to PLOF. Clinical Impression Consistent with Diagnosis Yes Short Term Goals Number of Weeks 2 Decreased Palpation Tenderness Yes: 1/4 L ankle Increase Ability to Sit Yes: > 30 min without discomfort Decrease Edema Yes: 1+ pitting edema L LE Decrease Subjective C/O Pain Yes: 6/10 at worst L ankle Patient to Understand Lymphedema Yes Treatment and Exercises Decrease Girth Measurments by (cm) Yes: L LE total by 5 cm Detention Goals Number of Weeks 4 Decreased Palpation Tenderness Yes: 0/4 L ankle Increase Ability to Stand Yes: > 30 min without discomfort Improve Ability For Household Care Yes Decrease Edema Yes: no pitting edema L LE Decrease Lymphedema Yes: No fibrotic edema L LE Decrease Subjective C/O Pain Yes: 3/10 at worst L ankle Patient to be Ind w/ HEP Yes Patient to Adhere Lymphedema Precautions Yes Decrease Girth Measurments by (cm) Yes: L LE total by 15 cm Outpatient Therapy Plan of Care Treatment Plan May Include Therapeutic Exercise Including Home Yes Exercise Program Manual Therapy Techniques Yes Neuromuscular Re-education Yes Therapeutic Activities to Return to Yes Previous Functional/Work Level ADL/Self Care Education Yes Orthotics/Bracing/Splinting Yes Manual Lymphatic Drainage Yes Eval/Re-Eval Yes Frequency Times per week 2 Duration Number of Weeks 4 Addendums This patient is a candidate for social No or vocational rehab? Patient/Guardian verbally acknowledges Yes understanding of treatment program and consents to further treatment? Patient/Guardian verbally acknowledges Yes understanding of diagnosis, prognosis and goals for treatment? Eval Complexity PT Charges 01095 - High Complexity PHYSICIAN CERTIFICATION: I certify the specified therapy services for Prakash Qureshi III are required, authorized, and reviewed every 30 days.
== END 2024-02-23 08:05 | disposition home or self-care (01) ==
LOC: PT 08:00
PROVIDERS: Visit Provider Podiatrist
DX: M79.672 Pain in left foot (principal); M25.472 Effusion, left ankle; R60.9 Edema, unspecified
CPT/HCPCS: 97110; 97140; 97163

== ENCOUNTER 2024-04-03 10:38 | Outpatient (POV) | payer MEDICARE, SELFPAY ==
--- NOTE | 2024-04-03 11:57 | EXP.PAIN.OV ---
HPI Data of Consult Patient: new to practice Consult date: 04/03/24 Requesting Physician: Sue Guaman APRN Primary Care Provider: JEAN-PIERRE Nelson Consult Narrative Reason for consult: Low back pain, groin pain, hip pain History of present illness: Mr. Titus LYNN is a 49 year old male who presents today as a new patient. He is a referral from Dr. Dale's office. He rates his pain today a 5 out of 10 and states it is all in his low back that radiates down into his bilateral hips and groin. He states this been going on the last year and progressively worsened. He does describe it as an aching, burning sensation that has even started to go into his testicles. Patient does deny any specific trauma or injury that initially led to the symptoms. He does state that when he had a EMG test with Dr. Miller it seemed to worsen the pain. He does state the pain is worse at night or with certain positions. He states it does interfere with his ability perform activities of daily living such as cooking and cleaning. Patient does state that he frequently has to change positions due to the pain. He denies any prior surgery, injection history or imaging. Patient is currently managed with gabapentin, and Tylenol 3. He has been prescribed tramadol in the past and does take Flexeril as needed. His Rajiv has been reviewed and is appropriate. CC: Sue Guaman APRN [facility] Disclaimer: The information contained in this section may have been updated after the patient was seen, as this information can be updated by other users. 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, left leg, subsequent encounter Primary osteoarthritis, left ankle and foot Hypertrophic scar Neuropathy Left leg weakness Acquired pes cavus Left hip pain Multiple joint pain Postoperative pain Postoperative edema Tenosynovitis of left foot Acquired equinus deformity of both feet Tear of peroneal tendon of left foot Impingement of left ankle joint Osteochondral defect of talus Type 2 diabetes mellitus with diabetic polyneuropathy, without long-term current use of insulin Foot pain Diastolic heart failure Crescendo angina Pulmonary HTN Abnormal EKG Family history of heart disease Unstable angina Sinus tachycardia Chest pain Osteoarthritis Heel spur Edema of left lower extremity Diabetic foot Gout Peroneal tendinitis of left lower leg Pain of right heel Plantar fasciitis of right foot Obesity (BMI 30-39.9) Dermatitis Diabetes mellitus Class II obesity Hyponatremia DKA (diabetic ketoacidoses) Renal insufficiency Hyperlipidemia Hypertension Surgical History History of colonoscopy History of cholecystectomy History of foot surgery 01/2021, 10/2021 History of ankle surgery tendons and ligaments 01/2021, 10/2021 Status post left foot surgery S/P peroneal tendon repair Family History Other Family history of diabetes mellitus type II Family history of hypertension Social History Smoking Status: Never smoker second hand exposure: Yes alcohol intake: never substance use type: denies use current occupational status: disabled Travel in the last 8 weeks: None household members: significant other housing: house current occupation: . current occupational exposures/hazards: No caffeine: No Review of Systems Review of Systems Review of systems:: pertinent systems reviewed and negative unless documented below Review of systems (narrative): Review of Systems: General: No recent weight changes, no fever, no sleep disturbances Respiratory: No cough, no shortness of air, no recurring pulmonary infections Cardiovascular/peripheral vascular: No chest pain, no palpitations, no edema, no shortness of breath Gastrointestinal: No new onset incontinence, normal bowel movements reported Genitourinary: No new onset incontinence Musculoskeletal: Low back pain, bilateral hip pain, groin pain Psychiatric: [Normal mood/affect] Neurological: [Denies weakness in extremities], [denies balance issues] Meds Home Medications and Allergies Home Medications ?Medication ?Instructions ?Recorded ?Confirmed ?Type aspirin 81 mg tablet,delayed 81 mg PO DAILY Heart Health 01/12/21 03/11/24 History release cholecalciferol (vitamin D3) 50 50 mcg PO DAILY Supplement 09/04/23 03/11/24 History mcg (2,000 unit) tablet ubrogepant 100 mg tablet (Ubrelvy) See Rx Instructions .Route 09/07/23 03/11/24 Rx .COMPLEX #10 tabs blood sugar diagnostic (True #50 ea 09/14/23 03/11/24 Rx Metrix Pro Test Strip) hydrocortisone 1 % topical ointment 1 applic topical BID #28.35 grams 09/26/23 03/11/24 Rx hydroxyzine HCl 25 mg tablet 25 mg PO HS #30 tabs 11/03/23 03/11/24 Rx tizanidine 4 mg tablet See Rx Instructions .Route 11/09/23 03/11/24 Rx .COMPLEX #90 tabs pantoprazole 40 mg tablet,delayed See Rx Instructions .Route 01/11/24 03/11/24 Rx release .COMPLEX #90 tabs acetaminophen 300 mg-codeine 30 mg 1 tab PO BID PRN pain #60 tabs 01/29/24 03/11/24 Rx tablet gabapentin 400 mg capsule 400 mg PO BID #60 caps 01/29/24 03/11/24 Rx amlodipine 5 mg tablet See Rx Instructions .Route 03/11/24 03/11/24 Rx .COMPLEX #30 tabs atorvastatin 20 mg tablet See Rx Instructions .Route 03/11/24 03/11/24 Rx .COMPLEX #30 tabs metoprolol succinate 200 mg See Rx Instructions .Route 03/11/24 03/11/24 Rx tablet,extended release 24 hr .COMPLEX #30 tabs tirzepatide 7.5 mg/0.5 mL See Rx Instructions .Route 03/11/24 03/11/24 Rx subcutaneous pen injector .COMPLEX #2 mL (Benunminaro) New Prescriptions to Start Prescriptions: Allergies Allergy/AdvReac Type Severity Reaction Status Date / Time daptomycin Allergy Severe Muscle Pain Verified 03/11/24 13:26 chocolate flavor Allergy Unknown I-RASH Verified 03/11/24 13:26 [From CHOCOLATE (FOOD/DRUG)] midazolam [MIDAZOLAM] Allergy Unknown Unknown Verified 03/11/24 13:26 allergy reaction dapoxetine AdvReac Severe Muscle Verified 03/11/24 13:26 cramps vancomycin AdvReac Mild ITCHING Verified 03/11/24 13:26 adhesive tape AdvReac Unknown Verified 03/11/24 13:26 allergy reaction Objective Narrative: Physical Exam: General: Alert and oriented x3, no acute distress, pleasant and cooperative Lungs: Respirations even and unlabored, symmetrical chest expansion Eyes: PERRL Musculoskeletal: Flexion and extension of lumbar [spine] somewhat guarded secondary to pain, [antalgic gait noted] point tenderness along bilateral SIs with positive bilateral Carlos Manuel's, Magalys's, Gaenslen's, compression and distraction exam Neurological: Speech clear, no gross sensory deficit Assessment and Plan *Assessment and plan (1) Bilateral hip pain: Status: Acute Category: Medical Code(s): M25.551 - Pain in right hip; M25.552 - Pain in left hip (2) Bilateral sacroiliitis: Status: Acute Category: Medical Code(s): M46.1 - Sacroiliitis, not elsewhere classified Plan Patient is experiencing significant pain throughout his low back, bilateral hips and groin. Patient does have point tenderness along his bilateral SIs and a positive bilateral Carlos Manuel's, Magalys's, Gaenslen's, compression and distraction exam. I did discuss with the patient that he may benefit from bilateral SI injections. Risk and benefits were discussed with patient and he would like to proceed forward with this plan of care. Patient has tried and failed conservative therapy including oral medications, heat and ice, topicals, continued at home stretching exercise for longer than 6 weeks. Patient will also be ordered x-rays of his bilateral hips and lumbar spine. Patient will be scheduled for bilateral SI injections under fluoroscopy. Patient has been instructed to contact the clinic with any concerns before the next appointment. Dr. Elizabeth has reviewed this note and agrees with this plan of care. This note was dictated using voice recognition software and make contain errors or omissions. All injections are used with Lidocaine or Bupivacaine and Depo Medrol.
[2024-04-03 13:23] VITALS: BP 125/92; PULSE 85; RESP 18; O2SAT 97; BMI 34.4
== END 2024-04-03 23:59 | disposition home or self-care (01) ==
LOC: SC.PAIN 10:40
PROVIDERS: PCP Physician Assistant; Visit Provider Nurse Practitioner Family
DX: M25.551 Pain in right hip (principal); M25.552 Pain in left hip; M46.1 Sacroiliitis, not elsewhere classified; Z73.89 Other problems related to life management difficulty; Z79.899 Other long term (current) drug therapy
CPT/HCPCS: 99202; G0463

== ENCOUNTER 2024-04-04 07:37 | Outpatient (CLI) | payer MEDICARE, SELFPAY ==
--- NOTE | 2024-04-04 07:42 | XR_ITS ---
FINAL REPORT CLINICAL HISTORY: Right hip pain COMPARISON: None FINDINGS: RIGHT HIP Two views of the right hip with an AP view of the pelvis demonstrate no acute fracture or dislocation. The joint spaces are preserved. Femoral head has a normal smooth contour. There is a moderate osteophyte at the right lateral joint margin asymmetrically more evident than on the left. No soft tissue abnormality is seen. IMPRESSION: No acute bony abnormality. Moderate osteophyte at the right lateral acetabular margin. Reviewed, Interpreted and Dictated by Joaquim Montalvo MD Transcribed by Suma Kahn Authenticated and [facility]
--- NOTE | 2024-04-04 07:42 | XR_ITS ---
FINAL REPORT CLINICAL HISTORY: Left hip pain COMPARISON: 08/19/2021 FINDINGS: LEFT HIP: Two views of the left hip demonstrate no acute fracture or dislocation. The joint spaces appear normal. The visualized bony structures are well aligned. No soft tissue abnormality is seen. IMPRESSION: No acute bony abnormality. Reviewed, Interpreted and Dictated by Joaquim Montalvo MD Transcribed by Suma Kahn Authenticated and . [facility]
--- NOTE | 2024-04-04 07:43 | XR_ITS ---
FINAL REPORT CLINICAL HISTORY: PAIN COMPARISON: 08/19/2021 FINDINGS: LUMBOSACRAL SPINE SERIES Five views of the lumbosacral spine were obtained. There is no fracture present. There is no malalignment. There is mild disc space narrowing at L5-S1, more evident than on the prior exam. The vertebrae are normal in height. There is mild facet sclerosis in the lower lumbar spine. IMPRESSION: No acute process. L5-S1 disc space narrowing more evident than prior. Reviewed, Interpreted and Dictated by Joaquim Montalvo MD Transcribed by Suma Kahn Authenticated and [facility]
== END 2024-04-04 23:59 | disposition home or self-care (01) ==
LOC: RAD 07:39
PROVIDERS: PCP Physician Assistant; Visit Provider Nurse Practitioner Family
DX: M25.551 Pain in right hip (principal); M25.552 Pain in left hip; M54.50 Low back pain, unspecified
CPT/HCPCS: 72110; 73502

== ENCOUNTER 2024-04-17 09:48 | Outpatient (CLI) | payer MEDICARE, SELFPAY ==
--- NOTE | 2024-04-17 09:52 | XR_ITS ---
FINAL REPORT CLINICAL HISTORY: foot pain-heel FINDINGS: Left foot Four views were obtained. There is no acute fracture or dislocation. There are postoperative changes of the 1st and 5th metatarsals and medial and lateral malleoli. Mild degenerative changes are present. There are postoperative changes from resection of the portion of the calcaneal tuberosity. No bony erosion is identified. IMPRESSION: Degenerative and postsurgical changes. Reviewed, Interpreted and Dictated by Prakash Dempsey III, MD Transcribed by Magaly Bae Authenticated and . [facility]
== END 2024-04-17 23:59 | disposition home or self-care (01) ==
LOC: RAD 09:49
PROVIDERS: PCP Physician Assistant; Visit Provider Nurse Practitioner
DX: M79.672 Pain in left foot (principal)
CPT/HCPCS: 73630

== ENCOUNTER 2024-05-06 10:44 | Outpatient (POV) | payer MEDICARE, SELFPAY ==
--- NOTE | 2024-05-06 11:37 | EXP.PAIN.SOA ---
[facility] Disclaimer: The information contained in this section may have been updated after the patient was seen, as this information can be updated by other users. 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, left leg, subsequent encounter Primary osteoarthritis, left ankle and foot Hypertrophic scar Neuropathy Left leg weakness Acquired pes cavus Left hip pain Multiple joint pain Postoperative pain Postoperative edema Tenosynovitis of left foot Acquired equinus deformity of both feet Tear of peroneal tendon of left foot Impingement of left ankle joint Osteochondral defect of talus Type 2 diabetes mellitus with diabetic polyneuropathy, without long-term current use of insulin Foot pain Diastolic heart failure Crescendo angina Pulmonary HTN Abnormal EKG Family history of heart disease Unstable angina Sinus tachycardia Chest pain Osteoarthritis Heel spur Edema of left lower extremity Diabetic foot Gout Peroneal tendinitis of left lower leg Pain of right heel Plantar fasciitis of right foot Obesity (BMI 30-39.9) Dermatitis Diabetes mellitus Class II obesity Hyponatremia DKA (diabetic ketoacidoses) Renal insufficiency Hyperlipidemia Hypertension Surgical History History of colonoscopy History of cholecystectomy History of foot surgery 01/2021, 10/2021 History of ankle surgery tendons and ligaments 01/2021, 10/2021 Status post left foot surgery S/P peroneal tendon repair Family History Other Family history of diabetes mellitus type II Family history of hypertension Social History Smoking Status: Never smoker second hand exposure: Yes alcohol intake: never substance use type: denies use current occupational status: unemployed Travel in the last 8 weeks: None household members: significant other housing: house current occupation: . current occupational exposures/hazards: No caffeine: No PM Subjective & Objective Subjective Subjective:: Patient is a pleasant 49-year-old male who presents today for follow-up of bilateral SI injections on 04/16/2024. Today he rates his pain about a 4 or 5 out of 10. He states that he did have 100% relief for 7 days following these injections. He does state however he has started to experience more pain in and around his low back again with more radiating symptoms down into his legs and does have chronic pain they are at his left foot and ankle from prior surgeries. Patient does state the pain in that extremity is fairly constant and does interfere with his ability perform activities of daily living. Patient has had 7 different surgeries on the left foot and ankle and states he constantly has swelling and decreased sensation due to that history. He does state that he almost lays in a position because this is the only thing that typically gives him some improvement of his overall leg/foot symptoms. He states that all of his pain does interfere with his ability to perform activities of daily living such as cooking and cleaning. Patient does state that he has been constantly in pain and is interested in any options we could provide. Patient does state that from our last visit he is interested in the possibility of the spinal cord stimulator trial. Patient has tried and failed conservative therapy including oral medications, heat and ice, topicals, previous foot surgery, physical therapy and continued at home stretching exercise for longer than 12 weeks. His Rajiv has been reviewed and is appropriate. Review of Systems: General: No recent weight changes, no fever, no sleep disturbances Respiratory: No cough, no shortness of air, no recurring pulmonary infections Cardiovascular/peripheral vascular: No chest pain, no palpitations, no edema, no shortness of breath Gastrointestinal: No new onset incontinence, normal bowel movements reported Genitourinary: No new onset incontinence Musculoskeletal: Low back pain, leg pain, left ankle/foot pain Psychiatric: [Normal mood/affect] Neurological: [Denies weakness in extremities], [denies balance issues] Pain at rest (0-10 scale): 5 Objective Objective:: Physical Exam: General: Alert and oriented x3, no acute distress, pleasant and cooperative Lungs: Respirations even and unlabored, symmetrical chest expansion Eyes: PERRL Musculoskeletal: Flexion and extension of lumbar [spine] somewhat guarded secondary to pain, [antalgic gait noted] positive left leg raise with decreased sensation light touch and decreased reflexes, mild swelling noted to the joint Neurological: Speech clear, no gross sensory deficit Has patient had previous pain injection?: Yes Percent improvement in pain since last injection: 100% Conservative treatment options previously tried: Home exercise plan Length of treatment: Longer than 12 weeks Meds Home Medications and Allergies Home Medications ?Medication ?Instructions ?Recorded ?Confirmed ?Type aspirin 81 mg tablet,delayed 81 mg PO DAILY Heart Health 01/12/21 04/17/24 History release cholecalciferol (vitamin D3) 50 50 mcg PO DAILY Supplement 09/04/23 04/17/24 History mcg (2,000 unit) tablet ubrogepant 100 mg tablet (Ubrelvy) See Rx Instructions .Route 09/07/23 04/17/24 Rx .COMPLEX #10 tabs blood sugar diagnostic (True #50 ea 09/14/23 04/17/24 Rx Metrix Pro Test Strip) hydrocortisone 1 % topical ointment 1 applic topical BID #28.35 grams 09/26/23 04/17/24 Rx hydroxyzine HCl 25 mg tablet 25 mg PO HS #30 tabs 11/03/23 04/17/24 Rx tizanidine 4 mg tablet See Rx Instructions .Route 11/09/23 04/17/24 Rx .COMPLEX #90 tabs pantoprazole 40 mg tablet,delayed See Rx Instructions .Route 01/11/24 04/17/24 Rx release .COMPLEX #90 tabs acetaminophen 300 mg-codeine 30 mg 1 tab PO BID PRN pain #60 tabs 01/29/24 04/17/24 Rx tablet gabapentin 400 mg capsule 400 mg PO BID #60 caps 01/29/24 04/17/24 Rx amlodipine 5 mg tablet See Rx Instructions .Route 04/09/24 04/17/24 Rx .COMPLEX #90 tabs atorvastatin 20 mg tablet See Rx Instructions .Route 04/09/24 04/17/24 Rx .COMPLEX #90 tabs metoprolol succinate 200 mg See Rx Instructions .Route 04/09/24 04/17/24 Rx tablet,extended release 24 hr .COMPLEX #90 tabs tirzepatide 7.5 mg/0.5 mL See Rx Instructions .Route 04/09/24 04/17/24 Rx subcutaneous pen injector .COMPLEX #2 mL (Ramiro) methylprednisolone 4 mg tablets in 4 mg PO PER PKG DIR #21 tabs 04/17/24 04/17/24 Rx a dose pack (Medrol (Juan)) New Prescriptions to Start Prescriptions: Allergies Allergy/AdvReac Type Severity Reaction Status Date / Time daptomycin Allergy Severe Muscle Pain Verified 04/17/24 10:14 chocolate flavor Allergy Unknown I-RASH Verified 04/17/24 10:14 [From CHOCOLATE (FOOD/DRUG)] midazolam [MIDAZOLAM] Allergy Unknown Unknown Verified 04/17/24 10:14 allergy reaction dapoxetine AdvReac Severe Muscle Verified 04/17/24 10:14 cramps vancomycin AdvReac Mild ITCHING Verified 04/17/24 10:14 adhesive tape AdvReac Unknown Verified 04/17/24 10:14 allergy reaction Assessment and Plan *Assessment and plan (1) CRPS (complex regional pain syndrome), lower limb: Status: Acute Category: Medical Code(s): G90.529 - Complex regional pain syndrome I of unspecified lower limb (2) Lumbar radiculopathy: Status: Acute Category: Medical Code(s): M54.16 - Radiculopathy, lumbar region (3) Low back pain with bilateral sciatica: Status: Chronic Qualifiers: Chronicity: chronic Back pain laterality: bilateral Qualified Code(s): M54.42 - Lumbago with sciatica, left side; M54.41 - Lumbago with sciatica, right side; G89.29 - Other chronic pain Category: Medical Code(s): M54.42 - Lumbago with sciatica, left side; M54.41 - Lumbago with sciatica, right side (4) Degenerative disc disease, lumbar: Status: Acute Category: Medical Code(s): M51.36 - Other intervertebral disc degeneration, lumbar region Plan Patient is experiencing worsening pain throughout his low back that does radiate down into his lower extremities. Patient did have a positive left leg raise with decreased sensation to light touch and decreased reflexes during today's visit. Patient did also have mild swelling noted around the left ankle. Patient does have a longstanding history of multiple surgeries for the left foot and ankle. Patient's symptoms are consistent with CRPS of the lower limb. I did review over that he may be a beneficial candidate of a lumbar epidural as well as spinal cord stimulator trial. Risk and benefits of both of these procedures were explained to the patient and he would like to proceed forward with both options. I have counseled him that we will order the psychological evaluation and if he is deemed an appropriate candidate we will proceed forward with the spinal cord stimulator at a later date. Patient has tried and failed conservative therapy including continued at home stretching exercise for longer than 12 weeks. Patient will be scheduled for an LESI L5-S1 under fluoroscopy. Patient has been instructed to contact the clinic with any concerns before the next appointment. Dr. Elizabeth has reviewed this note and agrees with this plan of care. This note was dictated using voice recognition software and make contain errors or omissions. All injections are used with Lidocaine or Bupivacaine and Depo Medrol.
[2024-05-06 13:48] VITALS: BP 153/93; PULSE 96; RESP 18; O2SAT 98; BMI 32.6
== END 2024-05-06 23:59 | disposition home or self-care (01) ==
LOC: SC.PAIN 10:46
PROVIDERS: PCP Internal Medicine; Visit Provider Nurse Practitioner Family
DX: M51.16 Intervertebral disc disorders with radiculopathy, lumbar region; G90.529 Complex regional pain syndrome I of unspecified lower limb; Z79.899 Other long term (current) drug therapy; Z73.89 Other problems related to life management difficulty
CPT/HCPCS: 99212; G0463

== ENCOUNTER 2024-05-21 13:51 | Outpatient (CLI) | payer MEDICARE, SELFPAY ==
[2024-05-21 13:29] LABS: Basophils # 0.1 K/mm3 (0-0.2); Basophils % 1.1 % (0.1-2.0); Eosinophils # 0.1 K/mm3 (0.0-0.4); Eosinophils % 1.2 % (0.1-12.0); Hematocrit 36.5 % (42.0-52.0); Hemoglobin 13.6 g/dL (14.1-18.0); Lymphocytes # 2.7 K/mm3 (0.7-4.5); Lymphocytes % 36.3 % (10-50); Mean Corpuscular HGB Conc 37.4 g/dL (31.8-35.4); Mean Corpuscular Hemoglobin 28.8 pg (27.0-31.2); Mean Corpuscular Volume 77.2 fl (80-94); Mean Platelet Volume 8.8 fl (7.4-10.4); Monocytes # 0.4 K/mm3 (0.1-1.0); Monocytes % 5.4 % (1.7-9.3); Neutrophils # 4.1 K/mm3 (1.8-7.8); Platelet Count 334 K/mm3 (142-424); Red Blood Count 4.73 M/mm3 (4.60-6.20); White Blood Count 7.3 K/mm3 (4.8-10.8)
[2024-05-21 13:31] LABS: Creatinine,Urine Random 248 mg/dL (Not Estab.)
[2024-05-21 13:35] LABS: Microalbumin/Creatinine Ratio 27.7
[2024-05-21 14:49] LABS: Hemoglobin A1C 6.5 % (4.0-6.0)
== END 2024-05-21 23:59 | disposition home or self-care (01) ==
LOC: LAB.DROPOF 13:51
PROVIDERS: PCP Internal Medicine; Visit Provider Internal Medicine
DX: D64.9 Anemia, unspecified (principal); Z00.00 Encounter for general adult medical examination without abnormal findings; Z13.1 Encounter for screening for diabetes mellitus; E11.42 Type 2 diabetes mellitus with diabetic polyneuropathy
CPT/HCPCS: 82043; 82570; 83036; 85025

== ENCOUNTER 2024-05-22 13:02 | Outpatient (CLI) | payer MEDICARE, SELFPAY ==
[2024-05-22 14:18] LABS: Alanine Aminotransferase 19 U/L (12-78); Albumin Level 4.3 g/dl (3.5-5.0); Albumin/Globulin Ratio 1.4 (1.1-1.8); Alkaline Phosphatase 99 U/L (38-126); Anion Gap 8.5 mEq/L (5-15); Aspartate Amino Transferase 26 U/L (17-59); Bilirubin,Total 0.7 mg/dl (0.2-1.3); Blood Urea Nitrogen 6 mg/dl (9-20); Calcium 9.5 mg/dl (8.4-10.2); Carbon Dioxide 27 mmol/L (22.0-30.0); Chloride 105 mmol/L (98-107); Chol/HDL Ratio 4.2 (1-3.5); Cholesterol 177 mg/dl (140-200); Estimated Glomerular Filt Rate 65 ml/min (>60); GFR (African American) 78 ML/MIN (>60); Globulin 3.1 g/dL (1.3-3.2); Glucose 117 mg/dl (74-100); HDL Cholesterol 42 mg/dl (40-60); Potassium 4.5 mmoL/L (3.5-5.1); Sodium 136 mmol/L (136-145); Total Protein,Serum 7.4 g/dl (6.3-8.2); Triglycerides 291 mg/dl (30-150); VLDL Cholesterol 58 mg/dL (0-40)
[2024-05-22 14:29] LABS: Direct LDL Cholesterol 89.76 mg/dL (100-129)
== END 2024-05-22 23:59 | disposition home or self-care (01) ==
LOC: LAB.DROPOF 13:03
PROVIDERS: PCP Internal Medicine; Visit Provider Internal Medicine
DX: Z00.00 Encounter for general adult medical examination without abnormal findings (principal); E78.49 Other hyperlipidemia; Z13.220 Encounter for screening for lipoid disorders
CPT/HCPCS: 80053; 80061

== ENCOUNTER 2024-06-04 08:22 | Day surgery (SDC) | payer MEDICARE, SELFPAY ==
[2024-06-04 08:44] VITALS: BP 129/78; PULSE 93; RESP 16; TEMP 36.4; O2SAT 98; BMI 33.6
[2024-06-04] MEDS: methylPREDNISolone ACETATE 80MG/ML VIAL 80 MG (09:16)
[2024-06-04 09:19] VITALS: BP 145/86; PULSE 59; RESP 16; O2SAT 96
--- NOTE | 2024-06-04 10:25 | EXP.PAIN.PRO ---
Procedure Date: 06/04/24 Time: 09:50 Anesthesiologist:: Margarito Lee CRNA Complications:: None Pre-procedure Diagnosis:: Degenerative disc lumbar spine multilevels. Lumbar radiculopathy. Post-procedure Diagnosis:: Same. Indications for Procedure:: Patient is a pleasant 49-year-old male who comes our clinic today for lumbar epidural steroid injection at the L5-S1 level. Patient describes low lumbar back pain as constant, dull, aching. Patient also reports bilateral hip and leg radicular symptoms. He rates his pain 6/10. Procedure Details:: Procedure: Lumbar epidural steroid injection under fluoroscopy Informed consent was obtained and the risks and benefits of the procedure were explained to the patient. The patient was taken to the procedure room and noninvasive monitors placed, including noninvasive blood pressure cuff and pulse oximeter. The back was viewed using C-arm Fluoroscopy and prepped using Chloraprep as a cleansing solution and the L5-S1 interspace was palpated. Skin and subcutaneous tissues were anesthetized using lidocaine 1.5% and a 25-gauge needle. After this, an 18-gauge Touhy epidural needle was placed into the L5-S1 interspace and advanced using fluoroscopic guidance and loss of resistance to air until the epidural space was encountered. After confirmation of needle placement in the epidural space, with dye, a solution containing normal saline, 3 mL and Depo-Medrol 80 mg were incrementally injected into the lumbar epidural space. The patient tolerated the procedure well with no complications. The patient was observed in the Pain Clinic and then discharged home neurologically intact. Plan and Disposition:: Patient was discharged without incident.
== END 2024-06-04 09:19 | disposition home or self-care (01) ==
LOC: SC.PAINP 08:23
PROVIDERS: PCP Internal Medicine; Visit Provider Nurse Anesthetist, Certified Registered
DX: M51.16 Intervertebral disc disorders with radiculopathy, lumbar region (principal)
CPT/HCPCS: 62323; J1010

== ENCOUNTER 2024-06-06 10:47 | Outpatient (POV) | payer MEDICARE, SELFPAY ==
--- NOTE | 2024-06-06 11:05 | EXP.PAIN.SOA ---
[facility] Disclaimer: The information contained in this section may have been updated after the patient was seen, as this information can be updated by other users. 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, left leg, subsequent encounter Primary osteoarthritis, left ankle and foot Hypertrophic scar Neuropathy Left leg weakness Acquired pes cavus Left hip pain Multiple joint pain Postoperative pain Postoperative edema Tenosynovitis of left foot Acquired equinus deformity of both feet Tear of peroneal tendon of left foot Impingement of left ankle joint Osteochondral defect of talus Type 2 diabetes mellitus with diabetic polyneuropathy, without long-term current use of insulin Foot pain Diastolic heart failure Crescendo angina Pulmonary HTN Abnormal EKG Family history of heart disease Unstable angina Sinus tachycardia Chest pain Osteoarthritis Heel spur Edema of left lower extremity Diabetic foot Gout Peroneal tendinitis of left lower leg Pain of right heel Plantar fasciitis of right foot Obesity (BMI 30-39.9) Dermatitis Diabetes mellitus Class II obesity Hyponatremia DKA (diabetic ketoacidoses) Renal insufficiency Hyperlipidemia Hypertension Surgical History History of colonoscopy History of cholecystectomy History of foot surgery 01/2021, 10/2021 History of ankle surgery tendons and ligaments 01/2021, 10/2021 Status post left foot surgery S/P peroneal tendon repair Family History Other Family history of diabetes mellitus type II Family history of hypertension Social History Smoking Status: Never smoker second hand exposure: Yes alcohol intake: never substance use type: denies use current occupational status: unemployed Travel in the last 8 weeks: None household members: significant other housing: house current occupation: . current occupational exposures/hazards: No caffeine: No PM Subjective & Objective Subjective Subjective:: Patient is a pleasant 49-year-old male who presents today for follow-up of psychological evaluation. Today he rates his pain a 2 out of 10. Patient denies any new trauma or injury. Patient did just have a lumbar epidural at the L5-S1 on the of this month and feels like it is helping. Patient does state that prior to the injection he was still having the chronic pain and does state that he still wants to proceed forward with the stimulator trial. Patient does have a longstanding history of multiple surgeries in his left foot and ankle that are consistent with CRPS. His Rajiv has been reviewed and is appropriate. Review of Systems: General: No recent weight changes, no fever, no sleep disturbances Respiratory: No cough, no shortness of air, no recurring pulmonary infections Cardiovascular/peripheral vascular: No chest pain, no palpitations, no edema, no shortness of breath Gastrointestinal: No new onset incontinence, normal bowel movements reported Genitourinary: No new onset incontinence Musculoskeletal: Low back pain, left leg pain, left ankle foot pain Psychiatric: [Normal mood/affect] Neurological: [Denies weakness in extremities], [denies balance issues] Pain at rest (0-10 scale): 2 Objective Objective:: Physical Exam: General: Alert and oriented x3, no acute distress, pleasant and cooperative Lungs: Respirations even and unlabored, symmetrical chest expansion Eyes: PERRL Musculoskeletal: Flexion and extension of lumbar [spine] somewhat guarded secondary to pain, [antalgic gait noted] Neurological: Speech clear, no gross sensory deficit Has patient had previous pain injection?: Yes Percent improvement in pain since last injection: More than 75% Conservative treatment options previously tried: Home exercise plan Length of treatment: Longer than 12 weeks Meds Home Medications and Allergies Home Medications ?Medication ?Instructions ?Recorded ?Confirmed ?Type aspirin 81 mg tablet,delayed 81 mg PO DAILY Heart Health 01/12/21 06/05/24 History release cholecalciferol (vitamin D3) 50 50 mcg PO DAILY Supplement 09/04/23 06/05/24 History mcg (2,000 unit) tablet blood sugar diagnostic (True #50 ea 09/14/23 06/05/24 Rx Metrix Pro Test Strip) pantoprazole 40 mg tablet,delayed See Rx Instructions .Route 01/11/24 06/05/24 Rx release .COMPLEX #90 tabs acetaminophen 300 mg-codeine 30 mg 1 tab PO BID PRN pain #60 tabs 01/29/24 06/05/24 Rx tablet amlodipine 5 mg tablet See Rx Instructions .Route 04/09/24 06/05/24 Rx .COMPLEX #90 tabs atorvastatin 20 mg tablet See Rx Instructions .Route 04/09/24 06/05/24 Rx .COMPLEX #90 tabs metoprolol succinate 200 mg See Rx Instructions .Route 04/09/24 06/05/24 Rx tablet,extended release 24 hr .COMPLEX #90 tabs cyclobenzaprine 5 mg tablet 5 mg PO HS PRN muscle spasm #30 05/21/24 06/05/24 Rx tabs gabapentin 600 mg tablet 600 mg PO TID #90 tabs 06/05/24 06/05/24 Rx losartan 50 mg tablet 50 mg PO DAILY #30 tabs 06/05/24 06/05/24 Rx tirzepatide 10 mg/0.5 mL 10 mg (0.5 mL) SQ WEEKLY #2.5 mL 06/05/24 06/05/24 Rx subcutaneous pen injector New Prescriptions to Start Prescriptions: Allergies Allergy/AdvReac Type Severity Reaction Status Date / Time daptomycin Allergy Severe Muscle Pain Verified 06/05/24 13:15 chocolate flavor Allergy Unknown I-RASH Verified 06/05/24 13:15 [From CHOCOLATE (FOOD/DRUG)] midazolam [MIDAZOLAM] Allergy Unknown Unknown Verified 06/05/24 13:15 allergy reaction dapoxetine AdvReac Severe Muscle Verified 06/05/24 13:15 cramps vancomycin AdvReac Mild ITCHING Verified 06/05/24 13:15 adhesive tape AdvReac Unknown Verified 06/05/24 13:15 allergy reaction Assessment and Plan *Assessment and plan (1) CRPS (complex regional pain syndrome), lower limb: Status: Acute Category: Medical Code(s): G90.529 - Complex regional pain syndrome I of unspecified lower limb (2) Lumbar radiculopathy: Status: Acute Category: Medical Code(s): M54.16 - Radiculopathy, lumbar region Plan Patient did just have his lumbar epidural and currently it is significantly helping. Patient is scheduled for his 2-week follow-up coming up and was counseled that he can still keep this appointment so we can gauge how well he is done over the last 2 weeks. I did review over at length with the patient regarding his psychological evaluation and that he was deemed an appropriate candidate for the spinal cord stimulator. I did review over the risk and benefits of this procedure and he would like to proceed forward with this plan of care. Patient has tried and failed conservative therapy including at home stretching exercise for longer than 12 weeks as well as previous foot surgery and physical therapy. Patient does have symptoms consistent with CRPS in the left extremity. Patient will be submitted to insurance for the spinal cord stimulator trial under fluoroscopy. If he does have significant improvement we will discuss possible implant. Patient agrees with this plan of care. Patient has been instructed to contact the clinic with any concerns before the next appointment. Dr. Elizabeth has reviewed this note and agrees with this plan of care. This note was dictated using voice recognition software and make contain errors or omissions. All injections are used with Lidocaine or Bupivacaine and Depo Medrol.
[2024-06-06 11:30] VITALS: BP 111/78; PULSE 62; RESP 16; O2SAT 98; BMI 33.6
== END 2024-06-06 23:59 | disposition home or self-care (01) ==
LOC: SC.PAIN 10:48
PROVIDERS: PCP Internal Medicine; Visit Provider Nurse Practitioner Family
DX: M54.16 Radiculopathy, lumbar region; G90.522 Complex regional pain syndrome I of left lower limb
CPT/HCPCS: 99212; G0463

== ENCOUNTER 2024-07-16 14:34 | Outpatient (CLI) | payer MEDICARE, SELFPAY ==
--- NOTE | 2024-07-16 15:00 | ECG_ITS ---
APPROVED REPORT Exam: Resting ECG HR:103 bpm ECG Measurements Heart Rate 103 AXES ME 159 P 22 QRSd 98 QRS 146 QT 334 T -12 QTc 393 Conclusion SINUS TACHYCARDI POSSIBLE RIGHT VENTRICULAR HYPERTROPHY [SOME/ALL OF: PROMINENT R IN V1, LATE TRANSITION, RAD, LEEANNA, SSS] NONSPECIFIC T-WAVE ABNORMALITY ABNORMAL ECG UNCONFIRMED REPORT Electronically signed by : Greg Dumont MD 07/16/2024 17:39:35
== END 2024-07-16 23:59 | disposition home or self-care (01) ==
LOC: PREOP 14:36
PROVIDERS: PCP Internal Medicine; Visit Provider Anesthesiology
DX: Z01.810 Encounter for preprocedural cardiovascular examination (principal); R00.0 Tachycardia, unspecified; R94.31 Abnormal electrocardiogram [ECG] [EKG]
CPT/HCPCS: 93005

== ENCOUNTER 2024-07-19 08:32 | Day surgery (SDC) | payer MEDICARE, SELFPAY ==
--- NOTE | 2024-07-12 16:16 | PC.NURSE ---
Pt confirmed allergy to vancomyin. Notified Dr. Elizabeth of pt allergy to vancomycin. Dr. Elizabeth gave verbal order for Clindamycin per IV for pre op antibiotic.
[2024-07-16 14:46] VITALS: BMI 31.3
[2024-07-16 15:54] LABS: Basophils # 0.1 K/mm3 (0-0.2); Basophils % 2.2 % (0.1-2.0); Eosinophils # 0.1 K/mm3 (0.0-0.4); Hemoglobin 13.9 g/dL (14.1-18.0); Lymphocytes # 2.5 K/mm3 (0.7-4.5); Lymphocytes % 43.4 % (10-50); Mean Corpuscular HGB Conc 33.2 g/dL (31.8-35.4); Mean Corpuscular Hemoglobin 26.4 pg (27.0-31.2); Mean Corpuscular Volume 79.6 fl (80-94); Mean Platelet Volume 8.5 fl (7.4-10.4); Monocytes # 0.4 K/mm3 (0.1-1.0); Monocytes % 7.3 % (1.7-9.3); Neutrophils # 2.6 K/mm3 (1.8-7.8); Neutrophils % 46.1 % (37.0-80.0); Platelet Count 376 K/mm3 (142-424); Red Blood Count 5.27 M/mm3 (4.60-6.20); Red Cell Distribution Width 15.8 % (11.5-17.5); White Blood Count 5.7 K/mm3 (4.8-10.8)
[2024-07-16 16:02] LABS: Chloride 107 mmol/L (98-107); Potassium 3.7 mmoL/L (3.5-5.1); Sodium 134 mmol/L (136-145)
[2024-07-16 16:05] LABS: Anion Gap 8.7 mEq/L (5-15); Blood Urea Nitrogen 10 mg/dl (9-20); Calcium 9.2 mg/dl (8.4-10.2); Carbon Dioxide 22 mmol/L (22.0-30.0); Creatinine Clearance Estimated 77 mL/min (50-200); Estimated Glomerular Filt Rate 50 ml/min (>60); GFR (African American) 60 ML/MIN (>60); Glucose 121 mg/dl (74-100)
[2024-07-16 18:26] LABS: Hemoglobin A1C 6.5 % (4.0-6.0)
[2024-07-19 10:19] VITALS: BP 126/85; PULSE 90; RESP 17; TEMP 36.3; O2SAT 95
[2024-07-19 10:32] LABS: POC Glucose,Bedside 95 (70-110)
--- NOTE | 2024-07-19 12:42 | EXP.ANES.CKL ---
[facility] Disclaimer: The information contained in this section may have been updated after the patient was seen, as this information can be updated by other users. Medical History Abnormal EKG Acquired equinus deformity of both feet Acquired pes cavus Acute osteomyelitis of left foot Chest pain Class II obesity Constipation Crescendo angina Dermatitis Diabetes mellitus Diabetic foot Diabetic neuropathy Diastolic heart failure DKA (diabetic ketoacidoses) Edema of left lower extremity Family history of heart disease Foot pain Foot pain, left Gout Heel spur History of MRSA infection Hyperlipidemia Hypertension Hypertrophic scar Hyponatremia Impingement of left ankle joint Injury of peroneal nerve at lower leg level, left leg, subsequent encounter Keratosis Left ankle pain Left hip pain Left leg weakness Multiple joint pain Neuropathy Obesity (BMI 30-39.9) Obesity, Class II, BMI 35-39.9 [place] (obstructive sleep apnea) Osteoarthritis Osteochondral defect of talus Pain of right heel Peroneal tendinitis of left lower leg Plantar fasciitis of right foot Postoperative dehiscence of skin wound Postoperative edema Postoperative pain Primary osteoarthritis, left ankle and foot Pulmonary HTN Renal insufficiency Rhabdomyolysis Sinus tachycardia Tear of peroneal tendon of left foot Tenosynovitis of left foot Type 2 diabetes mellitus with diabetic polyneuropathy, without long-term current use of insulin Unstable angina Surgical History History of ankle surgery tendons and ligaments 01/2021, 10/2021 History of cholecystectomy History of colonoscopy History of foot surgery 01/2021, 10/2021 S/P peroneal tendon repair Status post left foot surgery Family History Other Family history of diabetes mellitus type II Family history of hypertension Social History Smoking Status: Never smoker second hand exposure: Yes alcohol intake: never substance use type: denies use current occupational status: other Travel in the last 8 weeks: None household members: significant other housing: house current occupation: . current occupational exposures/hazards: No caffeine: No Have you lived/traveled outside [place] in past 30 days?: No Contact w/someone who lives/traveled outside US past 30 days?: No Exposure to someone with infectious disease in past 14 days?: No Do you have a fever (greater than 100.4 F or 38 C)?: No Have you tested positive for COVID-19: No Exposed to someone with COVID-19 in past 14 days?: No Do you have a sore throat?: No Do you have a cough?: No Do you have any weakness?: No Do you have any diarrhea?: No Are you experiencing any unusual bleeding?: No Do you have any muscle aches/pain?: No Do you have any abdominal pain?: No Are you experiencing loss of taste or smell?: No [facility] Anesthesia Checklist Patient Identification Patient Identification: Verbal (Name & ) Structural Data Admitted From: Home Planned Operative Procedure/s: nerve stim trial Consent for Planned Operative Procedure(s) Verified: Yes NPO Status Verified Time NPO: 00:00 Additional verifications Anesthesia Reactions: No Hx Blood Transfusions: No Blood Transfusion Reaction: No Airway Assessment Mallampati Score:: Class II C-Spine Mobility Assessed: Yes TMJ Mobility Assessed: Yes Dentition: Poor Dentition (missing top) Neurological Assessment Level of Consciousness: Awake, Alert and Appropriate Anesthesia Plan Anesthesia Risk discussed: Yes Anesthesia Plan: Verified ASA Class: II Anesthesia Type: MAC
[2024-07-19] MEDS: LIDOCAINE 1% W/EPI 1:100,000 20ML VIAL 40 ML (12:52)
[2024-07-19 13:13] VITALS: BP 134/74; PULSE 111; RESP 18; TEMP 36.9; O2SAT 98
[2024-07-19 13:28] VITALS: BP 130/84; PULSE 107; RESP 18; O2SAT 99
[2024-07-19 13:43] VITALS: BP 117/73; PULSE 108; RESP 18; O2SAT 98
--- NOTE | 2024-07-19 15:00 | EXP.OP.NOTE ---
Date of procedure: 07/19/24 Pre-op Diagnosis:: Degenerative disease of lumbar spine with lumbar radiculopathy symptoms and right testicular pain with CRPS symptoms of the left foot and ankle Post-op Diagnosis:: Same Procedure performed:: Spinal cord stimulator trial with epidural lead placement x 2 Surgeon:: Waylon Elizabeth MD FAMILY ENGAGEMENT SPECIALIST:: Gabrielleanushka Diaz Anesthesia: MAC Estimated blood loss (mL): 1 Clinical Note:: This patient is a pleasant 49-year-old -[place] male who we are treating for degenerative disease of lumbar spine with lumbar radicular symptoms and CRPS of the left foot and ankle and right testicular pain. He has failed all previous conservative treatments including injections, oral medications, physical therapy and is not a candidate for surgery. He had a successful psychological evaluation. He presents for spinal cord stimulator trial today. Operative findings:: None Operative note:: Informed consent was obtained risk and benefits of the procedure were explained to the patient. The patient was taken the operating room placed prone on the procedure table. He was prepped and draped in sterile fashion. C-arm fluoroscopy was used to view the lumbar spine. The skin and subcutaneous tissues were anesthetized using lidocaine. A 17-gauge epidural needle was inserted and advanced into the L1-2 interspace. After confirmation needle placement in the epidural space stimulator lead was inserted and advanced very easily to the T7-T8 and T9 vertebral body. This lead was posterior and midline. A second needle was inserted and advanced again into the L1-L2 interspace. A second lead was inserted after confirmation of needle placement in the epidural space this lead was advanced to the [id number] interspace. This was again posterior and midline. We did test on the table with good stimulation in all areas of pain. The leads were secured in place. The patient was taken recovery in stable condition. The patient tolerated the procedure well with no complications. Patient was programmed by the [employer] [facility] [employer] direct marketing representative with good stimulation in all areas pain. Patient was placed on a fast and contour program. Patient was discharged home neurologic intact with good relief of pain symptoms. Plan and disposition: Will follow-up with this patient in 1 week for lead pull. Will evaluate efficacy of the spinal cord stimulator trial. Condition: stable Disposition: PACU Complications:: None
== END 2024-07-19 14:23 | disposition home or self-care (01) ==
PROVIDERS: PCP Internal Medicine; Visit Provider Anesthesiology
PROC: (CPT 63650; principal; 2024-07-19 10:30)
DX: M51.16 Intervertebral disc disorders with radiculopathy, lumbar region (principal); N50.811 Right testicular pain; G90.522 Complex regional pain syndrome I of left lower limb
CPT/HCPCS: 63650 ×2; 80048; 82962; 83036; 85025; 96374; C1778; J2250; J3010

== ENCOUNTER 2024-07-26 13:41 | Outpatient (POV) | payer MEDICARE, SELFPAY ==
--- NOTE | 2024-07-26 14:43 | A.OFFVIS_ITS ---
[facility] Disclaimer: The information contained in this section may have been updated after the patient was seen, as this information can be updated by other users. Medical History Abnormal EKG Acquired equinus deformity of both feet Acquired pes cavus Acute osteomyelitis of left foot Chest pain Class II obesity Constipation Crescendo angina Dermatitis Diabetes mellitus Diabetic foot Diabetic neuropathy Diastolic heart failure DKA (diabetic ketoacidoses) Edema of left lower extremity Family history of heart disease Foot pain Foot pain, left Gout Heel spur History of MRSA infection Hyperlipidemia Hypertension Hypertrophic scar Hyponatremia Impingement of left ankle joint Injury of peroneal nerve at lower leg level, left leg, subsequent encounter Keratosis Left ankle pain Left hip pain Left leg weakness Multiple joint pain Neuropathy Obesity (BMI 30-39.9) Obesity, Class II, BMI 35-39.9 [place] (obstructive sleep apnea) Osteoarthritis Osteochondral defect of talus Pain of right heel Peroneal tendinitis of left lower leg Plantar fasciitis of right foot Postoperative dehiscence of skin wound Postoperative edema Postoperative pain Primary osteoarthritis, left ankle and foot Pulmonary HTN Renal insufficiency Rhabdomyolysis Sinus tachycardia Tear of peroneal tendon of left foot Tenosynovitis of left foot Type 2 diabetes mellitus with diabetic polyneuropathy, without long-term current use of insulin Unstable angina Surgical History History of ankle surgery tendons and ligaments 01/2021, 10/2021 History of cholecystectomy History of colonoscopy History of foot surgery 01/2021, 10/2021 S/P peroneal tendon repair Status post left foot surgery Family History Other Family history of diabetes mellitus type II Family history of hypertension Social History Smoking Status: Never smoker second hand exposure: Yes alcohol intake: never substance use type: denies use current occupational status: other Travel in the last 8 weeks: None household members: significant other housing: house current occupation: . current occupational exposures/hazards: No caffeine: No Have you lived/traveled outside US in past 30 days?: No Contact w/someone who lives/traveled outside [place] past 30 days?: No Exposure to someone with infectious disease in past 14 days?: No Do you have a fever (greater than 100.4 F or 38 C)?: No Have you tested positive for COVID-19: No Exposed to someone with COVID-19 in past 14 days?: No Do you have a sore throat?: No Do you have a cough?: No Do you have any weakness?: No Do you have any diarrhea?: No Are you experiencing any unusual bleeding?: No Do you have any muscle aches/pain?: No Do you have any abdominal pain?: No Are you experiencing loss of taste or smell?: No PM Subjective & Objective Subjective Subjective:: Patient is a pleasant 49-year-old male who presents today for follow-up of his spinal cord stimulator trial. Today he rates his pain a 3 out of 10. He states that he has had at least 75% improvement following this intervention and feels like it is worked wonderful. He states that there is only 1 area in his back that he really did not notice good coverage however it did help his right testicular pain. He states he was able to do more than he has in a long time over the last week and feels much more functional. He does state that he would like to proceed forward with the stimulator implant. Patient is prescribed Flexeril 3 times a day from his PCP. His Rajiv has been reviewed and is appropriate. Review of Systems: General: No recent weight changes, no fever, no sleep disturbances Respiratory: No cough, no shortness of air, no recurring pulmonary infections Cardiovascular/peripheral vascular: No chest pain, no palpitations, no edema, no shortness of breath Gastrointestinal: No new onset incontinence, normal bowel movements reported Genitourinary: No new onset incontinence Musculoskeletal: Right testicle pain, low back pain, leg pain Psychiatric: [Normal mood/affect] Neurological: [Denies weakness in extremities], [denies balance issues] Pain at rest (0-10 scale): 3 Objective Objective:: Physical Exam: General: Alert and oriented x3, no acute distress, pleasant and cooperative Lungs: Respirations even and unlabored, symmetrical chest expansion Eyes: PERRL Musculoskeletal: Flexion and extension of lumbar [spine] somewhat guarded secondary to pain, [antalgic gait noted] Neurological: Speech clear, no gross sensory deficit Has patient had previous pain injection?: Yes Percent improvement in pain since last injection: 75% Conservative treatment options previously tried: Home exercise plan Length of treatment: Longer than 12 weeks Meds Home Medications and Allergies Home Medications ?Medication ?Instructions ?Recorded ?Confirmed ?Type aspirin 81 mg tablet,delayed 81 mg PO DAILY Heart Health 01/12/21 07/19/24 History release cholecalciferol (vitamin D3) 50 50 mcg PO DAILY Supplement 09/04/23 07/19/24 History mcg (2,000 unit) tablet blood sugar diagnostic (True #50 ea 09/14/23 07/17/24 Rx Metrix Pro Test Strip) acetaminophen 300 mg-codeine 30 mg 1 tab PO BID PRN pain #60 tabs 01/29/24 07/19/24 Rx tablet gabapentin 600 mg tablet 600 mg PO TID #90 tabs 06/05/24 07/19/24 Rx losartan 50 mg tablet 50 mg PO DAILY #30 tabs 06/05/24 07/19/24 Rx tirzepatide 10 mg/0.5 mL 10 mg (0.5 mL) SQ WEEKLY #2.5 mL 06/05/24 07/19/24 Rx subcutaneous pen injector doxepin 3 mg tablet 6 mg (2 x 3 mg) PO HS PRN sleep 06/19/24 07/19/24 Rx #60 tabs amlodipine 5 mg tablet See Rx Instructions .Route 07/09/24 07/19/24 Rx .COMPLEX #30 tabs atorvastatin 20 mg tablet See Rx Instructions .Route 07/09/24 07/19/24 Rx .COMPLEX #30 tabs metoprolol succinate 200 mg See Rx Instructions .Route 07/09/24 07/19/24 Rx tablet,extended release 24 hr .COMPLEX #30 tabs pantoprazole 40 mg tablet,delayed See Rx Instructions .Route 07/09/24 07/19/24 Rx release .COMPLEX #30 tabs cyclobenzaprine 10 mg tablet 10 mg PO HS PRN muscle spasm #30 07/17/24 07/19/24 Rx tabs empagliflozin 25 mg tablet 25 mg PO DAILY #30 tabs 07/17/24 07/19/24 Rx (Jardiance) New Prescriptions to Start Prescriptions: Allergies Allergy/AdvReac Type Severity Reaction Status Date / Time daptomycin Allergy Severe Muscle Pain Verified 07/19/24 10:16 chocolate flavor (From Allergy Unknown I-RASH Verified 07/19/24 10:16 CHOCOLATE (FOOD/DRUG)) dapoxetine AdvReac Severe Muscle Verified 07/19/24 10:16 cramps vancomycin AdvReac Mild ITCHING Verified 07/19/24 10:16 adhesive tape AdvReac Hives Verified 07/19/24 10:16 Assessment and Plan *Assessment and plan (1) Degenerative disc disease, lumbar: Status: Acute Category: Medical Code(s): M51.369 - Other intervertebral disc degeneration, lumbar region without mention of lumbar back pain or lower extremity pain (2) Lumbar radiculopathy: Status: Acute Category: Medical Code(s): M54.16 - Radiculopathy, lumbar region (3) Bilateral hip pain: Status: Acute Category: Medical Code(s): M25.551 - Pain in right hip; M25.552 - Pain in left hip (4) Right testicular pain: Status: Acute Category: Medical Code(s): N50.811 - Right testicular pain Plan Patient has had significant improvement following his spinal cord stimulator trial with more than 75% relief or more. Patient was reviewed over the risk and benefits of spinal cord stimulator implant and he would like to proceed forward with this plan of care. Patient has tried and failed conservative therapy including oral medications, heat and ice, topicals, physical therapy, at home stretching exercise for longer than 12 weeks. Patient did have significant improved function through this device during her trial. We will submit to insurance for the spinal cord stimulator implants under fluoroscopy. Patient has been instructed to contact the clinic with any concerns before the next appointment. Dr. Elizabeth has reviewed this note and agrees with this plan of care. This note was dictated using voice recognition software and make contain errors or omissions. All injections are used with Lidocaine, Bupivacaine and Depo Medrol. Occasionally urine drug screen is needed to verify patient's compliance with our office pain contract. This is ordered based off specific treatments related to chronic pain with the potential to abuse certain medications.
[2024-07-26 14:57] VITALS: BP 138/81; PULSE 104; RESP 16; O2SAT 98; BMI 31.3
== END 2024-07-26 23:59 | disposition home or self-care (01) ==
LOC: SC.PAIN 13:42
PROVIDERS: PCP Internal Medicine; Visit Provider Nurse Practitioner Family
DX: M51.16 Intervertebral disc disorders with radiculopathy, lumbar region (principal); M25.551 Pain in right hip; M25.552 Pain in left hip; N50.811 Right testicular pain; Z79.899 Other long term (current) drug therapy
CPT/HCPCS: 99212; G0463

== ENCOUNTER 2024-08-13 13:25 | Outpatient (CLI) | payer MEDICARE, SELFPAY ==
--- NOTE | 2024-08-13 13:34 | ECG_ITS ---
APPROVED REPORT Exam: Resting ECG HR:100 bpm ECG Measurements Heart Rate 100 AXES TX 175 P 29 QRSd 108 QRS 143 QT 344 T 32 QTc 401 Conclusion SINUS TACHYCARDIA PATTERN CONSISTENT WITH PULMONARY DISEASE POSSIBLE RIGHT VENTRICULAR HYPERTROPHY [SOME/ALL OF: PROMINENT R IN V1, LATE TRANSITION, RAD, LEEANNA, SSS] ABNORMAL ECG UNCONFIRMED REPORT Electronically signed by : Greg Dumont MD 08/17/2024 08:33:52
[2024-08-13 13:43] VITALS: BMI 31.3
[2024-08-13 14:16] LABS: Chloride 103 mmol/L (98-107); Potassium 3.6 mmoL/L (3.5-5.1); Sodium 141 mmol/L (136-145)
[2024-08-13 14:19] LABS: Anion Gap 18.6 mEq/L (5-15); Blood Urea Nitrogen 5 mg/dl (9-20); Calcium 9.4 mg/dl (8.4-10.2); Carbon Dioxide 23 mmol/L (22.0-30.0); Creatinine Clearance Estimated 83 mL/min (50-200); Estimated Glomerular Filt Rate 54 ml/min (>60); GFR (African American) 65 ML/MIN (>60); Glucose 136 mg/dl (74-100)
[2024-08-13 14:25] LABS: Basophils # 0.1 K/mm3 (0-0.2); Basophils % 0.6 % (0.1-2.0); Eosinophils # 0.1 K/mm3 (0.0-0.4); Eosinophils % 1.3 % (0.1-12.0); Hemoglobin 13.8 g/dL (14.1-18.0); Lymphocytes # 3.6 K/mm3 (0.7-4.5); Lymphocytes % 38.2 % (10-50); Mean Corpuscular HGB Conc 32.1 g/dL (31.8-35.4); Mean Corpuscular Hemoglobin 25.8 pg (27.0-31.2); Mean Corpuscular Volume 80.5 fl (80-94); Mean Platelet Volume 10.6 fl (7.4-10.4); Monocytes # 0.5 K/mm3 (0.1-1.0); Monocytes % 4.9 % (1.7-9.3); Neutrophils # 5.1 K/mm3 (1.8-7.8); Neutrophils % 54.5 % (37.0-80.0); Platelet Count 445 K/mm3 (142-424); Red Blood Count 5.34 M/mm3 (4.60-6.20); White Blood Count 9.4 K/mm3 (4.8-10.8)
[2024-08-13 15:27] LABS: Hemoglobin A1C 6.4 % (4.0-6.0)
== END 2024-08-13 23:59 | disposition home or self-care (01) ==
LOC: PREOP 13:26
PROVIDERS: PCP Internal Medicine; Visit Provider Anesthesiology
DX: Z01.812 Encounter for preprocedural laboratory examination (principal); A02.1 Salmonella sepsis; E08.3 Diabetes mellitus due to underlying condition with ophthalmic complications; R00.0 Tachycardia, unspecified; R94.31 Abnormal electrocardiogram [ECG] [EKG]
CPT/HCPCS: 80048; 83036; 85025; 93005

== ENCOUNTER 2024-08-16 08:06 | Day surgery (SDC) | payer MEDICARE, SELFPAY ==
[2024-08-14 10:58] VITALS: BMI 32.7
[2024-08-16] MEDS: LACTATED RINGERS 1000ML 1,000 ML 25 ML IV (08:48)
[2024-08-16 08:49] VITALS: BP 109/74; PULSE 98; RESP 16; TEMP 36.2; O2SAT 98
[2024-08-16 09:02] LABS: POC Glucose,Bedside 123 (70-110)
--- NOTE | 2024-08-16 10:32 | EXP.ANES.CKL ---
[facility] Disclaimer: The information contained in this section may have been updated after the patient was seen, as this information can be updated by other users. Medical History Abnormal EKG Acquired equinus deformity of both feet Acquired pes cavus Acute osteomyelitis of left foot Chest pain Class II obesity Constipation Crescendo angina Dermatitis Diabetes mellitus Diabetic foot Diabetic neuropathy Diastolic heart failure DKA (diabetic ketoacidoses) Edema of left lower extremity Family history of heart disease Foot pain Foot pain, left Gout Heel spur History of MRSA infection Hyperlipidemia Hypertension Hypertrophic scar Hyponatremia Impingement of left ankle joint Injury of peroneal nerve at lower leg level, left leg, subsequent encounter Keratosis Left ankle pain Left hip pain Left leg weakness Multiple joint pain Neuropathy Obesity (BMI 30-39.9) Obesity, Class II, BMI 35-39.9 [place] (obstructive sleep apnea) Osteoarthritis Osteochondral defect of talus Pain of right heel Peroneal tendinitis of left lower leg Plantar fasciitis of right foot Postoperative dehiscence of skin wound Postoperative edema Postoperative pain Primary osteoarthritis, left ankle and foot Pulmonary HTN Renal insufficiency Rhabdomyolysis Sinus tachycardia Tear of peroneal tendon of left foot Tenosynovitis of left foot Type 2 diabetes mellitus with diabetic polyneuropathy, without long-term current use of insulin Unstable angina Surgical History History of ankle surgery tendons and ligaments 01/2021, 10/2021 History of cholecystectomy History of colonoscopy History of foot surgery 01/2021, 10/2021 S/P peroneal tendon repair Status post left foot surgery Family History Other Family history of diabetes mellitus type II Family history of hypertension Social History Smoking Status: Never smoker second hand exposure: Yes alcohol intake: never substance use type: denies use current occupational status: other Travel in the last 8 weeks: None household members: significant other housing: house current occupation: . current occupational exposures/hazards: No caffeine: No Have you lived/traveled outside [place] in past 30 days?: No Contact w/someone who lives/traveled outside US past 30 days?: No Exposure to someone with infectious disease in past 14 days?: No Do you have a fever (greater than 100.4 F or 38 C)?: No Have you tested positive for COVID-19: No Exposed to someone with COVID-19 in past 14 days?: No Do you have a sore throat?: No Do you have a cough?: No Do you have any weakness?: No Do you have any diarrhea?: No Are you experiencing any unusual bleeding?: No Do you have any muscle aches/pain?: No Do you have any abdominal pain?: No Are you experiencing loss of taste or smell?: No [facility] Anesthesia Checklist Patient Identification Patient Identification: Verbal (Name & ) Structural Data Admitted From: Home Planned Operative Procedure/s: pain pump Consent for Planned Operative Procedure(s) Verified: Yes NPO Status Verified Time NPO: 00:00 Additional verifications Anesthesia Reactions: No Hx Blood Transfusions: No Blood Transfusion Reaction: No Airway Assessment Mallampati Score:: Class II C-Spine Mobility Assessed: Yes TMJ Mobility Assessed: Yes Dentition: Good Dentition Neurological Assessment Level of Consciousness: Awake, Alert and Appropriate Anesthesia Plan Anesthesia Risk discussed: Yes Anesthesia Plan: Verified ASA Class: III Anesthesia Type: MAC
[2024-08-16] MEDS: LIDOCAINE 1% W/EPI 1:100,000 20ML VIAL 40 ML (11:33)
[2024-08-16] MEDS: SODIUM CHLORIDE 0.9% 20ML VIAL 40 ML IV (11:34)
[2024-08-16] MEDS: GENTAMICIN 80 MG/2 ML VIAL (11:34)
[2024-08-16 12:10] VITALS: BP 105/94; PULSE 101; RESP 16; TEMP 36.1; O2SAT 97
[2024-08-16 12:20] VITALS: BP 116/79; PULSE 100; RESP 16; O2SAT 97
--- NOTE | 2024-08-16 12:29 | P.OP_ITS ---
Date of procedure: 08/16/24 Pre-op Diagnosis:: Degenerative disc disease of lumbar spine with lumbar radicular symptoms and right testicular pain Post-op Diagnosis:: Same Procedure performed:: Permanent placement by horse stimulator with epidural lead placement x 2 and spinal cord stimulator generator placement Surgeon:: Waylon Elizabeth MD ELECTRONICS MANUFACTURER:: Leon Joe Anesthesia: MAC Estimated blood loss (mL): 5 Clinical Note:: This patient is a pleasant 49-year-old -Citizen Of [place] male who we are treating for degenerative disease of lumbar spine with lumbar radiculopathy symptoms and right testicular pain. He has failed all previous conservative treatments including injections, oral medications, physical therapy and he is not a surgical candidate. He has had a successful psychological evaluation and a successful spinal cord stimulator trial. He presents for permanent placement of his spinal cord stimulator today. Operative findings:: None Operative note:: Informed consent was obtained risk and benefits of the procedure were explained to the patient. Patient was taken the operating placed prone on the procedure table. He was prepped and draped in sterile fashion. C-arm fluoroscopy was used to view the L2-L3 interspace. The skin and subcutaneous tissues were anesthetized using lidocaine. I made an incision dissected down to the lumbar paraspinous fascia. A 17-gauge epidural needle was inserted and advanced into the L2-L3 interspace. After confirmation of needle placement in the epidural space a stimulating lead was inserted and advanced very easily to the T7 vertebral body. The lead encompasses the entire T7 vertebral bodies. This was at midline. A second needle was inserted and advanced again into the L2-L3 interspace. Again after confirmation of needle placement in the epidural space a second stimulating lead was inserted and advanced very easily to the T11 vertebral body. Again this lead was just right of midline and encompassed the entire T11 vertebral body. Leads were found to be in good position. They were both posterior. The leads were secured to the fascia with an anchoring device and 2-0 Prolene. I created the generator pocket on the right flank. I tunneled the leads from the back to the generator pocket attached to leads to the generator. Impedances were checked and found to be okay. Both incisions were then closed with 2-0 Vicryl followed by 4-0 nylon and blake. Patient tolerated the procedure well with no complications. Patient was programmed by the [employer] claim service representative with good stimulation in all areas of pain. Patient was discharged home neurologic intact with good relief of pain symptoms. Plan and disposition: Will follow-up with this patient in 1 week for wound check and reprogram. Will follow-up in 2 to 3 weeks for suture and staple removal. Condition: stable Disposition: PACU Complications:: None
[2024-08-16 12:30] VITALS: BP 112/79; PULSE 98; RESP 18; O2SAT 96
[2024-08-16 12:40] VITALS: BP 103/56; PULSE 95; RESP 18; O2SAT 98
[2024-08-16 13:05] VITALS: BP 106/76; PULSE 90; RESP 18; TEMP 36.1; O2SAT 98
== END 2024-08-16 13:05 | disposition home or self-care (01) ==
PROVIDERS: PCP Internal Medicine; Visit Provider Anesthesiology
PROC: (CPT 63650; principal; 2024-08-16 10:05)
DX: M51.16 Intervertebral disc disorders with radiculopathy, lumbar region (principal); N50.811 Right testicular pain
CPT/HCPCS: 63650 ×2; 63685; 82962; 96374; C1778; C1820; J1580; J2250; J7120

== ENCOUNTER 2024-08-23 14:30 | Outpatient (POV) | payer MEDICARE, SELFPAY ==
[2024-08-23 14:42] VITALS: BP 112/85; PULSE 103; RESP 16; O2SAT 98; BMI 31.3
--- NOTE | 2024-08-23 15:07 | A.OFFVIS_ITS ---
[facility] Disclaimer: The information contained in this section may have been updated after the patient was seen, as this information can be updated by other users. Medical History Abnormal EKG Acquired equinus deformity of both feet Acquired pes cavus Acute osteomyelitis of left foot Chest pain Class II obesity Constipation Crescendo angina Dermatitis Diabetes mellitus Diabetic foot Diabetic neuropathy Diastolic heart failure DKA (diabetic ketoacidoses) Edema of left lower extremity Family history of heart disease Foot pain Foot pain, left Gout Heel spur History of MRSA infection Hyperlipidemia Hypertension Hypertrophic scar Hyponatremia Impingement of left ankle joint Injury of peroneal nerve at lower leg level, left leg, subsequent encounter Keratosis Left ankle pain Left hip pain Left leg weakness Multiple joint pain Neuropathy Obesity (BMI 30-39.9) Obesity, Class II, BMI 35-39.9 [place] (obstructive sleep apnea) Osteoarthritis Osteochondral defect of talus Pain of right heel Peroneal tendinitis of left lower leg Plantar fasciitis of right foot Postoperative dehiscence of skin wound Postoperative edema Postoperative pain Primary osteoarthritis, left ankle and foot Pulmonary HTN Renal insufficiency Rhabdomyolysis Sinus tachycardia Tear of peroneal tendon of left foot Tenosynovitis of left foot Type 2 diabetes mellitus with diabetic polyneuropathy, without long-term current use of insulin Unstable angina Surgical History History of ankle surgery tendons and ligaments 01/2021, 10/2021 History of cholecystectomy History of colonoscopy History of foot surgery 01/2021, 10/2021 S/P peroneal tendon repair Status post left foot surgery Family History Other Family history of diabetes mellitus type II Family history of hypertension Social History Smoking Status: Never smoker second hand exposure: Yes alcohol intake: never substance use type: denies use current occupational status: employed Travel in the last 8 weeks: None household members: significant other housing: house current occupation: . current occupational exposures/hazards: No caffeine: No PM Subjective & Objective Subjective Subjective:: Patient is a pleasant 49-year-old male who presents today for 1 week postop of spinal cord stimulator implant. Today he rates his pain a 2 out of 10. He denies any new trauma or changes from her last appointment. He states overall he is doing really well following this procedure and feels like it is continuing to provide good relief. He does state that he has forgotten how to charge the device but does feel like the programming is still doing well. Patient is currently managed with Flexeril from a outside provider. His Rajiv has been reviewed and is appropriate. Review of Systems: General: No recent weight changes, no fever, no sleep disturbances Respiratory: No cough, no shortness of air, no recurring pulmonary infections Cardiovascular/peripheral vascular: No chest pain, no palpitations, no edema, no shortness of breath Gastrointestinal: No new onset incontinence, normal bowel movements reported Genitourinary: No new onset incontinence Musculoskeletal: Low back pain, testicular pain Psychiatric: [Normal mood/affect] Neurological: [Denies weakness in extremities], [denies balance issues] Pain at rest (0-10 scale): 2 Objective Objective:: Physical Exam: General: Alert and oriented x3, no acute distress, pleasant and cooperative Lungs: Respirations even and unlabored, symmetrical chest expansion Eyes: PERRL Musculoskeletal: Flexion and extension of lumbar [spine] somewhat guarded secondary to pain, [antalgic gait noted] Neurological: Speech clear, no gross sensory deficit Skin: Incision sites are clean, dry, well-approximated with no erythema noted and sutures and blake intact Has patient had previous pain injection?: No Conservative treatment options previously tried: Home exercise plan Length of tr eatment: Longer than 12 weeks Meds Home Medications and Allergies Home Medications ?Medication ?Instructions ?Recorded ?Confirmed ?Type aspirin 81 mg tablet,delayed 81 mg PO DAILY Heart Health 01/12/21 08/23/24 History release cholecalciferol (vitamin D3) 50 50 mcg PO DAILY Supplement 09/04/23 08/23/24 History mcg (2,000 unit) tablet blood sugar diagnostic (True #50 ea 09/14/23 08/23/24 Rx Metrix Pro Test Strip) acetaminophen 300 mg-codeine 30 mg 1 tab PO BID PRN pain #60 tabs 01/29/24 08/23/24 Rx tablet empagliflozin 25 mg tablet 25 mg PO DAILY #30 tabs 07/17/24 08/23/24 Rx (Jardiance) amlodipine 5 mg tablet See Rx Instructions .Route 08/13/24 08/23/24 Rx .COMPLEX #30 tabs atorvastatin 20 mg tablet See Rx Instructions .Route 08/13/24 08/23/24 Rx .COMPLEX #30 tabs cyclobenzaprine 5 mg tablet See Rx Instructions .Route 08/13/24 08/23/24 Rx .COMPLEX #30 tabs doxepin 3 mg tablet (Silenor) 6 mg PO HS PRN sleep 08/13/24 08/23/24 History gabapentin 600 mg tablet 600 mg PO TID 08/13/24 08/23/24 History (Neurontin) losartan 50 mg tablet (Cozaar) 50 mg PO DAILY 08/13/24 08/23/24 History metoprolol succinate 200 mg See Rx Instructions .Route .COMPLEX 08/13/24 08/23/24 History tablet,extended release 24 hr (Toprol XL) pantoprazole 40 mg tablet,delayed See Rx Instructions .Route .COMPLEX 08/13/24 08/23/24 History release (Protonix) tirzepatide 10 mg/0.5 mL 10 mg SQ WEEKLY 08/13/24 08/23/24 History subcutaneous pen injector (Mounjaro) sulfamethoxazole 800 1 tab PO BID #14 tabs 08/16/24 08/23/24 Rx mg-trimethoprim 160 mg tablet (Bactrim DS) New Prescriptions to Start Prescriptions: Allergies Allergy/AdvReac Type Severity Reaction Status Date / Time daptomycin Allergy Severe Muscle Pain Verified 08/16/24 08:46 chocolate flavor (From Allergy Unknown I-RASH Verified 08/16/24 08:46 CHOCOLATE (FOOD/DRUG)) dapoxetine AdvReac Severe Muscle Verified 08/16/24 08:46 cramps vancomycin AdvReac Mild ITCHING Verified 08/16/24 08:46 adhesive tape AdvReac Hives Verified 08/16/24 08:46 Assessment and Plan *Assessment and plan (1) Right testicular pain: Status: Acute Category: Medical Code(s): N50.811 - Right testicular pain (2) Bilateral hip pain: Status: Acute Category: Medical Code(s): M25.551 - Pain in right hip; M25.552 - Pain in left hip Plan Patient has had significant improvement with his current implant. Patient was able to meet with [employer] sales representative supervisor for additional reprogramming during today's visit. He was counseled to continue his postop restrictions the full 6 weeks. Patient will return to clinic in 2 weeks for suture and staple removal. Patient has been instructed to contact the clinic with any concerns before the next appointment. Dr. Elizabeth has reviewed this note and agrees with this plan of care. This note was dictated using voice recognition software and make contain errors or omissions. All injections are used with Lidocaine, Bupivacaine and Depo Medrol. Occasionally urine drug screen is needed to verify patient's compliance with our office pain contract. This is ordered based off specific treatments related to chronic pain with the potential to abuse certain medications.
== END 2024-08-23 23:59 | disposition home or self-care (01) ==
LOC: SC.PAIN 14:30
PROVIDERS: PCP Internal Medicine; Visit Provider Nurse Practitioner Family
DX: N50.811 Right testicular pain (principal); M25.551 Pain in right hip; M25.552 Pain in left hip; Z79.899 Other long term (current) drug therapy
CPT/HCPCS: 99212; G0463

== ENCOUNTER 2024-09-06 14:32 | Outpatient (POV) | payer MEDICARE, SELFPAY ==
[2024-09-06 14:53] VITALS: BP 134/83; PULSE 107; RESP 16; O2SAT 98; BMI 31.3
--- NOTE | 2024-09-06 15:25 | A.OFFVIS_ITS ---
[facility] Disclaimer: The information contained in this section may have been updated after the patient was seen, as this information can be updated by other users. Medical History Abnormal EKG Acquired equinus deformity of both feet Acquired pes cavus Acute osteomyelitis of left foot Chest pain Class II obesity Constipation Crescendo angina Dermatitis Diabetes mellitus Diabetic foot Diabetic neuropathy Diastolic heart failure DKA (diabetic ketoacidoses) Edema of left lower extremity Family history of heart disease Foot pain Foot pain, left Gout Heel spur History of MRSA infection Hyperlipidemia Hypertension Hypertrophic scar Hyponatremia Impingement of left ankle joint Injury of peroneal nerve at lower leg level, left leg, subsequent encounter Keratosis Left ankle pain Left hip pain Left leg weakness Multiple joint pain Neuropathy Obesity (BMI 30-39.9) Obesity, Class II, BMI 35-39.9 [place] (obstructive sleep apnea) Osteoarthritis Osteochondral defect of talus Pain of right heel Peroneal tendinitis of left lower leg Plantar fasciitis of right foot Postoperative dehiscence of skin wound Postoperative edema Postoperative pain Primary osteoarthritis, left ankle and foot Pulmonary HTN Renal insufficiency Rhabdomyolysis Sinus tachycardia Tear of peroneal tendon of left foot Tenosynovitis of left foot Type 2 diabetes mellitus with diabetic polyneuropathy, without long-term current use of insulin Unstable angina Surgical History History of ankle surgery tendons and ligaments 01/2021, 10/2021 History of cholecystectomy History of colonoscopy History of foot surgery 01/2021, 10/2021 S/P peroneal tendon repair Status post left foot surgery Family History Other Family history of diabetes mellitus type II Family history of hypertension Social History Smoking Status: Never smoker second hand exposure: Yes alcohol intake: never substance use type: denies use current occupational status: other Travel in the last 8 weeks: None household members: significant other housing: house current occupation: . current occupational exposures/hazards: No caffeine: No PM Subjective & Objective Subjective Subjective:: Patient is a pleasant 49-year-old male who presents today for suture and staple removal after his spinal cord stimulator implant. Today he rates his pain a 3 out of 10 however states whenever he is up walking it immediately goes to a 5 or more. He denies any new trauma or injury. He does state that he has noticed a little bit more pain in his low back from her last visit and states that he has had increased leg symptoms of heaviness numbness when he is up walking. He does state that it is fairly constant and is interfering with his ability perform activities of daily living such as cooking and cleaning. Patient does state that the stimulator is still working well and that denies any need for adjustment on programming. Patient is currently managed with Flexeril and gabapentin from his PCP. His Rajiv has been reviewed and is appropriate. Review of Systems: General: No recent weight changes, no fever, no sleep disturbances Respiratory: No cough, no shortness of air, no recurring pulmonary infections Cardiovascular/peripheral vascular: No chest pain, no palpitations, no edema, n o shortness of breath Gastrointestinal: No new onset incontinence, normal bowel movements reported Genitourinary: No new onset incontinence Musculoskeletal: Low back pain, leg pain Psychiatric: [Normal mood/affect] Neurological: [Denies weakness in extremities], [denies balance issues] Pain at rest (0-10 scale): 5 Objective Objective:: Physical Exam: General: Alert and oriented x3, no acute distress, pleasant and cooperative Lungs: Respirations even and unlabored, symmetrical chest expansion Eyes: PERRL Musculoskeletal: Flexion and extension of lumbar [spine] somewhat guarded secondary to pain, [antalgic gait noted] positive leg raise Neurological: Speech clear, no gross sensory deficit Has patient had previous pain injection?: No Conservative treatment options previously tried: Home exercise plan Length of treatment: Longer than 12 weeks Meds Home Medications and Allergies Home Medications ?Medication ?Instructions ?Recorded ?Confirmed ?Type aspirin 81 mg tablet,delayed 81 mg PO DAILY Heart Health 01/12/21 09/06/24 History release cholecalciferol (vitamin D3) 50 50 mcg PO DAILY Supplement 09/04/23 09/06/24 History mcg (2,000 unit) tablet blood sugar diagnostic (True #50 ea 09/14/23 09/06/24 Rx Metrix Pro Test Strip) acetaminophen 300 mg-codeine 30 mg 1 tab PO BID PRN pain #60 tabs 01/29/24 09/06/24 Rx tablet empagliflozin 25 mg tablet 25 mg PO DAILY #30 tabs 07/17/24 09/06/24 Rx (Jardiance) amlodipine 5 mg tablet See Rx Instructions .Route 08/13/24 09/06/24 Rx .COMPLEX #30 tabs atorvastatin 20 mg tablet See Rx Instructions .Route 08/13/24 09/06/24 Rx .COMPLEX #30 tabs cyclobenzaprine 5 mg tablet See Rx Instructions .Route 08/13/24 09/06/24 Rx .COMPLEX #30 tabs doxepin 3 mg tablet (Silenor) 6 mg PO HS PRN sleep 08/13/24 09/06/24 History gabapentin 600 mg tablet 600 mg PO TID 08/13/24 09/06/24 History (Neurontin) losartan 50 mg tablet (Cozaar) 50 mg PO DAILY 08/13/24 09/06/24 History metoprolol succinate 200 mg See Rx Instructions .Route .COMPLEX 08/13/24 09/06/24 History tablet,extended release 24 hr (Toprol XL) pantoprazole 40 mg tablet,delayed See Rx Instructions .Route .COMPLEX 08/13/24 09/06/24 History release (Protonix) tirzepatide 10 mg/0.5 mL 10 mg SQ WEEKLY 08/13/24 09/06/24 History subcutaneous pen injector (Mounjaro) sulfamethoxazole 800 1 tab PO BID #14 tabs 08/16/24 09/06/24 Rx mg-trimethoprim 160 mg tablet (Bactrim DS) New Prescriptions to Start Prescriptions: Allergies Allergy/AdvReac Type Severity Reaction Status Date / Time daptomycin Allergy Severe Muscle Pain Verified 08/16/24 08:46 chocolate flavor (From Allergy Unknown I-RASH Verified 08/16/24 08:46 CHOCOLATE (FOOD/DRUG)) dapoxetine AdvReac Severe Muscle Verified 08/16/24 08:46 cramps vancomycin AdvReac Mild ITCHING Verified 08/16/24 08:46 adhesive tape AdvReac Hives Verified 08/16/24 08:46 Assessment and Plan *Assessment and plan (1) Lumbar radiculopathy: Status: Acute Category: Medical Code(s): M54.16 - Radiculopathy, lumbar region (2) Degenerative disc disease, lumbar: Status: Acute Category: Medical Code(s): M51.369 - Other intervertebral disc degeneration, lumbar region without mention of lumbar back pain or lower extremity pain Plan Patient is experiencing worsening pain in his low back with increasing pains of heaviness and tingling when he gets up and walks. Patient did have limited range of motion of his lumbar spine and a positive leg raise. I did discuss with patient that I do believe he may benefit from a repeat lumbar epidural steroid injection. Patient had his last injection back in May that did provide more than 50% improvement and lasted for at least 3 months. Patient states the pain is just started to mixing picker tender in the last couple of weeks. I did review over the risk and benefits and he would like to proceed forward with this plan of care. He has tried and failed conservative therapy including continued at home exercising and stretching for longer than 12 weeks. Patient was also able to have all of his sutures and blake removed with glue and Steri-Strips applied. Patient was counseled to continue his postop restrictions the full 6 weeks. Patient acknowledges understanding. Patient will be scheduled for a LESI L5-S1 under fluoroscopy. Patient has been instructed to contact the clinic with any concerns before the next appointment. Dr. Elizabeth has reviewed this note and agrees with this plan of care. This note was dictated using voice recognition software and make contain errors or omissions. All injections are used with Lidocaine, Bupivacaine and Depo Medrol. Occasionally urine drug screen is needed to verify patient's compliance with our office pain contract. This is ordered based off specific treatments related to chronic pain with the potential to abuse certain medications.
== END 2024-09-06 23:59 | disposition home or self-care (01) ==
LOC: SC.PAIN 14:34
PROVIDERS: PCP Internal Medicine; Visit Provider Nurse Practitioner Family
DX: M51.16 Intervertebral disc disorders with radiculopathy, lumbar region (principal); Z73.89 Other problems related to life management difficulty; Z79.899 Other long term (current) drug therapy
CPT/HCPCS: 99212; G0463

== ENCOUNTER 2024-09-17 09:42 | Day surgery (SDC) | payer MEDICARE, SELFPAY ==
[2024-09-17 09:56] VITALS: BP 142/83; PULSE 106; RESP 16; TEMP 36.4; O2SAT 95; BMI 31.3
[2024-09-17 10:03] LABS: POC Glucose,Bedside 149 (70-110)
[2024-09-17 10:16] VITALS: BP 133/78; PULSE 112; RESP 16; O2SAT 99
--- NOTE | 2024-09-17 10:21 | EXP.PAIN.PRO ---
Procedure Date: 09/17/24 Time: 09:15 Anesthesiologist:: Margarito Lee CRNA Complications:: None Pre-procedure Diagnosis:: Degenerative disc lumbar spine multilevels. Lumbar radiculopathy. Post-procedure Diagnosis:: Same. Indications for Procedure:: Patient is a very pleasant 49-year-old male who comes our clinic today for repeat lumbar epidural steroid injection at the L5-S1 level. Patient describes low lumbar back pain as constant, dull, aching. Patient has bilateral hip and leg radicular symptoms at times. He does have a working spinal cord stimulator. He rates his pain 7/10. Procedure Details:: Procedure: Lumbar epidural steroid injection under fluoroscopy Informed consent was obtained and the risks and benefits of the procedure were explained to the patient. The patient was taken to the procedure room and noninvasive monitors placed, including noninvasive blood pressure cuff and pulse oximeter. The back was viewed using C-arm Fluoroscopy and prepped using Chloraprep as a cleansing solution and the L5-S1 interspace was palpated. Skin and subcutaneous tissues were anesthetized using lidocaine 1.5% and a 25-gauge needle. After this, an 18-gauge Touhy epidural needle was placed into the L5-S1 interspace and advanced using fluoroscopic guidance and loss of resistance to air until the epidural space was encountered. After confirmation of needle placement in the epidural space, with dye, a solution containing normal saline, 3 mL and Depo-Medrol 80 mg were incrementally injected into the lumbar epidural space. The patient tolerated the procedure well with no complications. The patient was observed in the Pain Clinic and then discharged home neurologically intact. Plan and Disposition:: Patient was discharged without incident.
[2024-09-17] MEDS: methylPREDNISolone ACETATE 80MG/ML VIAL 80 MG (10:24)
[2024-09-17 10:25] VITALS: BP 142/83; PULSE 106; RESP 18; O2SAT 98
[2024-09-17 10:28] VITALS: BP 142/83; PULSE 106; RESP 18; O2SAT 98
== END 2024-09-17 10:16 | disposition home or self-care (01) ==
PROVIDERS: PCP Internal Medicine; Visit Provider Nurse Anesthetist, Certified Registered
DX: M51.16 Intervertebral disc disorders with radiculopathy, lumbar region (principal)
CPT/HCPCS: 62323; 82962; J1010

== ENCOUNTER 2024-10-02 11:34 | Outpatient (POV) | payer MEDICARE, SELFPAY ==
[2024-10-02 11:44] VITALS: BP 139/91; PULSE 91; RESP 16; O2SAT 100; BMI 30.4
--- NOTE | 2024-10-02 12:14 | A.OFFVIS_ITS ---
[facility] Disclaimer: The information contained in this section may have been updated after the patient was seen, as this information can be updated by other users. Medical History Abnormal EKG Acquired equinus deformity of both feet Acquired pes cavus Acute osteomyelitis of left foot Chest pain Class II obesity Constipation Crescendo angina Dermatitis Diabetes mellitus Diabetic foot Diabetic neuropathy Diastolic heart failure DKA (diabetic ketoacidoses) Edema of left lower extremity Family history of heart disease Foot pain Foot pain, left Gout Heel spur History of MRSA infection Hyperlipidemia Hypertension Hypertrophic scar Hyponatremia Impingement of left ankle joint Injury of peroneal nerve at lower leg level, left leg, subsequent encounter Keratosis Left ankle pain Left hip pain Left leg weakness Multiple joint pain Neuropathy Obesity (BMI 30-39.9) Obesity, Class II, BMI 35-39.9 [place] (obstructive sleep apnea) Osteoarthritis Osteochondral defect of talus Pain of right heel Peroneal tendinitis of left lower leg Plantar fasciitis of right foot Postoperative dehiscence of skin wound Postoperative edema Postoperative pain Primary osteoarthritis, left ankle and foot Pulmonary HTN Renal insufficiency Rhabdomyolysis Sinus tachycardia Tear of peroneal tendon of left foot Tenosynovitis of left foot Type 2 diabetes mellitus with diabetic polyneuropathy, without long-term current use of insulin Unstable angina Surgical History History of ankle surgery tendons and ligaments 01/2021, 10/2021 History of cholecystectomy History of colonoscopy History of foot surgery 01/2021, 10/2021 S/P peroneal tendon repair Status post left foot surgery Family History Other Family history of diabetes mellitus type II Family history of hypertension Social History Smoking Status: Never smoker second hand exposure: Yes alcohol intake: never substance use type: denies use current occupational status: disabled Travel in the last 8 weeks: None household members: significant other housing: house current occupation: . current occupational exposures/hazards: No caffeine: No PM Subjective & Objective Subjective Subjective:: Patient is a pleasant 49-year-old male who presents today for follow-up of lumbar epidural steroid injection L5-S1 on 09/17/2024. He rates his pain today a 4 out of 10. Patient states that he is having episodes of cold and hot flashes. He states he feels like this is very similar to when he had infection in his left foot and ankle and ended up having to be hospitalized. He does state that he has been typically getting lab work in the past on a regular basis and is scheduled to see his primary care in and around the middle of October. He does state that Dr. Dale had discussed with him that if he ended up having worsening symptoms where he felt like it was similar in nature to let her office know for additional labs. Patient does state that his stimulator is working well and that his only issue is still some charging problems from time to time where he gives a Bluetooth error.. Patient does state that he has been having a little bit more mid back pain. He denies any recent imaging. Patient is prescribed compounded cream from our office and has been tried on tizanidine 4 mg at bedtime. He does state that he finds that the Flexeril and gabapentin from his primary care help and the spasms he has been experiencing in and around his mid back do seem to work well with the Flexeril during the day however the tizanidine does really work better at night and is asking if this is okay. Patient does also make mention that he has tried the compounded cream from our office in the past and he did notice a little bit more itching. He states he discontinued it but is going to try it again. His Rajiv has been reviewed and is appropriate. Review of Systems: General: No recent weight changes, no fever, no sleep disturbances Respiratory: No cough, no shortness of air, no recurring pulmonary infections Cardiovascular/peripheral vascular: No chest pain, no palpitations, no edema, no shortness of breath Gastrointestinal: No new onset incontinence, normal bowel movements reported Genitourinary: No new onset incontinence Musculoskeletal: Mid back pain, hot and cold chills Psychiatric: [Normal mood/affect] Neurological: [Denies weakness in extremities], [denies balance issues] Pain at rest (0-10 scale): 4 Objective Objective:: Physical Exam: General: Alert and oriented x3, no acute distress, pleasant and cooperative Lungs: Respirations even and unlabored, symmetrical chest expansion Eyes: PERRL Musculoskeletal: Flexion and extension of thoracic [spine] somewhat guarded secondary to pain, [antalgic gait noted] Neurological: Speech clear, no gross sensory deficit Has patient had previous pain injection?: Yes Percent improvement in pain since last injection: Minimal Conservative treatment options previously tried: Home exercise plan Length of treatment: Longer than 12 weeks Meds Home Medications and Allergies Home Medications ?Medication ?Instructions ?Recorded ?Confirmed ?Type aspirin 81 mg tablet,delayed 81 mg PO DAILY Heart Health 01/12/21 10/02/24 History release cholecalciferol (vitamin D3) 50 50 mcg PO DAILY Supplement 09/04/23 10/02/24 History mcg (2,000 unit) tablet blood sugar diagnostic (True #50 ea 09/14/23 10/02/24 Rx Metrix Pro Test Strip) acetaminophen 300 mg-codeine 30 mg 1 tab PO BID PRN pain #60 tabs 01/29/24 10/02/24 Rx tablet empagliflozin 25 mg tablet 25 mg PO DAILY #30 tabs 07/17/24 10/02/24 Rx (Jardiance) doxepin 3 mg tablet (Silenor) 6 mg PO HS PRN sleep 08/13/24 10/02/24 History gabapentin 600 mg tablet 600 mg PO TID 08/13/24 10/02/24 History (Neurontin) amlodipine 5 mg tablet See Rx Instructions .Route 09/11/24 10/02/24 Rx .COMPLEX #30 tabs atorvastatin 20 mg tablet See Rx Instructions .Route 09/11/24 10/02/24 Rx .COMPLEX #30 tabs cyclobenzaprine 5 mg tablet See Rx Instructions .Route 09/11/24 10/02/24 Rx .COMPLEX #30 tabs losartan 50 mg tablet See Rx Instructions .Route 09/11/24 10/02/24 Rx .COMPLEX #30 tabs metoprolol succinate 200 mg See Rx Instructions .Route 09/11/24 10/02/24 Rx tablet,extended release 24 hr .COMPLEX #30 tabs pantoprazole 40 mg tablet,delayed See Rx Instructions .Route 09/11/24 10/02/24 Rx release .COMPLEX #30 tabs tirzepatide 10 mg/0.5 mL See Rx Instructions .Route 09/11/24 10/02/24 Rx subcutaneous pen injector .COMPLEX #2 mL (Ramiro) New Prescriptions to Start Prescriptions: Allergies Allergy/AdvReac Type Severity Reaction Status Date / Time daptomycin Allergy Severe Muscle Pain Verified 09/17/24 09:57 chocolate flavor (From Allergy Unknown I-RASH Verified 09/17/24 09:57 CHOCOLATE (FOOD/DRUG)) dapoxetine AdvReac Severe Muscle Verified 09/17/24 09:57 cramps vancomycin AdvReac Mild ITCHING Verified 09/17/24 09:57 adhesive tape AdvReac Hives Verified 09/17/24 09:57 Assessment and Plan *Assessment and plan (1) Mid back pain: Status: Acute Category: Medical Code(s): M54.9 - Dorsalgia, unspecified Plan I will order x-ray imaging of his mid back. I did also go over with him regarding his previous infection and it does appear that he had osteomyelitis in the past. I did discuss with him that I will go ahead and order a x-ray imaging of his foot and ankle as well. We did discuss ordering lab work. Patient states he does not have time today but we will plan on coming back up in the morning for all of this. Patient was counseled that we can continue the tizanidine at bedtime's and not to double up taking the tizanidine and Flexeril at the same time. Patient was also recommended if he ends up still having itching with the compound cream that we can change the medication combination to see if this is improved. We will follow-up with this in future visits. Patient will be given a tentative 1 month appointment. Patient has been instructed to contact the clinic with any concerns before the next appointment. Dr. Elizabeth has reviewed this note and agrees with this plan of care. This note was dictated using voice recognition software and make contain errors or omissions. All injections are used with Lidocaine, Bupivacaine and Depo Medrol. Occasionally urine drug screen is needed to verify patient's compliance with our office pain contract. This is ordered based off specific treatments related to chronic pain with the potential to abuse certain medications.
== END 2024-10-02 23:59 | disposition home or self-care (01) ==
PROVIDERS: PCP Internal Medicine; Visit Provider Nurse Practitioner Family
DX: M54.9 Dorsalgia, unspecified (principal); M86.172 Other acute osteomyelitis, left ankle and foot
CPT/HCPCS: 99212; G0463

== ENCOUNTER 2024-10-14 07:39 | Outpatient (CLI) | payer MEDICARE, SELFPAY ==
--- NOTE | 2024-10-14 07:42 | XR_ITS ---
FINAL REPORT CLINICAL HISTORY: increased mid back pain FINDINGS: THORACIC SPINE 2 views were obtained. There is spinal stimulator leads positioned at the T8 and T12 vertebrae. There is no acute fracture. Vertebrae are normal height. There is no malalignment. There are minimal hypertrophic changes of degenerative disc disease in the lower thoracic spine. There is no soft tissue abnormality. IMPRESSION: No acute bony abnormality. Reviewed, Interpreted and Dictated by Joaquim Montalvo MD Transcribed by Marley Syed Authenticated and [facility]
--- NOTE | 2024-10-14 07:42 | XR_ITS ---
FINAL REPORT CLINICAL HISTORY: hx osteomyelitis, increased pain FINDINGS: LEFT ANKLE 2 views were obtained. There is been prior, partial amputation of the inferior posterior calcaneus. Orthopedic hardware is seen within the medial and lateral malleoli and the base of the fifth metatarsal. There are orthopedic blake and a healed osteotomy of the proximal first metatarsal. No acute fracture is seen. IMPRESSION: Postoperative changes with no acute bony abnormality. Reviewed, Interpreted and Dictated by Joaquim Montalvo MD Transcribed by Marley Syed Authenticated and . [facility]
--- NOTE | 2024-10-14 07:42 | XR_ITS ---
FINAL REPORT CLINICAL HISTORY: hx osteomyelitis, increased pain FINDINGS: LEFT FOOT 2 views were obtained. There is been prior, partial amputation of the inferior posterior calcaneus. Orthopedic hardware is seen within the medial and lateral malleoli and the base of the fifth metatarsal. There are orthopedic blake and a healed osteotomy of the proximal first metatarsal. No acute fracture is seen. IMPRESSION: Postoperative changes with no acute bony abnormality. Reviewed, Interpreted and Dictated by Joaquim Montalvo MD Transcribed by Marley Syed Authenticated and [facility]
== END 2024-10-14 23:59 | disposition home or self-care (01) ==
LOC: RAD 07:41
PROVIDERS: PCP Internal Medicine; Visit Provider Nurse Practitioner Family
DX: M86.172 Other acute osteomyelitis, left ankle and foot (principal); M54.9 Dorsalgia, unspecified
CPT/HCPCS: 72072; 73610; 73620

== ENCOUNTER 2024-10-30 10:19 | Outpatient (POV) | payer MEDICARE, SELFPAY ==
[2024-10-30 10:43] VITALS: BP 135/76; PULSE 84; RESP 16; O2SAT 99; BMI 31.9
--- NOTE | 2024-10-30 10:53 | A.OFFVIS_ITS ---
[facility] Disclaimer: The information contained in this section may have been updated after the patient was seen, as this information can be updated by other users. 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, left leg, subsequent encounter Primary osteoarthritis, left ankle and foot Hypertrophic scar Neuropathy Left leg weakness Acquired pes cavus Left hip pain Multiple joint pain Postoperative pain Postoperative edema Tenosynovitis of left foot Acquired equinus deformity of both feet Tear of peroneal tendon of left foot Impingement of left ankle joint Osteochondral defect of talus Type 2 diabetes mellitus with diabetic polyneuropathy, without long-term current use of insulin Foot pain Diastolic heart failure Crescendo angina Pulmonary HTN Abnormal EKG Family history of heart disease Unstable angina Sinus tachycardia Chest pain Osteoarthritis Heel spur Edema of left lower extremity Diabetic foot Gout Peroneal tendinitis of left lower leg Pain of right heel Plantar fasciitis of right foot Obesity (BMI 30-39.9) Dermatitis Diabetes mellitus Class II obesity Hyponatremia DKA (diabetic ketoacidoses) Renal insufficiency Hyperlipidemia Hypertension Surgical History History of colonoscopy History of cholecystectomy History of foot surgery 01/2021, 10/2021 History of ankle surgery tendons and ligaments 01/2021, 10/2021 Status post left foot surgery S/P peroneal tendon repair Family History Other Family history of diabetes mellitus type II Family history of hypertension Social History Smoking Status: Never smoker second hand exposure: Yes alcohol intake: current alcohol intake frequency: holidays/special occasions only substance use type: denies use current occupational status: other Travel in the last 8 weeks: None household members: significant other housing: house current occupation: . current occupational exposures/hazards: No caffeine: No PM Subjective & Objective Subjective Subjective:: Patient is a pleasant 49-year-old male who presents today for worsening pain along his right hip. Today he rates it at a 4 or 5 out of 10. Patient denies any new falls or injuries. Patient does state the pain is fairly constant and is going into his right groin. He does state the pain is interfering with activities of daily living such as cooking and cleaning. He does state that he is using his tizanidine at bedtime and Flexeril during the day as well as has h ad to start using his tramadol. Patient has continued his compounded cream and does have his [employer] spinal cord stimulator in place. Patient Rajiv has been reviewed and is appropriate. Review of Systems: General: No recent weight changes, no fever, no sleep disturbances Respiratory: No cough, no shortness of air, no recurring pulmonary infections Cardiovascular/peripheral vascular: No chest pain, no palpitations, no edema, no shortness of breath Gastrointestinal: No new onset incontinence, normal bowel movements reported Genitourinary: No new onset incontinence Musculoskeletal: Low back pain, right hip pain, right groin pain Psychiatric: [Normal mood/affect] Neurological: [Denies weakness in extremities], [denies balance issues] Pain at rest (0-10 scale): 5 Objective Objective:: Physical Exam: General: Alert and oriented x3, no acute distress, pleasant and cooperative Lungs: Respirations even and unlabored, symmetrical chest expansion Eyes: PERRL Musculoskeletal: Flexion and extension of lumbar [spine] somewhat guarded secondary to pain, [antalgic gait noted] point tenderness along right SI with positive right Carlos Manuel's, Magalys's, Gaenslen's, compression and distraction exam Neurological: Speech clear, no gross sensory deficit Has patient had previous pain injection?: No Conservative treatment options previously tried: Home exercise plan Length of treatment: Longer than 12 weeks Meds Home Medications and Allergies Home Medications ?Medication ?Instructions ?Recorded ?Confirmed ?Type aspirin 81 mg tablet,delayed 81 mg PO DAILY Heart Health 01/12/21 10/30/24 History release cholecalciferol (vitamin D3) 50 50 mcg PO DAILY Supplement 09/04/23 10/30/24 History mcg (2,000 unit) tablet blood sugar diagnostic (True #50 ea 09/14/23 10/30/24 Rx Metrix Pro Test Strip) amlodipine 5 mg tablet See Rx Instructions .Route 10/08/24 10/30/24 Rx .COMPLEX #30 tabs atorvastatin 20 mg tablet See Rx Instructions .Route 10/08/24 10/30/24 Rx .COMPLEX #30 tabs empagliflozin 25 mg tablet 25 mg PO DAILY #30 tabs 10/08/24 10/30/24 Rx (Jardiance) gabapentin 600 mg tablet 600 mg PO TID #90 tabs 10/08/24 10/30/24 Rx (Neurontin) losartan 50 mg tablet See Rx Instructions .Route 10/08/24 10/30/24 Rx .COMPLEX #30 tabs metoprolol succinate 200 mg See Rx Instructions .Route 10/08/24 10/30/24 Rx tablet,extended release 24 hr .COMPLEX #30 tabs pantoprazole 40 mg tablet,delayed See Rx Instructions .Route 10/08/24 10/30/24 Rx release .COMPLEX #30 tabs tirzepatide 10 mg/0.5 mL See Rx Instructions .Route 10/08/24 10/30/24 Rx subcutaneous pen injector .COMPLEX #2 mL (Mounjaro) cyclobenzaprine 10 mg tablet 10 mg PO HS PRN muscle spasm #30 10/16/24 10/30/24 Rx tabs levocetirizine 5 mg tablet 5 mg PO DAILY #30 tabs 10/16/24 10/30/24 Rx (Allergy Relief (levocetirizine)) promethazine 12.5 mg tablet 12.5 mg PO Q6H PRN nausea and 10/30/24 10/30/24 Rx vomiting #30 tabs New Prescriptions to Start Prescriptions: Allergies Allergy/AdvReac Type Severity Reaction Status Date / Time daptomycin Allergy Severe Muscle Pain Verified 10/30/24 09:28 chocolate flavor (From Allergy Unknown I-RASH Verified 10/30/24 09:28 CHOCOLATE (FOOD/DRUG)) dapoxetine AdvReac Severe Muscle Verified 10/30/24 09:28 cramps vancomycin AdvReac Mild ITCHING Verified 10/30/24 09:28 adhesive tape AdvReac Hives Verified 10/30/24 09:28 Assessment and Plan *Assessment and plan (1) Sacroiliitis: Status: Acute Category: Medical Code(s): M46.1 - Sacroiliitis, not elsewhere classified Plan Patient is experiencing worsening pain along the low back and bilateral hips. They did have limited range of motion of the lumbar spine along with point tenderness along right SI joint and a positive right Carlos Manuel's, Magalys's, Gaenslen's, compression and distraction exam. I did discuss with the patient that I do believe they would benefit from right SI injections. Risk and benefits were discussed with the patient and they would like to proceed forward with this option. Patient has tried and failed conservative therapy including continued at home stretching exercise for longer than 12 weeks between injection. I will also reach out to [facility] and see about getting him reprogrammed with his stimulator to target the sacroiliitis issues. Patient was also reviewed over his x-ray imaging findings of his thoracic spine as well as his left ankle. Patient has had chronic sacroiliitis and has had injection therapy in the past that did provide significant improvement. His last injection was in April 2024 that did provide 100% relief. Patient has had this pain for longer than 3 months. His prior SI injection has provided more significant relief over the first 2 weeks however did still help for an additional 3 months to where the pain was not as severe. Patient will be scheduled for right SI injections under fluoroscopy. Patient has been instructed to contact the clinic with any concerns before the next appointment. Dr. Elizabeth has reviewed this note and agrees with this plan of care. This note was dictated using voice recognition software and make contain errors or omissions. All injections are used with Lidocaine or Bupivacaine and Depo Medrol.
== END 2024-10-30 23:59 | disposition home or self-care (01) ==
LOC: SC.PAIN 10:21
PROVIDERS: PCP Internal Medicine; Visit Provider Nurse Practitioner Family
DX: M46.1 Sacroiliitis, not elsewhere classified (principal); Z73.89 Other problems related to life management difficulty
CPT/HCPCS: 99212; G0463

== ENCOUNTER 2024-11-06 14:05 | Outpatient (CLI) | payer MEDICARE, SELFPAY ==
[2024-11-06 14:25] VITALS: BP 107/79; PULSE 72
[2024-11-06] MEDS: KETOROLAC 30MG/ML VIAL 15 MG IM (14:25)
[2024-11-06 14:28] LABS: Basophils # 0.1 K/mm3 (0-0.2); Basophils % 0.6 % (0.1-2.0); Eosinophils # 0.1 K/mm3 (0.0-0.4); Eosinophils % 0.7 % (0.1-12.0); Hematocrit 41.9 % (42.0-52.0); Hemoglobin 13.8 g/dL (14.1-18.0); Lymphocytes % 36.9 % (10-50); Mean Corpuscular HGB Conc 32.9 g/dL (31.8-35.4); Mean Corpuscular Hemoglobin 27.1 pg (27.0-31.2); Mean Corpuscular Volume 82.3 fl (80-94); Mean Platelet Volume 10.5 fl (7.4-10.4); Monocytes # 0.5 K/mm3 (0.1-1.0); Monocytes % 4.9 % (1.7-9.3); Neutrophils # 6.2 K/mm3 (1.8-7.8); Neutrophils % 56.4 % (37.0-80.0); Platelet Count 388 K/mm3 (142-424); Red Blood Count 5.09 M/mm3 (4.60-6.20); Red Cell Distribution Width 14.5 % (11.5-17.5); White Blood Count 10.9 K/mm3 (4.8-10.8)
[2024-11-06 15:06] LABS: Anion Gap 11.7 mEq/L (5-15); Blood Urea Nitrogen 7 mg/dl (9-20); Calcium 9.1 mg/dl (8.4-10.2); Carbon Dioxide 26 mmol/L (22.0-30.0); Chloride 106 mmol/L (98-107); Estimated Glomerular Filt Rate 65 ml/min (>60); GFR (African American) 78 ML/MIN (>60); Glucose 100 mg/dl (74-100); Potassium 3.7 mmoL/L (3.5-5.1); Sodium 140 mmol/L (136-145)
== END 2024-11-06 14:50 | disposition home or self-care (01) ==
LOC: INF 14:06
PROVIDERS: PCP Internal Medicine; Visit Provider Surgery
DX: K46.9 Unspecified abdominal hernia without obstruction or gangrene (principal); K42.9 Umbilical hernia without obstruction or gangrene
CPT/HCPCS: 80048; 85025; 96372; J1885

== ENCOUNTER 2024-11-14 09:11 | Outpatient (POV) | payer MEDICARE, SELFPAY ==
--- NOTE | 2024-11-14 10:07 | EXP.PAIN.SOA ---
[facility] Disclaimer: The information contained in this section may have been updated after the patient was seen, as this information can be updated by other users. 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, left leg, subsequent encounter Primary osteoarthritis, left ankle and foot Hypertrophic scar Neuropathy Left leg weakness Acquired pes cavus Left hip pain Multiple joint pain Postoperative pain Postoperative edema Tenosynovitis of left foot Acquired equinus deformity of both feet Tear of peroneal tendon of left foot Impingement of left ankle joint Osteochondral defect of talus Type 2 diabetes mellitus with diabetic polyneuropathy, without long-term current use of insulin Foot pain Diastolic heart failure Crescendo angina Pulmonary HTN Abnormal EKG Family history of heart disease Unstable angina Sinus tachycardia Chest pain Osteoarthritis Heel spur Edema of left lower extremity Diabetic foot Gout Peroneal tendinitis of left lower leg Pain of right heel Plantar fasciitis of right foot Obesity (BMI 30-39.9) Dermatitis Diabetes mellitus Class II obesity Hyponatremia DKA (diabetic ketoacidoses) Renal insufficiency Hyperlipidemia Hypertension Surgical History History of colonoscopy History of cholecystectomy History of foot surgery 01/2021, 10/2021 History of ankle surgery tendons and ligaments 01/2021, 10/2021 Status post left foot surgery S/P peroneal tendon repair Family History Other Family history of diabetes mellitus type II Family history of hypertension Social History Smoking Status: Never smoker second hand exposure: Yes alcohol intake: current alcohol intake frequency: holidays/special occasions only substance use type: denies use current occupational status: other Travel in the last 8 weeks: None household members: significant other housing: house current occupation: . current occupational exposures/hazards: No caffeine: No Have you lived/traveled outside [place] in past 30 days?: No Contact w/someone who lives/traveled outside [place] past 30 days?: No Exposure to someone with infectious disease in past 14 days?: No Do you have a fever (greater than 100.4 F or 38 C)?: No Have you tested positive for COVID-19: No Exposed to someone with COVID-19 in past 14 days?: No Do you have a sore throat?: No Do you have a cough?: No Do you have any weakness?: No Do you have any diarrhea?: No Are you experiencing any unusual bleeding?: No Do you have any muscle aches/pain?: No Do you have any abdominal pain?: No Are you experiencing loss of taste or smell?: No PM Subjective & Objective Subjective Subjective:: Patient is a pleasant 49-year-old male who presents today for follow-up and [employer] reprogramming of his spinal cord stimulator. Today he does rate his pain a 2 out of 10. He denies any new trauma or injury. He does state that he is still having that same pain that we saw him at his last visit for and got him scheduled for a right SI injection. He states that the pain is so much worse with prolonged sitting and that he does still have to frequently change positions due to the worsening pain. Patient is scheduled for that injection next week. He does state that he has also been having a lot of left leg heaviness. 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 He states that he initially tried magnesium but it really affected his stomach. He states that Dr. Dale did want him to discuss with's whether or not starting him on the restless leg medication. He states in the past he has been on this medication however the symptoms went away and he never really needed it again. His Rajiv has been reviewed and is appropriate. Review of Systems: General: No recent weight changes, no fever, no sleep disturbances Respiratory: No cough, no shortness of air, no recurring pulmonary infections Cardiovascular/peripheral vascular: No chest pain, no palpitations, no edema, no shortness of breath Gastrointestinal: No new onset incontinence, normal bowel movements reported Genitourinary: No new onset incontinence Musculoskeletal: Low back right-sided, right hip pain, left leg heaviness Psychiatric: [Normal mood/affect] Neurological: [Denies weakness in extremities], [denies balance issues] Pain at rest (0-10 scale): 2 Objective Objective:: Physical Exam: General: Alert and oriented x3, no acute distress, pleasant and cooperative Lungs: Respirations even and unlabored, symmetrical chest expansion Eyes: PERRL Musculoskeletal: Flexion and extension of lumbar [spine] somewhat guarded secondary to pain, [antalgic gait noted] point tenderness along right SI with positive right Carlos Manuel's, Magalys's, Gaenslen's, compression and distraction exam Neurological: Speech clear, no gross sensory deficit Has patient had previous pain injection?: No Conservative treatment options previously tried: Home exercise plan Length of treatment: Longer than 12 weeks Meds Home Medications and Allergies Home Medications ?Medication ?Instructions ?Recorded ?Confirmed ?Type aspirin 81 mg tablet,delayed 81 mg PO DAILY Heart Health 01/12/21 11/11/24 History release cholecalciferol (vitamin D3) 50 50 mcg PO DAILY Supplement 09/04/23 11/11/24 History mcg (2,000 unit) tablet blood sugar diagnostic (True #50 ea 09/14/23 11/11/24 Rx Metrix Pro Test Strip) empagliflozin 25 mg tablet 25 mg PO DAILY #30 tabs 10/08/24 11/11/24 Rx (Jardiance) gabapentin 600 mg tablet 600 mg PO TID #90 tabs 10/08/24 11/11/24 Rx (Neurontin) levocetirizine 5 mg tablet 5 mg PO DAILY #30 tabs 10/16/24 11/11/24 Rx (Allergy Relief (levocetirizine)) promethazine 12.5 mg tablet 12.5 mg PO Q6H PRN nausea and 10/30/24 11/11/24 Rx vomiting #30 tabs ketorolac 10 mg tablet 10 mg PO Q8H 5 days #15 tabs 11/06/24 11/11/24 Rx amlodipine 5 mg tablet See Rx Instructions .Route 11/07/24 11/11/24 Rx .COMPLEX #90 tabs atorvastatin 20 mg tablet See Rx Instructions .Route 11/07/24 11/11/24 Rx .COMPLEX #90 tabs cyclobenzaprine 5 mg tablet See Rx Instructions .Route 11/07/24 11/11/24 Rx .COMPLEX #30 tabs losartan 50 mg tablet See Rx Instructions .Route 11/07/24 11/11/24 Rx .COMPLEX #90 tabs metoprolol succinate 200 mg See Rx Instructions .Route 11/07/24 11/11/24 Rx tablet,extended release 24 hr .COMPLEX #90 tabs pantoprazole 40 mg tablet,delayed See Rx Instructions .Route 11/07/24 11/11/24 Rx release .COMPLEX #90 tabs tirzepatide 10 mg/0.5 mL See Rx Instructions .Route 11/07/24 11/11/24 Rx subcutaneous pen injector .COMPLEX #2 mL (Mounjaro) New Prescriptions to Start Prescriptions: Allergies Allergy/AdvReac Type Severity Reaction Status Date / Time daptomycin Allergy Severe Muscle Pain Verified 11/11/24 14:06 chocolate flavor (From Allergy Unknown I-RASH Verified 11/11/24 14:06 CHOCOLATE (FOOD/DRUG)) dapoxetine AdvReac Severe Muscle Verified 11/11/24 14:06 cramps vancomycin AdvReac Mild ITCHING Verified 11/11/24 14:06 adhesive tape AdvReac Hives Verified 11/11/24 14:06 Assessment and Plan *Assessment and plan (1) Sacroiliitis: Status: Acute Category: Medical Code(s): M46.1 - Sacroiliitis, not elsewhere classified Plan Patient was able to be reprogrammed by [employer] healthcare representative with better coverage. We did discuss regarding the leg heaviness that we will send in a 2-week dose of ropinirole 0.25 mg at bedtime. Patient is scheduled for his right SI injection next week and we will follow-up with him following this injection. Patient has been instructed to contact the clinic with any concerns before the next appointment. Dr. Elizabeth has reviewed this note and agrees with this plan of care. This note was dictated using voice recognition software and make contain errors or omissions. All injections are used with Lidocaine, Bupivacaine and Depo Medrol. Occasionally urine drug screen is needed to verify patient's compliance with our office pain contract. This is ordered based off specific treatments related to chronic pain with the potential to abuse certain medications.
[2024-11-14 10:14] VITALS: BP 133/85; PULSE 97; RESP 14; O2SAT 99; BMI 31.9
== END 2024-11-14 23:59 | disposition home or self-care (01) ==
PROVIDERS: PCP Internal Medicine; Visit Provider Nurse Practitioner Family
DX: M46.1 Sacroiliitis, not elsewhere classified (principal)
CPT/HCPCS: 99212; G0463

== ENCOUNTER 2024-11-19 10:03 | Day surgery (SDC) | payer MEDICARE, SELFPAY ==
[2024-11-19 10:23] VITALS: BP 113/71; PULSE 96; RESP 16; O2SAT 100; BMI 31.9
[2024-11-19 10:43] VITALS: BP 114/69; PULSE 91; RESP 16; O2SAT 99
--- NOTE | 2024-11-19 10:59 | EXP.PAIN.PRO ---
Procedure Date: 11/19/24 Time: 10:40 Anesthesiologist:: Margarito Lee CRNA Complications:: None Pre-procedure Diagnosis:: Right sacroiliitis Post-procedure Diagnosis:: Same Indications for Procedure:: Patient is a very pleasant 49-year-old male who comes our clinic today for right sacroiliac joint injection of cortisone and local anesthetic. Patient describes right low lumbar back pain. Right posterior hip pain. Difficulty with ambulation due to right posterior hip pain. He rates his pain 6/10. Procedure Details:: Procedure: Right sacroliliac joint injection under fluoroscopy Informed consent was obtained and the risk and benefits of the procedure were explained to the patient.~ The patient was taken to the procedure room and noninvasive monitors were placed including noninvasive blood pressure cuff and pulse oximeter.~ The patient was placed prone on the procedure table.~ The~ right hip was cleansed using Betadine as a cleansing solution.~ C-arm fluorosocpy was used to view the right SI joint.~ The skin and subcutaneous tissues were anesthetized using Lidocaine 1.5% and a 25-gauge needle.~ After this, a 22-gauge spinal needle was inserted under fluoroscopic guidance into the inferior aspect of the right SI joint.~ Omnipaque dye was injected and a good spread was seen throughout the joint.~ After this, approximately 5 mL of bupivacaine 0.25% and Depo-Medrol 40 mg was incrementally injected into the sacroiliac joint.~ The patient tolerated the procedure well with no complications.~ The patient was observed in the Pain Clinic, then discharged home neurologically intact.~ Plan and Disposition:: Patient was discharged without incident.
[2024-11-19 11:10] VITALS: BP 113/71; PULSE 96; RESP 18; O2SAT 100
[2024-11-19] MEDS: BUPIVACAINE 0.25% 10ML INJ 25 MG IJ (11:10)
[2024-11-19] MEDS: methylPREDNISolone ACETATE 80MG/ML VIAL 80 MG (11:10)
[2024-11-19] MEDS: LIDOCAINE 1% 5ML PF VIAL 5 ML (11:10)
[2024-11-19 11:15] VITALS: BP 113/71; PULSE 96; RESP 18; O2SAT 100
== END 2024-11-19 10:43 | disposition home or self-care (01) ==
PROVIDERS: PCP Internal Medicine; Visit Provider Nurse Anesthetist, Certified Registered
DX: M46.1 Sacroiliitis, not elsewhere classified (principal)
CPT/HCPCS: 27096; G0260; J1010

== ENCOUNTER 2024-12-02 11:18 | Outpatient (POV) | payer MEDICARE, SELFPAY ==
--- NOTE | 2024-12-02 11:23 | EXP.PAIN.SOA ---
[facility] Disclaimer: The information contained in this section may have been updated after the patient was seen, as this information can be updated by other users. 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, left leg, subsequent encounter Primary osteoarthritis, left ankle and foot Hypertrophic scar Neuropathy Left leg weakness Acquired pes cavus Left hip pain Multiple joint pain Postoperative pain Postoperative edema Tenosynovitis of left foot Acquired equinus deformity of both feet Tear of peroneal tendon of left foot Impingement of left ankle joint Osteochondral defect of talus Type 2 diabetes mellitus with diabetic polyneuropathy, without long-term current use of insulin Foot pain Diastolic heart failure Crescendo angina Pulmonary HTN Abnormal EKG Family history of heart disease Unstable angina Sinus tachycardia Chest pain Osteoarthritis Heel spur Edema of left lower extremity Diabetic foot Gout Peroneal tendinitis of left lower leg Pain of right heel Plantar fasciitis of right foot Obesity (BMI 30-39.9) Dermatitis Diabetes mellitus Class II obesity Hyponatremia DKA (diabetic ketoacidoses) Renal insufficiency Hyperlipidemia Hypertension Surgical History History of colonoscopy History of cholecystectomy History of foot surgery 01/2021, 10/2021 History of ankle surgery tendons and ligaments 01/2021, 10/2021 Status post left foot surgery S/P peroneal tendon repair Family History Other Family history of diabetes mellitus type II Family history of hypertension Social History Smoking Status: Never smoker second hand exposure: Yes alcohol intake: current alcohol intake frequency: holidays/special occasions only substance use type: denies use current occupational status: disabled Travel in the last 8 weeks: None household members: significant other housing: house current occupation: . current occupational exposures/hazards: No caffeine: No PM Subjective & Objective Subjective Subjective:: Patient is a pleasant 49-year-old male who presents today for follow-up of right SI injection on 11/19/2024. Today he rates his pain a 3 out of 10. He denies any new trauma or injury. He does state that he has approximately 80 percent improvement following this injection. He does state that he does not have the pain like what he had previously. He does however state that he does notice still some pressure in and around that same area and that he does feel like when he sits if he crosses his leg it does seem to relieve that. Patient does state overall he feels much more manageable. Patient does have a [employer] stimulator that is working well. He denies any other changes. Patient was given a 2-week supply of the ropinirole 0.25 mg at bedtime for increased cramping and leg heaviness. Today he states that this did it did really seem to help. He states that typically he has been using the Flexeril at night and the ropinirole and it is working well. He does make mention that his primary care did take him off [id number] and that since then he has been running his sugar around 200-270. He states he is scheduled for follow-up with that office coming up. Patient has been prescribed compounded cream from our office. He states he does not use that as much as of lately due to the warmer weather and sweating a lot. His Rajiv has been reviewed and is appropriate. Review of Systems: General: No recent weight changes, no fever, no sleep disturbances Respiratory: No cough, no shortness of air, no recurring pulmonary infections Cardiovascular/peripheral vascular: No chest pain, no palpitations, no edema, no shortness of breath Gastrointestinal: No new onset incontinence, normal bowel movements reported Genitourinary: No new onset incontinence Musculoskeletal: Right-sided pressure low back Psychiatric: [Normal mood/affect] Neurological: [Denies weakness in extremities], [denies balance issues] Pain at rest (0-10 scale): 3 Objective Objective:: Physical Exam: General: Alert and oriented x3, no acute distress, pleasant and cooperative Lungs: Respirations even and unlabored, symmetrical chest expansion Eyes: PERRL Musculoskeletal: Flexion and extension of Lumbar spine within normal limits Neurological: Speech clear, no gross sensory deficit Has patient had previous pain injection?: Yes Percent improvement in pain since last injection: 80% Conservative treatment options previously tried: Home exercise plan Length of treatment: Longer than 12 weeks Meds Home Medications and Allergies Home Medications ?Medication ?Instructions ?Recorded ?Confirmed ?Type aspirin 81 mg tablet,delayed 81 mg PO DAILY Heart Health 01/12/21 11/20/24 History release cholecalciferol (vitamin D3) 50 50 mcg PO DAILY Supplement 09/04/23 11/20/24 History mcg (2,000 unit) tablet blood sugar diagnostic (True #50 ea 09/14/23 11/20/24 Rx Metrix Pro Test Strip) empagliflozin 25 mg tablet 25 mg PO DAILY #30 tabs 10/08/24 11/20/24 Rx (Jardiance) gabapentin 600 mg tablet 600 mg PO TID #90 tabs 10/08/24 11/20/24 Rx (Neurontin) levocetirizine 5 mg tablet 5 mg PO DAILY #30 tabs 10/16/24 11/20/24 Rx (Allergy Relief (levocetirizine)) promethazine 12.5 mg tablet 12.5 mg PO Q6H PRN nausea and 10/30/24 11/20/24 Rx vomiting #30 tabs ketorolac 10 mg tablet 10 mg PO Q8H 5 days #15 tabs 11/06/24 11/20/24 Rx amlodipine 5 mg tablet See Rx Instructions .Route 11/07/24 11/20/24 Rx .COMPLEX #90 tabs atorvastatin 20 mg tablet See Rx Instructions .Route 11/07/24 11/20/24 Rx .COMPLEX #90 tabs cyclobenzaprine 5 mg tablet See Rx Instructions .Route 11/07/24 11/20/24 Rx .COMPLEX #30 tabs losartan 50 mg tablet See Rx Instructions .Route 11/07/24 11/20/24 Rx .COMPLEX #90 tabs metoprolol succinate 200 mg See Rx Instructions .Route 11/07/24 11/20/24 Rx tablet,extended release 24 hr .COMPLEX #90 tabs pantoprazole 40 mg tablet,delayed See Rx Instructions .Route 11/07/24 11/20/24 Rx release .COMPLEX #90 tabs tirzepatide 10 mg/0.5 mL See Rx Instructions .Route 11/07/24 11/20/24 Rx subcutaneous pen injector .COMPLEX #2 mL (Mounjaro) ropinirole 0.25 mg tablet 0.25 mg PO HS #14 tabs 11/14/24 11/20/24 Rx sod picosulf 10 mg-magnes 3.5 175 ml PO DAILY 2 doses #350 mL 11/20/24 11/20/24 Rx gram-citric 12 gram/175 mL oral solution (Clenpiq) New Prescriptions to Start Prescriptions: Allergies Allergy/AdvReac Type Severity Reaction Status Date / Time daptomycin Allergy Severe Muscle Pain Verified 11/20/24 08:51 chocolate flavor (From Allergy Unknown I-RASH Verified 11/20/24 08:51 CHOCOLATE (FOOD/DRUG)) dapoxetine AdvReac Severe Muscle Verified 11/20/24 08:51 cramps vancomycin AdvReac Mild ITCHING Verified 11/20/24 08:51 adhesive tape AdvReac Hives Verified 11/20/24 08:51 Assessment and Plan *Assessment and plan (1) Sacroiliitis: Status: Acute Category: Medical Code(s): M46.1 - Sacroiliitis, not elsewhere classified Plan Patient has had significant relief following his SI injection and does not require any additional injection therapy at this time. I will send in a 90-day supply of the ropinirole. Patient was counseled to contact our office if he needs a sooner but otherwise we would see him back in 3 months. Patient was also counseled that if he ends up needing additional reprogramming with his stimulator if he gives us a couple weeks heads up that we can coordinate with this office to be present for that follow-up appointment. Patient acknowledges understanding agrees with plan of care. Patient has been instructed to contact the clinic with any concerns before the next appointment. Dr. Elizabeth has reviewed this note and agrees with this plan of care. This note was dictated using voice recognition software and make contain errors or omissions. All injections are used with Lidocaine, Bupivacaine and dexamethasone. Occasionally urine drug screen is needed to verify patient's compliance with our office pain contract. This is ordered based off specific treatments related to chronic pain with the potential to abuse certain medications.
[2024-12-02 11:28] VITALS: BP 150/83; PULSE 88; RESP 16; O2SAT 97; BMI 31.9
== END 2024-12-02 23:59 | disposition home or self-care (01) ==
PROVIDERS: PCP Internal Medicine; Visit Provider Nurse Practitioner Family
DX: M46.1 Sacroiliitis, not elsewhere classified (principal); Z79.899 Other long term (current) drug therapy
CPT/HCPCS: 99212; G0463

== ENCOUNTER 2024-12-16 07:41 | Outpatient (CLI) | payer MEDICARE, SELFPAY ==
--- NOTE | 2024-12-16 07:45 | XR_ITS ---
FINAL REPORT CLINICAL HISTORY: .abd pain COMPARISON: None FINDINGS: A single view of the abdomen was obtained. There is a nonobstructive bowel gas pattern. There are no abnormally dilated loops of small bowel. There are no abnormal calcifications. There is a stimulator device in the lower thoracic spine. IMPRESSION: Nonobstructive bowel gas pattern. Reviewed, Interpreted and Dictated by Joaquim Montalvo MD Transcribed by Carolina Jones Authenticated and [facility]
== END 2024-12-16 23:59 | disposition home or self-care (01) ==
LOC: RAD 07:43
PROVIDERS: PCP Internal Medicine; Visit Provider Internal Medicine
DX: R10.9 Unspecified abdominal pain (principal)
CPT/HCPCS: 74018

== ENCOUNTER 2024-12-17 07:51 | Day surgery (SDC) | payer MEDICARE, SELFPAY ==
[2024-12-13 16:41] VITALS: BMI 31.9
[2024-12-17 08:16] VITALS: BP 141/91; PULSE 92; RESP 18; TEMP 36.2; O2SAT 100
--- NOTE | 2024-12-17 08:35 | P.HP_ITS ---
HPI HPI HPI: This is a 49-year-old gentleman who presents for colonoscopy. His most recent colonoscopy in September 2023 was somewhat complicated by moderate bowel preparation and fairly significant spasticity/lack of relaxation. Hemorrhoidal tags noted. Multiple complex polyps noted. A large complex inflammatory periappendiceal polyp was excised. A benign polyp of the right colon was excised. A tubular adenoma at 35 cm was also excised. [facility] Disclaimer: The information contained in this section may have been updated after the patient was seen, as this information can be updated by other users. 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, left leg, subsequent encounter Primary osteoarthritis, left ankle and foot Hypertrophic scar Neuropathy Left leg weakness Acquired pes cavus Left hip pain Multiple joint pain Postoperative pain Postoperative edema Tenosynovitis of left foot Acquired equinus deformity of both feet Tear of peroneal tendon of left foot Impingement of left ankle joint Osteochondral defect of talus Type 2 diabetes mellitus with diabetic polyneuropathy, without long-term current use of insulin Foot pain Diastolic heart failure Crescendo angina Pulmonary HTN Abnormal EKG Family history of heart disease Unstable angina Sinus tachycardia Chest pain Osteoarthritis Heel spur Edema of left lower extremity Diabetic foot Gout Peroneal tendinitis of left lower leg Pain of right heel Plantar fasciitis of right foot Obesity (BMI 30-39.9) Dermatitis Diabetes mellitus Class II obesity Hyponatremia DKA (diabetic ketoacidoses) Renal insufficiency Hyperlipidemia Hypertension Surgical History History of colonoscopy History of cholecystectomy History of foot surgery 01/2021, 10/2021 History of ankle surgery tendons and ligaments 01/2021, 10/2021 Status post left foot surgery S/P peroneal tendon repair Family History Other Family history of diabetes mellitus type II Family history of hypertension Social History Smoking Status: Never smoker second hand exposure: Yes alcohol intake: current alcohol intake frequency: holidays/special occasions only substance use type: denies use current occupational status: disabled Travel in the last 8 weeks?: None household members: significant other housing: house current occupation: . current occupational exposures/hazards: No caffeine: Yes Have you lived/traveled outside US in past 30 days?: No Contact w/someone who lives/traveled outside US past 30 days?: No Exposure to someone with infectious disease in past 14 days?: No Do you have a fever (greater than 100.4 F or 38 C)?: No Have you tested positive for COVID-19?: No Exposed to someone with COVID-19 in past 14 days?: No Do you have a sore throat?: No Do you have a cough?: No Do you have any weakness?: No Do you have any diarrhea?: No Are you experiencing any unusual bleeding?: No Do you have any muscle aches/pain?: No Do you have any abdominal pain?: No Are you experiencing loss of taste or smell?: No Other Medical History Have you received the Flu Vaccine for this season: Yes Have you received the Pneumonia Vaccine: Yes Review of Systems Review of Systems Review of systems:: pertinent systems reviewed and negative unless documented below Meds Home Medications and Allergies Home Medications ?Medication ?Instructions ?Recorded ?Confirmed ?Type aspirin 81 mg tablet,delayed 81 mg PO DAILY Heart Health 01/12/21 12/13/24 History release cholecalciferol (vitamin D3) 50 50 mcg PO DAILY Supplement 09/04/23 12/13/24 History mcg (2,000 unit) tablet blood sugar diagnostic (True #50 ea 09/14/23 12/13/24 Rx Metrix Pro Test Strip) empagliflozin 25 mg tablet 25 mg PO DAILY #30 tabs 10/08/24 12/13/24 Rx (Jardiance) gabapentin 600 mg tablet 600 mg PO TID #90 tabs 10/08/24 12/13/24 Rx (Neurontin) levocetirizine 5 mg tablet 5 mg PO DAILY #30 tabs 10/16/24 12/13/24 Rx (Allergy Relief (levocetirizine)) promethazine 12.5 mg tablet 12.5 mg PO Q6H PRN nausea and 10/30/24 12/13/24 Rx vomiting #30 tabs amlodipine 5 mg tablet See Rx Instructions .Route 11/07/24 12/13/24 Rx .COMPLEX #90 tabs atorvastatin 20 mg tablet See Rx Instructions .Route 11/07/24 12/13/24 Rx .COMPLEX #90 tabs cyclobenzaprine 5 mg tablet See Rx Instructions .Route 11/07/24 12/13/24 Rx .COMPLEX #30 tabs losartan 50 mg tablet See Rx Instructions .Route 11/07/24 12/13/24 Rx .COMPLEX #90 tabs metoprolol succinate 200 mg See Rx Instructions .Route 11/07/24 12/13/24 Rx tablet,extended release 24 hr .COMPLEX #90 tabs pantoprazole 40 mg tablet,delayed See Rx Instructions .Route 11/07/24 12/13/24 Rx release .COMPLEX #90 tabs tirzepatide 10 mg/0.5 mL See Rx Instructions .Route 11/07/24 12/13/24 Rx subcutaneous pen injector .COMPLEX #2 mL (Mounjaro) ropinirole 0.25 mg tablet 0.25 mg PO HS #90 tabs 12/02/24 12/13/24 Rx tirzepatide 7.5 mg/0.5 mL 7.5 mg (0.5 mL) SQ WEEKLY #2.5 mL 12/04/24 12/13/24 Rx subcutaneous pen injector (Mounjaro) New Prescriptions to Start Prescriptions: Allergies Allergy/AdvReac Type Severity Reaction Status Date / Time daptomycin Allergy Severe Muscle Pain Verified 12/04/24 13:55 chocolate flavor (From Allergy Unknown I-RASH Verified 12/04/24 13:55 CHOCOLATE (FOOD/DRUG)) dapoxetine AdvReac Severe Muscle Verified 12/04/24 13:55 cramps vancomycin AdvReac Mild ITCHING Verified 12/04/24 13:55 adhesive tape AdvReac Hives Verified 12/04/24 13:55 Exam Data for Last 24 hours Vital signs and Labs for Last 24 Hours: Temp Pulse Resp BP Pulse Ox O2 Del Method 97.2 F L 92 H 18 141/91 H 100 Room Air 12/17/24 08:16 12/17/24 08:16 12/17/24 08:16 12/17/24 08:16 12/17/24 08:16 12/17/24 08:16 I & O for Last 24 hours: Intake & Output 12/14/24 12/15/24 12/16/24 12/17/24 11:59 11:59 11:59 11:59 Weight 210 lb Constitutional Constitutional: no acute distress *Routine HEENT Exam Head: Present normocephalic Eye: Present EOMI ENT: Present mucous membranes moist *Routine Neck Exam Neck: Present full ROM *Routine Respiratory Exam Respiratory: Absent respiratory distress *Routine Cardiovascular Exam Cardiovascular: Absent tachycardia *Routine Abdominal Exam Abdominal: Present soft *Routine Rectal Exam Rectal:: deferred *Routine Genitalia Exam Genitalia:: deferred *Routine Extremities Exam Extremities: Present full ROM *Routine Skin Exam Skin: Absent erythema *Routine Neurological Exam Neurological: Present alert Assessment and Plan *Assessment and plan (1) History of colon polyps: Status: Acute Category: Medical Code(s): Z86.0100 - Personal history of colon polyps, unspecified Plan: Colonoscopy today I have discussed the risks and benefits including, but not limited to: Bleeding Infection Damage to surrounding tissue Inherent risks of sedation The patient agrees to proceed.
--- NOTE | 2024-12-17 08:37 | HMH.SCOPE ---
Procedure: Date: 12/17/24 Patient Date of :: 1975 Procedure Performed:: Colonoscopy with polypectomy Indications:: History of colon polyps Note: His most recent colonoscopy in September 2023 was somewhat complicated by moderate bowel preparation and fairly significant spasticity/lack of relaxation. Hemorrhoidal tags noted. Multiple complex polyps noted. A large complex inflammatory periappendiceal polyp was excised. A benign polyp of the right colon was excised. A tubular adenoma at 35 cm was also excised. Performing Provider:: Tj Friedman MD Referring Provider:: . Sedation:: Monitored anesthesia care Procedure:: After informed consent was obtained the patient was taken to the endoscopy suite. Sedation ensued after the patient was transferred to the left lateral decubitus position. Pulse, blood pressure, and oxygen saturation were monitored throughout the procedure. Digital rectal exam revealed no significant abnormality. The colonoscope was placed in position. The entire colon was evaluated. The colonoscope was carefully removed and the patient was transferred to recovery in stable condition. Please see findings and specimens below for detail. Findings:: Bowel preparation moderate to poor Fairly severe spasticity Mild hemorrhoidal cushions Lobulated sessile polyp at 25 cm Specimens:: Lobulated sessile polyp at 25 cm (hot snare) Recommendations:: Timing of repeat colonoscopy is pending pathology will likely be between 2-3 years secondary to history of complex polyps, moderate to poor bowel preparation, and severe spasticity. Patient continues to have intermittent abdominal pain and will likely be evaluated by the gastroenterology service in the near future. If the patient undergoes gastroenterology evaluation his next colonoscopy will be deferred to their service Complications:: No immediate Estimated blood obtained (mL): 1 Colonoscopy Component Colonoscopy Component Was a colonoscopy performed during today's procedure?: Yes Recommended follow up colonoscopy of at least 10 years?: No If no, follow up colonoscopy recommended in ___ years?: (See above) Reason for not recommending >/= 10 yr follow-up interval?: (See above)
--- NOTE | 2024-12-17 08:42 | EXP.ANES.CKL ---
[facility] Disclaimer: The information contained in this section may have been updated after the patient was seen, as this information can be updated by other users. 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, left leg, subsequent encounter Primary osteoarthritis, left ankle and foot Hypertrophic scar Neuropathy Left leg weakness Acquired pes cavus Left hip pain Multiple joint pain Postoperative pain Postoperative edema Tenosynovitis of left foot Acquired equinus deformity of both feet Tear of peroneal tendon of left foot Impingement of left ankle joint Osteochondral defect of talus Type 2 diabetes mellitus with diabetic polyneuropathy, without long-term current use of insulin Foot pain Diastolic heart failure Crescendo angina Pulmonary HTN Abnormal EKG Family history of heart disease Unstable angina Sinus tachycardia Chest pain Osteoarthritis Heel spur Edema of left lower extremity Diabetic foot Gout Peroneal tendinitis of left lower leg Pain of right heel Plantar fasciitis of right foot Obesity (BMI 30-39.9) Dermatitis Diabetes mellitus Class II obesity Hyponatremia DKA (diabetic ketoacidoses) Renal insufficiency Hyperlipidemia Hypertension Surgical History History of colonoscopy History of cholecystectomy History of foot surgery 01/2021, 10/2021 History of ankle surgery tendons and ligaments 01/2021, 10/2021 Status post left foot surgery S/P peroneal tendon repair Family History Other Family history of diabetes mellitus type II Family history of hypertension Social History Smoking Status: Never smoker second hand exposure: Yes alcohol intake: current alcohol intake frequency: holidays/special occasions only substance use type: denies use current occupational status: disabled Travel in the last 8 weeks?: None household members: significant other housing: house current occupation: . current occupational exposures/hazards: No caffeine: Yes Have you lived/traveled outside US in past 30 days?: No Contact w/someone who lives/traveled outside US past 30 days?: No Exposure to someone with infectious disease in past 14 days?: No Do you have a fever (greater than 100.4 F or 38 C)?: No Have you tested positive for COVID-19?: No Exposed to someone with COVID-19 in past 14 days?: No Do you have a sore throat?: No Do you have a cough?: No Do you have any weakness?: No Do you have any diarrhea?: No Are you experiencing any unusual bleeding?: No Do you have any muscle aches/pain?: No Do you have any abdominal pain?: No Are you experiencing loss of taste or smell?: No [facility] Anesthesia Checklist Patient Identification Patient Identification: Arm Band Structural Data Admitted From: Home Planned Operative Procedure/s: Colonoscopy Consent for Planned Operative Procedure(s) Verified: Yes Verified Documents: Surgical Consent and History and Physical NPO Status Verified Time NPO: 00:00 Additional verifications Anesthesia Reactions: No Hx Blood Transfusions: No Blood Transfusion Reaction: No Airway Assessment Mallampati Score:: Class II C-Spine Mobility Assessed: Yes TMJ Mobility Assessed: Yes Dentition: Good Dentition Neurological Assessment Level of Consciousness: Awake, Alert and Appropriate Anesthesia Plan Anesthesia Risk discussed: Yes Anesthesia Plan: Verified ASA Class: III Anesthesia Type: MAC
[2024-12-17 08:45] VITALS: O2SAT 100
[2024-12-17 09:22] VITALS: BP 87/43; PULSE 99; RESP 16; TEMP 36.5; O2SAT 92
[2024-12-17 09:32] VITALS: BP 86/57; PULSE 94; RESP 16; TEMP 36.5; O2SAT 99
[2024-12-17 09:42] VITALS: BP 112/61; PULSE 86; RESP 17; O2SAT 98
[2024-12-17 09:53] VITALS: BP 96/56; PULSE 83; RESP 18; O2SAT 99
[2024-12-17 11:49] LABS: POC Glucose,Bedside 110 (70-110)
== END 2024-12-17 09:53 | disposition home or self-care (01) ==
PROVIDERS: PCP Internal Medicine; Visit Provider Surgery
PROC: 0DJD8ZZ Inspection of Lower Intestinal Tract, Via Natural or Artificial Opening Endoscopic (ICD-10-PCS; CPT 45385; principal; 2024-12-17 09:10)
DX: Z12.11 Encounter for screening for malignant neoplasm of colon (principal); Z86.0100 Personal history of colon polyps, unspecified; K64.9 Unspecified hemorrhoids; K63.5 Polyp of colon; E11.9 Type 2 diabetes mellitus without complications
CPT/HCPCS: 45385; 82962; 88305; J2704

== ENCOUNTER 2025-06-17 08:46 | Day surgery (SDC) | payer MEDICARE, SELFPAY ==
[2025-06-17 08:52] VITALS: BP 142/97; PULSE 98; RESP 16; O2SAT 97; BMI 31.3
[2025-06-17 09:24] VITALS: BP 146/62; PULSE 90; RESP 18; O2SAT 96
[2025-06-17] MEDS: LIDOCAINE 1% 5ML PF VIAL 5 ML (09:24)
[2025-06-17] MEDS: DEXAMETHASONE 10MG/ML 1ML VIAL 10 MG (09:24)
[2025-06-17] MEDS: BUPIVACAINE 0.25% 10ML INJ 25 MG IJ (09:24)
--- NOTE | 2025-06-17 09:24 | EXP.PAIN.PRO ---
Procedure Date: 06/17/25 Time: 09:10 Anesthesiologist:: Keith Lee CRNA Complications:: None Pre-procedure Diagnosis:: Right sacroiliitis Post-procedure Diagnosis:: Same Indications for Procedure:: Patient is a very pleasant 50-year-old male who comes our clinic today for a right sacroiliac joint injection of cortisone and local anesthetic. Patient describes right low lumbar back pain as well as right posterior hip pain that is constant, dull, aching. He reports difficulty with ambulation due to the right posterior hip pain. He reports difficulty transitioning from sitting to standing. He rates his pain 7/10. Procedure Details:: Procedure: Right sacroliliac joint injection under fluoroscopy Informed consent was obtained and the risk and benefits of the procedure were explained to the patient.~ The patient was taken to the procedure room and noninvasive monitors were placed including noninvasive blood pressure cuff and pulse oximeter.~ The patient was placed prone on the procedure table.~ The~ right hip was cleansed using Betadine as a cleansing solution.~ C-arm fluorosocpy was used to view the right SI joint.~ The skin and subcutaneous tissues were anesthetized using Lidocaine 1.5% and a 25-gauge needle.~ After this, a 22-gauge spinal needle was inserted under fluoroscopic guidance into the inferior aspect of the right SI joint.~ Omnipaque dye was injected and a good spread was seen throughout the joint.~ After this, approximately 5 mL of bupivacaine 0.25% and dexamethasone 10 mg mg was incrementally injected into the sacroiliac joint.~ The patient tolerated the procedure well with no complications.~ The patient was observed in the Pain Clinic, then discharged home neurologically intact.~ Plan and Disposition:: Patient was discharged without incident.
[2025-06-17 09:28] VITALS: BP 146/62; PULSE 90; RESP 18; O2SAT 96
[2025-06-17 09:42] VITALS: BP 130/90; PULSE 97; RESP 16; O2SAT 100
== END 2025-06-17 09:42 | disposition home or self-care (01) ==
PROVIDERS: PCP Internal Medicine; Visit Provider Nurse Anesthetist, Certified Registered
DX: M46.1 Sacroiliitis, not elsewhere classified (principal); E11.9 Type 2 diabetes mellitus without complications; I11.0 Hypertensive heart disease with heart failure; I50.30 Unspecified diastolic (congestive) heart failure; E78.5 Hyperlipidemia, unspecified; I20.9 Angina pectoris, unspecified; Z88.1 Allergy status to other antibiotic agents; Z88.8 Allergy status to other drugs, medicaments and biological substances; Z91.02 Food additives allergy status; Z91.048 Other nonmedicinal substance allergy status
CPT/HCPCS: G0260; J0665; J1100; J2003

== ENCOUNTER 2025-06-23 07:35 | Outpatient (CLI) | payer MEDICARE, SELFPAY ==
--- NOTE | 2025-06-23 07:38 | XR_ITS ---
FINAL REPORT CLINICAL HISTORY: Evaluation of Chronic Lower Extremity Pain FINDINGS: LEFT TIBIA AND FIBULA AP and lateral views were obtained. There is no acute fracture or dislocation. The joint spaces are intact. There is no soft tissue abnormality. IMPRESSION: No acute fracture Reviewed, Interpreted and Dictated by Joaquim Montalvo MD Transcribed by Beena Funez Authenticated and [facility]
--- OUTSIDE RECORDS SUMMARY | 2025-06-23 07:39 | XMS_ITS | Encounter Summary ---
Author Organization Healthcare Address [address] [place] [address] Care Team Providers Care Fisher Terrapin Name Role Phone Samuel Samuel MD Primary Care Provider Encounter Details Date Type Department Care Team (Latest Contact Info) Description 08/20/2021 [facility] [address] [place] [address] Candi Fletcher, PA [address] [place] [address] Electromyogram (EMG) abnormal (Primary Dx) Social History Tobacco Use Types Packs/Day Years Used Date Smoking Tobacco: Never Alcohol Use Standard Drinks/Week Comments No 0 (1 standard drink = 0.6 oz pur e alcohol) Sex and Gender Information Value Date Recorded Sex Assigned at Not on file Legal Sex Male 8:58 PM EDT Gender Identity Not on file Sexual Orientation Not on file documented as of this encounter Plan of Treatment Not on file documented as of this encounter Visit Diagnoses Diagnosis Electromyogram (EMG) abnormal- Primary Nonspecific abnormal electromyogram (EMG) documented in this encounter Care Teams Fisher Terrapin Relationship Specialty Start Date End Date Samuel Samuel MD [address] [place] [address] PCP - General 12/18/20 documented as of this encounter
--- OUTSIDE RECORDS SUMMARY | 2025-06-23 07:39 | XMS_ITS | Clinical Summary ---
Author Organization Healthcare Address [address] [place] [address] Care Team Providers Care Optometry Assistant Name Role Phone Samuel Samuel MD Primary Care Provider [phone] Allergies Active Allergy Reactions Criticality Noted Date Comments Chocolate Rash,Unknown - Patie nt states they do not know rxn details Low 09/20/2017 Midazolam Other - please docum ent in the comment field,Unknown - Patient states they do not know rxn details Low 05/28/2015 h/a and vomiting Benzoin Other - please docum ent in the comment field Low 11/12/2021 Medications acetaminophen-c odeine (TYLENOL/CODEIN E #3) 300-30 MG tablet 08/17/2020 Active amitriptyline (Elavil) 100 MG tablet TAKE 1 TABLET AT BEDTIME. 08/11/2020 Active atorvastatin (Lipitor) 10 MG tablet TAKE 1 TABLET DAILY. 05/02/2018 Active cholecalciferol (Vitamin D-3) 50 MCG (2000 UT) capsule TAKE 1 CAPSULE Daily 08/30/2017 Active cyclobenzaprine (Flexeril) 10 MG tablet 08/17/2020 Active empagliflozin (Jardiance) 10 MG TAKE 1 TABLET BY MOUTH ONCE DAILY 08/11/2020 Active glipiZIDE (Glucotrol) 10 MG tablet TAKE 1 TABLET DAILY. 08/11/2020 Active HYDROcodone-alondra taminophen ([place]) 5-325 MG tablet 08/17/2020 Active hydrOXYzine pamoate (Vistaril) 50 MG capsule 04/12/2017 Active linaGLIPtin (Tradjenta) 5 MG tablet TAKE 1 TABLET DAILY. 08/11/2020 Active lisinopril-hydr oCHLOROthiazide 20-12.5 MG tablet TAKE 1 TABLET TWICE DAILY. 05/18/2017 Active loratadine (Claritin) 10 MG tablet 08/17/2020 Active meloxicam (Mobic) 7.5 MG tablet 08/17/2020 Active metoprolol tartrate (Lopressor) 50 MG tablet take 1 tablet by mouth twice a day 07/28/2015 Active pantoprazole (Protonix) 40 MG EC tablet TAKE 1 TABLET DAILY. 06/11/2015 Active SITagliptin (Januvia) 100 MG tablet TAKE 1 TABLET DAILY. 08/11/2020 Active SUMAtriptan (Imitrex) 100 MG tablet 08/11/2020 Active topiramate (Topamax) 200 MG tablet 04/21/2017 Active traZODone (Desyrel) 100 MG tablet 04/12/2017 Active aspirin 81 MG EC tablet Take 81 mg by mouth 1 (one) time each day. Active Active Problems Problem Noted Date Diagnosed Date CKD (chronic kidney disease) stage 2, GFR 60-89 ml/min 08/17/2020 Microalbuminuria 08/03/2020 Vitamin D deficiency 07/28/2015 Essential hypertension 05/28/2015 Immunizations Immunization Administration Dates Next Due Hep B, adult 06/07/2014 Tdap 08/07/2009 Family History Medical History Relation Name Comments Cardiac disorder Father Diabetes Father Hyperlipidemia Father Hypertension Father Hyperlipidemia Mother Hypertension Mother Stroke Mother Diabetes Sister Relation Name Status Comments Father Mother Sister Social History Tobacco Use Types Packs/Day Years Used Date Smoking Tobacco: Never Smokeless Tobacco: Never Alcohol Use Standard Drinks/Week Comments No 0 (1 standard drink = 0.6 oz pur e alcohol) Sex and Gender Information Value Date Recorded Sex Assigned at Not on file Legal Sex Male 8:58 PM EDT Gender Identity Not on file Sexual Orientation Not on file Last Filed Vital Signs Vital Sign Reading Time Taken Comments Blood Pressure 132/100 08/17/2020 1:53 PM EST Pulse 116 08/17/2020 1:53 PM EST Temperature 36.1 C (96.9 F) 05/02/2018 9:56 AM EDT Respiratory Rate - - Oxygen Saturation - - Inhaled Oxygen Concentration - - Weight 106 kg (233 lb 15.9 oz) 08/17/2020 1:53 P M EST Height 167.6 cm (5' 6 ) 08/17/2020 1:53 PM EST Body Mass Index 37.77 08/17/2020 1:53 PM EST Plan of Treatment Health Maintenance Due Date Last Done Comments [facility]-Depression Screening 1975 [facility]-/Child/Adol SDOH Screenings 1975 [facility]- SDOH Screenings 02/26/1994 [facility]-Adult SDOH Screenings 02/26/1994 [facility]-Hepatitis B Vaccines (3 of 3 - 19+ 3-dose series) 07/01/2016 05/06/2016, 04/06/2016, 06/07/2014 [facility]-DTaP,Tdap,and Td Vaccine s (2 - Td or Tdap) 08/07/2019 08/07/2009, 10/14/1996 CT Colonography 02/26/2021 Colonoscopy 02/26/2021 FIT-DNA 02/26/2021 FIT 02/26/2021 FOBT 02/26/2021 Sigmoidoscopy 02/26/2021 [facility]-Colorectal Cancer Screening 02/26/2021 [id number] Vaccine (3 - season) 2025 08/13/2021, 10/14/2020 [facility]-Influenza Vaccine (#1) 04/07/202505/31, 06/17/2020, 06/03/2019 [facility]-Zoster Vaccines (1 of 2) 02/26/2026 HPV Vaccines Aged Out No longer eligi ble based on patient's age to complete this topic [facility]-HIB Vaccines Aged Out No longer e ligible based on patient's age to complete this topic [facility]-Hepatitis A Vaccines Aged Out No longer eligible based on patient's age to complete this topic [facility]-IPV Vaccines Aged Out No longer e ligible based on patient's age to complete this topic [facility]-Pneumococcal Vaccine: Pediatrics (0 to 5 Years) and At-Risk Patients (6 to 49 Years) Aged Out No longer eligible b ased on patient's age to complete this topic [facility]-Rotavirus Vaccines Aged Out No lo nger eligible based on patient's age to complete this topic Insurance MEDICARE Member Subscriber Plan / Payer (Ef fective 2017-Present) Name:Prakash Qureshi III Member ID:[id number] Relation to Subscriber:Self Name:Prakash Qureshi III Subscriber ID:[id number] Payer ID:MEDICARE Group ID:Not on file Type:Medicare Address: [place] [phone] Care Teams Optometry Assistant Relationship Specialty Start Date End Date Samuel Samuel MD [address] [address] [place] [address] PCP - General 12/18/20
== END 2025-06-23 23:59 ==
LOC: RAD 07:36
PROVIDERS: PCP Internal Medicine; Visit Provider Podiatrist
DX: M79.605 Pain in left leg (principal); G89.29 Other chronic pain; T14.8XXA Other injury of unspecified body region, initial encounter
CPT/HCPCS: 73590